=== PATIENT | male | born 1960 | race Caucasian/White ===

== ENCOUNTER 2017-09-09 14:53 | Emergency (ER) | payer OTHER ==
[~2017-09-09] VITALS: Ht 182.9 cm; Wt 145.6 kg
[~2017-09-09 14:53] MED LIST: ALLERGY10 MG PO; AMITRIPTYLINE 550 MG PO; AMLO5TAB PO; ASPIRIN 325MG325 MG PO; ASPIRIN CHILDRE81 M1 PO; BIAXIN500 MG PO; CARDURA4 MG PO; CYCLOBENZAPRINE10 M2 OR; ETODOLAC400 MG PO; FLEXERIL10 MG PO; FLONASE 50 MCG16 GM; FSBS SC; FUROSEMIDE 20MG20 MG FT; FUROSEMIDE40 MG PO; GABAPENTIN300 M1 PO; GLIMEPIRIDE1 MG PO; HCTZ/TRIAMTEREN1 CA2 PO; HYDROCHLOROTHIA25 M1 PO; K-DUR 20MEQ TA20 MEQ PO; LEVOFLOXACIN 5500 M1 PO; LISINOPRIL 20MG20 MG PO; LISINOPRIL40 MG PO; LOVASTATIN40 MG PO; MASON NATURAL1000 MG PO; METOPROLOL SUC100 M1 PO; METOPROLOL TART50 MG PO; METOPROLOL100 MG PO; METOPROLOL50 MG PO; NITROSTAT 0.4M0.4 MG SL; NORVASC 10MG. T10 MG PO; PHENERGAN 25MG.25 M1 PO; POTASSIUM GLUCONATE PO; PREDNISONE 20MG20 MG PO; PRILOSEC40 MG PO; PROAIR HFA0.09 MG/AC IH; PROMETHAZINE D118 ML PO; PROPAFENONE HC150 MG PO; PROVENTIL0.09 MG/AC IH; REQUIP0.5 MG PO; RYTHMOL SR425 MG PO; RYTHMOL300 MG PO; SINGULAIR10 MG PO; TESSALON PERLE100 MG PO; ULTRAM50 MG PO; VENTOLIN H0.09 MG/Ac IH; VICODIN 7.5/501 EACH PO; XARELTO20 MG PO; XOPENEX1.25 MG/3 IH; ZITHROMAX Z PA250 MG PO
--- OUTSIDE RECORDS SUMMARY | 2017-09-09 14:57 | External Medical Summary Rpt ---
Author Author [facility] Organization [facility] Address Unknown Phone Unavailable Care Team Providers Care Animal Sitter Name Role Phone ERIK, (REF) PCP [phone] Encounter [facility] Date(s): 10/01/16 - 10/01/16 [facility] [address] [place] [address]- Discharge Disposition: OP Self Care or Home Attending Physician: CRISTINA LATHAM MD-CAR Admitting Physician: CRISTINA LATHAM MD-CAR Referring Physician: CRISTINA LATHAM MD-CAR Reason for Visit CHEST PAIN, UNSPECIFIED Vital Signs Most recent 1 2 3 to oldest [Reference Range]: Temperature Temporal artery Source scanning (10/01/16 9:00 AM) Temperature Fahrenheit Mode (10/01/16 9:00 AM) Temperature, 96.5 Deg F Fahrenheit *LOW*(10/01/16 [96.8-99.7 9:00 AM) Deg F] Clinical 35.8 Deg C Temperature, (10/01/16 9:00 C AM) Heart Rate, 81 bpm (10/01/16 Apical 9:00 AM) [60-100 bpm] Heart Rate 80 bpm (10/01/16 86 bpm (10/01/16 78 bpm (10/01/16 Monitored 1:45 PM) 1:30 PM) 1:15 PM) [60-100 bpm] Respiratory 11 Breaths/Min 11 Breaths/Min 6 Breaths/Min Rate [14-20 *LOW*(10/01/16 *LOW*(10/01/16 *LOW*(10/01/16 Breaths/Min] 1:45 PM) 1:30 PM) 1:15 PM) Blood Arm, right upper Pressure (10/01/16 9:00 Location AM) Blood Non-Invasive BP Pressure Device (10/01/16 Source 9:00 AM) Blood Side, Right Pressure (10/01/16 9:00 Position AM) Blood 159/91 mmHg Pressure *HI*(10/01/16 [90-140/60-9 9:00 AM) 0 mmHg] Oxygen 91 % 91 % 90 % Saturation *LOW*(10/01/16 *LOW*(10/01/16 *LOW*(10/01/16 [94-100 %] 1:45 PM) 1:30 PM) 1:15 PM) Oxygen Room air Therapy Mode (10/01/16 9:00 AM) Problem List Condition Effective Status Health Informant Dates Status Atrial Active patient fibrillation (Confirmed) Amputation(C Active patient onfirmed) Angina(Confi Active patient rmed) Atrial Active patient flutter(Conf irmed) Diabetes Active patient mellitus type II(Confirmed ) GERD - Active patient Gastro-esoph ageal reflux disease(Conf irmed) Heart Active patient valve(Confir med) Hiatal Active patient hernia(Confi rmed) Histoplasmos Active patient is(Confirmed ) Hyperlipidem Active patient ia(Confirmed ) Hypertension Active patient (Confirmed) COPD, Active patient mild(Confirm ed) Pancreatitis Active patient (Confirmed) PSVT Active patient (paroxysmal supraventric ular tachycardia) (Confirmed) Sleep Active patient apnea(Confir med) Allergies, Adverse Reactions, Alerts Substance Reaction Severity Status Bactrim Active ciprofloxacin Active penicillin Active Medications amitriptyline (amitriptyline 50 mg oral tablet)1 Tab, Oral, At Bedtime, Refills: 0 amLODIPine (amLODIPine 10 mg oral tablet) 1 Tab, Oral, Every Day, Refills: 0 aspirin (aspirin 325 mg oral tablet) 1 Tab, Oral, Every Day, Refills: 0 furosemide (furosemide 20 mg oral tablet) 1 Tab, Oral, Every Day, Refills: 0 lisinopril (lisinopril 40 mg oral tablet) 1 Tab, Oral, Every Day, Refills: 0 lovastatin (lovastatin 40 mg oral tablet) 1 Tab, Oral, Every Day, Refills: 0 metoprolol (metoprolol tartrate) 100 mg, Oral, Three Times A Day, Refills: 0 nitroglycerin (Nitrostat 0.4 mg sublingual tablet)1 Tab, SubLINgual , every 5 minutes, If chest pain not relieved in 5 minutes after first dose, seek immediate medical attention, As Needed, Chest Pain, Refills: 0 potassium chloride (potassium chloride 20 mEq oral tablet, extended release)1 Tab, Oral, Every Day, Refills: 0 rivaroxaban (Xarelto 20 mg oral tablet) 1 Tab, Oral, Every Day, Refills: 0 Results BLOOD GASES Most recent 1 to oldest [Reference Range]: tCO2 Roberto POC 29.0 mmol/L [24.0-29.0 (10/01/16 9:31 AM) mmol/L] GENERAL CHEMISTRY Most recent 1 to oldest [Reference Range]: eGFR 121 mL/min/1.73m2 [>=60 (10/01/16 9:31 AM) mL/min/1.73m 2] eGFR 100 mL/min/1.73m2 NonAfrican (10/01/16 9:31 AM) [>=60 mL/min/1.73m 2] Sodium POC 141 mmol/L [138-146 (10/01/16 9:31 AM) mmol/L] Potassium 3.9 mmol/L POC [3.5-4.9 (10/01/16 9:31 AM) mmol/L] Chloride POC 98 mmol/L [98-109 (10/01/16 9:31 AM) mmol/L] Anion Gap 18.0 mmol/L POC (10/01/16 9:31 AM) [10.0-20.0 mmol/L] Glucose POC 154 mg/dL [70-105 *HI* mg/dL] (10/01/16 9:31 AM) BUN POC 14 mg/dL [8-26 mg/dL] (10/01/16 9:31 AM) Creatinine 0.8 mg/dL POC [0.6-1.3 (10/01/16 9:31 AM) mg/dL] Ca Ioniz POC 1.16 mmol/L [1.12-1.32 (10/01/16 9:31 AM) mmol/L] HEMATOLOGY Most recent 1 to oldest [Reference Range]: Platelet 411 K/uL Count *HI* [163-369 (10/01/16 9:00 AM) K/uL] Hematocrit 51.0 % POC (10/01/16 9:31 AM) [38.0-51.0 %] Hemoglobin 17.3 Gram/dL POC *HI* [12.0-17.0 (10/01/16 9:31 AM) Gram/dL] Immunizations No data available for this section Procedures Procedure Date Related Body Site Diagnosis cholecystectomy Cholecystectomy; heart cath x 2 Hernia Repair T and A as child ventral hernia repair Social History Social History Response Type Smoking Status Current every day smoker; Tobacco Use Within Last Twelve Months Cigarettes; Years of Tobacco Use 40; Packs/Tins Daily 1 Assessment and Plan No data available for this section Hospital Discharge Instructions Patient EducationConscious Sedation, Adult, Care After Transradial Angiography
--- OUTSIDE RECORDS SUMMARY | 2017-09-09 14:57 | External Medical Summary Rpt ---
Author Author [facility] Organization [facility] Address Unknown Phone Unavailable Care Team Providers Care Supervisor Matrix Name Role Phone ERIK, (REF) PCP [phone] Encounter [facility] Date(s): 10/01/16 - 10/01/16 [facility] [address] [place] [address]- [phone] Discharge Disposition: OP Self Care or Home [...]
--- OUTSIDE RECORDS SUMMARY | 2017-09-09 14:58 | External Medical Summary Rpt ---
Author Author [facility] Organization [facility] Address Unknown Phone Unavailable Care Team Providers Care Disintegrator Operator Name Role Phone FITO CARDONA PCP [phone] Encounter [facility] Date(s): 10/02/16 - 10/04/16 [facility] [address] [place] [address]- [phone] Discharge Diagnosis: Atrial flutter, paroxysmal Discharge Diagnosis: Persistent atrial fibrillation Discharge Disposition: OP Self Care or Home Attending Physician: SAVI NIELSON MD-CAR Admitting Physician: SAVI NIELSON MD-CAR Referring Physician: SAVI NIELSON MD-CAR Reason for Visit CHRONIC ATRIAL FIBRILLATION Vital Signs Most recent 1 2 3 to oldest [Reference Range]: Temperature Temporal artery Source scanning (10/04/16 6:10 AM) Temperature Fahrenheit Mode (10/04/16 6:10 AM) Temperature, 98.1 Deg F Fahrenheit (10/04/16 6:10 [96.8-99.7 AM) Deg F] Clinical 36.7 Deg C Temperature, (10/04/16 6:10 C AM) Pulse Method Non-Invasive BP Device (10/04/16 6:10 AM) Heart Rate, 86 bpm (10/04/16 Apical 11:34 AM) [60-100 bpm] Peripheral 74 bpm (10/04/16 Pulse Rate 6:10 AM) [60-100 bpm] Heart Rate 100 bpm (10/04/16 96 bpm (10/04/16 96 bpm (10/04/16 Monitored 4:15 PM) 3:45 PM) 3:15 PM) [60-100 bpm] Respiratory 21 Breaths/Min 27 Breaths/Min 28 Breaths/Min Rate [14-20 *HI*(10/04/16 *HI*(10/04/16 *HI*(10/04/16 Breaths/Min] 4:15 PM) 3:45 PM) 3:15 PM) Blood Arm, right upper Pressure (10/04/16 6:10 Location AM) Blood Non-Invasive BP Pressure Device (10/04/16 Source 6:10 AM) Blood 140/69 mmHg 121/66 mmHg 124/66 mmHg Pressure (10/04/16 4:15 (10/04/16 3:45 (10/04/16 3:15 [90-140/60-9 PM) PM) PM) 0 mmHg] Mean 92 (10/04/16 4:15 79 (10/04/16 3:45 83 (10/04/16 3:15 Arterial PM) PM) PM) Pressure (MAP)-BMDI Oxygen 94 % (10/04/16 94 % (10/04/16 91 % Saturation 2:45 PM) 2:30 PM) *LOW*(10/04/16 [94-100 %] 2:15 PM) Oxygen Room air Room air Room air Therapy Mode (10/04/16 1:45 (10/04/16 1:30 (10/04/16 1:15 PM) PM) PM) Problem List Condition Effective Status Health Informant Dates Status Atrial Active patient fibrillation (Confirmed) Allergic Active patient rhinitis(Con firmed) Angina(Confi Active patient rmed) Arthritis(Co Active patient nfirmed) Atrial Active patient flutter(Conf irmed) Back Active patient pain(Confirm ed) Bronchitis(C Active patient onfirmed) Bursitis(Con Active patient firmed) Chronic Active patient constipation (Confirmed) Chronic Active patient cough(Confir med) Diabetes Active patient mellitus type II(Confirmed ) GERD - Active patient Gastro-esoph ageal reflux disease(Conf irmed) Hard of Active patient hearing(Conf irmed) Heart Active patient failure(Conf irmed) Heart Active patient valve(Confir med) Hemorrhoids( Active patient Confirmed) Hiatal Active patient hernia(Confi rmed) Histoplasmos Active patient is(Confirmed ) Hx of Active patient seborrhea(Co nfirmed) Hyperlipidem Active patient ia(Confirmed ) Hypertension Active patient (Confirmed) COPD, Active patient mild(Confirm ed) Pancreatitis Active patient (Confirmed) PSVT Active patient (paroxysmal supraventric ular tachycardia) (Confirmed) Peripheral Active patient neuropathy(C onfirmed) Peripheral Active patient vascular disease(Conf irmed) Pneumonia(Co Active patient nfirmed) Restless Active patient legs syndrome(Con firmed) Sinusitis(Co Active patient nfirmed) Sleep Active patient apnea(Confir med) Allergies, Adverse Reactions, Alerts Substance Reaction Severity Status Bactrim rash , fever Active ciprofloxacin hives Active penicillin anaphylaxis as child Active tetracyclines unsure Active Medications albuterol (albuterol 1.25 mg/3 mL (0.042%) inhalation solution)3 mL, Nebulized Inhalation , Four Times A Day, As Needed, Wheezing, Refills: 0 albuterol (ProAir HFA) 1-2 Puff, Inhalation, Every 4 Hours, As Needed, as needed for wheezing, Refills: 0 furosemide (furosemide 40 mg oral tablet) 1 Tab, Oral, Every Day, Refills: 0 gabapentin (gabapentin 300 mg oral capsule) 1 Cap, Oral, Two Times A Day, Refills: 0 montelukast (Singulair 10 mg oral tablet) 1 Tab, Oral, At Bedtime, Refills: 0 propafenone (propafenone 425 mg oral capsule, extended release)1 Cap, Oral, every 12 hours, ON HOLD UNTIL FURTHER ORDERS FROM DR. NIELSON, Refills: 0Patient Instructions: Ok to resume dose tonight 10/04/2016 at bedtime. Results BLOOD GASES Most recent 1 to oldest [Reference Range]: tCO2 Roberto POC 28.0 mmol/L [24.0-29.0 (10/04/16 6:10 AM) mmol/L] GENERAL CHEMISTRY Most recent to oldest [Reference Range]: eGFR 141 mL/min/1.73m2 [>=60 (10/04/16 6:10 AM) mL/min/1.73m 2] eGFR 117 mL/min/1.73m2 NonAfrican (10/04/16 6:10 AM) [>=60 mL/min/1.73m 2] Sodium POC 141 mmol/L [138-146 (10/04/16 6:10 AM) mmol/L] Potassium 3.9 mmol/L POC [3.5-4.9 (10/04/16 6:10 AM) mmol/L] Chloride POC 99 mmol/L [98-109 (10/04/16 6:10 AM) mmol/L] Anion Gap 18.0 mmol/L POC (10/04/16 6:10 AM) [10.0-20.0 mmol/L] Glucose POC 153 mg/dL [70-105 *HI* mg/dL] (10/04/16 6:10 AM) BUN POC 11 mg/dL [8-26 mg/dL] (10/04/16 6:10 AM) Creatinine 0.7 mg/dL POC [0.6-1.3 (10/04/16 6:10 AM) mg/dL] Ca Ioniz POC 1.19 mmol/L [1.12-1.32 (10/04/16 6:10 AM) mmol/L] HEMATOLOGY Most recent 1 to oldest [Reference Range]: Platelet 328 K/uL Count (10/04/16 6:07 AM) [163-369 K/uL] Hematocrit 50.0 % POC (10/04/16 6:10 AM) [38.0-51.0 %] Hemoglobin 17.0 Gram/dL POC (10/04/16 6:10 AM) [12.0-17.0 Gram/dL] Immunizations No data available for this section Procedures No data available for this section Social History Social History Response Type Smoking Status Current every day smoker; Tobacco Use Within Last Twelve Months Cigarettes; Years of Tobacco Use 40; Packs/Tins Daily 1 Assessment and Plan No data available for this section Hospital Discharge Instructions Patient EducationCardiac Ablation Conscious Sedation, Adult, Care After Electrical Cardioversion, Care After Electrophysiology Study Groin Site Care (Custom) (Custom) Smoking Cessation Transesophageal Echocardiogram
--- OUTSIDE RECORDS SUMMARY | 2017-09-09 14:58 | External Medical Summary Rpt ---
Author Author [facility] Organization [facility] Address Unknown Phone Unavailable Care Team Providers Care Olive Picker Name Role Phone FITO CARDONA PCP [phone] Encounter [facility] Date(s): 10/02/16 - 10/04/16 [facility] [address] [place] [address]- [phone] Discharge Diagnosis: Atrial flutter, paroxysmal Discharge Diagnosis: [...]
--- OUTSIDE RECORDS SUMMARY | 2017-09-09 15:00 | External Medical Summary Rpt ---
Author Author [facility] Organization [facility] Address Unknown Phone Unavailable Care Team Providers Care Supervisory Aide Name Role Phone BRENDAN FITO PCP [phone] [facility]16 - 10/17/16 [facility] [address] [place] [id number]- Discharge Disposition: IP Self Care / Home Attending Physician: FLAQUITO SANTANA MD Admitting Physician: FLAQUITO SANTANA MD Referring Physician: FLAQUITO SANTANA MD Reason for Visit NONTRAUMATIC HEMATOMA OF SOFT TISSUE Vital Signs Most recent 1 2 3 to oldest [Reference Range]: Temperature Oral (10/17/16 Oral (10/16/16 Oral (10/16/16 Source 6:00 AM) 10:30 PM) 5:20 PM) Temperature Fahrenheit Fahrenheit Fahrenheit Mode (10/17/16 6:00 (10/16/16 10:30 (10/16/16 5:20 AM) PM) PM) Temperature, 97.5 Deg F 98.3 Deg F 98.0 Deg F Fahrenheit (10/17/16 6:00 (10/16/16 10:30 (10/16/16 5:20 [96.8-99.7 AM) PM) PM) Deg F] Clinical 36.4 Deg C 36.8 Deg C 36.1 Deg C Temperature, (10/17/16 6:00 (10/16/16 10:30 (10/16/16 12:00 C AM) PM) PM) Heart Rate, 87 bpm (10/17/16 86 bpm (10/17/16 82 bpm (10/17/16 Apical 1:54 PM) 8:58 AM) 2:59 AM) [60-100 bpm] Heart Rate 86 bpm (10/17/16 80 bpm (10/17/16 72 bpm (10/17/16 Monitored 12:05 PM) 7:35 AM) 7:30 AM) [60-100 bpm] Respiratory 18 Breaths/Min 16 Breaths/Min 16 Breaths/Min Rate [14-20 (10/17/16 12:05 (10/17/16 7:35 (10/17/16 7:30 Breaths/Min] PM) AM) AM) Blood 132/70 mmHg 138/66 mmHg 102/84 mmHg Pressure (10/17/16 8:58 (10/17/16 6:00 (10/16/16 10:30 [90-140/60-9 AM) AM) PM) 0 mmHg] Mean 82 (10/17/16 6:00 88 (10/16/16 85 (10/16/16 Arterial AM) 10:30 PM) 12:00 PM) Pressure (MAP)-BMDI Blood 179/52 mmHg 163/59 mmHg 154/50 mmHg Pressure *HI*(10/08/16 *HI*(10/08/16 *HI*(10/08/16 Invasive 9:00 AM) 8:00 AM) 7:00 AM) [90-140/60-9 0 mmHg] Mean 82 mmHg (10/08/16 88 mmHg (10/08/16 79 mmHg (10/08/16 Arterial 9:00 AM) 8:00 AM) 7:00 AM) Pressure, Line 1 Oxygen 96 % (10/17/16 100 % (10/17/16 97 % (10/17/16 Saturation 12:05 PM) 7:35 AM) 7:30 AM) [94-100 %] Oxygen Room air Room air Room air Therapy Mode (10/17/16 12:05 (10/17/16 7:35 (10/17/16 7:31 PM) AM) AM) Oxygen Flow 3 Liter/Min 3 Liter/Min 3 Liter/Min Rate (10/16/16 8:20 (10/16/16 6:45 (10/16/16 12:50 AM) AM) AM) FiO2 Nursing 35 % (10/10/16 35 % (10/10/16 35 % (10/09/16 3:10 AM) 3:03 AM) 10:34 PM) Problem List Condition Effective Status Health [...] as child Active tetracyclines unsure Active Medications acetaminophen-oxyCODONE (acetaminophen-oxyCODONE 325 mg-5 mg oral tablet)1 Tab, Oral, Every 6 Hours, 5 Day(s), As Needed, Pain (Moderate 4-6), Refills: 0Patient Instructions: Written RXOrdering provider: BELA SALTER MD-INT albuterol (albuterol 2.5 mg/3 mL (0.083%) inhalation solution)3 mL, Nebulized Inhalation , Every 6 Hours, As Needed, for wheezing, Refills: 0 albuterol (ProAir HFA 90 mcg/inh inhalation aerosol)2 Puff, Inhalation, Four Times A Day, As Needed, for wheezing, Refills: 0 aspirin (aspirin 81 mg oral tablet)1 Tab, Oral, Every Day, 30 Day(s), Refills: 0Patient Instructions: Written RXOrdering provider: BELA SALTER MD-INT cefdinir (cefdinir 300 mg oral capsule)1 Cap, Oral, every 12 hours, 2 Day(s), Refills: 0Patient Instructions: Written RXOrdering provider: BELA SALTER MD-INT ferrous sulfate (ferrous sulfate 325 mg (65 mg elemental iron) oral delayed release tablet)1 Tab, Oral, Twice a Day With Meals, Refills: 0Patient Instructions: Written RXOrdering provider: BELA SALTER MD-INT furosemide (Lasix 20 mg oral tablet) 1 Tab, Oral, Every Day, Refills: 0 metoprolol (Metoprolol Tartrate 100 mg oral tablet)1 Tab, Oral, Two Times A Day, Refills: 0Patient Instructions: Written RXOrdering provider: BELA SALTER MD-INT rivaroxaban (Xarelto 20 mg oral tablet)1 Tab, Oral, Every Evening, with evening meal, Refills: 0Patient Instructions: Written RxOrdering provider: BELA SALTER MD-INT triamcinolone topical (triamcinolone 0.1% topical cream)1 Application, Topical, Two Times A Day, apply to face as directed, Refills: 0 Results BLOOD GASES Most recent 1 2 3 to oldest [Reference Range]: pH Art 7.41 (10/08/16 7.39 (10/07/16 7.38 (10/07/16 [7.35-7.45] 3:10 AM) 2:00 PM) 9:30 AM) pCO2 Art 41.8 mmHg 41.9 mmHg 42.6 mmHg [35.0-45.0 (10/08/16 3:10 (10/07/16 2:00 (10/07/16 9:30 mmHg] AM) PM) AM) pO2 Art 92.3 mmHg 75.5 mmHg 80.5 mmHg [80.0-100.0 (10/08/16 3:10 *LOW*(10/07/16 (10/07/16 9:30 mmHg] AM) 2:00 PM) AM) HCO3 Art 25.7 mmol/L 24.9 mmol/L 24.7 mmol/L [20.0-26.0 (10/08/16 3:10 (10/07/16 2:00 (10/07/16 9:30 mmol/L] AM) PM) AM) BE Art 1.4 mmol/L .5 mmol/L .2 mmol/L [-2.0-2.0 (10/08/16 3:10 (10/07/16 2:00 (10/07/16 9:30 mmol/L] AM) PM) AM) sO2 Art 96.7 % (10/08/16 94.1 % 94.9 % [95.0-100.0 3:10 AM) *LOW*(10/07/16 *LOW*(10/07/16 %] 2:00 PM) 9:30 AM) tHb Art 9.1 Gram/dL 9.3 Gram/dL 9.1 Gram/dL [12.0-18.0 *LOW*(10/08/16 *LOW*(10/07/16 *LOW*(10/07/16 Gram/dL] 3:10 AM) 2:00 PM) 9:30 AM) FHHb 3.2 % 5.8 % 5.0 % *NA*(10/08/16 *NA*(10/07/16 *NA*(10/07/16 3:10 AM) 2:00 PM) 9:30 AM) ctO2 12.2 mmol/L 12.1 mmol/L 11.9 mmol/L *NA*(10/08/16 *NA*(10/07/16 *NA*(10/07/16 3:10 AM) 2:00 PM) 9:30 AM) FIO2 Art 35 % 50 % 50 % *NA*(10/08/16 *NA*(10/07/16 *NA*(10/07/16 3:10 AM) 2:00 PM) 9:30 AM) Delivery Non-Invasive Ventilator Ventilator Device Type Ventilation (10/07/16 9:30 (10/07/16 3:05 Art (10/08/16 3:10 AM) AM) AM) Temperature, 98.6 Deg F 98.6 Deg F 98.6 Deg F F Art *NA*(10/08/16 *NA*(10/07/16 *NA*(10/07/16 3:10 AM) 2:00 PM) 9:30 AM) Art Blood Arterial Line Arterial Line Arterial Line Gas (ABG) (10/08/16 3:10 (10/07/16 2:00 (10/07/16 9:30 Site AM) PM) AM) Acceptable Acceptable Acceptable Acceptable Randall's Test (10/08/16 3:10 (10/07/16 2:00 (10/07/16 9:30 Art AM) PM) AM) [Acceptable] Ventilator Spontaneous Assist Control Synchronized Mode Art (10/07/16 2:00 Ventilation Intermittent PM) (10/07/16 9:30 Mandatory AM) Ventilation (SIMV) (10/07/16 3:05 AM) Tidal Volume 500.0 mL 750.0 mL 750.0 mL Set Art *NA*(10/07/16 *NA*(10/07/16 *NA*(10/06/16 9:30 AM) 3:05 AM) 11:12 PM) Set Rate Art 14.0 14.0 12.0 *NA*(10/08/16 *NA*(10/07/16 *NA*(10/07/16 3:10 AM) 9:30 AM) 3:05 AM) Respiratory 16.0 24.0 14.0 Rate Art *NA*(10/08/16 *NA*(10/07/16 *NA*(10/07/16 3:10 AM) 2:00 PM) 9:30 AM) CPAP/PEEP 5.0 cmH2O 5.0 cmH2O 5.0 cmH2O Art *NA*(10/07/16 *NA*(10/07/16 *NA*(10/07/16 2:00 PM) 9:30 AM) 3:05 AM) Pressure 5.0 cmH2O 8.0 cmH2O 8.0 cmH2O Support Art *NA*(10/07/16 *NA*(10/07/16 *NA*(10/07/16 2:00 PM) 9:30 AM) 3:05 AM) Comment Art 12/6 *NA*(10/08/16 3:10 AM) ABG Num of 1 *NA*(10/08/16 1 *NA*(10/07/16 1 *NA*(10/07/16 Draw 3:10 AM) 2:00 PM) 9:30 AM) Attempts (10/08/16 3:10 AM) (10/07/16 2:00 PM) (10/07/16 9:30 AM) GENERAL CHEMISTRY Most recent 1 2 3 to oldest [Reference Range]: Sodium Level 140 mmol/L 139 mmol/L 138 mmol/L [136-146 (10/17/16 2:40 (10/16/16 6:29 (10/15/16 5:52 mmol/L] AM) AM) AM) Potassium 4.0 mmol/L 4.0 mmol/L 3.9 mmol/L Level (10/17/16 2:40 (10/16/16 6:29 (10/15/16 5:52 [3.5-5.1 AM) AM) AM) mmol/L] Chloride 106 mmol/L 103 mmol/L 102 mmol/L Level (10/17/16 2:40 (10/16/16 6:29 (10/15/16 5:52 [102-112 AM) AM) AM) mmol/L] Carbon 26 mmol/L 27 mmol/L 26 mmol/L Dioxide (10/17/16 2:40 (10/16/16 6:29 (10/15/16 5:52 Level [21-32 AM) AM) AM) mmol/L] Anion Gap 12 (10/17/16 2:40 13 (10/16/16 6:29 14 (10/15/16 5:52 [9-20] AM) AM) AM) Glucose 102 mg/dL 103 mg/dL 117 mg/dL Level (10/17/16 2:40 (10/16/16 6:29 *HI*(10/15/16 [74-106 AM) AM) 5:52 AM) mg/dL] Blood Urea 18 mg/dL 17 mg/dL 17 mg/dL Nitrogen (10/17/16 2:40 (10/16/16 6:29 (10/15/16 5:52 [7-22 mg/dL] AM) AM) AM) Creatinine 1.10 mg/dL 1.10 mg/dL 1.10 mg/dL Level (10/17/16 2:40 (10/16/16 6:29 (10/15/16 5:52 [0.70-1.30 AM) AM) AM) mg/dL] eGFR 84 mL/min/1.73m2 84 mL/min/1.73m2 84 mL/min/1.73m2 [>=60 (10/17/16 2:40 (10/16/16 6:29 (10/15/16 5:52 mL/min/1.73m AM) AM) AM) 2] eGFR 69 mL/min/1.73m2 69 mL/min/1.73m2 69 mL/min/1.73m2 NonAfrican (10/17/16 2:40 (10/16/16 6:29 (10/15/16 5:52 [>=60 AM) AM) AM) mL/min/1.73m 2] Bun/Creatini 16.4 (10/17/16 15.5 (10/16/16 15.5 (10/15/16 ne 2:40 AM) 6:29 AM) 5:52 AM) [8.0-20.0] Calcium 8.1 mg/dL 8.1 mg/dL 8.1 mg/dL Level *LOW*(10/17/16 *LOW*(10/16/16 *LOW*(10/15/16 [8.5-10.1 2:40 AM) 6:29 AM) 5:52 AM) mg/dL] Protein 5.6 Gram/dL 6.4 Gram/dL Total *LOW*(10/07/16 (10/06/16 5:00 [6.4-8.2 3:30 AM) AM) Gram/dL] Albumin 2.6 Gram/dL 2.9 Gram/dL Level *LOW*(10/07/16 *LOW*(10/06/16 [3.4-5.0 3:30 AM) 5:00 AM) Gram/dL] Globulin 3.0 Gram/dL 3.5 Gram/dL [1.5-4.5 (10/07/16 3:30 (10/06/16 5:00 Gram/dL] AM) AM) A/G Ratio 0.9 0.8 [1.1-2.5] *LOW*(10/07/16 *LOW*(10/06/16 3:30 AM) 5:00 AM) Bilirubin 1.2 mg/dL 1.0 mg/dL Total *HI*(10/07/16 (10/06/16 5:00 [0.2-1.0 3:30 AM) AM) mg/dL] Alk Phos 80 Units/Liter 83 Units/Liter [27-136 (10/07/16 3:30 (10/06/16 5:00 Units/Liter] AM) AM) AST [5-37 41 Units/Liter 15 Units/Liter Units/Liter] 1*HI*(10/07/16 (10/06/16 5:00 3:30 AM) AM) ALT [12-78 42 Units/Liter 26 Units/Liter Units/Liter] (10/07/16 3:30 (10/06/16 5:00 AM) AM) Magnesium 2.0 mg/dL Level (10/06/16 5:00 [1.5-2.4 AM) mg/dL] Ammonia 24.0 uMol/L Level (10/11/16 1:00 [11.0-32.0 PM) uMol/L] Glucose POC2 144 mg/dL 164 mg/dL 132 mg/dL [60-110 *HI*(10/17/16 2*HI*(10/17/16 3*HI*(10/16/16 mg/dL] 11:41 AM) 5:49 AM) 10:12 PM) 1Result Comment: Released without repeat.2Result Comment: Nurse Notified of [id number] Comment: Nurse Notified of ResultURINE CHEMISTRY Most recent 1 2 3 to oldest [Reference Range]: Creatinine 141 mg/dL Urine Random *NA*(10/09/16 6:39 PM) Protein Ur 56 mg/dL Telephone *NA*(10/09/16 6:39 PM) Sodium Ur 15 mMole/Liter Telephone *NA*(10/09/16 6:39 PM) VITAMIN CHEMISTRY Most recent 1 2 3 to oldest [Reference Range]: Vitamin B12 377 pg/mL Level (10/11/16 1:00 [211-911 PM) pg/mL] CARDIAC SPECIFIC MARKERS Most recent 1 2 3 to oldest [Reference Range]: CK [39-308 290 Units/Liter Units/Liter] (10/10/16 7:56 AM) Troponin I 0.031 ng/mL Ultra (10/06/16 5:00 [0.015-0.045 AM) ng/mL] ProBNP 377 pg/mL 126 pg/mL [0-125 *HI*(10/10/16 *HI*(10/06/16 pg/mL] 7:56 AM) 5:00 AM) HEMATOLOGY Most recent 1 2 3 to oldest [Reference Range]: WBC [4.2-9.1 11.7 K/uL 12.0 K/uL 13.3 K/uL K/uL] *HI*(10/17/16 *HI*(10/16/16 *HI*(10/15/16 2:40 AM) 6:29 AM) 5:52 AM) RBC 2.86 Million/uL 2.89 Million/uL 2.92 Million/uL [4.63-6.08 *LOW*(10/17/16 *LOW*(10/16/16 *LOW*(10/15/16 Million/uL] 2:40 AM) 6:29 AM) 5:52 AM) Hgb 8.4 g/dL 8.4 g/dL 8.5 g/dL [13.7-17.5 *LOW*(10/17/16 *LOW*(10/16/16 *LOW*(10/15/16 g/dL] 2:40 AM) 6:29 AM) 5:52 AM) Hct 26.9 % 27.1 % 26.9 % [40.1-51.0 *LOW*(10/17/16 *LOW*(10/16/16 *LOW*(10/15/16 %] 2:40 AM) 6:29 AM) 5:52 AM) MCV 94.1 fL (10/17/16 93.8 fL (10/16/16 92.1 fL (10/15/16 [79.0-94.8 2:40 AM) 6:29 AM) 5:52 AM) fL] MCH 29.4 pg (10/17/16 29.1 pg (10/16/16 29.1 pg (10/15/16 [25.6-32.2 2:40 AM) 6:29 AM) 5:52 AM) pg] MCHC 31.2 Gram/dL 31.0 Gram/dL 31.6 Gram/dL [32.2-36.5 *LOW*(10/17/16 *LOW*(10/16/16 *LOW*(10/15/16 Gram/dL] 2:40 AM) 6:29 AM) 5:52 AM) Platelet 521 K/uL 504 K/uL 477 K/uL Count *HI*(10/17/16 *HI*(10/16/16 *HI*(10/15/16 [163-369 2:40 AM) 6:29 AM) 5:52 AM) K/uL] MPV 9.4 fL (10/17/16 9.7 fL (10/16/16 9.5 fL (10/15/16 [9.4-12.4 2:40 AM) 6:29 AM) 5:52 AM) fL] RDW 14.1 % (10/17/16 14.1 % (10/16/16 13.9 % (10/15/16 [11.6-14.4 2:40 AM) 6:29 AM) 5:52 AM) %] Neutrophil 76 % Percent Man *HI*(10/08/16 [50-65 %] 4:03 AM) Band Percent 1 % Man [5-11 *LOW*(10/08/16 %] 4:03 AM) ANC # 10 K/uL *NA*(10/08/16 4:03 AM) Lymph 11 % Percent Man *LOW*(10/08/16 [24-44 %] 4:03 AM) ALYC # 1 K/uL *NA*(10/08/16 4:03 AM) [place] Percent 10 % Man [4-5 %] *HI*(10/08/16 4:03 AM) Eos Percent 1 % (10/08/16 Man [0-3 %] 4:03 AM) Baso Percent 1 % (10/08/16 Man [0-1 %] 4:03 AM) RBC Abnormal Morphology (10/08/16 4:03 AM) Anisocytosis 1+ *ABN*(10/08/16 4:03 AM) (10/08/16 4:03 AM) Polychromasi 1+ *ABN*(10/08/16 a 4:03 AM) (10/08/16 4:03 AM) Hypochromia 1+ *ABN*(10/08/16 4:03 AM) (10/08/16 4:03 AM) Platelet Ct Adequate Estimate (10/08/16 4:03 [Adequate] AM) Giant Occasional Platelet (10/08/16 4:03 AM) Slide Review No (10/17/16 2:40 No (10/16/16 6:29 No (10/15/16 5:52 AM) AM) AM) COAGULATION Most recent 1 2 3 to oldest [Reference Range]: PT [9.5-11.3 12.1 Second(s) Second(s)] *HI*(10/06/16 5:00 AM) INR 1.2 *HI*(10/06/16 [0.0-1.1] 5:00 AM) (10/06/16 5:00 AM) ENDOCRINOLOGY Most recent 1 2 3 to oldest [Reference Range]: TSH 1.690 mcInt [0.358-3.740 Units/mL mcInt (10/11/16 1:00 Units/mL] PM) BLOOD BANK Most recent 1 2 3 to oldest [Reference Range]: ABO/Rh A POS (ECHO) *Unknown*( 6 12:21 PM) ABO/Rh A POS Repeat *Unknown*( 6 5:00 AM) Antibody Negative ABSC Screen (10/06/16 12:21 PM) RBC Product RBC Ready Ready (10/06/16 12:01 PM) # of Units 2 *NA*(10/06/16 12:01 PM) (10/06/16 12:01 PM) Immunizations No data available for this section Procedures No data available for this section Social History Social History Response Type Smoking Status Current every day smoker; Smoking Frequency Within Last 30 Days Five or more cigarettes per day; Tobacco Use Within Last Twelve Months Cigarettes; Years of Tobacco Use 40; Packs/Tins Daily 1; Used Tobacco, but Quit No; Second Hand Smoke Exposure Yes Assessment and Plan Extracted from: Title: Progress Note, Author: GAETANO, Date: 10/16/16 Acute Care MD BELA-INT Basic Informationstill feeling weak , deny any chest pain or shortness of breath, no fever or chills, his confusion is improving Review of Systems Constitutional: Weakness, Fatigue. Eye: Negative. Ear/Nose/Mouth/Throat: Negative. Respiratory: Shortness of breath, Cough. Cardiovascular: Negative. Gastrointestinal: Negative. Genitourinary: Negative. Hematology/Lymphatics: Negative. Endocrine: Negative. Musculoskeletal: Negative. Integumentary: Negative. Neurologic: Abnormal balance. Psychiatric: Negative. Physical ExaminationVS/MeasurementsVitals Signs (last 24 hrs) Last Charted Minimum MaximumTemp 97.2 (OCT 16 06:45)97.2 (OCT 16 06:45)99.1 (OCT 15 23:25)Apical HR 86 (OCT 16 09:00)78 (OCT 15 12:49)91 (OCT 15 21:35)Mon HR 86 (OCT 16 09:00)76 (OCT 15 23:25)91 (OCT 15 21:30)Resp Rate 18 (OCT 16 08:20)16 (OCT 15 17:00)20 (OCT 16 00:43)SBP 130 (OCT 16 09:00)97 (OCT 15 23:25)130 (OCT 16 09:00)DBP 71 (OCT 16 09:00)L 54 (OCT 16 06:45)76 (OCT 16 03:18)MAP 85 (OCT 16 09:00)71 (OCT 16 06:45)95 (OCT 16 03:18)SpO2 94 (OCT 16 06:45)94 (OCT 15 11:30)94 (OCT 15 11:30)General: Alert and oriented, No acute distress.Eye: Pupils are equal, round and reactive to light, Normal conjunctiva.HENT: Normocephalic, Oral mucosa is moist.Neck: Supple.Respiratory: Respirations are non-labored, Breath sounds are equal, Symmetrical chest wall expansion, diminished at the bases.Cardiovascular: Normal rate, Regular rhythm, No murmur, No gallop.Gastrointestinal: Soft, Non-distended, Normal bowel sounds.Musculoskeletal: Normal range of motion, No swelling, No deformity.Integumentary: Warm, Dry, Tillar.Neurologic: Alert, Normal sensory, No focal deficits, Cranial Nerves II-XII are grossly intact, Left power 4/5, rt 5/5, confused.Psychiatric: Cooperative. Neurologic: Alert, Normal sensory, No focal deficits, Cranial Nerves II-XII are grossly intact, Left power 4/5, rt 5/5, confused. Psychiatric: Cooperative. Review / ManagementResults review:Labs (Last four charted values)WBC H 12.0(OCT 16)H 13.3(OCT 15)H 12.2(OCT 14)H 11.4(OCT 13)HB L 8.4(OCT 16)L 8.5(OCT 15)L 8.4(OCT 14)L 8.0(OCT 13)HCT L 27.1(OCT 16)L 26.9(OCT 15)L 26.4(OCT 14)L 25.2(OCT 13)Plt H 504(OCT 16)H 477(OCT 15)H 441(OCT 14)H 403(OCT 13)Na 139(OCT 16)138(OCT 15)138(OCT 14)139(OCT 13)K 4.0(OCT 16)3.9(OCT 15)3.8(OCT 14)3.8(OCT 13)Cl 103(OCT 16)102(OCT 15)103(OCT 14)103(OCT 13)CO2 27(OCT 16)26(OCT 15)27(OCT 14)29(OCT 13)BUN 17(OCT 16)17(OCT 15)20(OCT 14)22(OCT 13)Cr 1.10(OCT 16)1.10(OCT 15)1.10(OCT 14)1.20(OCT 13)Glu R 103(OCT 16)H 117(OCT 15)H 117(OCT 14)H 120(OCT 13)Ca L 8.1(OCT 16)L 8.1(OCT 15)L 8.1(OCT 14)L 8.0(OCT 13)PT H 12.1(OCT 06)INR H 1.2(OCT 06)AST H 41(OCT 07)15(OCT 06)ALT 42(OCT 07)26(OCT 06)ALK P 80(OCT 07)83(OCT 06)T Bili H 1.2(OCT 07)1.0(OCT 06)PTN L 5.6(OCT 07)6.4(OCT 06)ALB L 2.6(OCT 07)L 2.9(OCT 06)Troponin 0.031(OCT 06)PROBNP H 377(OCT 10)H 126(OCT 06). AST H 41(OCT 07)15(OCT 06) ALT 42(OCT 07)26(OCT 06) ALK P 80(OCT 07)83(OCT 06) T Bili H 1.2(OCT 07)1.0(OCT 06) PTN L 5.6(OCT 07)6.4(OCT 06) ALB L 2.6(OCT 07)L 2.9(OCT 06) Troponin 0.031(OCT 06) PROBNP H 377(OCT 10)H 126(OCT 06) . Impression and Plan 1. 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 History of atrial fibrillation, status post ablation. continue beta romel. Continue Xarelto 3. Coronary artery disease. Stable Cardiology following 4. Hypertension. Controlled Continue blood pressure medication plus hydralazine as needed. 5. Neuropathy, Continue gabapentin, 6. Hyperlipidemia, Continue statin Ac renal failure- Improved Continue to monitor renal function closely Disp- needs rehab ?[facility] TIME SPENT: 23 minutes Extracted from: Title: Progress Note, Author: GAETANO, Date: 10/15/16 Acute Care MD BELA-INT Basic Informationfeel fine,still weak and unstable when he walks no fever or chills, no chest pain or shortness of breath, still with mild confusion no fever or chills, no chest pain or shortness of breath, still with mild confusion Review of Systems Constitutional: Weakness, Fatigue. Eye: Negative. Ear/Nose/Mouth/Throat: Negative. Respiratory: Shortness of breath, Cough. Cardiovascular: Negative. Gastrointestinal: Negative. Genitourinary: Negative. Hematology/Lymphatics: Negative. Endocrine: Negative. Musculoskeletal: Negative. Integumentary: Negative. Neurologic: Abnormal balance. Psychiatric: Negative. Physical ExaminationVS/MeasurementsVitals Signs (last 24 hrs) Last Charted Minimum MaximumTemp 97.6 (OCT 15 06:29)97.6 (OCT 15 06:29)98.4 (OCT 14 18:18)Apical HR 86 (OCT 15 09:23)86 (OCT 15 09:23)94 (OCT 14 22:15)Mon HR 87 (OCT 15 11:16)82 (OCT 15 11:10)91 (OCT 14 20:26)Resp Rate 18 (OCT 15 06:)18 (OCT 14 20:15)19 (OCT 14:26)SBP 130 (OCT 15:29)121 (OCT 14 18:18)130 (OCT 15 06:29)DBP 73 (OCT 15:)63 (OCT 14 18:18)73 (OCT 15:29)MAP 94 (OCT 15:)92 (OCT 14 18:18)94 (OCT 15 06:29)SpO2 95 (OCT 15:)94 (OCT 14 18:18)96 (OCT 14 20:15)General: No acute distress.Eye: Pupils are equal, round and reactive to light, Normal conjunctiva.HENT: Normocephalic, Oral mucosa is moist.Neck: Supple.Respiratory: Respirations are non-labored, Breath sounds are equal, Symmetrical chest wall expansion, diminished at the bases.Cardiovascular: Normal rate, Regular rhythm, No murmur, No gallop.Gastrointestinal: Soft, Non-distended, Normal bowel sounds.Musculoskeletal: No swelling, No deformity.Integumentary: Warm, Dry, Tillar.Neurologic: Alert, Normal sensory, No focal deficits, Cranial Nerves II-XII are grossly intact, Left power 4/5, rt 5/5, confused.Psychiatric: Cooperative. Integumentary: Warm, Dry, Tillar. Neurologic: Alert, Normal sensory, No focal deficits, Cranial Nerves II-XII are grossly intact, Left power 4/5, rt 5/5, confused. Psychiatric: Cooperative. Review / ManagementResults review:Labs (Last four charted values)WBC H 13.3(OCT 15)H 12.2(OCT 14)H 11.4(OCT 13)H 10.2(OCT 12)HB L 8.5(OCT 15)L 8.4(OCT 14)L 8.0(OCT 13)L 8.4(OCT 12)HCT L 26.9(OCT 15)L 26.4(OCT 14)L 25.2(OCT 13)L 26.4(OCT 12)Plt H 477(OCT 15)H 441(OCT 14)H 403(OCT 13)368(OCT 12)Na 138(OCT 15)138(OCT 14)139(OCT 13)139(OCT 12)K 3.9(OCT 15)3.8(OCT 14)3.8(OCT 13)3.9(OCT 12)Cl 102(OCT 15)103(OCT 14)103(OCT 13)102(OCT 12)CO2 26(OCT 15)27(OCT 14)29(OCT 13)28(OCT 12)BUN 17(OCT 15)20(OCT 14)22(OCT 13)H 23(OCT 12)Cr 1.10(OCT 15)1.10(OCT 14)1.20(OCT 13)1.30(OCT 12)Glu R H 117(OCT 15)H 117(OCT 14)H 120(OCT 13)H 123(OCT 12)Ca L 8.1(OCT 15)L 8.1(OCT 14)L 8.0(OCT 13)L 8.1(OCT 12)PT H 12.1(OCT 06)INR H 1.2(OCT 06)AST H 41(OCT 07)15(OCT 06)ALT 42(OCT 07)26(OCT 06)ALK P 80(OCT 07)83(OCT 06)T Bili H 1.2(OCT 07)1.0(OCT 06)PTN L 5.6(OCT 07)6.4(OCT 06)ALB L 2.6(OCT 07)L 2.9(OCT 06)Troponin 0.031(OCT 06)PROBNP H 377(OCT 10)H 126(OCT 06). AST H 41(OCT 07)15(OCT 06) ALT 42(OCT 07)26(OCT 06) ALK P 80(OCT 07)83(OCT 06) T Bili H 1.2(OCT 07)1.0(OCT 06) PTN L 5.6(OCT 07)6.4(OCT 06) ALB L 2.6(OCT 07)L 2.9(OCT 06) Troponin 0.031(OCT 06) PROBNP H 377(OCT 10)H 126(OCT 06) . Impression and Plan 1. 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 History of atrial fibrillation, status post ablation. continue beta romel. Continue Xarelto 3. Coronary artery disease. Stable Cardiology following 4. Hypertension. Controlled Continue blood pressure medication plus hydralazine as needed. 5. Neuropathy, Continue gabapentin, 6. Hyperlipidemia, Continue statin Ac renal failure- Improved Continue to monitor renal function closely Disp- needs rehab ?[facility] TIME SPENT: 24 minutes Extracted from: Title: Progress Note, Author: GAETANO, Date: 10/14/16 Acute Care MD [facility] Basic Informationfeel fine, still very weak, no fever or chills, no chest pain or shortness of breath, still with mild confusion Review of Systems Constitutional: Weakness, Fatigue. Eye: Negative. Ear/Nose/Mouth/Throat: Negative. Respiratory: Shortness of breath, Cough. Cardiovascular: Negative. Gastrointestinal: Negative. Genitourinary: Negative. Hematology/Lymphatics: Negative. Endocrine: Negative. Musculoskeletal: Negative. Integumentary: Negative. Neurologic: Abnormal balance. Psychiatric: Negative. Physical ExaminationVS/MeasurementsVitals Signs (last 24 hrs) Last Charted Minimum MaximumTemp 97.5 (OCT 14 04:10)96.9 (OCT 13 11:45)99 (OCT 13 15:15)Apical HR 95 (OCT 14 08:41)90 (OCT 13 22:18)95 (OCT 13 14:25)Mon HR 85 (OCT 14 08:00)84 (OCT 14 07:56)99 (OCT 13 10:53)Resp Rate 18 (OCT 14 04:10)16 (OCT 13 19:00)20 (OCT 13 11:45)SBP 123 (OCT 14 04:10)114 (OCT 13 11:45)H 146 (OCT 13 22:30)DBP 63 (OCT 14 04:10)L 48 (OCT 13 14:16)74 (OCT 13 22:30)MAP 92 (OCT 14 04:10)63 (OCT 13 14:16)100 (OCT 13 22:30)SpO2 96 (OCT 14 04:10)L 93 (OCT 13 15:11)99 (OCT 13 14:16)General: No acute distress.Eye: Pupils are equal, round and reactive to light, Normal conjunctiva.HENT: Normocephalic, Oral mucosa is moist.Neck: Supple.Respiratory: Respirations are non-labored, Breath sounds are equal, Symmetrical chest wall expansion, diminished at the bases.Cardiovascular: Normal rate, Regular rhythm, No murmur, No gallop.Gastrointestinal: Soft, Non-distended, Normal bowel sounds.Musculoskeletal: No swelling, No deformity.Integumentary: Warm, Dry, Tillar.Neurologic: Alert, Normal sensory, No focal deficits, Cranial Nerves II-XII are grossly intact, Left power 4/5, rt 5/5, confused.Psychiatric: Cooperative. Neurologic: Alert, Normal sensory, No focal deficits, Cranial Nerves II-XII are grossly intact, Left power 4/5, rt 5/5, confused. Psychiatric: Cooperative. Review / ManagementResults review:Labs (Last four charted values)WBC H 12.2(OCT 14)H 11.4(OCT 13)H 10.2(OCT 12)H 14.7(OCT 09)HB L 8.4(OCT 14)L 8.0(OCT 13)L 8.4(OCT 12)L 8.6(OCT 09)HCT L 26.4(OCT 14)L 25.2(OCT 13)L 26.4(OCT 12)L 26.9(OCT 09)Plt H 441(OCT 14)H 403(OCT 13)368(OCT 12)289(OCT 09)Na 138(OCT 14)139(OCT 13)139(OCT 12)136(OCT 11)K 3.8(OCT 14)3.8(OCT 13)3.9(OCT 12)3.9(OCT 11)Cl 103(OCT 14)103(OCT 13)102(OCT 12)L 99(OCT 11)CO2 27(OCT 14)29(OCT 13)28(OCT 12)28(OCT 11)BUN 20(OCT 14)22(OCT 13)H 23(OCT 12)H 29(OCT 11)Cr 1.10(OCT 14)1.20(OCT 13)1.30(OCT 12)H 1.60(OCT 11)Glu R H 117(OCT 14)H 120(OCT 13)H 123(OCT 12)H 198(OCT 11)Ca L 8.1(OCT 14)L 8.0(OCT 13)L 8.1(OCT 12)L 8.1(OCT 11)PT H 12.1(OCT 06)INR H 1.2(OCT 06)AST H 41(OCT 07)15(OCT 06)ALT 42(OCT 07)26(OCT 06)ALK P 80(OCT 07)83(OCT 06)T Bili H 1.2(OCT 07)1.0(OCT 06)PTN L 5.6(OCT 07)6.4(OCT 06)ALB L 2.6(OCT 07)L 2.9(OCT 06)Troponin 0.031(OCT 06)PROBNP H 377(OCT 10)H 126(OCT 06). AST H 41(OCT 07)15(OCT 06) ALT 42(OCT 07)26(OCT 06) ALK P 80(OCT 07)83(OCT 06) T Bili H 1.2(OCT 07)1.0(OCT 06) PTN L 5.6(OCT 07)6.4(OCT 06) ALB L 2.6(OCT 07)L 2.9(OCT 06) Troponin 0.031(OCT 06) PROBNP H 377(OCT 10)H 126(OCT 06) . Impression and Plan 1. 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 History of atrial fibrillation, status post ablation. continue beta romel. Continue Xarelto 3. Coronary artery disease. Stable Cardiology following 4. Hypertension. Controlled Continue blood pressure medication plus hydralazine as needed. 5. Neuropathy, Continue gabapentin, 6. Hyperlipidemia, Continue statin Ac renal failure- Improved Continue to monitor renal function closely Disp- needs rehab ?[facility] TIME SPENT: 25 minutes Extracted from: Title: Progress Note Author: FRACISCO, Date: 10/13/16 NEPHROLOGY, Fracisco ELI MD-NEP Subjective patient feels ok.no issue last 24 hrs. Health StatusAllergies:Allergic Reactions (Selected)Severity Not DocumentedBactrim- Rash , fever.Ciprofloxacin- Hives.Penicillin- Anaphylaxis as child.Tetracyclines- Unsure.,Allergies (4) ActiveReactionBactrimrash , feverciprofloxacinhivespenicillinanaphylaxis as childtetracyclinesunsureCurrent medications: (Selected)Inpatient MedicationsOrderedDilaudid: 0.5 mg, IV Push, Q4H, PRN: Pain (Moderate 4-6)DuoNeb 0.5 mg-2.5 mg/3 mL inhalation solution: 3 mL, Nebulized Inhalation, [id number] 0.5 mg-2.5 mg/3 mL inhalation solution: 3 mL, Nostrils Both, Q6H, PRN: Shortness of BreathNitrostat: 0.4 mg, SubLINgual, Q5Min, PRN: Chest PainNormal Saline 1,500 mL: 100 mL/Hr, IntraVENousPepcid: 20 mg, Oral, DailyPercocet 5/325: 3 Tab, Oral, Q6H, PRN: Pain (Moderate 4-6)Rocephin: 1 Gram, 100 mL/Hr, IV Piggyback, [id number] SR: 425 mg, Oral, K49OAeoxxks: 650 mg, Oral, Q4H, PRN: Other (See Comment)Xarelto: 20 mg, Oral, With DinnerZofran: 4 mg, IV Push, Q4H, PRN: NauseaamLODIPine: 10 mg, Oral, Dailyamitriptyline: 50 mg, Oral, At Bedtimeaspirin: 81 mg, Oral, Dailycalcium gluconate: 1 Gram, 10 mL, 60 mL/Hr, IV Piggyback, Daily, PRN: Other (See Comment)calcium gluconate: 2 Gram, 20 mL, 120 mL/Hr, IV Piggyback, Daily, PRN: Other (See Comment)calcium gluconate: 2 Gram, 20 mL, 120 mL/Hr, IV Piggyback, Q12H, PRN: Other (See Comment)clindamycin + Sodium Chloride 0.9% 100 mL: 900 mg, 6 mL, 106 mL/Hr, IV Piggyback, 1-Timeferrous sulfate: 325 mg, Oral, BID With Mealsgabapentin: 300 mg, Oral, BIDhydrALAZINE: 10 mg, IV Push, Q6H, PRN: Hypertensioninsulin aspart sliding scale: Scale D:, SubCutaneous, AC and at Bedtimelovastatin: 40 mg, Oral, At Bedtimemagnesium sulfate: 2 Gram, 50 mL, 25 mL/Hr, IV Piggyback, Daily, PRN: Other (See Comment)magnesium sulfate: 2 Gram, 50 mL, 25 mL/Hr, IV Piggyback, Q2H, PRN: Other (See Comment)metoprolol tartrate: 100 mg, Oral, TIDmorphine: 2 mg, IV Push, Q4H, PRN: Pain (Severe 7-10)oxyCODONE: 5 mg, Oral, Q4H, PRN: Pain (Moderate 4-6)potassium chloride 10 mEq/50 mL intravenous solution: 10 mEq, 50 mL, 50 mL/Hr, IV Piggyback, Q1H, PRN: Other (See Comment)potassium chloride 20 mEq oral tablet, extended release: 20 mEq, 1 Tab, Oral, Q2H, PRN: Other (See Comment)potassium chloride 20 mEq oral tablet, extended release: 60 mEq, 3 Tab, Oral, Q2H, PRN: Other (See Comment)sodium chloride 0.9% injectable solution: 10 mL, IV Push, See Comment, PRN: Other (See Comment)sodium phosphate: 15 mMole, 5 mL, 50 mL/Hr, IV Piggyback, Daily, PRN: Other (See Comment)sodium phosphate: 15 mMole, 5 mL, 50 mL/Hr, IV Piggyback, Q6H, PRN: Other (See Comment)Pending Completeinfluenza virus vaccine, inactivated: 0.5 mL, IntraMuscular, [id number] MedicationsDocumentedLasix 20 mg oral tablet: 1 Tab, Oral, Daily, 30 Tab, 0 Refill(s)Metoprolol Tartrate 100 mg oral tablet: 0.5 Tab, Oral, With Lunch, may increase to 1 tablet as directed for heart rate, 0 Refill(s)Metoprolol Tartrate 100 mg oral tablet: 1 Tab, Oral, BID, 0 Refill(s)Nitrostat 0.4 mg sublingual tablet: 1 Tab, SubLINgual, Q5Min, If chest pain not relieved in 5 minutes after first dose, seek immediate medical attention, PRN: Chest Pain, 100 Tab, 0 Refill(s)ProAir HFA 90 mcg/inh inhalation aerosol: 2 Puff, Inhalation, QID, PRN: for wheezing, 0 Refill(s)Singulair 10 mg oral tablet: 1 Tab, Oral, At Bedtime, 0 Refill(s)Xarelto 20 mg oral tablet: 1 Tab, Oral, Daily, with largest meal, 30 Tab, 0 Refill(s)albuterol 2.5 mg/3 mL (0.083%) inhalation solution: 3 mL, Nebulized Inhalation, Q6H, PRN: for wheezing, 25 Each, 0 Refill(s)amLODIPine 10 mg oral tablet: 1 Tab, Oral, Daily, 30 Tab, 0 Refill(s)amitriptyline 50 mg oral tablet: 1 Tab, Oral, At Bedtime, 0 Refill(s)aspirin 325 mg oral tablet: 1 Tab, Oral, Daily, 30 Tab, 0 Refill(s)gabapentin 300 mg oral capsule: 1 Cap, Oral, BID, 60 Cap, 0 Refill(s)lisinopril 40 mg oral tablet: 1 Tab, Oral, Daily, 30 Tab, 0 Refill(s)lovastatin 40 mg oral tablet: 1 Tab, Oral, At Bedtime, 30 Tab, 0 Refill(s)potassium chloride 20 mEq oral tablet, extended release: 1 Tab, Oral, Daily, 0 Refill(s)propafenone 425 mg oral capsule, extended release: 1 Cap, Oral, Q12H, 180 Cap, 0 Refill(s)triamcinolone 0.1% topical cream: 1 Application, Topical, BID, apply to face as directed, 0 Refill(s),Home Medications (17) Activealbuterol 2.5 mg/3 mL (0.083%) inhalation solution 2.5 mg = 3 mL, PRN, Nebulized Inhalation, Q8Oosmxcuvorpxwk 50 mg oral tablet 50 mg = 1 Tab, Oral, At BedtimeamLODIPine 10 mg oral tablet 10 mg = 1 Tab, Oral, Dailyaspirin 325 mg oral tablet 325 mg = 1 Tab, Oral, Dailygabapentin 300 mg oral capsule 300 mg = 1 Cap, Oral, BIDLasix 20 mg oral tablet 20 mg = 1 Tab, Oral, Dailylisinopril 40 mg oral tablet 40 mg = 1 Tab, Oral, Dailylovastatin 40 mg oral tablet 40 mg = 1 Tab, Oral, At BedtimeMetoprolol Tartrate 100 mg oral tablet 100 mg = 1 Tab, Oral, BIDMetoprolol Tartrate 100 mg oral tablet 50 mg = 0.5 Tab, Oral, With LunchNitrostat 0.4 mg sublingual tablet 0.4 mg = 1 Tab, PRN, SubLINgual, H9Zjlfckzlbonk chloride 20 mEq oral tablet, extended release 20 mEq = 1 Tab, Oral, DailyProAir HFA 90 mcg/inh inhalation aerosol 2 Puff, PRN, Inhalation, QIDpropafenone 425 mg oral capsule, extended release 425 mg = 1 Cap, Oral, C17WPscabznca 10 mg oral tablet 10 mg = 1 Tab, Oral, At Bedtimetriamcinolone 0.1% topical cream 1 Application, Topical, BIDXarelto 20 mg oral tablet 20 mg = 1 Tab, Oral, Daily,Medications (35) ActiveScheduled: (14)albuterol-ipratropium inh 3 mL 3 mL, Nebulized Inhalation, G4Kwrahloyctiskp 50 mg tab 50 mg 1 Tab, Oral, At BedtimeamLODIPine 10 mg tab 10 mg 1 Tab, Oral, Dailyaspirin 81 mg chew tab 81 mg 1 Tab, Oral, DailycefTRIAXone 1 Gram, IV Piggyback, [id number] *ADV* + NaCl 0.9% *ADV* 100 mL 900 mg 6 mL, IV Piggyback, 1-Timefamotidine 20 mg tab 20 mg 1 Tab, Oral, Dailyferrous sulfate 325 mg EC tab 325 mg 1 Tab, Oral, BID With Mealsgabapentin 300 mg cap 300 mg 1 Cap, Oral, BIDinsulin aspart 1 unit/0.01 mL inj Scale D:, SubCutaneous, AC and at Bedtimelovastatin 20 mg tab 40 mg 2 Tab, Oral, At Bedtimemetoprolol tartrate 100 mg tab 100 mg 1 Tab, Oral, TIDpropafenone SR 425 mg cap 425 mg 1 Cap, Oral, H93Abxynkrhhuba 20 mg tab 20 mg 1 Tab, Oral, With DinnerContinuous: (1)NaCl 0.9% 1,500 mL 1,500 mL, IntraVENous, 100 mL/HrPRN: (20)#NaCl 0.9% *FLUSH* inj 10 mL 10 mL, IV Push, See Commentacetaminophen 325 mg tab 650 mg 2 Tab, Oral, X7Vdlqvyolmuyohq/oxyCODONE 325/5 mg tab 3 Tab, Oral, V2Keofogpbnu-uvifldhujpo inh 3 mL 3 mL, Nostrils Both, O4Ybbjycgk gluconate 1 Gram 10 mL, IV Piggyback, Dailycalcium gluconate 2 Gram 20 mL, IV Piggyback, Dailycalcium gluconate 2 Gram 20 mL, IV Piggyback, [id number] 20 mg/1 mL inj 10 mg 0.5 mL, IV Push, M7XZXDEYtnqarxnd 1 mg/1 mL inj 0.5 mg 0.5 mL, IV Push, R9Ukkqqzrnzw sulfate 2 Gram 50 mL, IV Piggyback, Dailymagnesium sulfate 2 Gram 50 mL, IV Piggyback, P3Zkudoxhex 2 mg/1 ml cpjt inj 2 mg 1 mL, IV Push, N5Qraihzctcewryj 0.4 mg tab # 25 btl 0.4 mg 1 Tab, SubLINgual, X9Orztxipfcbpjdo 4 mg/2 mL inj 4 mg 2 mL, IV Push, M7JfnbUDBCRQ 5 mg tab 5 mg 1 Tab, Oral, F2Wfbynoetwg chloride 10 mEq 50 mL, IV Piggyback, U7Pzmsqiejyt chloride CR 20 mEq tab 20 mEq 1 Tab, Oral, I3Wfudvkximf chloride CR 20 mEq tab 60 mEq 3 Tab, Oral, X5Bvyztzv phosphate 15 mMole 5 mL, IV Piggyback, Dailysodium phosphate 15 mMole 5 mL, IV Piggyback, U9SJullzlg list:Active Problems (30)Allergic rhinitis Angina Arthritis Atrial fibrillation Atrial flutter Back pain Bronchitis Bursitis Chronic constipation Chronic cough COPD, mild Diabetes mellitus type II GERD - Gastro-esophageal reflux disease Hard of hearing Heart failure Heart valve Hemorrhoids Hiatal hernia Histoplasmosis Hx of seborrhea Hyperlipidemia Hypertension Pancreatitis Peripheral neuropathy Peripheral vascular disease Pneumonia PSVT (paroxysmal supraventricular tachycardia) Restless legs syndrome Sinusitis Sleep apnea calcium gluconate 2 Gram 20 mL, IV Piggyback, Q12H hydrALAZINE 20 mg/1 mL inj 10 mg 0.5 mL, IV Push, Q6H HYDROmorphone 1 mg/1 mL inj 0.5 mg 0.5 mL, IV Push, Q4H magnesium sulfate 2 Gram 50 mL, IV Piggyback, Daily magnesium sulfate 2 Gram 50 mL, IV Piggyback, Q2H morphine 2 mg/1 ml cpjt inj 2 mg 1 mL, IV Push, Q4H nitroglycerin 0.4 mg tab # 25 btl 0.4 mg 1 Tab, SubLINgual, Q5Min ondansetron 4 mg/2 mL inj 4 mg 2 mL, IV Push, Q4H oxyCODONE 5 mg tab 5 mg 1 Tab, Oral, Q4H potassium chloride 10 mEq 50 mL, IV Piggyback, Q1H potassium chloride CR 20 mEq tab 20 mEq 1 Tab, Oral, Q2H potassium chloride CR 20 mEq tab 60 mEq 3 Tab, Oral, Q2H sodium phosphate 15 mMole 5 mL, IV Piggyback, Daily sodium phosphate 15 mMole 5 mL, IV Piggyback, Q6H Problem list: Active Problems (30) Allergic rhinitis Angina Arthritis Atrial fibrillation Atrial flutter Back pain Bronchitis Bursitis Chronic constipation Chronic cough COPD, mild Diabetes mellitus type II GERD - Gastro-esophageal reflux disease Hard of hearing Heart failure Heart valve Hemorrhoids Hiatal hernia Histoplasmosis Hx of seborrhea Hyperlipidemia Hypertension Pancreatitis Peripheral neuropathy Peripheral vascular disease Pneumonia PSVT (paroxysmal supraventricular tachycardia) Restless legs syndrome Sinusitis Sleep apnea ObjectiveVS/MeasurementsVitals Signs (last 24 hrs) Last Charted Minimum MaximumTemp 96.9 (OCT 13 11:45)96.9 (OCT 13 11:45)98.5 (OCT 12 16:47)Apical HR 95 (OCT 13 14:25)70 (OCT 12 18:00)H 102 (OCT 12 22:19)Mon HR 95 (OCT 13 14:16)28 (OCT 13 03:00)104 (OCT 13 02:45)Resp Rate 20 (OCT 13 11:45)20 (OCT 13 06:46)H 22 (OCT 12 16:47)SBP 118 (OCT 13 14:16)113 (OCT 12 19:29)H 146 (OCT 13 08:49)DBP L 48 (OCT 13 14:16)L 48 (OCT 13 14:16)76 (OCT 13 08:49)MAP 63 (OCT 13 14:16)63 (OCT 13 14:16)97 (OCT 13 08:49)SpO2 99 (OCT 13 14:16)L 76 (OCT 12 23:45)100 (OCT 12 16:47)GENERAL : patient is comfortable, in no acute distressHEENT: EOMI, PERRL , sclera non icterus. wet oral mucosa.CARDIOVASCULAR : normal heart sound , regular rate and rhythm RESPIRATORY : clear to auscultation bilateral . no crackles . no wheeze.GASTROINTESTINAL : abdomen soft and non tender. no renal bruit. no organomegaly. no distensionGENITOURINARY : no flank tenderness. no inguinal herniaMUSCULOSKELETAL : no joint swelling or tendernessNEUROLOGICAL : normal motor function. intact CN's. normal sensation .PSYCHIATRIC : AxOx3 , normal affectSKIN: no rash , no edema + right gorion resolving bruises. PSYCHIATRIC : AxOx3 , normal affect SKIN: no rash , no edema + right gorion resolving bruises. Results ReviewGeneral resultsInterpretation:LABS Labs (Last four charted values)WBC H 11.4(OCT 13)H 10.2(OCT 12)H 14.7(OCT 09)H 12.6(OCT 08)HB L 8.0(OCT 13)L 8.4(OCT 12)L 8.6(OCT 09)L 8.5(OCT 08)HCT L 25.2(OCT 13)L 26.4(OCT 12)L 26.9(OCT 09)L 26.9(OCT 08)Plt H 403(OCT 13)368(OCT 12)289(OCT 09)216(OCT 08)Na 139(OCT 13)139(OCT 12)136(OCT 11)L 134(OCT 10)K 3.8(OCT 13)3.9(OCT 12)3.9(OCT 11)4.1(OCT 10)Cl 103(OCT 13)102(OCT 12)L 99(OCT 11)L 97(OCT 10)CO2 29(OCT 13)28(OCT 12)28(OCT 11)27(OCT 10)BUN 22(OCT 13)H 23(OCT 12)H 29(OCT 11)H 34(OCT 10)Cr 1.20(OCT 13)1.30(OCT 12)H 1.60(OCT 11)H 1.70(OCT 10)Glu R H 120(OCT 13)H 123(OCT 12)H 198(OCT 11)H 131(OCT 10)Ca L 8.0(OCT 13)L 8.1(OCT 12)L 8.1(OCT 11)L 7.9(OCT 10)PT H 12.1(OCT 06)INR H 1.2(OCT 06)AST H 41(OCT 07)15(OCT 06)ALT 42(OCT 07)26(OCT 06)ALK P 80(OCT 07)83(OCT 06)T Bili H 1.2(OCT 07)1.0(OCT 06)PTN L 5.6(OCT 07)6.4(OCT 06)ALB L 2.6(OCT 07)L 2.9(OCT 06)Troponin 0.031(OCT 06)PROBNP H 377(OCT 10)H 126(OCT 06)Radiology Results Radiology Results (Last 48 hours)[id number] -- 10/06/2016 03:13MRI Brain WO (10/12/2016 07:59) Result: MRI OF THE BRAIN HISTORY: Personality change.COMPARISON: None.PROCEDURE: Multiplanar MR imaging of the brain was performed in multipleMR sequences.FINDINGS: Limited images the proximal cord are unremarkable. Theventricles are enlarged. There is mild atrophy. There is periventricularand deep white matter change likely related to small vessel disease.There is no extra-axial fluid or midline shift. There is no evidence ofacute hemorrhage. Flow-voids are appropriate. Diffusion weighted imagesdemonstrate small focus of restricted diffusion in the anterior inferiorpons consistent with a small acute infarct. There is abnormal T2 signalin the region of the pontine infarct.. Limited images of the paranasalsinuses demonstrate bilateral mild mucosal maxillary thickening andbilateral mastoid opacifications.. IMPRESSION: Small anterior inferior raeann acute infarct with restricteddiffusion as above.Mild atrophy and chronic changes as above.Sinusitis. Images reviewed, interpreted, and dictated by Dr. Maurice Ruiz.Transcribed by Sulma Felder PA-C.I have personally viewed, interpreted and dictated the examination. Ihave read and agree with the above final transcribed report. idline shift. There is no evidence ofacute hemorrhage. Flow-voids are appropriate. Diffusion weighted imagesdemonstrate small focus of restricted diffusion in the anterior inferiorpons consistent with a small acute infarct. There is abnormal T2 signalin the region of the pontine infarct.. Limited images of the paranasalsinuses demonstrate bilateral mild mucosal maxillary thickening andbilateral ma stoid opacifications.. IMPRESSION: Small anterior inferior raeann acute infarct with restricteddiffusion as above.Mild atrophy and chronic changes as above.Sinusitis. Images reviewed, interpret ed, and dictated by Dr. Maurice Ruiz.Transcribed by Sulma Felder PA-C.I have personally viewed, interpreted and dictated the examination. Ihave read and agree with the above final transcribed report. Impression and Plan1- Acute Kidney injury : normal baseline kidney function. hospital acquired, nonoliguriclow FeNa renal US with simple cyst in the right kidney but otherwise unremarkable.2- Acute blood loss anemia : on oral iron3- Essential hypertension; controlled currently,keep MAP above 65 mmHG, avoid fluctuation.4- Hyponatremia : mild , resolved.5- A. Fib : cardiology following.PLAN:kidney function back to normalok to start diuretics if needed.I will sign off for now please calll back with any question or concern. keep MAP above 65 mmHG, avoid fluctuation. 4- Hyponatremia : mild , resolved. 5- A. Fib : cardiology following. PLAN: kidney function back to normal ok to start diuretics if needed. I will sign off for now please calll back with any question or concern. Extracted from: Title: Progress Note, Author: GAETANO, Date: 10/13/16 Acute Care MD [facility] Basic Informationstill complaining of left-sided weakness, no fever or chills, no chest pain or shortness of breath, still with mild confusion Review of Systems Constitutional: Weakness, Fatigue. Eye: Negative. Ear/Nose/Mouth/Throat: Negative. Respiratory: Shortness of breath, Cough. Cardiovascular: Negative. Gastrointestinal: Negative. Genitourinary: Negative. Hematology/Lymphatics: Negative. Endocrine: Negative. Musculoskeletal: Negative. Integumentary: Negative. Neurologic: Abnormal balance. Psychiatric: Negative. Physical ExaminationVS/MeasurementsVitals Signs (last 24 hrs) Last Charted Minimum MaximumTemp 97.6 (OCT 13 06:46)97.6 (OCT 13 06:46)98.3 (OCT 12 10:35)Apical HR 96 (OCT 13 08:53)70 (OCT 12 11:56)H 102 (OCT 12 22:19)Mon HR 96 (OCT 13 08:49)28 (OCT 13 03:00)104 (OCT 13 02:45)Resp Rate 20 (OCT 13 08:49)20 (OCT 12 10:35)H 22 (OCT 12 16:47)SBP H 146 (OCT 13 08:49)109 (OCT 12 11:17)H 146 (OCT 13 08:49)DBP 76 (OCT 13 08:49)L 57 (OCT 12 22:13)76 (OCT 13 08:49)MAP 97 (OCT 13 08:49)69 (OCT 12 22:13)97 (OCT 13 08:49)SpO2 96 (OCT 13 08:49)L 76 (OCT 12 23:45)100 (OCT 12 14:30)General: No acute distress.Eye: Pupils are equal, round and reactive to light, Normal conjunctiva.HENT: Normocephalic, Oral mucosa is moist.Neck: Supple.Respiratory: Respirations are non-labored, Breath sounds are equal, Symmetrical chest wall expansion, diminished at the bases.Cardiovascular: Normal rate, Regular rhythm, No murmur, No gallop.Gastrointestinal: Soft, Non-distended, Normal bowel sounds.Musculoskeletal: No swelling, No deformity.Integumentary: Warm, Dry, Tillar.Neurologic: Alert, Normal sensory, No focal deficits, Cranial Nerves II-XII are grossly intact, Left power 4/5, rt 5/5, confused.Psychiatric: Cooperative. Neurologic: Alert, Normal sensory, No focal deficits, Cranial Nerves II-XII are grossly intact, Left power 4/5, rt 5/5, confused. Psychiatric: Cooperative. Review / ManagementResults review:Labs (Last four charted values)WBC H 11.4(OCT 13)H 10.2(OCT 12)H 14.7(OCT 09)H 12.6(OCT 08)HB L 8.0(OCT 13)L 8.4(OCT 12)L 8.6(OCT 09)L 8.5(OCT 08)HCT L 25.2(OCT 13)L 26.4(OCT 12)L 26.9(OCT 09)L 26.9(OCT 08)Plt H 403(OCT 13)368(OCT 12)289(OCT 09)216(OCT 08)Na 139(OCT 13)139(OCT 12)136(OCT 11)L 134(OCT 10)K 3.8(OCT 13)3.9(OCT 12)3.9(OCT 11)4.1(OCT 10)Cl 103(OCT 13)102(OCT 12)L 99(OCT 11)L 97(OCT 10)CO2 29(OCT 13)28(OCT 12)28(OCT 11)27(OCT 10)BUN 22(OCT 13)H 23(OCT 12)H 29(OCT 11)H 34(OCT 10)Cr 1.20(OCT 13)1.30(OCT 12)H 1.60(OCT 11)H 1.70(OCT 10)Glu R H 120(OCT 13)H 123(OCT 12)H 198(OCT 11)H 131(OCT 10)Ca L 8.0(OCT 13)L 8.1(OCT 12)L 8.1(OCT 11)L 7.9(OCT 10)PT H 12.1(OCT 06)INR H 1.2(OCT 06)AST H 41(OCT 07)15(OCT 06)ALT 42(OCT 07)26(OCT 06)ALK P 80(OCT 07)83(OCT 06)T Bili H 1.2(OCT 07)1.0(OCT 06)PTN L 5.6(OCT 07)6.4(OCT 06)ALB L 2.6(OCT 07)L 2.9(OCT 06)Troponin 0.031(OCT 06)PROBNP H 377(OCT 10)H 126(OCT 06). AST H 41(OCT 07)15(OCT 06) ALT 42(OCT 07)26(OCT 06) ALK P 80(OCT 07)83(OCT 06) T Bili H 1.2(OCT 07)1.0(OCT 06) PTN L 5.6(OCT 07)6.4(OCT 06) ALB L 2.6(OCT 07)L 2.9(OCT 06) Troponin 0.031(OCT 06) PROBNP H 377(OCT 10)H 126(OCT 06) . Impression and Plan 1. 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 History of atrial fibrillation, status post ablation. continue beta romel. Continue Xarelto 3. Coronary artery disease. Stable Cardiology following 4. Hypertension. Controlled Continue blood pressure medication plus hydralazine as needed. 5. Neuropathy, Continue gabapentin, 6. Hyperlipidemia, Continue statin Ac renal failure- Improved Continue to monitor renal function closely Fever, low grade, /possible pneumonia bilateral patchy infiltrates in the lungs, Continue IV Rocephin No blood culture was obtained prior to antibiotic Disp- needs rehab ?[facility] TIME SPENT: 29 minutes. Extracted from: Title: Progress Note, Author: MAJO ZULUAGA, Date: 10/12/16 Acute Care MD-[facility] Basic Information feels weakness on the left, no CP, SOA better, confused this am Review of Systems Constitutional: Weakness, Fatigue. Eye: Negative. Ear/Nose/Mouth/Throat: Negative. Respiratory: Shortness of breath, Cough. Cardiovascular: Negative. Gastrointestinal: Negative. Genitourinary: Negative. Hematology/Lymphatics: Negative. Endocrine: Negative. Musculoskeletal: Negative. Integumentary: Negative. Neurologic: Abnormal balance. Psychiatric: Negative. Health StatusAllergies:Allergic Reactions (Selected)Severity Not DocumentedBactrim- Rash , fever.Ciprofloxacin- Hives.Penicillin- Anaphylaxis as child.Tetracyclines- Unsure.,Allergies (4) ActiveReactionBactrimrash , feverciprofloxacinhivespenicillinanaphylaxis as childtetracyclinesunsureCurrent medications: (Selected)Inpatient MedicationsOrderedDilaudid: 0.5 mg, IV Push, Q4H, PRN: Pain (Moderate 4-6)DuoNeb 0.5 mg-2.5 mg/3 mL inhalation solution: 3 mL, Nebulized Inhalation, I0UUxiSun 0.5 mg-2.5 mg/3 mL inhalation solution: 3 mL, Nostrils Both, Q6H, PRN: Shortness of BreathNitrostat: 0.4 mg, SubLINgual, Q5Min, PRN: Chest PainNormal Saline 1,500 mL: 100 mL/Hr, IntraVENousPepcid: 20 mg, Oral, DailyPercocet 5/325: 3 Tab, Oral, Q6H, PRN: Pain (Moderate 4-6)Rocephin: 1 Gram, 100 mL/Hr, IV Piggyback, Y54AWckHyzhiyh SR: 425 mg, Oral, O81RPgbizuh: 650 mg, Oral, Q4H, PRN: Other (See Comment)Xarelto: 20 mg, Oral, With DinnerZofran: 4 mg, IV Push, Q4H, PRN: NauseaamLODIPine: 10 mg, Oral, Dailyamitriptyline: 50 mg, Oral, At Bedtimeaspirin: 81 mg, Oral, Dailycalcium gluconate: 1 Gram, 10 mL, 60 mL/Hr, IV Piggyback, Daily, PRN: Other (See Comment)calcium gluconate: 2 Gram, 20 mL, 120 mL/Hr, IV Piggyback, Daily, PRN: Other (See Comment)calcium gluconate: 2 Gram, 20 mL, 120 mL/Hr, IV Piggyback, Q12H, PRN: Other (See Comment)clindamycin + Sodium Chloride 0.9% 100 mL: 900 mg, 6 mL, 106 mL/Hr, IV Piggyback, 1-Timeferrous sulfate: 325 mg, Oral, BID With Mealsgabapentin: 300 mg, Oral, BIDhydrALAZINE: 10 mg, IV Push, Q6H, PRN: Hypertensioninsulin aspart sliding scale: Scale D:, SubCutaneous, AC and at Bedtimelovastatin: 40 mg, Oral, At Bedtimemagnesium sulfate: 2 Gram, 50 mL, 25 mL/Hr, IV Piggyback, Daily, PRN: Other (See Comment)magnesium sulfate: 2 Gram, 50 mL, 25 mL/Hr, IV Piggyback, Q2H, PRN: Other (See Comment)metoprolol tartrate: 100 mg, Oral, TIDmorphine: 2 mg, IV Push, Q4H, PRN: Pain (Severe 7-10)oxyCODONE: 5 mg, Oral, Q4H, PRN: Pain (Moderate 4-6)potassium chloride 10 mEq/50 mL intravenous solution: 10 mEq, 50 mL, 50 mL/Hr, IV Piggyback, Q1H, PRN: Other (See Comment)potassium chloride 20 mEq oral tablet, extended release: 20 mEq, 1 Tab, Oral, Q2H, PRN: Other (See Comment)potassium chloride 20 mEq oral tablet, extended release: 60 mEq, 3 Tab, Oral, Q2H, PRN: Other (See Comment)sodium chloride 0.9% injectable solution: 10 mL, IV Push, See Comment, PRN: Other (See Comment)sodium phosphate: 15 mMole, 5 mL, 50 mL/Hr, IV Piggyback, Daily, PRN: Other (See Comment)sodium phosphate: 15 mMole, 5 mL, 50 mL/Hr, IV Piggyback, Q6H, PRN: Other (See Comment)Pending Completeinfluenza virus vaccine, inactivated: 0.5 mL, IntraMuscular, [id number] MedicationsDocumentedLasix 20 mg oral tablet: 1 Tab, Oral, Daily, 30 Tab, 0 Refill(s)Metoprolol Tartrate 100 mg oral tablet: 0.5 Tab, Oral, With Lunch, may increase to 1 tablet as directed for heart rate, 0 Refill(s)Metoprolol Tartrate 100 mg oral tablet: 1 Tab, Oral, BID, 0 Refill(s)Nitrostat 0.4 mg sublingual tablet: 1 Tab, SubLINgual, Q5Min, If chest pain not relieved in 5 minutes after first dose, seek immediate medical attention, PRN: Chest Pain, 100 Tab, 0 Refill(s)ProAir HFA 90 mcg/inh inhalation aerosol: 2 Puff, Inhalation, QID, PRN: for wheezing, 0 Refill(s)Singulair 10 mg oral tablet: 1 Tab, Oral, At Bedtime, 0 Refill(s)Xarelto 20 mg oral tablet: 1 Tab, Oral, Daily, with largest meal, 30 Tab, 0 Refill(s)albuterol 2.5 mg/3 mL (0.083%) inhalation solution: 3 mL, Nebulized Inhalation, Q6H, PRN: for wheezing, 25 Each, 0 Refill(s)amLODIPine 10 mg oral tablet: 1 Tab, Oral, Daily, 30 Tab, 0 Refill(s)amitriptyline 50 mg oral tablet: 1 Tab, Oral, At Bedtime, 0 Refill(s)aspirin 325 mg oral tablet: 1 Tab, Oral, Daily, 30 Tab, 0 Refill(s)gabapentin 300 mg oral capsule: 1 Cap, Oral, BID, 60 Cap, 0 Refill(s)lisinopril 40 mg oral tablet: 1 Tab, Oral, Daily, 30 Tab, 0 Refill(s)lovastatin 40 mg oral tablet: 1 Tab, Oral, At Bedtime, 30 Tab, 0 Refill(s)potassium chloride 20 mEq oral tablet, extended release: 1 Tab, Oral, Daily, 0 Refill(s)propafenone 425 mg oral capsule, extended release: 1 Cap, Oral, Q12H, 180 Cap, 0 Refill(s)triamcinolone 0.1% topical cream: 1 Application, Topical, BID, apply to face as directed, 0 Refill(s),Medications (35) ActiveScheduled: (14)albuterol-ipratropium inh 3 mL 3 mL, Nebulized Inhalation, A1Tjkjtdvjrdxusz 50 mg tab 50 mg 1 Tab, Oral, At BedtimeamLODIPine 10 mg tab 10 mg 1 Tab, Oral, Dailyaspirin 81 mg chew tab 81 mg 1 Tab, Oral, DailycefTRIAXone 1 Gram, IV Piggyback, P91SEehjteuvmwqmnb *ADV* + NaCl 0.9% *ADV* 100 mL 900 mg 6 mL, IV Piggyback, 1-Timefamotidine 20 mg tab 20 mg 1 Tab, Oral, Dailyferrous sulfate 325 mg EC tab 325 mg 1 Tab, Oral, BID With Mealsgabapentin 300 mg cap 300 mg 1 Cap, Oral, BIDinsulin aspart 1 unit/0.01 mL inj Scale D:, SubCutaneous, AC and at Bedtimelovastatin 20 mg tab 40 mg 2 Tab, Oral, At Bedtimemetoprolol tartrate 100 mg tab 100 mg 1 Tab, Oral, TIDpropafenone SR 425 mg cap 425 mg 1 Cap, Oral, Q73Kxhduiorvkcs 20 mg tab 20 mg 1 Tab, Oral, With DinnerContinuous: (1)NaCl 0.9% 1,500 mL 1,500 mL, IntraVENous, 100 mL/HrPRN: (20)#NaCl 0.9% *FLUSH* inj 10 mL 10 mL, IV Push, See Commentacetaminophen 325 mg tab 650 mg 2 Tab, Oral, A4Abfwzmhhnbrwaj/oxyCODONE 325/5 mg tab 3 Tab, Oral, M8Piehiyzkmz-liayyncugfx inh 3 mL 3 mL, Nostrils Both, O7Qlegwskh gluconate 1 Gram 10 mL, IV Piggyback, Dailycalcium gluconate 2 Gram 20 mL, IV Piggyback, Dailycalcium gluconate 2 Gram 20 mL, IV Piggyback, J12KlhlkNIAVZBW 20 mg/1 mL inj 10 mg 0.5 mL, IV Push, J5EVBZDTxoanbkea 1 mg/1 mL inj 0.5 mg 0.5 mL, IV Push, G4Iyzmfyrmcm sulfate 2 Gram 50 mL, IV Piggyback, Dailymagnesium sulfate 2 Gram 50 mL, IV Piggyback, C8Xuocgbfay 2 mg/1 ml cpjt inj 2 mg 1 mL, IV Push, H2Ynmpcruqudizsj 0.4 mg tab # 25 btl 0.4 mg 1 Tab, SubLINgual, E7Mtcfisrgacgeee 4 mg/2 mL inj 4 mg 2 mL, IV Push, Q6VfypVGMTQF 5 mg tab 5 mg 1 Tab, Oral, O7Updtvxjdlu chloride 10 mEq 50 mL, IV Piggyback, K2Gedamorggc chloride CR 20 mEq tab 20 mEq 1 Tab, Oral, O6Ebnzwijkig chloride CR 20 mEq tab 60 mEq 3 Tab, Oral, O3Dyhzwcb phosphate 15 mMole 5 mL, IV Piggyback, Dailysodium phosphate 15 mMole 5 mL, IV Piggyback, Y0KKxzntfw list:Active Problems (30)Allergic rhinitis Angina Arthritis Atrial fibrillation Atrial flutter Back pain Bronchitis Bursitis Chronic constipation Chronic cough COPD, mild Diabetes mellitus type II GERD - Gastro-esophageal reflux disease Hard of hearing Heart failure Heart valve Hemorrhoids Hiatal hernia Histoplasmosis Hx of seborrhea Hyperlipidemia Hypertension Pancreatitis Peripheral neuropathy Peripheral vascular disease Pneumonia PSVT (paroxysmal supraventricular tachycardia) Restless legs syndrome Sinusitis Sleep apnea HYDROmorphone 1 mg/1 mL inj 0.5 mg 0.5 mL, IV Push, Q4H magnesium sulfate 2 Gram 50 mL, IV Piggyback, Daily magnesium sulfate 2 Gram 50 mL, IV Piggyback, Q2H morphine 2 mg/1 ml cpjt inj 2 mg 1 mL, IV Push, Q4H nitroglycerin 0.4 mg tab # 25 btl 0.4 mg 1 Tab, SubLINgual, Q5Min ondansetron 4 mg/2 mL inj 4 mg 2 mL, IV Push, Q4H oxyCODONE 5 mg tab 5 mg 1 Tab, Oral, Q4H potassium chloride 10 mEq 50 mL, IV Piggyback, Q1H potassium chloride CR 20 mEq tab 20 mEq 1 Tab, Oral, Q2H potassium chloride CR 20 mEq tab 60 mEq 3 Tab, Oral, Q2H sodium phosphate 15 mMole 5 mL, IV Piggyback, Daily sodium phosphate 15 mMole 5 mL, IV Piggyback, Q6H Problem list: Active Problems (30) Allergic rhinitis Angina Arthritis Atrial fibrillation Atrial flutter Back pain Bronchitis Bursitis Chronic constipation Chronic cough COPD, mild Diabetes mellitus type II GERD - Gastro-esophageal reflux disease Hard of hearing Heart failure Heart valve Hemorrhoids Hiatal hernia Histoplasmosis Hx of seborrhea Hyperlipidemia Hypertension Pancreatitis Peripheral neuropathy Peripheral vascular disease Pneumonia PSVT (paroxysmal supraventricular tachycardia) Restless legs syndrome Sinusitis Sleep apnea Physical ExaminationVS/MeasurementsVital Signs/Vital Oeycgoss89/23/2016 11:56 EST Heart Rate, Apical 70 bpm Heart Rate, Apical 70 bpm10/12/2016 11:53 EST Heart Rate Monitored 70 bpm10/12/2016 11:42 EST Heart Rate Monitored 70 bpm10/12/2016 11:17 EST Temperature Source Oral Temperature Mode Fahrenheit Temperature, Fahrenheit In Error Deg F (In Error) Clinical Temperature, C In Error Deg C (In Error) Heart Rate Monitored In Error bpm (In Error) Respiratory Rate 20 Breaths/Min Systolic Blood Pressure 109 mmHg Diastolic Blood Pressure 68 mmHg Mean Arterial Pressure (MAP)-BMDI 79 Oxygen Saturation 97 % Oxygen Therapy Mode Room air10/12/2016 10:35 EST Temperature Source Oral Temperature Mode Fahrenheit Temperature, Fahrenheit 98.3 Deg F Clinical Temperature, C 36.8 Deg C Heart Rate Monitored 103 bpm HI Respiratory Rate 20 Breaths/Min Systolic Blood Pressure 115 mmHg Diastolic Blood Pressure 58 mmHg LOW Mean Arterial Pressure (MAP)-BMDI 78 Oxygen Saturation 97 %10/12/2016 9:14 EST Heart Rate Monitored 62 bpm10/12/2016 9:03 EST Heart Rate Monitored 62 bpm Respiratory Rate 22 Breaths/Min HI Oxygen Saturation 94 % Oxygen Therapy Mode Room air10/12/2016 7:03 EST Temperature Source Oral Temperature Mode Fahrenheit Temperature, Fahrenheit 98 Deg F Clinical Temperature, C 36.7 Deg C Heart Rate Monitored 58 bpm LOW Respiratory Rate 24 Breaths/Min HI Oxygen Saturation 91 % LOW Oxygen Therapy Mode Room air10/12/2016 3:46 EST Temperature, Fahrenheit 98 Deg F Clinical Temperature, C 36.7 Deg C Heart Rate Monitored 85 bpm Respiratory Rate 24 Breaths/Min HI Systolic Blood Pressure 119 mmHg (Modified) Diastolic Blood Pressure 71 mmHg (Modified) Mean Arterial Pressure (MAP)-BMDI 91 (Modified) Oxygen Saturation 100 % Oxygen Therapy Mode Nasal cannula Oxygen Flow Rate 3 Liter/Min10/12/2016 3:40 EST Heart Rate Monitored 86 bpm Oxygen Saturation 89 % LOW 10/11/2016 23:41 EST Temperature Source Oral Temperature Mode Fahrenheit Temperature, Fahrenheit 99.2 Deg F Heart Rate Monitored 101 bpm HI Systolic Blood Pressure 126 mmHg Diastolic Blood Pressure 73 mmHg Mean Arterial Pressure (MAP)-BMDI 87 Oxygen Saturation 96 %10/11/2016 23:30 EST Heart Rate, Apical 101 bpm HI Heart Rate Monitored 101 bpm HI Systolic Blood Pressure 126 mmHg Diastolic Blood Pressure 73 mmHg10/11/2016 23:25 EST Heart Rate Monitored 100 bpm10/11/2016 23:16 EST Heart Rate Monitored 103 bpm HI Oxygen Saturation 95 %10/11/2016 20:55 EST Heart Rate, Apical 95 bpm Heart Rate Monitored 95 bpm Systolic Blood Pressure 136 mmHg Diastolic Blood Pressure 73 mmHg10/11/2016 15:36 EST Heart Rate, Apical 88 bpm10/11/2016 15:30 EST Temperature Source Oral Temperature Mode Fahrenheit Temperature, Fahrenheit 98.2 Deg F Clinical Temperature, C 36.8 Deg C Heart Rate Monitored 92 bpm Systolic Blood Pressure 128 mmHg Diastolic Blood Pressure 73 mmHg Mean Arterial Pressure (MAP)-BMDI 9210/11/2016 13:05 EST Heart Rate Monitored 98 bpm Respiratory Rate 18 Breaths/Min10/11/2016 13:03 EST Heart Rate Monitored 94 bpm Respiratory Rate 18 Breaths/Min Oxygen Therapy Mode Nasal cannula Oxygen Flow Rate 3 Liter/Min10/11/2016 11:57 EST Heart Rate, Apical 86 bpm10/11/2016 11:54 EST Temperature, Fahrenheit 97.6 Deg F Clinical Temperature, C 36.4 Deg C Heart Rate Monitored 94 bpm Systolic Blood Pressure 125 mmHg Diastolic Blood Pressure 67 mmHg Mean Arterial Pressure (MAP)-BMDI 8610/11/2016 11:45 EST Temperature Source Oral Temperature Mode Oaljziwyyk41/22/2016 8:55 EST Heart Rate, Apical 90 bpm10/11/2016 8:14 EST Heart Rate Monitored 92 bpm Oxygen Therapy Mode Nasal cannula, Other: Oxygen Flow Rate 3 Liter/Min10/11/2016 7:00 EST Heart Rate Monitored 88 bpm Systolic Blood Pressure 136 mmHg Diastolic Blood Pressure 70 mmHg10/11/2016 4:25 EST Heart Rate Monitored 91 bpm Oxygen Saturation 98 % Oxygen Therapy Mode Nasal cannula Oxygen Flow Rate 2 Liter/Min10/11/2016 2:36 EST Heart Rate Monitored 91 bpm Oxygen Saturation 93 % LOW 10/11/2016 2:28 EST Temperature, Fahrenheit 98.6 Deg F Clinical Temperature, C 37 Deg C Heart Rate Monitored 93 bpm Respiratory Rate 18 Breaths/Min Systolic Blood Pressure In Error mmHg (In Error) Systolic Blood Pressure 97 mmHg Diastolic Blood Pressure In Error mmHg (In Error) Diastolic Blood Pressure 49 mmHg LOW Mean Arterial Pressure (MAP)-BMDI 64 Oxygen Saturation 91 % LOW 10/11/2016 0:08 EST Heart Rate Monitored 88 bpm Oxygen Saturation 97 % Oxygen Therapy Mode Nasal cannula Oxygen Flow Rate 2 Liter/Min,Vitals Signs (last 24 hrs) Last Charted Minimum MaximumTemp 98.3 (OCT 12 10:35)98 (OCT 12 03:46)99.2 (OCT 11 23:41)Apical HR 70 (OCT 12 11:56)70 (OCT 12 11:56)H 101 (OCT 11 23:30)Mon HR 70 (OCT 12 11:53)58 (OCT 12 07:03)103 (OCT 11 23:16)Resp Rate 20 (OCT 12 11:17)18 (OCT 11 13:03)H 24 (OCT 12 03:46)SBP 109 (OCT 12 11:17)109 (OCT 12 11:17)136 (OCT 11 20:55)DBP 68 (OCT 12 11:17)L 58 (OCT 12 10:35)73 (OCT 11 15:30)MAP 79 (OCT 12 11:17)78 (OCT 12 10:35)92 (OCT 11 15:30)SpO2 97 (OCT 12 11:17)L 89 (OCT 12 03:40)100 (OCT 12 03:46)General: No acute distress.Eye: Pupils are equal, round and reactive to light, Normal conjunctiva.HENT: Normocephalic, Oral mucosa is moist.Neck: Supple.Respiratory: Respirations are non-labored, Breath sounds are equal, Symmetrical chest wall expansion, diminished at the bases.Cardiovascular: Normal rate, Regular rhythm, No murmur, No gallop.Gastrointestinal: Soft, Non-distended, Normal bowel sounds.Musculoskeletal: No swelling, No deformity.Integumentary: Warm, Dry, Tillar.Neurologic: Alert, Normal sensory, No focal deficits, Cranial Nerves II-XII are grossly intact, Left power 4/5, rt 5/5, confused.Psychiatric: Cooperative. SBP 109 (OCT 12 11:17)109 (OCT 12 11:17)136 (OCT 11 20:55) DBP 68 (OCT 12 11:17)L 58 (OCT 12 10:35)73 (OCT 11 15:30) MAP 79 (OCT 12 11:17)78 (OCT 12 10:35)92 (OCT 11 15: 30) SpO2 97 (OCT 12:)L 89 (OCT 12 03:40)100 (OCT 12 03:46) General: No acute distress. Eye: Pupils are equal, round and reactive to light, Normal conjunctiva. HENT: Normocephalic, Oral mucosa is moist. Neck: Supple. Respiratory: Respirations are non-labored, Breath sounds are equal, Symmetrical chest wall expansion, diminished at the bases. Cardiovascular: Normal rate, Regular rhythm, No murmur, No gallop. Gastrointestinal: Soft, Non-distended, Normal bowel sounds. Musculoskeletal: No swelling, No deformity. Integumentary: Warm, Dry, Tillar. Neurologic: Alert, Normal sensory, No focal deficits, Cranial Nerves II-XII are grossly intact, Left power 4/5, rt 5/5, confused. Psychiatric: Cooperative. Review / ManagementResults review:Labs (Last four charted values)WBC H 10.2(OCT 12)H 14.7(OCT 09)H 12.6(OCT 08)H 16.0(OCT 07)HB L 8.4(OCT 12)L 8.6(OCT 09)L 8.5(OCT 08)L 9.0(OCT 07)HCT L 26.4(OCT 12)L 26.9(OCT 09)L 26.9(OCT 08)L 28.3(OCT 07)Plt 368(OCT 12)289(OCT 09)216(OCT 08)272(OCT 07)Na 139(OCT 12)136(OCT 11)L 134(OCT 10)L 135(OCT 09)K 3.9(OCT 12)3.9(OCT 11)4.1(OCT 10)4.2(OCT 09)Cl 102(OCT 12)L 99(OCT 11)L 97(OCT 10)L 98(OCT 09)CO2 28(OCT 12)28(OCT 11)27(OCT 10)27(OCT 09)BUN H 23(OCT 12)H 29(OCT 11)H 34(OCT 10)H 29(OCT 09)Cr 1.30(OCT 12)H 1.60(OCT 11)H 1.70(OCT 10)H 2.00(OCT 09)Glu R H 123(OCT 12)H 198(OCT 11)H 131(OCT 10)H 144(OCT 09)Ca L 8.1(OCT 12)L 8.1(OCT 11)L 7.9(OCT 10)L 8.2(OCT 09)PT H 12.1(OCT 06)INR H 1.2(OCT 06)AST H 41(OCT 07)15(OCT 06)ALT 42(OCT 07)26(OCT 06)ALK P 80(OCT 07)83(OCT 06)T Bili H 1.2(OCT 07)1.0(OCT 06)PTN L 5.6(OCT 07)6.4(OCT 06)ALB L 2.6(OCT 07)L 2.9(OCT 06)Troponin 0.031(OCT 06)PROBNP H 377(OCT 10)H 126(OCT 06). AST H 41(OCT 07)15(OCT 06) ALT 42(OCT 07)26(OCT 06) ALK P 80(OCT 07)83(OCT 06) T Bili H 1.2(OCT 07)1.0(OCT 06) PTN L 5.6(OCT 07)6.4(OCT 06) ALB L 2.6(OCT 07)L 2.9(OCT 06) Troponin 0.031(OCT 06) PROBNP H 377(OCT 10)H 126(OCT 06) . Impression and Plan1. Right groin Pesudoaneurysm- s/p repair, AVFistila closure by surgery2. History of atrial fibrillation, status post ablation.continue beta romel. No anticoagulation recommended by surgery for now.3. Coronary artery disease. Cardiology following4. Hypertension. Resume home medication plus hydralazine as needed.5. Neuropathy, on gabapentin, continued.6. Hyperlipidemia, on statin, continued.7. Gastrointestinal prophylaxis, Pepcid.8. Deep venous thrombosis prophylaxis, compression boots, heparinAcute respiratory failure- resolvedAc renal failure- better, has good urine output, off nephrotoxic medsFever, low grade, dyspnea and bilateral patchy infiltrates in the lungs, leucocytosis- start IVABx. BetterLeft weakness-pontine infarct,neuro consulted, On xarelto, needs PT, OTPT, OTD/w CMDisp- needs rehab ?CHHTIME SPENT:30 minutes. PT, OT D/w CM Disp- needs rehab ?CHH TIME SPENT: 30 minutes. Extracted from: Title: Progress/SOAP Author: KORINA, Date: 10/12/16 Note MD JCARLOS Assessment/Plan 56yo male who had his Xarelto stopped for a surgical procedure and had a small pontine infarct. Cardiology increased his xarelto dose. For any future procedures the patient should have a Lovenox bridge as his therapeutic window is very narrow. My only other recommendations is that he would likely benefit from rehab. Let me know if you have any further questions. Adde The patient has some mild intermittent confusion. Follow up with [facility] after discharge in the next month would be by appropriate especially if there is residual cognitive issues. ELSA LAST MD on [facility] 2015 11:2 0:30 EST Extracted from: Title: Rx Consult - Author: ASA SIMON Date: 10/12/16 Medication ADR A, RPh Confusion 56yoM with new onset Confusion for 48 hoursRx Consult: ADR to medication ---> confusionMD: Gabrielaawt = 160kgI/O = 50 / 2865 OCT 12 06:22 139 | 102 | H 23 / H 123 3.9 | 28 | 1.30 \\ OCT 12 06:22 \\ L 8.4 / H 10.2 368 / L 26.4 \\Calc CrCl ~ 100 ml / min (S-C)Possible medications causing confusion:-In order of redcing incidence / probabilityMed doseIncidence of ConfusionPercocet 15mg (oxycodone) prn 1-5%Gabapentin 300mg BID <= 1%Propafenone 425mg bid <= 1%Pepcid 20mg po daily ~ 5% in elderly or renally impaired ptsPlan:1) If cause is medication related, the most likely causitive agent would be the Oxycodone-patient has received 7 tablets of 5mg since midday on 10/08-Pt is prescribed Percocet 7.5mg - 2 tabs and nurses have been giving less than prescribed2) Pt is listed as being on Amitriptyline 50mg po hs as home medication that is not being given in house-S/S of withdrawl of Elavil therapy??3) Other possibilities are Gabapentin or Propafenone but these are chronic home and their incidence of confusion is listed as rare4) Famotidine is possible causitive agent but this most commonly happens in elderly or pts with impaired renal function-neither option is present here in this case and dose is only daily dosing - not BID-Very unlikely possible agent5) Rx to sign offThank You for Consult,Asa Simon, RPh / L 26.4 \\ Calc CrCl ~ 100 ml / min (S-C) Possible medications causing confusion: -In order of redcing incidence / probability Med doseIncidence of Confusion Percocet 15mg (oxycodone) prn 1-5% Gabapentin 300mg BID <= 1% Propafenone 425mg bid <= 1% Pepcid 20mg po daily ~ 5% in elderly or renally impaired pts Plan: 1) If cause is medication related, the most likely causitive agent would be the Oxycodone -patient has received 7 tablets of 5mg since midday on 10/08 -Pt is prescribed Percocet 7.5mg - 2 tabs and nurses have been giving less than prescribed 2) Pt is listed as being on Amitriptyline 50mg po hs as home medication that is not being given in house -S/S of withdrawl of Elavil therapy?? 3) Other possibilities are Gabapentin or Propafenone but these are chronic home and their incidence of confusion is listed as rare 4) Famotidine is possible causitive agent but this most commonly happens in elderly or pts with impaired renal function -neither option is present here in this case and dose is only daily dosing - not BID -Very unlikely possible agent 5) Rx to sign off Thank You for Consult, Asa Simon RPh Extracted from: Title: Progress Note Author: FRACISCO, Date: 10/12/16 NEPHROLOGY, Fracisco ELI MD-NEP Subjective patient feels ok. intermittently confused . hemodynamically stable. Health StatusAllergies:Allergic Reactions (Selected)Severity Not DocumentedBactrim- Rash , fever.Ciprofloxacin- Hives.Penicillin- Anaphylaxis as child.Tetracyclines- Unsure.,Allergies (4) ActiveReactionBactrimrash , feverciprofloxacinhivespenicillinanaphylaxis as childtetracyclinesunsureCurrent medications: (Selected)Inpatient MedicationsOrderedDilaudid: 0.5 mg, IV Push, Q4H, PRN: Pain (Moderate 4-6)DuoNeb 0.5 mg-2.5 mg/3 mL inhalation solution: 3 mL, Nebulized Inhalation, O7WFrkKie 0.5 mg-2.5 mg/3 mL inhalation solution: 3 mL, Nostrils Both, Q6H, PRN: Shortness of BreathNitrostat: 0.4 mg, SubLINgual, Q5Min, PRN: Chest PainNormal Saline 1,500 mL: 100 mL/Hr, IntraVENousPepcid: 20 mg, Oral, DailyPercocet 5/325: 3 Tab, Oral, Q6H, PRN: Pain (Moderate 4-6)Rocephin: 1 Gram, 100 mL/Hr, IV Piggyback, X63CSzsKvqnecq SR: 425 mg, Oral, Q45FXcucgva: 650 mg, Oral, Q4H, PRN: Other (See Comment)Xarelto: 20 mg, Oral, With DinnerZofran: 4 mg, IV Push, Q4H, PRN: NauseaamLODIPine: 10 mg, Oral, Dailyamitriptyline: 50 mg, Oral, At Bedtimeaspirin: 81 mg, Oral, Dailycalcium gluconate: 1 Gram, 10 mL, 60 mL/Hr, IV Piggyback, Daily, PRN: Other (See Comment)calcium gluconate: 2 Gram, 20 mL, 120 mL/Hr, IV Piggyback, Daily, PRN: Other (See Comment)calcium gluconate: 2 Gram, 20 mL, 120 mL/Hr, IV Piggyback, Q12H, PRN: Other (See Comment)clindamycin + Sodium Chloride 0.9% 100 mL: 900 mg, 6 mL, 106 mL/Hr, IV Piggyback, 1-Timeferrous sulfate: 325 mg, Oral, BID With Mealsgabapentin: 300 mg, Oral, BIDhydrALAZINE: 10 mg, IV Push, Q6H, PRN: Hypertensioninsulin aspart sliding scale: Scale D:, SubCutaneous, AC and at Bedtimelovastatin: 40 mg, Oral, At Bedtimemagnesium sulfate: 2 Gram, 50 mL, 25 mL/Hr, IV Piggyback, Daily, PRN: Other (See Comment)magnesium sulfate: 2 Gram, 50 mL, 25 mL/Hr, IV Piggyback, Q2H, PRN: Other (See Comment)metoprolol tartrate: 100 mg, Oral, TIDmorphine: 2 mg, IV Push, Q4H, PRN: Pain (Severe 7-10)oxyCODONE: 5 mg, Oral, Q4H, PRN: Pain (Moderate 4-6)potassium chloride 10 mEq/50 mL intravenous solution: 10 mEq, 50 mL, 50 mL/Hr, IV Piggyback, Q1H, PRN: Other (See Comment)potassium chloride 20 mEq oral tablet, extended release: 20 mEq, 1 Tab, Oral, Q2H, PRN: Other (See Comment)potassium chloride 20 mEq oral tablet, extended release: 60 mEq, 3 Tab, Oral, Q2H, PRN: Other (See Comment)sodium chloride 0.9% injectable solution: 10 mL, IV Push, See Comment, PRN: Other (See Comment)sodium phosphate: 15 mMole, 5 mL, 50 mL/Hr, IV Piggyback, Daily, PRN: Other (See Comment)sodium phosphate: 15 mMole, 5 mL, 50 mL/Hr, IV Piggyback, Q6H, PRN: Other (See Comment)Pending Completeinfluenza virus vaccine, inactivated: 0.5 mL, IntraMuscular, [id number] MedicationsDocumentedLasix 20 mg oral tablet: 1 Tab, Oral, Daily, 30 Tab, 0 Refill(s)Metoprolol Tartrate 100 mg oral tablet: 0.5 Tab, Oral, With Lunch, may increase to 1 tablet as directed for heart rate, 0 Refill(s)Metoprolol Tartrate 100 mg oral tablet: 1 Tab, Oral, BID, 0 Refill(s)Nitrostat 0.4 mg sublingual tablet: 1 Tab, SubLINgual, Q5Min, If chest pain not relieved in 5 minutes after first dose, seek immediate medical attention, PRN: Chest Pain, 100 Tab, 0 Refill(s)ProAir HFA 90 mcg/inh inhalation aerosol: 2 Puff, Inhalation, QID, PRN: for wheezing, 0 Refill(s)Singulair 10 mg oral tablet: 1 Tab, Oral, At Bedtime, 0 Refill(s)Xarelto 20 mg oral tablet: 1 Tab, Oral, Daily, with largest meal, 30 Tab, 0 Refill(s)albuterol 2.5 mg/3 mL (0.083%) inhalation solution: 3 mL, Nebulized Inhalation, Q6H, PRN: for wheezing, 25 Each, 0 Refill(s)amLODIPine 10 mg oral tablet: 1 Tab, Oral, Daily, 30 Tab, 0 Refill(s)amitriptyline 50 mg oral tablet: 1 Tab, Oral, At Bedtime, 0 Refill(s)aspirin 325 mg oral tablet: 1 Tab, Oral, Daily, 30 Tab, 0 Refill(s)gabapentin 300 mg oral capsule: 1 Cap, Oral, BID, 60 Cap, 0 Refill(s)lisinopril 40 mg oral tablet: 1 Tab, Oral, Daily, 30 Tab, 0 Refill(s)lovastatin 40 mg oral tablet: 1 Tab, Oral, At Bedtime, 30 Tab, 0 Refill(s)potassium chloride 20 mEq oral tablet, extended release: 1 Tab, Oral, Daily, 0 Refill(s)propafenone 425 mg oral capsule, extended release: 1 Cap, Oral, Q12H, 180 Cap, 0 Refill(s)triamcinolone 0.1% topical cream: 1 Application, Topical, BID, apply to face as directed, 0 Refill(s),Home Medications (17) Activealbuterol 2.5 mg/3 mL (0.083%) inhalation solution 2.5 mg = 3 mL, PRN, Nebulized Inhalation, H7Pzrxcvzlnndiyq 50 mg oral tablet 50 mg = 1 Tab, Oral, At BedtimeamLODIPine 10 mg oral tablet 10 mg = 1 Tab, Oral, Dailyaspirin 325 mg oral tablet 325 mg = 1 Tab, Oral, Dailygabapentin 300 mg oral capsule 300 mg = 1 Cap, Oral, BIDLasix 20 mg oral tablet 20 mg = 1 Tab, Oral, Dailylisinopril 40 mg oral tablet 40 mg = 1 Tab, Oral, Dailylovastatin 40 mg oral tablet 40 mg = 1 Tab, Oral, At BedtimeMetoprolol Tartrate 100 mg oral tablet 100 mg = 1 Tab, Oral, BIDMetoprolol Tartrate 100 mg oral tablet 50 mg = 0.5 Tab, Oral, With LunchNitrostat 0.4 mg sublingual tablet 0.4 mg = 1 Tab, PRN, SubLINgual, T1Wkjxsmwtktex chloride 20 mEq oral tablet, extended release 20 mEq = 1 Tab, Oral, DailyProAir HFA 90 mcg/inh inhalation aerosol 2 Puff, PRN, Inhalation, QIDpropafenone 425 mg oral capsule, extended release 425 mg = 1 Cap, Oral, O84CRjwbtbwhs 10 mg oral tablet 10 mg = 1 Tab, Oral, At Bedtimetriamcinolone 0.1% topical cream 1 Application, Topical, BIDXarelto 20 mg oral tablet 20 mg = 1 Tab, Oral, Daily,Medications (35) ActiveScheduled: (14)albuterol-ipratropium inh 3 mL 3 mL, Nebulized Inhalation, Q5Tqfwkzdmqpbaig 50 mg tab 50 mg 1 Tab, Oral, At BedtimeamLODIPine 10 mg tab 10 mg 1 Tab, Oral, Dailyaspirin 81 mg chew tab 81 mg 1 Tab, Oral, DailycefTRIAXone 1 Gram, IV Piggyback, K82EGflvtenqerslhg *ADV* + NaCl 0.9% *ADV* 100 mL 900 mg 6 mL, IV Piggyback, 1-Timefamotidine 20 mg tab 20 mg 1 Tab, Oral, Dailyferrous sulfate 325 mg EC tab 325 mg 1 Tab, Oral, BID With Mealsgabapentin 300 mg cap 300 mg 1 Cap, Oral, BIDinsulin aspart 1 unit/0.01 mL inj Scale D:, SubCutaneous, AC and at Bedtimelovastatin 20 mg tab 40 mg 2 Tab, Oral, At Bedtimemetoprolol tartrate 100 mg tab 100 mg 1 Tab, Oral, TIDpropafenone SR 425 mg cap 425 mg 1 Cap, Oral, H02Ecsveyqdbeha 20 mg tab 20 mg 1 Tab, Oral, With DinnerContinuous: (1)NaCl 0.9% 1,500 mL 1,500 mL, IntraVENous, 100 mL/HrPRN: (20)#NaCl 0.9% *FLUSH* inj 10 mL 10 mL, IV Push, See Commentacetaminophen 325 mg tab 650 mg 2 Tab, Oral, L2Imoaybduisuxmx/oxyCODONE 325/5 mg tab 3 Tab, Oral, M1Avaezvyfee-aqnskaatoaz inh 3 mL 3 mL, Nostrils Both, E3Ipivprpq gluconate 1 Gram 10 mL, IV Piggyback, Dailycalcium gluconate 2 Gram 20 mL, IV Piggyback, Dailycalcium gluconate 2 Gram 20 mL, IV Piggyback, U67PyrldBYGHVTW 20 mg/1 mL inj 10 mg 0.5 mL, IV Push, W9WBAWHHpgqbhkka 1 mg/1 mL inj 0.5 mg 0.5 mL, IV Push, F1Didjutpfwr sulfate 2 Gram 50 mL, IV Piggyback, Dailymagnesium sulfate 2 Gram 50 mL, IV Piggyback, A5Pztcgnaig 2 mg/1 ml cpjt inj 2 mg 1 mL, IV Push, K3Purlecneumuksl 0.4 mg tab # 25 btl 0.4 mg 1 Tab, SubLINgual, S7Grfiszpntaqdww 4 mg/2 mL inj 4 mg 2 mL, IV Push, Y8RjinJHSJNC 5 mg tab 5 mg 1 Tab, Oral, N3Oyzgneqiow chloride 10 mEq 50 mL, IV Piggyback, P7Qigvnlssnw chloride CR 20 mEq tab 20 mEq 1 Tab, Oral, H6Pizvjkelef chloride CR 20 mEq tab 60 mEq 3 Tab, Oral, T5Stzfudc phosphate 15 mMole 5 mL, IV Piggyback, Dailysodium phosphate 15 mMole 5 mL, IV Piggyback, M9GAiwohkr list:Active Problems (30)Allergic rhinitis Angina Arthritis Atrial fibrillation Atrial flutter Back pain Bronchitis Bursitis Chronic constipation Chronic cough COPD, mild Diabetes mellitus type II GERD - Gastro-esophageal reflux disease Hard of hearing Heart failure Heart valve Hemorrhoids Hiatal hernia Histoplasmosis Hx of seborrhea Hyperlipidemia Hypertension Pancreatitis Peripheral neuropathy Peripheral vascular disease Pneumonia PSVT (paroxysmal supraventricular tachycardia) Restless legs syndrome Sinusitis Sleep apnea calcium gluconate 2 Gram 20 mL, IV Piggyback, Q12H hydrALAZINE 20 mg/1 mL inj 10 mg 0.5 mL, IV Push, Q6H HYDROmorphone 1 mg/1 mL inj 0.5 mg 0.5 mL, IV Push, Q4H magnesium sulfate 2 Gram 50 mL, IV Piggyback, Daily magnesium sulfate 2 Gram 50 mL, IV Piggyback, Q2H morphine 2 mg/1 ml cpjt inj 2 mg 1 mL, IV Push, Q4H nitroglycerin 0.4 mg tab # 25 btl 0.4 mg 1 Tab, SubLINgual, Q5Min ondansetron 4 mg/2 mL inj 4 mg 2 mL, IV Push, Q4H oxyCODONE 5 mg tab 5 mg 1 Tab, Oral, Q4H potassium chloride 10 mEq 50 mL, IV Piggyback, Q1H potassium chloride CR 20 mEq tab 20 mEq 1 Tab, Oral, Q2H potassium chloride CR 20 mEq tab 60 mEq 3 Tab, Oral, Q2H sodium phosphate 15 mMole 5 mL, IV Piggyback, Daily sodium phosphate 15 mMole 5 mL, IV Piggyback, Q6H Problem list: Active Problems (30) Allergic rhinitis Angina Arthritis Atrial fibrillation Atrial flutter Back pain Bronchitis Bursitis Chronic constipation Chronic cough COPD, mild Diabetes mellitus type II GERD - Gastro-esophageal reflux disease Hard of hearing Heart failure Heart valve Hemorrhoids Hiatal hernia Histoplasmosis Hx of seborrhea Hyperlipidemia Hypertension Pancreatitis Peripheral neuropathy Peripheral vascular disease Pneumonia PSVT (paroxysmal supraventricular tachycardia) Restless legs syndrome Sinusitis Sleep apnea ObjectiveVS/MeasurementsVitals Signs (last 24 hrs) Last Charted Minimum MaximumTemp 98.5 (OCT 12 16:47)98 (OCT 12 03:46)99.2 (OCT 11 23:41)Apical HR 70 (OCT 12 18:00)70 (OCT 12 11:56)H 101 (OCT 11 23:30)Mon HR 97 (OCT 12 16:50)58 (OCT 12 07:03)103 (OCT 11 23:16)Resp Rate H 22 (OCT 12 16:47)20 (OCT 12 10:35)H 24 (OCT 12 03:46)SBP 120 (OCT 12 16:47)109 (OCT 12 11:17)136 (OCT 11 20:55)DBP 73 (OCT 12 16:47)L 58 (OCT 12 10:35)73 (OCT 11 20:55)MAP 86 (OCT 12 16:47)78 (OCT 12 10:35)91 (OCT 12 03:46)SpO2 100 (OCT 12 16:47)L 89 (OCT 12 03:40)100 (OCT 12 03:46)GENERAL : patient is comfortable, in no acute distressHEENT: EOMI, PERRL , sclera non icterus. wet oral mucosa.CARDIOVASCULAR : normal heart sound , regular rate and rhythm RESPIRATORY : clear to auscultation bilateral . no crackles . no wheeze.GASTROINTESTINAL : abdomen soft and non tender. no renal bruit. no organomegaly. no distensionGENITOURINARY : no flank tenderness. no inguinal herniaMUSCULOSKELETAL : no joint swelling or tendernessNEUROLOGICAL : normal motor function. intact CN's. normal sensation .PSYCHIATRIC : AxOx3 , normal affectSKIN: no rash , no edema + right gorion resolving bruises. PSYCHIATRIC : AxOx3 , normal affect SKIN: no rash , no edema + right gorion resolving bruises. Results ReviewGeneral resultsInterpretation:LABS Labs (Last four charted values)WBC H 10.2(OCT 12)H 14.7(OCT 09)H 12.6(OCT 08)H 16.0(OCT 07)HB L 8.4(OCT 12)L 8.6(OCT 09)L 8.5(OCT 08)L 9.0(OCT 07)HCT L 26.4(OCT 12)L 26.9(OCT 09)L 26.9(OCT 08)L 28.3(OCT 07)Plt 368(OCT 12)289(OCT 09)216(OCT 08)272(OCT 07)Na 139(OCT 12)136(OCT 11)L 134(OCT 10)L 135(OCT 09)K 3.9(OCT 12)3.9(OCT 11)4.1(OCT 10)4.2(OCT 09)Cl 102(OCT 12)L 99(OCT 11)L 97(OCT 10)L 98(OCT 09)CO2 28(OCT 12)28(OCT 11)27(OCT 10)27(OCT 09)BUN H 23(OCT 12)H 29(OCT 11)H 34(OCT 10)H 29(OCT 09)Cr 1.30(OCT 12)H 1.60(OCT 11)H 1.70(OCT 10)H 2.00(OCT 09)Glu R H 123(OCT 12)H 198(OCT 11)H 131(OCT 10)H 144(OCT 09)Ca L 8.1(OCT 12)L 8.1(OCT 11)L 7.9(OCT 10)L 8.2(OCT 09)PT H 12.1(OCT 06)INR H 1.2(OCT 06)AST H 41(OCT 07)15(OCT 06)ALT 42(OCT 07)26(OCT 06)ALK P 80(OCT 07)83(OCT 06)T Bili H 1.2(OCT 07)1.0(OCT 06)PTN L 5.6(OCT 07)6.4(OCT 06)ALB L 2.6(OCT 07)L 2.9(OCT 06)Troponin 0.031(OCT 06)PROBNP H 377(OCT 10)H 126(OCT 06)Radiology Results Radiology Results (Last 48 hours)[id number] -- 10/06/2016 03:13CT Head WO (10/11/2016 11:03) Result: CT SCAN OF THE HEAD WITHOUT CONTRASTINDICATION: Confusion.TECHNIQUE: Multiple axial CT images were performed from the foramenmagnum to the vertex without contrast. Coronal reconstruction imageswere obtained from the axial data. This study was performed withtechniques to keep radiation doses as low as reasonably achievable(ALARA). Individualized dose reduction techniques using automatedexposure control or adjustment of mA and/or KV according to the patientsize were employed.COMPARISON: None.FINDINGS: There is no mass effect or midline shift. The ventricles aresymmetric in size and configuration. There is no hydrocephalus. Thereare no extra-axial fluid collections. There is no intraventricular orintraparenchymal hemorrhage. The posterior fossa has a normal CTappearance. There is mucoperiosteal thickening of the left greater thanright maxillary sinuses. There is no air-fluid level. No acute osseousabnormalities are present.IMPRESSION: No acute intracranial abnormality. Consider MR ifsymptomatology persists.Paranasal sinus disease.MRI Brain WO (10/12/2016 07:59) Result: MRI OF THE BRAIN HISTORY: Personality change.COMPARISON: None.PROCEDURE: Multiplanar MR imaging of the brain was performed in multipleMR sequences.FINDINGS: Limited images the proximal cord are unremarkable. Theventricles are enlarged. There is mild atrophy. There is periventricularand deep white matter change likely related to small vessel disease.There is no extra-axial fluid or midline shift. There is no evidence ofacute hemorrhage. Flow-voids are appropriate. Diffusion weighted imagesdemonstrate small focus of restricted diffusion in the anterior inferiorpons consistent with a small acute infarct. There is abnormal T2 signalin the region of the pontine infarct.. Limited images of the paranasalsinuses demonstrate bilateral mild mucosal maxillary thickening andbilateral mastoid opacifications.. IMPRESSION: Small anterior inferior raeann acute infarct with restricteddiffusion as above.Mild atrophy and chronic changes as above.Sinusitis. Images reviewed, interpreted, and dictated by Dr. Maurice Ruiz.Transcribed by Sulma Felder PA-C.I have personally viewed, interpreted and dictated the examination. Ihave read and agree with the above final transcribed report. Impression and Plan1- Acute Kidney injury : normal baseline kidney function. hospital acquired, nonoliguriclow FeNa renal US with simple cyst in the right kidney but otherwise unremarkable.2- Acute blood loss anemia : on oral iron3- Essential hypertension; controlled currently,keep MAP above 65 mmHG, avoid fluctuation.4- Hyponatremia : mild , resolved.5- A. Fib : cardiology following.PLAN:off NSSkidney function improving. 3- Essential hypertension; controlled currently, keep MAP above 65 mmHG, avoid fluctuation. 4- Hyponatremia : mild , resolved. 5- A. Fib : cardiology following. PLAN: off NSS kidney function improving. Extracted from: Title: Progress Note Author: FRACISCO, Date: 10/11/16 NEPHROLOGY, Fracisco ELI MD-NEP Subjective patient feels ok. intermittently confused . had good uop. Health StatusAllergies:Allergic Reactions (Selected)Severity Not DocumentedBactrim- Rash , fever.Ciprofloxacin- Hives.Penicillin- Anaphylaxis as child.Tetracyclines- Unsure.,Allergies (4) ActiveReactionBactrimrash , feverciprofloxacinhivespenicillinanaphylaxis as childtetracyclinesunsureCurrent medications: (Selected)Inpatient MedicationsOrderedDilaudid: 0.5 mg, IV Push, Q4H, PRN: Pain (Moderate 4-6)DuoNeb 0.5 mg-2.5 mg/3 mL inhalation solution: 3 mL, Nebulized Inhalation, Y1HBpzVnw 0.5 mg-2.5 mg/3 mL inhalation solution: 3 mL, Nostrils Both, Q6H, PRN: Shortness of BreathNitrostat: 0.4 mg, SubLINgual, Q5Min, PRN: Chest PainNormal Saline 1,500 mL: 100 mL/Hr, IntraVENousPepcid: 20 mg, Oral, DailyPercocet 5/325: 3 Tab, Oral, Q6H, PRN: Pain (Moderate 4-6)Rocephin: 1 Gram, 100 mL/Hr, IV Piggyback, Q17GIygGofakgi SR: 425 mg, Oral, H60WIevpbyx: 650 mg, Oral, Q4H, PRN: Other (See Comment)Xarelto: 15 mg, Oral, With DinnerZofran: 4 mg, IV Push, Q4H, PRN: NauseaamLODIPine: 10 mg, Oral, Dailyamitriptyline: 50 mg, Oral, At Bedtimeaspirin: 81 mg, Oral, Dailycalcium gluconate: 1 Gram, 10 mL, 60 mL/Hr, IV Piggyback, Daily, PRN: Other (See Comment)calcium gluconate: 2 Gram, 20 mL, 120 mL/Hr, IV Piggyback, Daily, PRN: Other (See Comment)calcium gluconate: 2 Gram, 20 mL, 120 mL/Hr, IV Piggyback, Q12H, PRN: Other (See Comment)clindamycin + Sodium Chloride 0.9% 100 mL: 900 mg, 6 mL, 106 mL/Hr, IV Piggyback, 1-Timeferrous sulfate: 325 mg, Oral, BID With Mealsgabapentin: 300 mg, Oral, BIDhydrALAZINE: 10 mg, IV Push, Q6H, PRN: Hypertensioninsulin aspart sliding scale: Scale D:, SubCutaneous, AC and at Bedtimelovastatin: 40 mg, Oral, At Bedtimemagnesium sulfate: 2 Gram, 50 mL, 25 mL/Hr, IV Piggyback, Daily, PRN: Other (See Comment)magnesium sulfate: 2 Gram, 50 mL, 25 mL/Hr, IV Piggyback, Q2H, PRN: Other (See Comment)metoprolol tartrate: 100 mg, Oral, TIDmorphine: 2 mg, IV Push, Q4H, PRN: Pain (Severe 7-10)oxyCODONE: 5 mg, Oral, Q4H, PRN: Pain (Moderate 4-6)potassium chloride 10 mEq/50 mL intravenous solution: 10 mEq, 50 mL, 50 mL/Hr, IV Piggyback, Q1H, PRN: Other (See Comment)potassium chloride 20 mEq oral tablet, extended release: 20 mEq, 1 Tab, Oral, Q2H, PRN: Other (See Comment)potassium chloride 20 mEq oral tablet, extended release: 60 mEq, 3 Tab, Oral, Q2H, PRN: Other (See Comment)sodium chloride 0.9% injectable solution: 10 mL, IV Push, See Comment, PRN: Other (See Comment)sodium phosphate: 15 mMole, 5 mL, 50 mL/Hr, IV Piggyback, Daily, PRN: Other (See Comment)sodium phosphate: 15 mMole, 5 mL, 50 mL/Hr, IV Piggyback, Q6H, PRN: Other (See Comment)Pending Completeinfluenza virus vaccine, inactivated: 0.5 mL, IntraMuscular, [id number] MedicationsDocumentedLasix 20 mg oral tablet: 1 Tab, Oral, Daily, 30 Tab, 0 Refill(s)Metoprolol Tartrate 100 mg oral tablet: 0.5 Tab, Oral, With Lunch, may increase to 1 tablet as directed for heart rate, 0 Refill(s)Metoprolol Tartrate 100 mg oral tablet: 1 Tab, Oral, BID, 0 Refill(s)Nitrostat 0.4 mg sublingual tablet: 1 Tab, SubLINgual, Q5Min, If chest pain not relieved in 5 minutes after first dose, seek immediate medical attention, PRN: Chest Pain, 100 Tab, 0 Refill(s)ProAir HFA 90 mcg/inh inhalation aerosol: 2 Puff, Inhalation, QID, PRN: for wheezing, 0 Refill(s)Singulair 10 mg oral tablet: 1 Tab, Oral, At Bedtime, 0 Refill(s)Xarelto 20 mg oral tablet: 1 Tab, Oral, Daily, with largest meal, 30 Tab, 0 Refill(s)albuterol 2.5 mg/3 mL (0.083%) inhalation solution: 3 mL, Nebulized Inhalation, Q6H, PRN: for wheezing, 25 Each, 0 Refill(s)amLODIPine 10 mg oral tablet: 1 Tab, Oral, Daily, 30 Tab, 0 Refill(s)amitriptyline 50 mg oral tablet: 1 Tab, Oral, At Bedtime, 0 Refill(s)aspirin 325 mg oral tablet: 1 Tab, Oral, Daily, 30 Tab, 0 Refill(s)gabapentin 300 mg oral capsule: 1 Cap, Oral, BID, 60 Cap, 0 Refill(s)lisinopril 40 mg oral tablet: 1 Tab, Oral, Daily, 30 Tab, 0 Refill(s)lovastatin 40 mg oral tablet: 1 Tab, Oral, At Bedtime, 30 Tab, 0 Refill(s)potassium chloride 20 mEq oral tablet, extended release: 1 Tab, Oral, Daily, 0 Refill(s)propafenone 425 mg oral capsule, extended release: 1 Cap, Oral, Q12H, 180 Cap, 0 Refill(s)triamcinolone 0.1% topical cream: 1 Application, Topical, BID, apply to face as directed, 0 Refill(s),Home Medications (17) Activealbuterol 2.5 mg/3 mL (0.083%) inhalation solution 2.5 mg = 3 mL, PRN, Nebulized Inhalation, W6Ioclkzpyhrbzal 50 mg oral tablet 50 mg = 1 Tab, Oral, At BedtimeamLODIPine 10 mg oral tablet 10 mg = 1 Tab, Oral, Dailyaspirin 325 mg oral tablet 325 mg = 1 Tab, Oral, Dailygabapentin 300 mg oral capsule 300 mg = 1 Cap, Oral, BIDLasix 20 mg oral tablet 20 mg = 1 Tab, Oral, Dailylisinopril 40 mg oral tablet 40 mg = 1 Tab, Oral, Dailylovastatin 40 mg oral tablet 40 mg = 1 Tab, Oral, At BedtimeMetoprolol Tartrate 100 mg oral tablet 100 mg = 1 Tab, Oral, BIDMetoprolol Tartrate 100 mg oral tablet 50 mg = 0.5 Tab, Oral, With LunchNitrostat 0.4 mg sublingual tablet 0.4 mg = 1 Tab, PRN, SubLINgual, N3Xwkqszttiomy chloride 20 mEq oral tablet, extended release 20 mEq = 1 Tab, Oral, DailyProAir HFA 90 mcg/inh inhalation aerosol 2 Puff, PRN, Inhalation, QIDpropafenone 425 mg oral capsule, extended release 425 mg = 1 Cap, Oral, G63YEreflsswy 10 mg oral tablet 10 mg = 1 Tab, Oral, At Bedtimetriamcinolone 0.1% topical cream 1 Application, Topical, BIDXarelto 20 mg oral tablet 20 mg = 1 Tab, Oral, Daily,Medications (35) ActiveScheduled: (14)albuterol-ipratropium inh 3 mL 3 mL, Nebulized Inhalation, V4Katfmbcfxcxjoo 50 mg tab 50 mg 1 Tab, Oral, At BedtimeamLODIPine 10 mg tab 10 mg 1 Tab, Oral, Dailyaspirin 81 mg chew tab 81 mg 1 Tab, Oral, DailycefTRIAXone 1 Gram, IV Piggyback, D52JEfrfjchjqenumb *ADV* + NaCl 0.9% *ADV* 100 mL 900 mg 6 mL, IV Piggyback, 1-Timefamotidine 20 mg tab 20 mg 1 Tab, Oral, Dailyferrous sulfate 325 mg EC tab 325 mg 1 Tab, Oral, BID With Mealsgabapentin 300 mg cap 300 mg 1 Cap, Oral, BIDinsulin aspart 1 unit/0.01 mL inj Scale D:, SubCutaneous, AC and at Bedtimelovastatin 20 mg tab 40 mg 2 Tab, Oral, At Bedtimemetoprolol tartrate 100 mg tab 100 mg 1 Tab, Oral, TIDpropafenone SR 425 mg cap 425 mg 1 Cap, Oral, H02Jvcdnpumhfga 15 mg tab 15 mg 1 Tab, Oral, With DinnerContinuous: (1)NaCl 0.9% 1,500 mL 1,500 mL, IntraVENous, 100 mL/HrPRN: (20)#NaCl 0.9% *FLUSH* inj 10 mL 10 mL, IV Push, See Commentacetaminophen 325 mg tab 650 mg 2 Tab, Oral, G1Bjrgyjmhlfnanq/oxyCODONE 325/5 mg tab 3 Tab, Oral, K4Miabwmnsqh-jgvibyghypn inh 3 mL 3 mL, Nostrils Both, C1Hddgmnul gluconate 1 Gram 10 mL, IV Piggyback, Dailycalcium gluconate 2 Gram 20 mL, IV Piggyback, Dailycalcium gluconate 2 Gram 20 mL, IV Piggyback, Z81NebecZDZHZGI 20 mg/1 mL inj 10 mg 0.5 mL, IV Push, O0BSOVMXaixynqxt 1 mg/1 mL inj 0.5 mg 0.5 mL, IV Push, P8Awszramhku sulfate 2 Gram 50 mL, IV Piggyback, Dailymagnesium sulfate 2 Gram 50 mL, IV Piggyback, C3Oyijkyfwo 2 mg/1 ml cpjt inj 2 mg 1 mL, IV Push, P0Xzwebweysafwej 0.4 mg tab # 25 btl 0.4 mg 1 Tab, SubLINgual, P9Auguebuhsftamv 4 mg/2 mL inj 4 mg 2 mL, IV Push, N0LaltTYUMNX 5 mg tab 5 mg 1 Tab, Oral, R6Phpaibgjfz chloride 10 mEq 50 mL, IV Piggyback, M7Byxyeghupa chloride CR 20 mEq tab 20 mEq 1 Tab, Oral, W2Cjiupchmba chloride CR 20 mEq tab 60 mEq 3 Tab, Oral, P1Geggmka phosphate 15 mMole 5 mL, IV Piggyback, Dailysodium phosphate 15 mMole 5 mL, IV Piggyback, G0JObxinst list:Active Problems (30)Allergic rhinitis Angina Arthritis Atrial fibrillation Atrial flutter Back pain Bronchitis Bursitis Chronic constipation Chronic cough COPD, mild Diabetes mellitus type II GERD - Gastro-esophageal reflux disease Hard of hearing Heart failure Heart valve Hemorrhoids Hiatal hernia Histoplasmosis Hx of seborrhea Hyperlipidemia Hypertension Pancreatitis Peripheral neuropathy Peripheral vascular disease Pneumonia PSVT (paroxysmal supraventricular tachycardia) Restless legs syndrome Sinusitis Sleep apnea calcium gluconate 2 Gram 20 mL, IV Piggyback, Q12H hydrALAZINE 20 mg/1 mL inj 10 mg 0.5 mL, IV Push, Q6H HYDROmorphone 1 mg/1 mL inj 0.5 mg 0.5 mL, IV Push, Q4H magnesium sulfate 2 Gram 50 mL, IV Piggyback, Daily magnesium sulfate 2 Gram 50 mL, IV Piggyback, Q2H morphine 2 mg/1 ml cpjt inj 2 mg 1 mL, IV Push, Q4H nitroglycerin 0.4 mg tab # 25 btl 0.4 mg 1 Tab, SubLINgual, Q5Min ondansetron 4 mg/2 mL inj 4 mg 2 mL, IV Push, Q4H oxyCODONE 5 mg tab 5 mg 1 Tab, Oral, Q4H potassium chloride 10 mEq 50 mL, IV Piggyback, Q1H potassium chloride CR 20 mEq tab 20 mEq 1 Tab, Oral, Q2H potassium chloride CR 20 mEq tab 60 mEq 3 Tab, Oral, Q2H sodium phosphate 15 mMole 5 mL, IV Piggyback, Daily sodium phosphate 15 mMole 5 mL, IV Piggyback, Q6H Problem list: Active Problems (30) Allergic rhinitis Angina Arthritis Atrial fibrillation Atrial flutter Back pain Bronchitis Bursitis Chronic constipation Chronic cough COPD, mild Diabetes mellitus type II GERD - Gastro-esophageal reflux disease Hard of hearing Heart failure Heart valve Hemorrhoids Hiatal hernia Histoplasmosis Hx of seborrhea Hyperlipidemia Hypertension Pancreatitis Peripheral neuropathy Peripheral vascular disease Pneumonia PSVT (paroxysmal supraventricular tachycardia) Restless legs syndrome Sinusitis Sleep apnea ObjectiveVS/MeasurementsVitals Signs (last 24 hrs) Last Charted Minimum MaximumTemp 98.2 (OCT 11:)97.6 (OCT 11 11:54)98.6 (OCT 11:)Apical HR 88 (OCT 11 15:36)86 (OCT 11 11:57)H 410 (OCT 10 22:35)Mon HR 92 (OCT 11 15:30)88 (OCT 11 00:08)105 (OCT 10 22:35)Resp Rate 18 (OCT 11 13:05)18 (OCT 11:)18 (OCT 11:)SBP 128 (OCT 11 15:30)97 (OCT 11 02:)136 (OCT 11 07:00)DBP 73 (OCT 11 15:30)L 49 (OCT 11:)73 (OCT 11 15:30)MAP 92 (OCT 11:)64 (OCT 11 02:28)92 (OCT 11 15:30)SpO2 98 (OCT 11 04:25)L 91 (OCT 11 02:28)98 (OCT 11 04:25)GENERAL : patient is comfortable, in no acute distressHEENT: EOMI, PERRL , sclera non icterus. wet oral mucosa.CARDIOVASCULAR : normal heart sound , regular rate and rhythm RESPIRATORY : clear to auscultation bilateral . no crackles . no wheeze.GASTROINTESTINAL : abdomen soft and non tender. no renal bruit. no organomegaly. no distensionGENITOURINARY : no flank tenderness. no inguinal herniaMUSCULOSKELETAL : no joint swelling or tendernessNEUROLOGICAL : normal motor function. intact CN's. normal sensation .PSYCHIATRIC : AxOx3 , normal affectSKIN: no rash , no edema + right gorion resolving bruises. PSYCHIATRIC : AxOx3 , normal affect SKIN: no rash , no edema + right gorion resolving bruises. Results ReviewGeneral resultsInterpretation:LABS Labs (Last four charted values)WBC H 14.7(OCT 09)H 12.6(OCT 08)H 16.0(OCT 07)H 13.2(OCT 06)HB L 8.6(OCT 09)L 8.5(OCT 08)L 9.0(OCT 07)L 8.9(OCT 07)HCT L 26.9(OCT 09)L 26.9(OCT 08)L 28.3(OCT 07)L 27.9(OCT 07)Plt 289(OCT 09)216(OCT 08)272(OCT 07)253(OCT 06)Na 136(OCT 11)L 134(OCT 10)L 135(OCT 09)140(OCT 08)K 3.9(OCT 11)4.1(OCT 10)4.2(OCT 09)4.0(OCT 08)Cl L 99(OCT 11)L 97(OCT 10)L 98(OCT 09)103(OCT 08)CO2 28(OCT 11)27(OCT 10)27(OCT 09)25(OCT 08)BUN H 29(OCT 11)H 34(OCT 10)H 29(OCT 09)H 24(OCT 08)Cr H 1.60(OCT 11)H 1.70(OCT 10)H 2.00(OCT 09)H 2.00(OCT 08)Glu R H 198(OCT 11)H 131(OCT 10)H 144(OCT 09)H 127(OCT 08)Ca L 8.1(OCT 11)L 7.9(OCT 10)L 8.2(OCT 09)L 7.9(OCT 08)PT H 12.1(OCT 06)INR H 1.2(OCT 06)AST H 41(OCT 07)15(OCT 06)ALT 42(OCT 07)26(OCT 06)ALK P 80(OCT 07)83(OCT 06)T Bili H 1.2(OCT 07)1.0(OCT 06)PTN L 5.6(OCT 07)6.4(OCT 06)ALB L 2.6(OCT 07)L 2.9(OCT 06)Troponin 0.031(OCT 06)PROBNP H 377(OCT 10)H 126(OCT 06)Radiology Results Radiology Results (Last 48 hours)[id number] -- 10/06/2016 03:13CR Chest 1 Vw Portable (10/09/2016 21:10) Result: PORTABLE CHESTHISTORY: Congestive heart failure.COMPARISON: 10/08/2016.FINDINGS: A single portable radiograph of the chest was performed. Thereare cardiac electrodes overlying the chest wall. There is a rightinternal jugular central venous catheter with the tip terminating in thesuperior vena cava. Their is persistent decreased lung volume withpatchy basilar airspace disease that may represent atelectasis orpneumonia. There is been some improved aeration compared to the priorstudy. There is no edema. There are probable trace effusions.IMPRESSION: Slight improved aeration compared to the prior study withpersistent basilar patchy airspace disease and trace effusions.US Renal Comp (10/10/2016 14:36) Result: RENAL ULTRASOUNDHISTORY: Renal insufficiency.PROCEDURE: Ultrasound images of the kidneys were obtained.FINDINGS: Limited images of the liver parenchyma demonstrate normal echogenicity. The right kidney measures 14.9 cm in length . There is a 3.2 x 2.6 cmright renal cyst identified. This is within the lower pole of the rightkidney. There is no hydronephrosis.The left kidney measures 14.8 cm in length . It is normal echogenicity. There is no hydronephrosis.IMPRESSION: Right renal cyst.Otherwise, unremarkable renal ultrasound.Films reviewed, interpreted, and dictated by Dr. Jesus.Transcribed by Kay Harley PA-C.I have personally viewed, interpreted and dictated the examination. Ihave read and agree with the above final transcribed report.CT Head WO (10/11/2016 11:03) Result: CT SCAN OF THE HEAD WITHOUT CONTRASTINDICATION: Confusion.TECHNIQUE: Multiple axial CT images were performed from the foramenmagnum to the vertex without contrast. Coronal reconstruction imageswere obtained from the axial data. This study was performed withtechniques to keep radiation doses as low as reasonably achievable(ALARA). Individualized dose reduction techniques using automatedexposure control or adjustment of mA and/or KV according to the patientsize were employed.COMPARISON: None.FINDINGS: There is no mass effect or midline shift. The ventricles aresymmetric in size and configuration. There is no hydrocephalus. Thereare no extra-axial fluid collections. There is no intraventricular orintraparenchymal hemorrhage. The posterior fossa has a normal CTappearance. There is mucoperiosteal thickening of the left greater thanright maxillary sinuses. There is no air-fluid level. No acute osseousabnormalities are present.IMPRESSION: No acute intracranial abnormality. Consider MR ifsymptomatology persists.Paranasal sinus disease. Impression and Plan1- Acute Kidney injury : normal baseline kidney function. hospital acquired, nonoliguriclow FeNa renal US with simple cyst in the right kidney but otherwise unremarkable.2- Acute blood loss anemia : on oral iron3- Essential hypertension; controlled currently,keep MAP above 65 mmHG, avoid fluctuation.4- Hyponatremia : mild , resolved.5- A. Fib : cardiology following.PLAN:continue NSS for now.kidney function improving. 3- Essential hypertension; controlled currently, keep MAP above 65 mmHG, avoid fluctuation. 4- Hyponatremia : mild , resolved. 5- A. Fib : cardiology following. PLAN: continue NSS for now. kidney function improving. Extracted from: Title: Progress Note, Author: MAJO ZULUAGA, Date: 10/11/16 Acute Care MD-INT Basic Information feels weakness on the left, no CP, SOA better Review of Systems Constitutional: Weakness, Fatigue. Eye: Negative. Ear/Nose/Mouth/Throat: Negative. Respiratory: Shortness of breath, Cough. Cardiovascular: Negative. Gastrointestinal: Negative. Genitourinary: Negative. Hematology/Lymphatics: Negative. Endocrine: Negative. Musculoskeletal: Negative. Integumentary: Negative. Neurologic: Abnormal balance. Psychiatric: Negative. Health StatusAllergies:Allergic Reactions (Selected)Severity Not DocumentedBactrim- Rash , fever.Ciprofloxacin- Hives.Penicillin- Anaphylaxis as child.Tetracyclines- Unsure.,Allergies (4) ActiveReactionBactrimrash , feverciprofloxacinhivespenicillinanaphylaxis as childtetracyclinesunsureCurrent medications: (Selected)Inpatient MedicationsOrderedDilaudid: 0.5 mg, IV Push, Q4H, PRN: Pain (Moderate 4-6)DuoNeb 0.5 mg-2.5 mg/3 mL inhalation solution: 3 mL, Nebulized Inhalation, W5ZZfkAly 0.5 mg-2.5 mg/3 mL inhalation solution: 3 mL, Nostrils Both, Q6H, PRN: Shortness of BreathNitrostat: 0.4 mg, SubLINgual, Q5Min, PRN: Chest PainNormal Saline 1,500 mL: 100 mL/Hr, IntraVENousPepcid: 20 mg, Oral, DailyPercocet 5/325: 3 Tab, Oral, Q6H, PRN: Pain (Moderate 4-6)Rocephin: 1 Gram, 100 mL/Hr, IV Piggyback, F41DYukXawffex SR: 425 mg, Oral, Y87WLzbpudp: 650 mg, Oral, Q4H, PRN: Other (See Comment)Xarelto: 15 mg, Oral, With DinnerZofran: 4 mg, IV Push, Q4H, PRN: NauseaamLODIPine: 10 mg, Oral, Dailyamitriptyline: 50 mg, Oral, At Bedtimeaspirin: 81 mg, Oral, Dailycalcium gluconate: 1 Gram, 10 mL, 60 mL/Hr, IV Piggyback, Daily, PRN: Other (See Comment)calcium gluconate: 2 Gram, 20 mL, 120 mL/Hr, IV Piggyback, Daily, PRN: Other (See Comment)calcium gluconate: 2 Gram, 20 mL, 120 mL/Hr, IV Piggyback, Q12H, PRN: Other (See Comment)clindamycin + Sodium Chloride 0.9% 100 mL: 900 mg, 6 mL, 106 mL/Hr, IV Piggyback, 1-Timeferrous sulfate: 325 mg, Oral, BID With Mealsgabapentin: 300 mg, Oral, BIDhydrALAZINE: 10 mg, IV Push, Q6H, PRN: Hypertensioninsulin aspart sliding scale: Scale D:, SubCutaneous, AC and at Bedtimelovastatin: 40 mg, Oral, At Bedtimemagnesium sulfate: 2 Gram, 50 mL, 25 mL/Hr, IV Piggyback, Daily, PRN: Other (See Comment)magnesium sulfate: 2 Gram, 50 mL, 25 mL/Hr, IV Piggyback, Q2H, PRN: Other (See Comment)metoprolol tartrate: 100 mg, Oral, TIDmorphine: 2 mg, IV Push, Q4H, PRN: Pain (Severe 7-10)oxyCODONE: 5 mg, Oral, Q4H, PRN: Pain (Moderate 4-6)potassium chloride 10 mEq/50 mL intravenous solution: 10 mEq, 50 mL, 50 mL/Hr, IV Piggyback, Q1H, PRN: Other (See Comment)potassium chloride 20 mEq oral tablet, extended release: 20 mEq, 1 Tab, Oral, Q2H, PRN: Other (See Comment)potassium chloride 20 mEq oral tablet, extended release: 60 mEq, 3 Tab, Oral, Q2H, PRN: Other (See Comment)sodium chloride 0.9% injectable solution: 10 mL, IV Push, See Comment, PRN: Other (See Comment)sodium phosphate: 15 mMole, 5 mL, 50 mL/Hr, IV Piggyback, Daily, PRN: Other (See Comment)sodium phosphate: 15 mMole, 5 mL, 50 mL/Hr, IV Piggyback, Q6H, PRN: Other (See Comment)Pending Completeinfluenza virus vaccine, inactivated: 0.5 mL, IntraMuscular, F56NObxNuznhtdugr MedicationsDocumentedLasix 20 mg oral tablet: 1 Tab, Oral, Daily, 30 Tab, 0 Refill(s)Metoprolol Tartrate 100 mg oral tablet: 0.5 Tab, Oral, With Lunch, may increase to 1 tablet as directed for heart rate, 0 Refill(s)Metoprolol Tartrate 100 mg oral tablet: 1 Tab, Oral, BID, 0 Refill(s)Nitrostat 0.4 mg sublingual tablet: 1 Tab, SubLINgual, Q5Min, If chest pain not relieved in 5 minutes after first dose, seek immediate medical attention, PRN: Chest Pain, 100 Tab, 0 Refill(s)ProAir HFA 90 mcg/inh inhalation aerosol: 2 Puff, Inhalation, QID, PRN: for wheezing, 0 Refill(s)Singulair 10 mg oral tablet: 1 Tab, Oral, At Bedtime, 0 Refill(s)Xarelto 20 mg oral tablet: 1 Tab, Oral, Daily, with largest meal, 30 Tab, 0 Refill(s)albuterol 2.5 mg/3 mL (0.083%) inhalation solution: 3 mL, Nebulized Inhalation, Q6H, PRN: for wheezing, 25 Each, 0 Refill(s)amLODIPine 10 mg oral tablet: 1 Tab, Oral, Daily, 30 Tab, 0 Refill(s)amitriptyline 50 mg oral tablet: 1 Tab, Oral, At Bedtime, 0 Refill(s)aspirin 325 mg oral tablet: 1 Tab, Oral, Daily, 30 Tab, 0 Refill(s)gabapentin 300 mg oral capsule: 1 Cap, Oral, BID, 60 Cap, 0 Refill(s)lisinopril 40 mg oral tablet: 1 Tab, Oral, Daily, 30 Tab, 0 Refill(s)lovastatin 40 mg oral tablet: 1 Tab, Oral, At Bedtime, 30 Tab, 0 Refill(s)potassium chloride 20 mEq oral tablet, extended release: 1 Tab, Oral, Daily, 0 Refill(s)propafenone 425 mg oral capsule, extended release: 1 Cap, Oral, Q12H, 180 Cap, 0 Refill(s)triamcinolone 0.1% topical cream: 1 Application, Topical, BID, apply to face as directed, 0 Refill(s),Medications (35) ActiveScheduled: (14)albuterol-ipratropium inh 3 mL 3 mL, Nebulized Inhalation, I1Pzivabshfdccyr 50 mg tab 50 mg 1 Tab, Oral, At BedtimeamLODIPine 10 mg tab 10 mg 1 Tab, Oral, Dailyaspirin 81 mg chew tab 81 mg 1 Tab, Oral, DailycefTRIAXone 1 Gram, IV Piggyback, R39BIwfzkcnlvqvaxo *ADV* + NaCl 0.9% *ADV* 100 mL 900 mg 6 mL, IV Piggyback, 1-Timefamotidine 20 mg tab 20 mg 1 Tab, Oral, Dailyferrous sulfate 325 mg EC tab 325 mg 1 Tab, Oral, BID With Mealsgabapentin 300 mg cap 300 mg 1 Cap, Oral, BIDinsulin aspart 1 unit/0.01 mL inj Scale D:, SubCutaneous, AC and at Bedtimelovastatin 20 mg tab 40 mg 2 Tab, Oral, At Bedtimemetoprolol tartrate 100 mg tab 100 mg 1 Tab, Oral, TIDpropafenone SR 425 mg cap 425 mg 1 Cap, Oral, T44Mowbmydgpowi 15 mg tab 15 mg 1 Tab, Oral, With DinnerContinuous: (1)NaCl 0.9% 1,500 mL 1,500 mL, IntraVENous, 100 mL/HrPRN: (20)#NaCl 0.9% *FLUSH* inj 10 mL 10 mL, IV Push, See Commentacetaminophen 325 mg tab 650 mg 2 Tab, Oral, N5Jrjpiafdaeesgh/oxyCODONE 325/5 mg tab 3 Tab, Oral, P2Eczbiguuty-qgwdhyftvwe inh 3 mL 3 mL, Nostrils Both, A1Uaimajom gluconate 1 Gram 10 mL, IV Piggyback, Dailycalcium gluconate 2 Gram 20 mL, IV Piggyback, Dailycalcium gluconate 2 Gram 20 mL, IV Piggyback, N48AvpclLHYNRXE 20 mg/1 mL inj 10 mg 0.5 mL, IV Push, S4KLCIYTldkcybpb 1 mg/1 mL inj 0.5 mg 0.5 mL, IV Push, U4Mvpuuavfrm sulfate 2 Gram 50 mL, IV Piggyback, Dailymagnesium sulfate 2 Gram 50 mL, IV Piggyback, N9Reklrtktj 2 mg/1 ml cpjt inj 2 mg 1 mL, IV Push, J1Ieuvmeqvqkqklu 0.4 mg tab # 25 btl 0.4 mg 1 Tab, SubLINgual, T0Jeaaosudefoxnv 4 mg/2 mL inj 4 mg 2 mL, IV Push, G8FgvvQCVOSN 5 mg tab 5 mg 1 Tab, Oral, V1Zjssdrziwt chloride 10 mEq 50 mL, IV Piggyback, Y7Cnpiivvxnz chloride CR 20 mEq tab 20 mEq 1 Tab, Oral, E5Waaypygrcl chloride CR 20 mEq tab 60 mEq 3 Tab, Oral, R0Dbflwul phosphate 15 mMole 5 mL, IV Piggyback, Dailysodium phosphate 15 mMole 5 mL, IV Piggyback, B4EImubwwh list:Active Problems (30)Allergic rhinitis Angina Arthritis Atrial fibrillation Atrial flutter Back pain Bronchitis Bursitis Chronic constipation Chronic cough COPD, mild Diabetes mellitus type II GERD - Gastro-esophageal reflux disease Hard of hearing Heart failure Heart valve Hemorrhoids Hiatal hernia Histoplasmosis Hx of seborrhea Hyperlipidemia Hypertension Pancreatitis Peripheral neuropathy Peripheral vascular disease Pneumonia PSVT (paroxysmal supraventricular tachycardia) Restless legs syndrome Sinusitis Sleep apnea HYDROmorphone 1 mg/1 mL inj 0.5 mg 0.5 mL, IV Push, Q4H magnesium sulfate 2 Gram 50 mL, IV Piggyback, Daily magnesium sulfate 2 Gram 50 mL, IV Piggyback, Q2H morphine 2 mg/1 ml cpjt inj 2 mg 1 mL, IV Push, Q4H nitroglycerin 0.4 mg tab # 25 btl 0.4 mg 1 Tab, SubLINgual, Q5Min ondansetron 4 mg/2 mL inj 4 mg 2 mL, IV Push, Q4H oxyCODONE 5 mg tab 5 mg 1 Tab, Oral, Q4H potassium chloride 10 mEq 50 mL, IV Piggyback, Q1H potassium chloride CR 20 mEq tab 20 mEq 1 Tab, Oral, Q2H potassium chloride CR 20 mEq tab 60 mEq 3 Tab, Oral, Q2H sodium phosphate 15 mMole 5 mL, IV Piggyback, Daily sodium phosphate 15 mMole 5 mL, IV Piggyback, Q6H Problem list: Active Problems (30) Allergic rhinitis Angina Arthritis Atrial fibrillation Atrial flutter Back pain Bronchitis Bursitis Chronic constipation Chronic cough COPD, mild Diabetes mellitus type II GERD - Gastro-esophageal reflux disease Hard of hearing Heart failure Heart valve Hemorrhoids Hiatal hernia Histoplasmosis Hx of seborrhea Hyperlipidemia Hypertension Pancreatitis Peripheral neuropathy Peripheral vascular disease Pneumonia PSVT (paroxysmal supraventricular tachycardia) Restless legs syndrome Sinusitis Sleep apnea Physical ExaminationVS/MeasurementsVital Signs/Vital Ghnrioyl60/22/2016 11:57 EST Heart Rate, Apical 86 bpm10/11/2016 11:54 EST Temperature, Fahrenheit 97.6 Deg F Clinical Temperature, C 36.4 Deg C Heart Rate Monitored 94 bpm Systolic Blood Pressure 125 mmHg Diastolic Blood Pressure 67 mmHg Mean Arterial Pressure (MAP)-[facility] 8610/11/2016 11:45 EST Temperature Source Oral Temperature Mode Dbxvprycff78/22/2016 8:55 EST Heart Rate, Apical 90 bpm10/11/2016 8:14 EST Heart Rate Monitored 92 bpm Oxygen Therapy Mode Nasal cannula, Other: Oxygen Flow Rate 3 Liter/Min10/11/2016 7:00 EST Heart Rate Monitored 88 bpm Systolic Blood Pressure 136 mmHg Diastolic Blood Pressure 70 mmHg10/11/2016 4:25 EST Heart Rate Monitored 91 bpm Oxygen Saturation 98 % Oxygen Therapy Mode Nasal cannula Oxygen Flow Rate 2 Liter/Min10/11/2016 2:36 EST Heart Rate Monitored 91 bpm Oxygen Saturation 93 % LOW 10/11/2016 2:28 EST Temperature, Fahrenheit 98.6 Deg F Clinical Temperature, C 37 Deg C Heart Rate Monitored 93 bpm Respiratory Rate 18 Breaths/Min Systolic Blood Pressure In Error mmHg (In Error) Systolic Blood Pressure 97 mmHg Diastolic Blood Pressure In Error mmHg (In Error) Diastolic Blood Pressure 49 mmHg LOW [facility] Oxygen Saturation 91 % LOW 10/11/2016 0:08 EST Heart Rate Monitored 88 bpm Oxygen Saturation 97 % Oxygen Therapy Mode Nasal cannula Oxygen Flow Rate 2 Liter/Min10/10/2016 22:35 EST Heart Rate, Apical 99 bpm Heart Rate, Apical 410 bpm HI Heart Rate Monitored 105 bpm HI Heart Rate Monitored 99 bpm Systolic Blood Pressure 113 mmHg Systolic Blood Pressure 113 mmHg Diastolic Blood Pressure 65 mmHg Diastolic Blood Pressure 65 mmHg10/10/2016 20:40 EST Heart Rate Monitored 97 bpm Oxygen Therapy Mode Nasal cannula Oxygen Flow Rate 2 Liter/Min10/10/2016 18:30 EST Temperature Source Oral Temperature Mode Fahrenheit Temperature, Fahrenheit 98.8 Deg F Heart Rate Monitored 106 bpm HI Respiratory Rate 22 Breaths/Min HI Systolic Blood Pressure 106 mmHg Diastolic Blood Pressure 78 mmHg Oxygen Saturation 96 % Oxygen Therapy Mode Nasal cannula Oxygen Flow Rate 2 Liter/Min10/10/2016 16:00 EST Heart Rate, Apical 99 bpm Heart Rate Monitored 128 bpm HI Oxygen Saturation 82 % LOW 10/10/2016 15:17 EST Heart Rate Monitored 102 bpm HI Oxygen Saturation 97 %10/10/2016 15:00 EST Temperature Source Oral Temperature Mode Fahrenheit Temperature, Fahrenheit 98.8 Deg F Clinical Temperature, C 37.1 Deg C Respiratory Rate 20 Breaths/Min Systolic Blood Pressure 105 mmHg Diastolic Blood Pressure 54 mmHg LOW Mean Arterial Pressure (MAP)-[facility] 64 Oxygen Therapy Mode Nasal cannula Oxygen Flow Rate 3 Liter/Min10/10/2016 13:21 EST Heart Rate, Apical 90 bpm10/10/2016 11:33 EST Heart Rate Monitored 94 bpm10/10/2016 11:26 EST Heart Rate Monitored 94 bpm Oxygen Therapy Mode Nasal cannula Oxygen Flow Rate 3 Liter/Min10/10/2016 11:00 EST Temperature Source Oral Temperature Mode Fahrenheit Temperature, Fahrenheit 99 Deg F Clinical Temperature, C 37.2 Deg C Systolic Blood Pressure 109 mmHg Diastolic Blood Pressure 65 mmHg Mean Arterial Pressure (MAP)-[facility] 80 Oxygen Saturation 97 %10/10/2016 8:30 EST Heart Rate, Apical 104 bpm HI 10/10/2016 8:28 EST Heart Rate Monitored 104 bpm HI Systolic Blood Pressure 134 mmHg Diastolic Blood Pressure 74 mmHg Mean Arterial Pressure (MAP)-[facility] 92 Oxygen Saturation 95 %10/10/2016 7:36 EST Heart Rate Monitored 98 bpm10/10/2016 7:27 EST Heart Rate Monitored 98 bpm Oxygen Saturation 99 % Oxygen Therapy Mode Nasal cannula Oxygen Flow Rate 3 Liter/Min10/10/2016 7:15 EST Oxygen Saturation 100 % Oxygen Therapy Mode Nasal cannula Oxygen Flow Rate 3 Liter/Min10/10/2016 4:05 EST Temperature, Fahrenheit 98.9 Deg F Clinical Temperature, C 37.2 Deg C Heart Rate Monitored 88 bpm Respiratory Rate 20 Breaths/Min Systolic Blood Pressure 106 mmHg Diastolic Blood Pressure 67 mmHg Mean Arterial Pressure (MAP)-[facility] 84 Oxygen Saturation 100 %10/10/2016 3:10 EST Heart Rate Monitored 83 bpm Oxygen Saturation 100 % Oxygen Therapy Mode BiPAP FiO2 Nursing 35 %10/10/2016 3:03 EST Heart Rate Monitored 81 bpm Oxygen Saturation 100 % Oxygen Therapy Mode BiPAP FiO2 Nursing 35 %,Vitals Signs (last 24 hrs) Last Charted Minimum MaximumTemp 97.6 (OCT 11 11:54)97.6 (OCT 11 11:54)98.8 (OCT 10 15:00)Apical HR 86 (OCT 11 11:57)86 (OCT 11 11:57)H 410 (OCT 10 22:35)Mon HR 94 (OCT 11 11:54)88 (OCT 11 00:08)128 (OCT 10 16:00)Resp Rate 18 (OCT 11:28)18 (OCT 11:28)H 22 (OCT 10 18:30)SBP 125 (OCT 11 11:54)97 (OCT 11 02:28)136 (OCT 11 07:00)DBP 67 (OCT 11 11:54)L 49 (OCT 11:)78 (OCT 10 18:30)MAP 86 (OCT 11 11:54)64 (OCT 10 15:00)86 (OCT 11 11:54)SpO2 98 (OCT 11 04:25)L 82 (OCT 10 16:00)98 (OCT 11 04:25)General: No acute distress.Eye: Pupils are equal, round and reactive to light, Normal conjunctiva.HENT: Normocephalic, Oral mucosa is moist.Neck: Supple.Respiratory: Respirations are non-labored, Breath sounds are equal, Symmetrical chest wall expansion, diminished at the bases.Cardiovascular: Normal rate, Regular rhythm, No murmur, No gallop.Gastrointestinal: Soft, Non-distended, Normal bowel sounds.Musculoskeletal: No swelling, No deformity.Integumentary: Warm, Dry, Tillar.Neurologic: Alert, Normal sensory, No focal deficits, Cranial Nerves II-XII are grossly intact, Left power 4/5, rt 5/5.Psychiatric: Cooperative. Resp Rate 18 (OCT 11:28)18 (OCT 11:28)H 22 (OCT 10: 30) SBP 125 (OCT 11 11:54)97 (OCT 11:)136 (OCT 11 07:00) DBP 67 (OCT 11 11:54)L 49 (OCT 11 02:28)78 (OCT 10 18:30) MAP 86 (OCT 11 11:54)64 (OCT 10 15:00)86 (OCT 11 11: 54) SpO2 98 (OCT 11 04:25)L 82 (OCT 10 16:00)98 (OCT 11 04 :25) General: No acute distress. Eye: Pupils are equal, round and reactive to light, Normal conjunctiva. HENT: Normocephalic, Oral mucosa is moist. Neck: Supple. Respiratory: Respirations are non-labored, Breath sounds are equal, Symmetrical chest wall expansion, diminished at the bases. Cardiovascular: Normal rate, Regular rhythm, No murmur, No gallop. Gastrointestinal: Soft, Non-distended, Normal bowel sounds. Musculoskeletal: No swelling, No deformity. Integumentary: Warm, Dry, Tillar. Neurologic: Alert, Normal sensory, No focal deficits, Cranial Nerves II-XII are grossly intact, Left power 4/5, rt 5/5. Psychiatric: Cooperative. Review / ManagementResults review:Labs (Last four charted values)WBC H 14.7(OCT 09)H 12.6(OCT 08)H 16.0(OCT 07)H 13.2(OCT 06)HB L 8.6(OCT 09)L 8.5(OCT 08)L 9.0(OCT 07)L 8.9(OCT 07)HCT L 26.9(OCT 09)L 26.9(OCT 08)L 28.3(OCT 07)L 27.9(OCT 07)Plt 289(OCT 09)216(OCT 08)272(OCT 07)253(OCT 06)Na 136(OCT 11)L 134(OCT 10)L 135(OCT 09)140(OCT 08)K 3.9(OCT 11)4.1(OCT 10)4.2(OCT 09)4.0(OCT 08)Cl L 99(OCT 11)L 97(OCT 10)L 98(OCT 09)103(OCT 08)CO2 28(OCT 11)27(OCT 10)27(OCT 09)25(OCT 08)BUN H 29(OCT 11)H 34(OCT 10)H 29(OCT 09)H 24(OCT 08)Cr H 1.60(OCT 11)H 1.70(OCT 10)H 2.00(OCT 09)H 2.00(OCT 08)Glu R H 198(OCT 11)H 131(OCT 10)H 144(OCT 09)H 127(OCT 08)Ca L 8.1(OCT 11)L 7.9(OCT 10)L 8.2(OCT 09)L 7.9(OCT 08)PT H 12.1(OCT 06)INR H 1.2(OCT 06)AST H 41(OCT 07)15(OCT 06)ALT 42(OCT 07)26(OCT 06)ALK P 80(OCT 07)83(OCT 06)T Bili H 1.2(OCT 07)1.0(OCT 06)PTN L 5.6(OCT 07)6.4(OCT 06)ALB L 2.6(OCT 07)L 2.9(OCT 06)Troponin 0.031(OCT 06)PROBNP H 377(OCT 10)H 126(OCT 06). AST H 41(OCT 07)15(OCT 06) ALT 42(OCT 07)26(OCT 06) ALK P 80(OCT 07)83(OCT 06) T Bili H 1.2(OCT 07)1.0(OCT 06) PTN L 5.6(OCT 07)6.4(OCT 06) ALB L 2.6(OCT 07)L 2.9(OCT 06) Troponin 0.031(OCT 06) PROBNP H 377(OCT 10)H 126(OCT 06) . Impression and Plan1. Right groin Pesudoaneurysm- s/p repair, AVFistila closure by surgery2. History of atrial fibrillation, status post ablation.continue beta romel. No anticoagulation recommended by surgery for now.3. Coronary artery disease. Cardiology following4. Hypertension. Resume home medication plus hydralazine as needed.5. Neuropathy, on gabapentin, continued.6. Hyperlipidemia, on statin, continued.7. Gastrointestinal prophylaxis, Pepcid.8. Deep venous thrombosis prophylaxis, compression boots, heparinAcute respiratory failure- resolvedAc renal failure- better, has good urine output, off nephrotoxic medsFever, low grade, dyspnea and bilateral patchy infiltrates in the lungs, leucocytosis- start IVABxLeft weakness- high risk of stroke, neuro consulted, CT pending?Aspiration, speech evalPT, OTD/w Dr. Byrd, and nurseDisp- Home when able to ambulateTIME SPENT:30 minutes. ?Aspiration, speech eval PT, OT D/w Dr. Byrd, and nurse Disp- Home when able to ambulate TIME SPENT: 30 minutes. Extracted from: Title: EP progress note Author: SAVI NIELSON, Date: 10/11/16 MD-CAR SubjectiveThe patient remained in SR.He felt possible left sided weakness when moving around yesterday.Slurred speech noticed by the family is better today and he said his weakness on the left is better.today muscle power in 4/5 on the left and 5/5 on the right.Appreciate Nephrology input.Creatineine is better today.Groin site is stable.Incision is good.Still has the Right IJ line for IV antibiotics. Still has the Right IJ line for IV antibiotics. Health StatusAllergies:Allergic Reactions (All)Severity Not DocumentedBactrim- Rash , fever.Ciprofloxacin- Hives.Penicillin- Anaphylaxis as child.Tetracyclines- Unsure.,Allergies (4) ActiveReactionBactrimrash , feverciprofloxacinhivespenicillinanaphylaxis as childtetracyclinesunsureCurrent medications: (Selected)Inpatient MedicationsOrderedDilaudid: 0.5 mg, IV Push, Q4H, PRN: Pain (Moderate 4-6)DuoNeb 0.5 mg-2.5 mg/3 mL inhalation solution: 3 mL, Nebulized Inhalation, R4JFtsVum 0.5 mg-2.5 mg/3 mL inhalation solution: 3 mL, Nostrils Both, Q6H, PRN: Shortness of BreathNitrostat: 0.4 mg, SubLINgual, Q5Min, PRN: Chest PainNormal Saline 1,500 mL: 100 mL/Hr, IntraVENousPepcid: 20 mg, Oral, DailyPercocet 5/325: 3 Tab, Oral, Q6H, PRN: Pain (Moderate 4-6)Rocephin: 1 Gram, 100 mL/Hr, IV Piggyback, B52XJdjVtpgobo SR: 425 mg, Oral, S04STbwhrfu: 650 mg, Oral, Q4H, PRN: Other (See Comment)Xarelto: 15 mg, Oral, With DinnerZofran: 4 mg, IV Push, Q4H, PRN: NauseaamLODIPine: 10 mg, Oral, Dailyamitriptyline: 50 mg, Oral, At Bedtimeaspirin: 81 mg, Oral, Dailycalcium gluconate: 1 Gram, 10 mL, 60 mL/Hr, IV Piggyback, Daily, PRN: Other (See Comment)calcium gluconate: 2 Gram, 20 mL, 120 mL/Hr, IV Piggyback, Daily, PRN: Other (See Comment)calcium gluconate: 2 Gram, 20 mL, 120 mL/Hr, IV Piggyback, Q12H, PRN: Other (See Comment)clindamycin + Sodium Chloride 0.9% 100 mL: 900 mg, 6 mL, 106 mL/Hr, IV Piggyback, 1-Timeferrous sulfate: 325 mg, Oral, BID With Mealsgabapentin: 300 mg, Oral, BIDhydrALAZINE: 10 mg, IV Push, Q6H, PRN: Hypertensioninsulin aspart sliding scale: Scale D:, SubCutaneous, AC and at Bedtimelovastatin: 40 mg, Oral, At Bedtimemagnesium sulfate: 2 Gram, 50 mL, 25 mL/Hr, IV Piggyback, Daily, PRN: Other (See Comment)magnesium sulfate: 2 Gram, 50 mL, 25 mL/Hr, IV Piggyback, Q2H, PRN: Other (See Comment)metoprolol tartrate: 100 mg, Oral, TIDmorphine: 2 mg, IV Push, Q4H, PRN: Pain (Severe 7-10)oxyCODONE: 5 mg, Oral, Q4H, PRN: Pain (Moderate 4-6)potassium chloride 10 mEq/50 mL intravenous solution: 10 mEq, 50 mL, 50 mL/Hr, IV Piggyback, Q1H, PRN: Other (See Comment)potassium chloride 20 mEq oral tablet, extended release: 20 mEq, 1 Tab, Oral, Q2H, PRN: Other (See Comment)potassium chloride 20 mEq oral tablet, extended release: 60 mEq, 3 Tab, Oral, Q2H, PRN: Other (See Comment)sodium chloride 0.9% injectable solution: 10 mL, IV Push, See Comment, PRN: Other (See Comment)sodium phosphate: 15 mMole, 5 mL, 50 mL/Hr, IV Piggyback, Daily, PRN: Other (See Comment)sodium phosphate: 15 mMole, 5 mL, 50 mL/Hr, IV Piggyback, Q6H, PRN: Other (See Comment)Pending Completeinfluenza virus vaccine, inactivated: 0.5 mL, IntraMuscular, [id number] MedicationsDocumentedLasix 20 mg oral tablet: 1 Tab, Oral, Daily, 30 Tab, 0 Refill(s)Metoprolol Tartrate 100 mg oral tablet: 0.5 Tab, Oral, With Lunch, may increase to 1 tablet as directed for heart rate, 0 Refill(s)Metoprolol Tartrate 100 mg oral tablet: 1 Tab, Oral, BID, 0 Refill(s)Nitrostat 0.4 mg sublingual tablet: 1 Tab, SubLINgual, Q5Min, If chest pain not relieved in 5 minutes after first dose, seek immediate medical attention, PRN: Chest Pain, 100 Tab, 0 Refill(s)ProAir HFA 90 mcg/inh inhalation aerosol: 2 Puff, Inhalation, QID, PRN: for wheezing, 0 Refill(s)Singulair 10 mg oral tablet: 1 Tab, Oral, At Bedtime, 0 Refill(s)Xarelto 20 mg oral tablet: 1 Tab, Oral, Daily, with largest meal, 30 Tab, 0 Refill(s)albuterol 2.5 mg/3 mL (0.083%) inhalation solution: 3 mL, Nebulized Inhalation, Q6H, PRN: for wheezing, 25 Each, 0 Refill(s)amLODIPine 10 mg oral tablet: 1 Tab, Oral, Daily, 30 Tab, 0 Refill(s)amitriptyline 50 mg oral tablet: 1 Tab, Oral, At Bedtime, 0 Refill(s)aspirin 325 mg oral tablet: 1 Tab, Oral, Daily, 30 Tab, 0 Refill(s)gabapentin 300 mg oral capsule: 1 Cap, Oral, BID, 60 Cap, 0 Refill(s)lisinopril 40 mg oral tablet: 1 Tab, Oral, Daily, 30 Tab, 0 Refill(s)lovastatin 40 mg oral tablet: 1 Tab, Oral, At Bedtime, 30 Tab, 0 Refill(s)potassium chloride 20 mEq oral tablet, extended release: 1 Tab, Oral, Daily, 0 Refill(s)propafenone 425 mg oral capsule, extended release: 1 Cap, Oral, Q12H, 180 Cap, 0 Refill(s)triamcinolone 0.1% topical cream: 1 Application, Topical, BID, apply to face as directed, 0 Refill(s),Home Medications (17) Activealbuterol 2.5 mg/3 mL (0.083%) inhalation solution 2.5 mg = 3 mL, PRN, Nebulized Inhalation, T8Kkmgcveadwicag 50 mg oral tablet 50 mg = 1 Tab, Oral, At BedtimeamLODIPine 10 mg oral tablet 10 mg = 1 Tab, Oral, Dailyaspirin 325 mg oral tablet 325 mg = 1 Tab, Oral, Dailygabapentin 300 mg oral capsule 300 mg = 1 Cap, Oral, BIDLasix 20 mg oral tablet 20 mg = 1 Tab, Oral, Dailylisinopril 40 mg oral tablet 40 mg = 1 Tab, Oral, Dailylovastatin 40 mg oral tablet 40 mg = 1 Tab, Oral, At BedtimeMetoprolol Tartrate 100 mg oral tablet 100 mg = 1 Tab, Oral, BIDMetoprolol Tartrate 100 mg oral tablet 50 mg = 0.5 Tab, Oral, With LunchNitrostat 0.4 mg sublingual tablet 0.4 mg = 1 Tab, PRN, SubLINgual, I9Gebzeuwbaoqp chloride 20 mEq oral tablet, extended release 20 mEq = 1 Tab, Oral, DailyProAir HFA 90 mcg/inh inhalation aerosol 2 Puff, PRN, Inhalation, QIDpropafenone 425 mg oral capsule, extended release 425 mg = 1 Cap, Oral, P16BDnatmkgvq 10 mg oral tablet 10 mg = 1 Tab, Oral, At Bedtimetriamcinolone 0.1% topical cream 1 Application, Topical, BIDXarelto 20 mg oral tablet 20 mg = 1 Tab, Oral, Daily,Medications (35) ActiveScheduled: (14)albuterol-ipratropium inh 3 mL 3 mL, Nebulized Inhalation, C0Ovbzmdacwvxaxl 50 mg tab 50 mg 1 Tab, Oral, At BedtimeamLODIPine 10 mg tab 10 mg 1 Tab, Oral, Dailyaspirin 81 mg chew tab 81 mg 1 Tab, Oral, DailycefTRIAXone 1 Gram, IV Piggyback, F84PLiqvxaubejvrpa *ADV* + NaCl 0.9% *ADV* 100 mL 900 mg 6 mL, IV Piggyback, 1-Timefamotidine 20 mg tab 20 mg 1 Tab, Oral, Dailyferrous sulfate 325 mg EC tab 325 mg 1 Tab, Oral, BID With Mealsgabapentin 300 mg cap 300 mg 1 Cap, Oral, BIDinsulin aspart 1 unit/0.01 mL inj Scale D:, SubCutaneous, AC and at Bedtimelovastatin 20 mg tab 40 mg 2 Tab, Oral, At Bedtimemetoprolol tartrate 100 mg tab 100 mg 1 Tab, Oral, TIDpropafenone SR 425 mg cap 425 mg 1 Cap, Oral, S81Habkijpujafm 15 mg tab 15 mg 1 Tab, Oral, With DinnerContinuous: (1)NaCl 0.9% 1,500 mL 1,500 mL, IntraVENous, 100 mL/HrPRN: (20)#NaCl 0.9% *FLUSH* inj 10 mL 10 mL, IV Push, See Commentacetaminophen 325 mg tab 650 mg 2 Tab, Oral, N8Usdxdtvbnblwre/oxyCODONE 325/5 mg tab 3 Tab, Oral, S9Covlzorsqm-rqqhltdiple inh 3 mL 3 mL, Nostrils Both, K5Mxelnkiq gluconate 1 Gram 10 mL, IV Piggyback, Dailycalcium gluconate 2 Gram 20 mL, IV Piggyback, Dailycalcium gluconate 2 Gram 20 mL, IV Piggyback, A94VtifaPXETICM 20 mg/1 mL inj 10 mg 0.5 mL, IV Push, U4VECTLYeqtqtkol 1 mg/1 mL inj 0.5 mg 0.5 mL, IV Push, T4Bgbigteuln sulfate 2 Gram 50 mL, IV Piggyback, Dailymagnesium sulfate 2 Gram 50 mL, IV Piggyback, M8Icmxsnxbn 2 mg/1 ml cpjt inj 2 mg 1 mL, IV Push, T7Wxdgrmcjrknicn 0.4 mg tab # 25 btl 0.4 mg 1 Tab, SubLINgual, M4Wbopvnwqasexxa 4 mg/2 mL inj 4 mg 2 mL, IV Push, O9JswtBWGQOX 5 mg tab 5 mg 1 Tab, Oral, N4Vfyrjopucu chloride 10 mEq 50 mL, IV Piggyback, M5Rxwbxkvkue chloride CR 20 mEq tab 20 mEq 1 Tab, Oral, L5Plqfzmpsbt chloride CR 20 mEq tab 60 mEq 3 Tab, Oral, Z3Ayvwqkp phosphate 15 mMole 5 mL, IV Piggyback, Dailysodium phosphate 15 mMole 5 mL, IV Piggyback, V4TSootyha list:Active Problems (30)Allergic rhinitis Angina Arthritis Atrial fibrillation Atrial flutter Back pain Bronchitis Bursitis Chronic constipation Chronic cough COPD, mild Diabetes mellitus type II GERD - Gastro-esophageal reflux disease Hard of hearing Heart failure Heart valve Hemorrhoids Hiatal hernia Histoplasmosis Hx of seborrhea Hyperlipidemia Hypertension Pancreatitis Peripheral neuropathy Peripheral vascular disease Pneumonia PSVT (paroxysmal supraventricular tachycardia) Restless legs syndrome Sinusitis Sleep apnea calcium gluconate 2 Gram 20 mL, IV Piggyback, Q12H hydrALAZINE 20 mg/1 mL inj 10 mg 0.5 mL, IV Push, Q6H HYDROmorphone 1 mg/1 mL inj 0.5 mg 0.5 mL, IV Push, Q4H magnesium sulfate 2 Gram 50 mL, IV Piggyback, Daily magnesium sulfate 2 Gram 50 mL, IV Piggyback, Q2H morphine 2 mg/1 ml cpjt inj 2 mg 1 mL, IV Push, Q4H nitroglycerin 0.4 mg tab # 25 btl 0.4 mg 1 Tab, SubLINgual, Q5Min ondansetron 4 mg/2 mL inj 4 mg 2 mL, IV Push, Q4H oxyCODONE 5 mg tab 5 mg 1 Tab, Oral, Q4H potassium chloride 10 mEq 50 mL, IV Piggyback, Q1H potassium chloride CR 20 mEq tab 20 mEq 1 Tab, Oral, Q2H potassium chloride CR 20 mEq tab 60 mEq 3 Tab, Oral, Q2H sodium phosphate 15 mMole 5 mL, IV Piggyback, Daily sodium phosphate 15 mMole 5 mL, IV Piggyback, Q6H Problem list: Active Problems (30) Allergic rhinitis Angina Arthritis Atrial fibrillation Atrial flutter Back pain Bronchitis Bursitis Chronic constipation Chronic cough COPD, mild Diabetes mellitus type II GERD - Gastro-esophageal reflux disease Hard of hearing Heart failure Heart valve Hemorrhoids Hiatal hernia Histoplasmosis Hx of seborrhea Hyperlipidemia Hypertension Pancreatitis Peripheral neuropathy Peripheral vascular disease Pneumonia PSVT (paroxysmal supraventricular tachycardia) Restless legs syndrome Sinusitis Sleep apnea ObjectiveVS/MeasurementsVital Signs/Vital Bxkxyqnf09/22/2016 11:57 EST Heart Rate, Apical 86 bpm10/11/2016 11:54 EST Temperature, Fahrenheit 97.6 Deg F Clinical Temperature, C 36.4 Deg C Heart Rate Monitored 94 bpm Systolic Blood Pressure 125 mmHg Diastolic Blood Pressure 67 mmHg Mean Arterial Pressure (MAP)-[facility] 8610/11/2016 8:55 EST Heart Rate, Apical 90 bpm10/11/2016 8:14 EST Heart Rate Monitored 92 bpm Oxygen Therapy Mode Nasal cannula, Other: Oxygen Flow Rate 3 Liter/Min10/11/2016 7:00 EST Heart Rate Monitored 88 bpm Systolic Blood Pressure 136 mmHg Diastolic Blood Pressure 70 mmHg10/11/2016 4:25 EST Heart Rate Monitored 91 bpm Oxygen Saturation 98 % Oxygen Therapy Mode Nasal cannula Oxygen Flow Rate 2 Liter/Min10/11/2016 2:36 EST Heart Rate Monitored 91 bpm Oxygen Saturation 93 % LOW 10/11/2016 2:28 EST Temperature, Fahrenheit 98.6 Deg F Clinical Temperature, C 37 Deg C Heart Rate Monitored 93 bpm Respiratory Rate 18 Breaths/Min Systolic Blood Pressure In Error mmHg (In Error) Systolic Blood Pressure 97 mmHg Diastolic Blood Pressure In Error mmHg (In Error) Diastolic Blood Pressure 49 mmHg LOW Mean Arterial Pressure (MAP)-BMDI 64 Oxygen Saturation 91 % LOW 10/11/2016 0:08 EST Heart Rate Monitored 88 bpm Oxygen Saturation 97 % Oxygen Therapy Mode Nasal cannula Oxygen Flow Rate 2 Liter/Min10/10/2016 22:35 EST Heart Rate, Apical 99 bpm Heart Rate, Apical 410 bpm HI Heart Rate Monitored 105 bpm HI Heart Rate Monitored 99 bpm Systolic Blood Pressure 113 mmHg Systolic Blood Pressure 113 mmHg Diastolic Blood Pressure 65 mmHg Diastolic Blood Pressure 65 mmHg10/10/2016 20:40 EST Heart Rate Monitored 97 bpm Oxygen Therapy Mode Nasal cannula Oxygen Flow Rate 2 Liter/Min10/10/2016 18:30 EST Temperature Source Oral Temperature Mode Fahrenheit Temperature, Fahrenheit 98.8 Deg F Heart Rate Monitored 106 bpm HI Respiratory Rate 22 Breaths/Min HI Systolic Blood Pressure 106 mmHg Diastolic Blood Pressure 78 mmHg Oxygen Saturation 96 % Oxygen Therapy Mode Nasal cannula Oxygen Flow Rate 2 Liter/Min10/10/2016 16:00 EST Heart Rate, Apical 99 bpm Heart Rate Monitored 128 bpm HI Oxygen Saturation 82 % LOW 10/10/2016 15:17 EST Heart Rate Monitored 102 bpm HI Oxygen Saturation 97 %10/10/2016 15:00 EST Temperature Source Oral Temperature Mode Fahrenheit Temperature, Fahrenheit 98.8 Deg F Clinical Temperature, C 37.1 Deg C Respiratory Rate 20 Breaths/Min Systolic Blood Pressure 105 mmHg Diastolic Blood Pressure 54 mmHg LOW Mean Arterial Pressure (MAP)-BMDI 64 Oxygen Therapy Mode Nasal cannula Oxygen Flow Rate 3 Liter/Min10/10/2016 13:21 EST Heart Rate, Apical 90 bpm10/10/2016 11:33 EST Heart Rate Monitored 94 bpm10/10/2016 11:26 EST Heart Rate Monitored 94 bpm Oxygen Therapy Mode Nasal cannula Oxygen Flow Rate 3 Liter/Min10/10/2016 11:00 EST Temperature Source Oral Temperature Mode Fahrenheit Temperature, Fahrenheit 99 Deg F Clinical Temperature, C 37.2 Deg C Systolic Blood Pressure 109 mmHg Diastolic Blood Pressure 65 mmHg Mean Arterial Pressure (MAP)-BMDI 80 Oxygen Saturation 97 %10/10/2016 8:30 EST Heart Rate, Apical 104 bpm HI 10/10/2016 8:28 EST Heart Rate Monitored 104 bpm HI Systolic Blood Pressure 134 mmHg Diastolic Blood Pressure 74 mmHg Mean Arterial Pressure (MAP)-BMDI 92 Oxygen Saturation 95 %10/10/2016 7:36 EST Heart Rate Monitored 98 bpm10/10/2016 7:27 EST Heart Rate Monitored 98 bpm Oxygen Saturation 99 % Oxygen Therapy Mode Nasal cannula Oxygen Flow Rate 3 Liter/Min10/10/2016 7:15 EST Oxygen Saturation 100 % Oxygen Therapy Mode Nasal cannula Oxygen Flow Rate 3 Liter/Min10/10/2016 4:05 EST Temperature, Fahrenheit 98.9 Deg F Clinical Temperature, C 37.2 Deg C Heart Rate Monitored 88 bpm Respiratory Rate 20 Breaths/Min Systolic Blood Pressure 106 mmHg Diastolic Blood Pressure 67 mmHg Mean Arterial Pressure (MAP)-BMDI 84 Oxygen Saturation 100 %10/10/2016 3:10 EST Heart Rate Monitored 83 bpm Oxygen Saturation 100 % Oxygen Therapy Mode BiPAP FiO2 Nursing 35 %10/10/2016 3:03 EST Heart Rate Monitored 81 bpm Oxygen Saturation 100 % Oxygen Therapy Mode BiPAP FiO2 Nursing 35 %,Vitals Signs (last 24 hrs) Last Charted Minimum MaximumTemp 97.6 (OCT 11 11:54)97.6 (OCT 11 11:54)98.8 (OCT 10 15:00)Apical HR 86 (OCT 11 11:57)86 (OCT 11 11:57)H 410 (OCT 10 22:35)Mon HR 94 (OCT 11 11:54)88 (OCT 11 00:08)128 (OCT 10 16:00)Resp Rate 18 (OCT 11 02:28)18 (OCT 11 02:28)H 22 (OCT 10 18:30)SBP 125 (OCT 11 11:54)97 (OCT 11 02:28)136 (OCT 11 07:00)DBP 67 (OCT 11 11:54)L 49 (OCT 11 02:28)78 (OCT 10 18:30)MAP 86 (OCT 11 11:54)64 (OCT 10 15:00)86 (OCT 11 11:54)SpO2 98 (OCT 11 04:25)L 82 (OCT 10 16:00)98 (OCT 11 04:25)General: Alert and oriented.Eye: Pupils are equal, round and reactive to light.HENT: Normocephalic.Neck: Supple.Respiratory: Lungs are clear to auscultation, Respirations are non-labored, Breath sounds are equal, Symmetrical chest wall expansion.Cardiovascular: Normal rate, Regular rhythm, No murmur, No gallop, No edema, Minimal drainage of the surgical site in the vaccum..Gastrointestinal: Soft, Non-tender, Non-distended, Normal bowel sounds.Integumentary: Warm.Neurologic: Alert.Psychiatric: Cooperative. Temp 97.6 (OCT 11 11:54)97.6 (OCT 11 11:54)98.8 (OCT 10 15:00) Apical HR 86 (OCT 11 11:57)86 (OCT 11 11:57)H 410 ( OCT 10 22:35) Mon HR 94 (OCT 11 11:54)88 (OCT 11 00:08)128 (OCT 10 16:00) Resp Rate 18 (OCT 11 02:28)18 (OCT 11 02:28)H 22 (OCT 10 18: 30) SBP 125 (OCT 11 11:54)97 (OCT 11 02:28)136 (OCT 11 07:00) DBP 67 (OCT 11 11:54)L 49 (OCT 11:28)78 (OCT 10 18:30) MAP 86 (OCT 11 11:54)64 (OCT 10 15:00)86 (OCT 11 11: 54) SpO2 98 (OCT 11 04:25)L 82 (OCT 10 16:00)98 (OCT 11 04 :25) General: Alert and oriented. Eye: Pupils are equal, round and reactive to light. HENT: Normocephalic. Neck: Supple. Respiratory: Lungs are clear to auscultation, Respirations are non-labored, Breath sounds are equal, Symmetrical chest wall expansion. Cardiovascular: Normal rate, Regular rhythm, No murmur, No gallop, No edema, Minimal drainage of the surgical site in the vaccum.. Gastrointestinal: Soft, Non-tender, Non-distended, Normal bowel sounds. Integumentary: Warm. Neurologic: Alert. Psychiatric: Cooperative. Results Review OCT 11 04:00Cardiac Markers (Current Encounter/Past 24 Hours)CK 290 Units/Liter 10/10/2016 09:01ProBNP 377 pg/mL HI 10/10/2016 09:07 Radiology Results (Last 48 hours)[id number] -- 10/06/2016 03:13CR Chest 1 Vw Portable (10/09/2016 21:10) Result: PORTABLE CHESTHISTORY: Congestive heart failure.COMPARISON: 10/08/2016.FINDINGS: A single portable radiograph of the chest was performed. Thereare cardiac electrodes overlying the chest wall. There is a rightinternal jugular central venous catheter with the tip terminating in thesuperior vena cava. Their is persistent decreased lung volume withpatchy basilar airspace disease that may represent atelectasis orpneumonia. There is been some improved aeration compared to the priorstudy. There is no edema. There are probable trace effusions.IMPRESSION: Slight improved aeration compared to the prior study withpersistent basilar patchy airspace disease and trace effusions.US Renal Comp (10/10/2016 14:36) Result: RENAL ULTRASOUNDHISTORY: Renal insufficiency.PROCEDURE: Ultrasound images of the kidneys were obtained.FINDINGS: Limited images of the liver parenchyma demonstrate normal echogenicity. The right kidney measures 14.9 cm in length . There is a 3.2 x 2.6 cmright renal cyst identified. This is within the lower pole of the rightkidney. There is no hydronephrosis.The left kidney measures 14.8 cm in length . It is normal echogenicity. There is no hydronephrosis.IMPRESSION: Right renal cyst.Otherwise, unremarkable renal ultrasound.Films reviewed, interpreted, and dictated by Dr. Jesus.Transcribed by Kay Harley PA-C.I have personally viewed, interpreted and dictated the examination. Ihave read and agree with the above final transcribed report.CT Head WO (10/11/2016 11:03) Result: CT SCAN OF THE HEAD WITHOUT CONTRASTINDICATION: Confusion.TECHNIQUE: Multiple axial CT images were performed from the foramenmagnum to the vertex without contrast. Coronal reconstruction imageswere obtained from the axial data. This study was performed withtechniques to keep radiation doses as low as reasonably achievable(ALARA). Individualized dose reduction techniques using automatedexposure control or adjustment of mA and/or KV according to the patientsize were employed.COMPARISON: None.FINDINGS: There is no mass effect or midline shift. The ventricles aresymmetric in size and configuration. There is no hydrocephalus. Thereare no extra-axial fluid collections. There is no intraventricular orintraparenchymal hemorrhage. The posterior fossa has a normal CTappearance. There is mucoperiosteal thickening of the left greater thanright maxillary sinuses. There is no air-fluid level. No acute osseousabnormalities are present.IMPRESSION: No acute intracranial abnormality. Consider MR ifsymptomatology persists.Paranasal sinus disease. Impression and PlanIMPRESSION:1- Persistant atrial flib s/p CV for rhythm control.Change Xaerlto to 15 till renal functions are back to normal.2- Typical flutter s/p ablation then 2 days later he developed the pseudoanurysm and AV fistula s/p surgery POD #53- psudoanurysm and AV fistula repain and Hbg is stable non ordered today.4- Renal insufficincy Craetine still high, nephrolopgy consulted and creatine is better and SHYANN inh is on hold now creatineine is better5- HTN stable.6. New left sided weakness Neurology consulted and CT is negative.PLAN;Continue PT and OT.Awaiting neurology consult then rehab.Will sign off.Please call if change.Please resume the 20 of xaerlto once eGFR is above 50. Will sign off.Please call if change. Please resume the 20 of xaerlto once eGFR is above 50. Extracted from: Title: Progress Note, Author: MAJO ZULUAGA, Date: 10/10/16 Acute Care MD-INT Basic Information Awake,? SOA, no CP, low grade fever+ Review of Systems Constitutional: Weakness, Fatigue. Eye: Negative. Ear/Nose/Mouth/Throat: Negative. Respiratory: Shortness of breath, Cough. Cardiovascular: Negative. Gastrointestinal: Negative. Genitourinary: Negative. Hematology/Lymphatics: Negative. Endocrine: Negative. Musculoskeletal: Negative. Integumentary: Negative. Neurologic: Negative. Psychiatric: Negative. Health StatusAllergies:Allergic Reactions (Selected)Severity Not DocumentedBactrim- Rash , fever.Ciprofloxacin- Hives.Penicillin- Anaphylaxis as child.Tetracyclines- Unsure.,Allergies (4) ActiveReactionBactrimrash , feverciprofloxacinhivespenicillinanaphylaxis as childtetracyclinesunsureCurrent medications: (Selected)Inpatient MedicationsOrderedDilaudid: 0.5 mg, IV Push, Q4H, PRN: Pain (Moderate 4-6)DuoNeb 0.5 mg-2.5 mg/3 mL inhalation solution: 3 mL, Nebulized Inhalation, [id number] 0.5 mg-2.5 mg/3 mL inhalation solution: 3 mL, Nostrils Both, Q6H, PRN: Shortness of BreathNitrostat: 0.4 mg, SubLINgual, Q5Min, PRN: Chest PainPepcid: 20 mg, Oral, DailyPercocet 5/325: 3 Tab, Oral, Q6H, PRN: Pain (Moderate 4-6)Rythmol SR: 425 mg, Oral, [id number]: 650 mg, Oral, Q4H, PRN: Other (See Comment)Xarelto: 15 mg, Oral, With DinnerZofran: 4 mg, IV Push, Q4H, PRN: NauseaamLODIPine: 10 mg, Oral, Dailyamitriptyline: 50 mg, Oral, At Bedtimeaspirin: 81 mg, Oral, Dailycalcium gluconate: 1 Gram, 10 mL, 60 mL/Hr, IV Piggyback, Daily, PRN: Other (See Comment)calcium gluconate: 2 Gram, 20 mL, 120 mL/Hr, IV Piggyback, Daily, PRN: Other (See Comment)calcium gluconate: 2 Gram, 20 mL, 120 mL/Hr, IV Piggyback, Q12H, PRN: Other (See Comment)clindamycin + Sodium Chloride 0.9% 100 mL: 900 mg, 6 mL, 106 mL/Hr, IV Piggyback, 1-Timeferrous sulfate: 325 mg, Oral, BID With Mealsgabapentin: 300 mg, Oral, BIDhydrALAZINE: 10 mg, IV Push, Q6H, PRN: Hypertensioninsulin aspart sliding scale: Scale D:, SubCutaneous, AC and at Bedtimelovastatin: 40 mg, Oral, At Bedtimemagnesium sulfate: 2 Gram, 50 mL, 25 mL/Hr, IV Piggyback, Daily, PRN: Other (See Comment)magnesium sulfate: 2 Gram, 50 mL, 25 mL/Hr, IV Piggyback, Q2H, PRN: Other (See Comment)metoprolol tartrate: 100 mg, Oral, TIDmorphine: 2 mg, IV Push, Q4H, PRN: Pain (Severe 7-10)oxyCODONE: 5 mg, Oral, Q4H, PRN: Pain (Moderate 4-6)potassium chloride 10 mEq/50 mL intravenous solution: 10 mEq, 50 mL, 50 mL/Hr, IV Piggyback, Q1H, PRN: Other (See Comment)potassium chloride 20 mEq oral tablet, extended release: 20 mEq, 1 Tab, Oral, Q2H, PRN: Other (See Comment)potassium chloride 20 mEq oral tablet, extended release: 60 mEq, 3 Tab, Oral, Q2H, PRN: Other (See Comment)sodium chloride 0.9% injectable solution: 10 mL, IV Push, See Comment, PRN: Other (See Comment)sodium phosphate: 15 mMole, 5 mL, 50 mL/Hr, IV Piggyback, Daily, PRN: Other (See Comment)sodium phosphate: 15 mMole, 5 mL, 50 mL/Hr, IV Piggyback, Q6H, PRN: Other (See Comment)Pending Completeinfluenza virus vaccine, inactivated: 0.5 mL, IntraMuscular, [id number] MedicationsDocumentedLasix 20 mg oral tablet: 1 Tab, Oral, Daily, 30 Tab, 0 Refill(s)Metoprolol Tartrate 100 mg oral tablet: 0.5 Tab, Oral, With Lunch, may increase to 1 tablet as directed for heart rate, 0 Refill(s)Metoprolol Tartrate 100 mg oral tablet: 1 Tab, Oral, BID, 0 Refill(s)Nitrostat 0.4 mg sublingual tablet: 1 Tab, SubLINgual, Q5Min, If chest pain not relieved in 5 minutes after first dose, seek immediate medical attention, PRN: Chest Pain, 100 Tab, 0 Refill(s)ProAir HFA 90 mcg/inh inhalation aerosol: 2 Puff, Inhalation, QID, PRN: for wheezing, 0 Refill(s)Singulair 10 mg oral tablet: 1 Tab, Oral, At Bedtime, 0 Refill(s)Xarelto 20 mg oral tablet: 1 Tab, Oral, Daily, with largest meal, 30 Tab, 0 Refill(s)albuterol 2.5 mg/3 mL (0.083%) inhalation solution: 3 mL, Nebulized Inhalation, Q6H, PRN: for wheezing, 25 Each, 0 Refill(s)amLODIPine 10 mg oral tablet: 1 Tab, Oral, Daily, 30 Tab, 0 Refill(s)amitriptyline 50 mg oral tablet: 1 Tab, Oral, At Bedtime, 0 Refill(s)aspirin 325 mg oral tablet: 1 Tab, Oral, Daily, 30 Tab, 0 Refill(s)gabapentin 300 mg oral capsule: 1 Cap, Oral, BID, 60 Cap, 0 Refill(s)lisinopril 40 mg oral tablet: 1 Tab, Oral, Daily, 30 Tab, 0 Refill(s)lovastatin 40 mg oral tablet: 1 Tab, Oral, At Bedtime, 30 Tab, 0 Refill(s)potassium chloride 20 mEq oral tablet, extended release: 1 Tab, Oral, Daily, 0 Refill(s)propafenone 425 mg oral capsule, extended release: 1 Cap, Oral, Q12H, 180 Cap, 0 Refill(s)triamcinolone 0.1% topical cream: 1 Application, Topical, BID, apply to face as directed, 0 Refill(s),Medications (33) ActiveScheduled: (13)albuterol-ipratropium inh 3 mL 3 mL, Nebulized Inhalation, W4Hullnmvzqmiowx 50 mg tab 50 mg 1 Tab, Oral, At BedtimeamLODIPine 10 mg tab 10 mg 1 Tab, Oral, Dailyaspirin 81 mg chew tab 81 mg 1 Tab, Oral, Dailyclindamycin *ADV* + NaCl 0.9% *ADV* 100 mL 900 mg 6 mL, IV Piggyback, 1-Timefamotidine 20 mg tab 20 mg 1 Tab, Oral, Dailyferrous sulfate 325 mg EC tab 325 mg 1 Tab, Oral, BID With Mealsgabapentin 300 mg cap 300 mg 1 Cap, Oral, BIDinsulin aspart 1 unit/0.01 mL inj Scale D:, SubCutaneous, AC and at Bedtimelovastatin 20 mg tab 40 mg 2 Tab, Oral, At Bedtimemetoprolol tartrate 100 mg tab 100 mg 1 Tab, Oral, TIDpropafenone SR 425 mg cap 425 mg 1 Cap, Oral, [id number] 15 mg tab 15 mg 1 Tab, Oral, With DinnerContinuous: (0)PRN: (20)#NaCl 0.9% *FLUSH* inj 10 mL 10 mL, IV Push, See Commentacetaminophen 325 mg tab 650 mg 2 Tab, Oral, G6Oyizrdhgzzkjfe/oxyCODONE 325/5 mg tab 3 Tab, Oral, B8Pkwhbwedjt-qwwmewjgqvq inh 3 mL 3 mL, Nostrils Both, L3[place] gluconate 1 Gram 10 mL, IV Piggyback, Dailycalcium gluconate 2 Gram 20 mL, IV Piggyback, Dailycalcium gluconate 2 Gram 20 mL, IV Piggyback, [id number] 20 mg/1 mL inj 10 mg 0.5 mL, IV Push, V3ADDFZNgmpasgby 1 mg/1 mL inj 0.5 mg 0.5 mL, IV Push, U8Wfzyuponmm sulfate 2 Gram 50 mL, IV Piggyback, Dailymagnesium sulfate 2 Gram 50 mL, IV Piggyback, D3Nsgaybndj 2 mg/1 ml cpjt inj 2 mg 1 mL, IV Push, A4Zznkmcxlnayrar 0.4 mg tab # 25 btl 0.4 mg 1 Tab, SubLINgual, P3Rsbuopnnfchlfr 4 mg/2 mL inj 4 mg 2 mL, IV Push, O6LsmyTBKCZS 5 mg tab 5 mg 1 Tab, Oral, C1Wagjsxwjke chloride 10 mEq 50 mL, IV Piggyback, V7Qdzkxhnxpr chloride CR 20 mEq tab 20 mEq 1 Tab, Oral, K9Qbqfrjheez chloride CR 20 mEq tab 60 mEq 3 Tab, Oral, U4Ssymgmr phosphate 15 mMole 5 mL, IV Piggyback, Dailysodium phosphate 15 mMole 5 mL, IV Piggyback, N1EFmreoul list:Active Problems (30)Allergic rhinitis Angina Arthritis Atrial fibrillation Atrial flutter Back pain Bronchitis Bursitis Chronic constipation Chronic cough COPD, mild Diabetes mellitus type II GERD - Gastro-esophageal reflux disease Hard of hearing Heart failure Heart valve Hemorrhoids Hiatal hernia Histoplasmosis Hx of seborrhea Hyperlipidemia Hypertension Pancreatitis Peripheral neuropathy Peripheral vascular disease Pneumonia PSVT (paroxysmal supraventricular tachycardia) Restless legs syndrome Sinusitis Sleep apnea magnesium sulfate 2 Gram 50 mL, IV Piggyback, Q2H morphine 2 mg/1 ml cpjt inj 2 mg 1 mL, IV Push, Q4H nitroglycerin 0.4 mg tab # 25 btl 0.4 mg 1 Tab, SubLINgual, Q5Min ondansetron 4 mg/2 mL inj 4 mg 2 mL, IV Push, Q4H oxyCODONE 5 mg tab 5 mg 1 Tab, Oral, Q4H potassium chloride 10 mEq 50 mL, IV Piggyback, Q1H potassium chloride CR 20 mEq tab 20 mEq 1 Tab, Oral, Q2H potassium chloride CR 20 mEq tab 60 mEq 3 Tab, Oral, Q2H sodium phosphate 15 mMole 5 mL, IV Piggyback, Daily sodium phosphate 15 mMole 5 mL, IV Piggyback, Q6H Problem list: Active Problems (30) Allergic rhinitis Angina Arthritis Atrial fibrillation Atrial flutter Back pain Bronchitis Bursitis Chronic constipation Chronic cough COPD, mild Diabetes mellitus type II GERD - Gastro-esophageal reflux disease Hard of hearing Heart failure Heart valve Hemorrhoids Hiatal hernia Histoplasmosis Hx of seborrhea Hyperlipidemia Hypertension Pancreatitis Peripheral neuropathy Peripheral vascular disease Pneumonia PSVT (paroxysmal supraventricular tachycardia) Restless legs syndrome Sinusitis Sleep apnea Physical ExaminationVS/MeasurementsVital Signs/Vital Ksnzzorf95/21/2016 13:21 EST Heart Rate, Apical 90 bpm10/10/2016 11:33 EST Heart Rate Monitored 94 bpm10/10/2016 11:26 EST Heart Rate Monitored 94 bpm Oxygen Therapy Mode Nasal cannula Oxygen Flow Rate 3 Liter/Min10/10/2016 11:00 EST Temperature Source Oral Temperature Mode Fahrenheit Temperature, Fahrenheit 99 Deg F Clinical Temperature, C 37.2 Deg C Systolic Blood Pressure 109 mmHg Diastolic Blood Pressure 65 mmHg Mean Arterial Pressure (MAP)-BMDI 80 Oxygen Saturation 97 %10/10/2016 8:30 EST Heart Rate, Apical 104 bpm ID 10/10/2016 8:28 EST Heart Rate Monitored 104 bpm HI Systolic Blood Pressure 134 mmHg Diastolic Blood Pressure 74 mmHg Mean Arterial Pressure (MAP)-BMDI 92 Oxygen Saturation 95 %10/10/2016 7:36 EST Heart Rate Monitored 98 bpm10/10/2016 7:27 EST Heart Rate Monitored 98 bpm Oxygen Saturation 99 % Oxygen Therapy Mode Nasal cannula Oxygen Flow Rate 3 Liter/Min10/10/2016 7:15 EST Oxygen Saturation 100 % Oxygen Therapy Mode Nasal cannula Oxygen Flow Rate 3 Liter/Min10/10/2016 4:05 EST Temperature, Fahrenheit 98.9 Deg F Clinical Temperature, C 37.2 Deg C Heart Rate Monitored 88 bpm Respiratory Rate 20 Breaths/Min Systolic Blood Pressure 106 mmHg Diastolic Blood Pressure 67 mmHg Mean Arterial Pressure (MAP)-BMDI 84 Oxygen Saturation 100 %10/10/2016 3:10 EST Heart Rate Monitored 83 bpm Oxygen Saturation 100 % Oxygen Therapy Mode BiPAP FiO2 Nursing 35 %10/10/2016 3:03 EST Heart Rate Monitored 81 bpm Oxygen Saturation 100 % Oxygen Therapy Mode BiPAP FiO2 Nursing 35 %10/09/2016 22:45 EST Temperature Source Oral Temperature Mode Fahrenheit Temperature, Fahrenheit 99.8 Deg F HI Clinical Temperature, C 37.7 Deg C Heart Rate Monitored 99 bpm Respiratory Rate 20 Breaths/Min Systolic Blood Pressure 113 mmHg Diastolic Blood Pressure 62 mmHg Mean Arterial Pressure (MAP)-BMDI 76 Oxygen Saturation 100 %10/09/2016 22:34 EST Heart Rate Monitored 98 bpm Oxygen Saturation 98 % FiO2 Nursing 35 %10/09/2016 21:56 EST Temperature Source Temporal artery scanning Temperature Mode Fahrenheit Temperature, Fahrenheit 100.4 Deg F HI Clinical Temperature, C 38 Deg C Heart Rate Monitored 102 bpm HI Respiratory Rate 18 Breaths/Min Systolic Blood Pressure 119 mmHg Diastolic Blood Pressure 63 mmHg Mean Arterial Pressure (MAP)-BMDI 76 Oxygen Saturation 96 % Oxygen Therapy Mode Nasal cannula Oxygen Flow Rate 4 Liter/Min10/09/2016 21:55 EST Heart Rate, Apical 104 bpm HI Heart Rate, Apical 104 bpm HI Systolic Blood Pressure 119 mmHg Diastolic Blood Pressure 63 mmHg10/09/2016 21:23 EST Heart Rate Monitored 105 bpm HI Respiratory Rate 18 Breaths/Min10/09/2016 21:19 EST Heart Rate Monitored 99 bpm Oxygen Saturation 94 % Oxygen Therapy Mode Nasal cannula Oxygen Flow Rate 4 Liter/Min10/09/2016 20:00 EST Heart Rate Monitored 101 bpm HI 10/09/2016 18:43 EST Heart Rate Monitored 97 bpm Systolic Blood Pressure 124 mmHg Diastolic Blood Pressure 71 mmHg Mean Arterial Pressure (MAP)-BMDI 83 Oxygen Saturation 97 %10/09/2016 17:31 EST Heart Rate Monitored 95 bpm Oxygen Saturation 92 % LOW 10/09/2016 16:15 EST Heart Rate Monitored 104 bpm HI Oxygen Saturation 97 %10/09/2016 16:00 EST Temperature, Fahrenheit 98.8 Deg F Clinical Temperature, C 37.1 Deg C Heart Rate Monitored 101 bpm HI Systolic Blood Pressure 119 mmHg Diastolic Blood Pressure 70 mmHg Mean Arterial Pressure (MAP)-BMDI 85 Oxygen Saturation 93 % LOW 10/09/2016 15:45 EST Temperature Source Oral Temperature Mode Fahrenheit Temperature, Fahrenheit 98.8 Deg F Clinical Temperature, C 37.1 Deg C Heart Rate Monitored 104 bpm HI Respiratory Rate 18 Breaths/Min Systolic Blood Pressure 119 mmHg Diastolic Blood Pressure 70 mmHg Mean Arterial Pressure (MAP)-BMDI 85 Oxygen Saturation 96 %10/09/2016 15:30 EST Heart Rate Monitored 104 bpm HI Oxygen Saturation 94 %10/09/2016 15:26 EST Heart Rate, Apical 108 bpm HI 10/09/2016 15:15 EST Heart Rate Monitored 109 bpm HI Oxygen Saturation 94 %10/09/2016 12:05 EST Heart Rate, Apical 108 bpm HI 10/09/2016 12:00 EST Temperature Source Axillary Temperature Mode Fahrenheit Temperature, Fahrenheit 97.9 Deg F Heart Rate Monitored 104 bpm HI Respiratory Rate 26 Breaths/Min HI Systolic Blood Pressure 131 mmHg Diastolic Blood Pressure 64 mmHg Mean Arterial Pressure (MAP)-BMDI 90 Oxygen Saturation 95 % Oxygen Therapy Mode Nasal cannula Oxygen Flow Rate 4 Liter/Min10/09/2016 11:48 EST Heart Rate Monitored 101 bpm HI 10/09/2016 11:38 EST Heart Rate Monitored 101 bpm HI Respiratory Rate 26 Breaths/Min HI Oxygen Saturation 94 % Oxygen Therapy Mode Nasal cannula Oxygen Flow Rate 4 Liter/Min10/09/2016 11:00 EST Heart Rate Monitored 104 bpm HI Respiratory Rate 26 Breaths/Min HI Systolic Blood Pressure 127 mmHg Diastolic Blood Pressure 61 mmHg Mean Arterial Pressure (MAP)-BMDI 87 Oxygen Saturation 95 % Oxygen Therapy Mode Nasal cannula Oxygen Flow Rate 4 Liter/Min10/09/2016 10:00 EST Heart Rate Monitored 108 bpm HI Respiratory Rate 18 Breaths/Min Systolic Blood Pressure 129 mmHg Diastolic Blood Pressure 66 mmHg Mean Arterial Pressure (MAP)-BMDI 90 Oxygen Saturation 94 % Oxygen Therapy Mode Nasal cannula Oxygen Flow Rate 4 Liter/Min10/09/2016 9:00 EST Heart Rate Monitored 111 bpm HI Respiratory Rate 23 Breaths/Min HI Systolic Blood Pressure 124 mmHg Diastolic Blood Pressure 60 mmHg Mean Arterial Pressure (MAP)-BMDI 86 Oxygen Saturation 94 % Oxygen Therapy Mode Nasal cannula Oxygen Flow Rate 4 Liter/Min10/09/2016 8:57 EST Heart Rate, Apical 115 bpm HI 10/09/2016 8:13 EST Heart Rate Monitored 101 bpm HI Oxygen Therapy Mode Nasal cannula Oxygen Flow Rate 4 Liter/Min10/09/2016 8:04 EST Heart Rate Monitored 99 bpm Respiratory Rate 21 Breaths/Min HI Oxygen Saturation 98 % Oxygen Therapy Mode BiPAP FiO2 Nursing 35 %10/09/2016 8:00 EST Temperature Source Axillary Temperature Mode Fahrenheit Temperature, Fahrenheit 99.2 Deg F Systolic Blood Pressure 118 mmHg Diastolic Blood Pressure 61 mmHg Mean Arterial Pressure (MAP)-BMDI 8310/09/2016 7:00 EST Heart Rate Monitored 97 bpm Respiratory Rate 21 Breaths/Min HI Systolic Blood Pressure 111 mmHg Diastolic Blood Pressure 60 mmHg Mean Arterial Pressure (MAP)-BMDI 79 Oxygen Saturation 97 %10/09/2016 6:00 EST Heart Rate Monitored 94 bpm Respiratory Rate 22 Breaths/Min HI Systolic Blood Pressure 111 mmHg Diastolic Blood Pressure 61 mmHg Mean Arterial Pressure (MAP)-BMDI 81 Oxygen Saturation 96 %10/09/2016 5:00 EST Heart Rate Monitored 91 bpm Respiratory Rate 20 Breaths/Min Systolic Blood Pressure 108 mmHg Diastolic Blood Pressure 56 mmHg LOW Mean Arterial Pressure (MAP)-BMDI 75 Oxygen Saturation 97 %10/09/2016 4:50 EST Heart Rate Monitored 90 bpm Respiratory Rate 21 Breaths/Min HI Oxygen Saturation 99 %10/09/2016 4:44 EST Heart Rate Monitored 91 bpm Respiratory Rate 21 Breaths/Min HI Oxygen Saturation 96 % Oxygen Therapy Mode BiPAP FiO2 Nursing 35 %10/09/2016 4:00 EST Temperature Source Axillary Temperature Mode Fahrenheit Temperature, Fahrenheit 99.9 Deg F HI Clinical Temperature, C 37.7 Deg C Heart Rate Monitored 90 bpm Respiratory Rate 21 Breaths/Min HI Systolic Blood Pressure 110 mmHg Diastolic Blood Pressure 63 mmHg Mean Arterial Pressure (MAP)-BMDI 82 Oxygen Saturation 96 %10/09/2016 3:00 EST Heart Rate Monitored 90 bpm Respiratory Rate 22 Breaths/Min HI Systolic Blood Pressure 107 mmHg Diastolic Blood Pressure 58 mmHg LOW Mean Arterial Pressure (MAP)-BMDI 76 Oxygen Saturation 98 % Oxygen Therapy Mode BiPAP FiO2 Nursing 35 %10/09/2016 2:00 EST Heart Rate Monitored 87 bpm Respiratory Rate 19 Breaths/Min Systolic Blood Pressure 97 mmHg Diastolic Blood Pressure 57 mmHg LOW Mean Arterial Pressure (MAP)-BMDI 72 Oxygen Saturation 96 %10/09/2016 1:00 EST Heart Rate Monitored 87 bpm Respiratory Rate 18 Breaths/Min Systolic Blood Pressure 100 mmHg Diastolic Blood Pressure 59 mmHg LOW Mean Arterial Pressure (MAP)-BMDI 75 Oxygen Saturation 96 %10/09/2016 0:00 EST Temperature Source Oral Temperature Mode Fahrenheit Temperature, Fahrenheit 100.0 Deg F HI Clinical Temperature, C 37.8 Deg C Clinical Temperature, C 37.8 Deg C Heart Rate Monitored 88 bpm Respiratory Rate 26 Breaths/Min HI Systolic Blood Pressure 100 mmHg Diastolic Blood Pressure 55 mmHg LOW Mean Arterial Pressure (MAP)-BMDI 72 Oxygen Saturation 97 % Oxygen Therapy Mode BiPAP FiO2 Nursing 35 %,Vitals Signs (last 24 hrs) Last Charted Minimum MaximumTemp 99 (OCT 10 11:00)98.9 (OCT 10 04:05)H 100.4 (OCT 09 21:56)Apical HR 90 (OCT 10 13:21)90 (OCT 10 13:21)H 108 (OCT 09 15:26)Mon HR 94 (OCT 10 11:33)81 (OCT 10 03:03)109 (OCT 09 15:15)Resp Rate 20 (OCT 10 04:05)18 (OCT 09 15:45)20 (OCT 09 22:45)SBP 109 (OCT 10 11:00)106 (OCT 10 04:05)134 (OCT 10 08:28)DBP 65 (OCT 10 11:00)62 (OCT 09 22:45)74 (OCT 10 08:28)MAP 80 (OCT 10 11:00)76 (OCT 09 21:56)92 (OCT 10 08:28)SpO2 97 (OCT 10 11:00)L 92 (OCT 09 17:31)100 (OCT 09 22:45)General: No acute distress.Eye: Pupils are equal, round and reactive to light, Normal conjunctiva.HENT: Normocephalic, Oral mucosa is moist.Neck: Supple.Respiratory: Respirations are non-labored, Breath sounds are equal, Symmetrical chest wall expansion, diminished at the bases.Cardiovascular: Normal rate, Regular rhythm, No murmur, No gallop.Gastrointestinal: Soft, Non-distended, Normal bowel sounds.Musculoskeletal: No swelling, No deformity.Integumentary: Warm, Dry, Tillar.Neurologic: Alert, Normal sensory, Normal motor function, No focal deficits, Cranial Nerves II-XII are grossly intact.Psychiatric: Cooperative. Clinical Temperature, C 37.8 Deg C Heart Rate Monitored 88 bpm Respiratory Rate 26 Breaths/Min HI Systolic Blood Pressure 100 mmHg Diastolic Blood Pressure 55 mmHg LOW Mean Arterial Pressure (MAP)-BMDI 72 Oxygen Saturation 97 % Oxygen Therapy Mode BiPAP FiO2 Nursing 35 % , Vitals Signs (last 24 hrs) Last Charted Minimum Maximum Temp 99 (OCT 10 11:00)98.9 (OCT 10 04:05)H 100.4 (OCT 09 21:56) Apical HR 90 (OCT 10 13:21)90 (OCT 10 13:21)H 108 ( OCT 09 15:26) Mon HR 94 (OCT 10 11:33)81 (OCT 10 03:03)109 (OCT 09 15:15) Resp Rate 20 (OCT 10 04:05)18 (OCT 09 15:45)20 (OCT 09 22:45 ) SBP 109 (OCT 10 11:00)106 (OCT 10 04:05)134 (OCT 10 08:28) DBP 65 (OCT 10 11:00)62 (OCT 09 22:45)74 (OCT 10 08: 28) MAP 80 (OCT 10 11:00)76 (OCT 09 21:56)92 (OCT 10 08: 28) SpO2 97 (OCT 10 11:00)L 92 (OCT 09 17:31)100 (OCT 09 22:45) General: No acute distress. Eye: Pupils are equal, round and reactive to light, Normal conjunctiva. HENT: Normocephalic, Oral mucosa is moist. Neck: Supple. Respiratory: Respirations are non-labored, Breath sounds are equal, Symmetrical chest wall expansion, diminished at the bases. Cardiovascular: Normal rate, Regular rhythm, No murmur, No gallop. Gastrointestinal: Soft, Non-distended, Normal bowel sounds. Musculoskeletal: No swelling, No deformity. Integumentary: Warm, Dry, Tillar. Neurologic: Alert, Normal sensory, Normal motor function, No focal deficits, Cranial Nerves II-XII are grossly intact. Psychiatric: Cooperative. Review / ManagementResults review:Labs (Last four charted values)WBC H 14.7(OCT 09)H 12.6(OCT 08)H 16.0(OCT 07)H 13.2(OCT 06)HB L 8.6(OCT 09)L 8.5(OCT 08)L 9.0(OCT 07)L 8.9(OCT 07)HCT L 26.9(OCT 09)L 26.9(OCT 08)L 28.3(OCT 07)L 27.9(OCT 07)Plt 289(OCT 09)216(OCT 08)272(OCT 07)253(OCT 06)Na L 134(OCT 10)L 135(OCT 09)140(OCT 08)139(OCT 07)K 4.1(OCT 10)4.2(OCT 09)4.0(OCT 08)4.2(OCT 07)Cl L 97(OCT 10)L 98(OCT 09)103(OCT 08)105(OCT 07)CO2 27(OCT 10)27(OCT 09)25(OCT 08)24(OCT 07)BUN H 34(OCT 10)H 29(OCT 09)H 24(OCT 08)18(OCT 07)Cr H 1.70(OCT 10)H 2.00(OCT 09)H 2.00(OCT 08)H 1.60(OCT 07)Glu R H 131(OCT 10)H 144(OCT 09)H 127(OCT 08)H 124(OCT 07)Ca L 7.9(OCT 10)L 8.2(OCT 09)L 7.9(OCT 08)L 7.9(OCT 07)PT H 12.1(OCT 06)INR H 1.2(OCT 06)AST H 41(OCT 07)15(OCT 06)ALT 42(OCT 07)26(OCT 06)ALK P 80(OCT 07)83(OCT 06)T Bili H 1.2(OCT 07)1.0(OCT 06)PTN L 5.6(OCT 07)6.4(OCT 06)ALB L 2.6(OCT 07)L 2.9(OCT 06)Troponin 0.031(OCT 06)PROBNP H 377(OCT 10)H 126(OCT 06). AST H 41(OCT 07)15(OCT 06) ALT 42(OCT 07)26(OCT 06) ALK P 80(OCT 07)83(OCT 06) T Bili H 1.2(OCT 07)1.0(OCT 06) PTN L 5.6(OCT 07)6.4(OCT 06) ALB L 2.6(OCT 07)L 2.9(OCT 06) Troponin 0.031(OCT 06) PROBNP H 377(OCT 10)H 126(OCT 06) . Impression and Plan1. Right groin Pesudoaneurysm- s/p repair, AVFistila closure by surgery2. History of atrial fibrillation, status post ablation.continue beta romel. No anticoagulation recommended by surgery for now.3. Coronary artery disease. Cardiology following4. Hypertension. Resume home medication plus hydralazine as needed.5. Neuropathy, on gabapentin, continued.6. Hyperlipidemia, on statin, continued.7. Gastrointestinal prophylaxis, Pepcid.8. Deep venous thrombosis prophylaxis, compression boots, heparinAcute respiratory failure- resolvedAc renal failure- better, has good urine output, off nephrotoxic medsFever, low grade, dyspnea and bilateral patchy infiltrates in the lungs, leucocytosis- start IVABxPT, OTD/w Dr. Neffp- Home when able to ambulateTIME SPENT:30 minutes. PT, OT D/w Dr. Byrd Disp- Home when able to ambulate TIME SPENT: 30 minutes. Extracted from: Title: EP progress note Author: SAVI NIELSON, Date: 10/10/16 -CAR SubjectiveThe patient remained in SR.Dr Dowling after I spoke with him today on the cell was Ok with anticoag to start on Saturday.I have to lowert the dose to 15 mg because of renal insufficincy now getting better.Appreciate Nephrology input.H is back on his long acting Rythmol.He remained in SR.Groin site is stable.Minimal drainage from the vac. He remained in SR. Groin site is stable. Minimal drainage from the vac. Health StatusAllergies:Allergic Reactions (All)Severity Not DocumentedBactrim- Rash , fever.Ciprofloxacin- Hives.Penicillin- Anaphylaxis as child.Tetracyclines- Unsure.,Allergies (4) ActiveReactionBactrimrash , feverciprofloxacinhivespenicillinanaphylaxis as childtetracyclinesunsureCurrent medications: (Selected)Inpatient MedicationsOrderedDilaudid: 0.5 mg, IV Push, Q4H, PRN: Pain (Moderate 4-6)DuoNeb 0.5 mg-2.5 mg/3 mL inhalation solution: 3 mL, Nebulized Inhalation, [id number] 0.5 mg-2.5 mg/3 mL inhalation solution: 3 mL, Nostrils Both, Q6H, PRN: Shortness of BreathNitrostat: 0.4 mg, SubLINgual, Q5Min, PRN: Chest PainPepcid: 20 mg, Oral, DailyPercocet 5/325: 3 Tab, Oral, Q6H, PRN: Pain (Moderate 4-6)Rythmol SR: 425 mg, Oral, [id number]: 650 mg, Oral, Q4H, PRN: Other (See Comment)Xarelto: 15 mg, Oral, With DinnerZofran: 4 mg, IV Push, Q4H, PRN: NauseaamLODIPine: 10 mg, Oral, Dailyamitriptyline: 50 mg, Oral, At Bedtimeaspirin: 81 mg, Oral, Dailycalcium gluconate: 1 Gram, 10 mL, 60 mL/Hr, IV Piggyback, Daily, PRN: Other (See Comment)calcium gluconate: 2 Gram, 20 mL, 120 mL/Hr, IV Piggyback, Daily, PRN: Other (See Comment)calcium gluconate: 2 Gram, 20 mL, 120 mL/Hr, IV Piggyback, Q12H, PRN: Other (See Comment)clindamycin + Sodium Chloride 0.9% 100 mL: 900 mg, 6 mL, 106 mL/Hr, IV Piggyback, 1-Timeferrous sulfate: 325 mg, Oral, BID With Mealsgabapentin: 300 mg, Oral, BIDhydrALAZINE: 10 mg, IV Push, Q6H, PRN: Hypertensioninsulin aspart sliding scale: Scale D:, SubCutaneous, AC and at Bedtimelovastatin: 40 mg, Oral, At Bedtimemagnesium sulfate: 2 Gram, 50 mL, 25 mL/Hr, IV Piggyback, Daily, PRN: Other (See Comment)magnesium sulfate: 2 Gram, 50 mL, 25 mL/Hr, IV Piggyback, Q2H, PRN: Other (See Comment)metoprolol tartrate: 100 mg, Oral, TIDmorphine: 2 mg, IV Push, Q4H, PRN: Pain (Severe 7-10)oxyCODONE: 5 mg, Oral, Q4H, PRN: Pain (Moderate 4-6)potassium chloride 10 mEq/50 mL intravenous solution: 10 mEq, 50 mL, 50 mL/Hr, IV Piggyback, Q1H, PRN: Other (See Comment)potassium chloride 20 mEq oral tablet, extended release: 20 mEq, 1 Tab, Oral, Q2H, PRN: Other (See Comment)potassium chloride 20 mEq oral tablet, extended release: 60 mEq, 3 Tab, Oral, Q2H, PRN: Other (See Comment)sodium chloride 0.9% injectable solution: 10 mL, IV Push, See Comment, PRN: Other (See Comment)sodium phosphate: 15 mMole, 5 mL, 50 mL/Hr, IV Piggyback, Daily, PRN: Other (See Comment)sodium phosphate: 15 mMole, 5 mL, 50 mL/Hr, IV Piggyback, Q6H, PRN: Other (See Comment)Pending Completeinfluenza virus vaccine, inactivated: 0.5 mL, IntraMuscular, [id number] MedicationsDocumentedLasix 20 mg oral tablet: 1 Tab, Oral, Daily, 30 Tab, 0 Refill(s)Metoprolol Tartrate 100 mg oral tablet: 0.5 Tab, Oral, With Lunch, may increase to 1 tablet as directed for heart rate, 0 Refill(s)Metoprolol Tartrate 100 mg oral tablet: 1 Tab, Oral, BID, 0 Refill(s)Nitrostat 0.4 mg sublingual tablet: 1 Tab, SubLINgual, Q5Min, If chest pain not relieved in 5 minutes after first dose, seek immediate medical attention, PRN: Chest Pain, 100 Tab, 0 Refill(s)ProAir HFA 90 mcg/inh inhalation aerosol: 2 Puff, Inhalation, QID, PRN: for wheezing, 0 Refill(s)Singulair 10 mg oral tablet: 1 Tab, Oral, At Bedtime, 0 Refill(s)Xarelto 20 mg oral tablet: 1 Tab, Oral, Daily, with largest meal, 30 Tab, 0 Refill(s)albuterol 2.5 mg/3 mL (0.083%) inhalation solution: 3 mL, Nebulized Inhalation, Q6H, PRN: for wheezing, 25 Each, 0 Refill(s)amLODIPine 10 mg oral tablet: 1 Tab, Oral, Daily, 30 Tab, 0 Refill(s)amitriptyline 50 mg oral tablet: 1 Tab, Oral, At Bedtime, 0 Refill(s)aspirin 325 mg oral tablet: 1 Tab, Oral, Daily, 30 Tab, 0 Refill(s)gabapentin 300 mg oral capsule: 1 Cap, Oral, BID, 60 Cap, 0 Refill(s)lisinopril 40 mg oral tablet: 1 Tab, Oral, Daily, 30 Tab, 0 Refill(s)lovastatin 40 mg oral tablet: 1 Tab, Oral, At Bedtime, 30 Tab, 0 Refill(s)potassium chloride 20 mEq oral tablet, extended release: 1 Tab, Oral, Daily, 0 Refill(s)propafenone 425 mg oral capsule, extended release: 1 Cap, Oral, Q12H, 180 Cap, 0 Refill(s)triamcinolone 0.1% topical cream: 1 Application, Topical, BID, apply to face as directed, 0 Refill(s),Home Medications (17) Activealbuterol 2.5 mg/3 mL (0.083%) inhalation solution 2.5 mg = 3 mL, PRN, Nebulized Inhalation, B5Shqlbmptznmjvp 50 mg oral tablet 50 mg = 1 Tab, Oral, At BedtimeamLODIPine 10 mg oral tablet 10 mg = 1 Tab, Oral, Dailyaspirin 325 mg oral tablet 325 mg = 1 Tab, Oral, Dailygabapentin 300 mg oral capsule 300 mg = 1 Cap, Oral, BIDLasix 20 mg oral tablet 20 mg = 1 Tab, Oral, Dailylisinopril 40 mg oral tablet 40 mg = 1 Tab, Oral, Dailylovastatin 40 mg oral tablet 40 mg = 1 Tab, Oral, At BedtimeMetoprolol Tartrate 100 mg oral tablet 100 mg = 1 Tab, Oral, BIDMetoprolol Tartrate 100 mg oral tablet 50 mg = 0.5 Tab, Oral, With LunchNitrostat 0.4 mg sublingual tablet 0.4 mg = 1 Tab, PRN, SubLINgual, P7Qkplkaapamqk chloride 20 mEq oral tablet, extended release 20 mEq = 1 Tab, Oral, DailyProAir HFA 90 mcg/inh inhalation aerosol 2 Puff, PRN, Inhalation, QIDpropafenone 425 mg oral capsule, extended release 425 mg = 1 Cap, Oral, [id number] 10 mg oral tablet 10 mg = 1 Tab, Oral, At Bedtimetriamcinolone 0.1% topical cream 1 Application, Topical, BIDXarelto 20 mg oral tablet 20 mg = 1 Tab, Oral, Daily,Medications (33) ActiveScheduled: (13)albuterol-ipratropium inh 3 mL 3 mL, Nebulized Inhalation, V4Cdtvxjwbqqiugw 50 mg tab 50 mg 1 Tab, Oral, At BedtimeamLODIPine 10 mg tab 10 mg 1 Tab, Oral, Dailyaspirin 81 mg chew tab 81 mg 1 Tab, Oral, Dailyclindamycin *ADV* + NaCl 0.9% *ADV* 100 mL 900 mg 6 mL, IV Piggyback, 1-Timefamotidine 20 mg tab 20 mg 1 Tab, Oral, Dailyferrous sulfate 325 mg EC tab 325 mg 1 Tab, Oral, BID With Mealsgabapentin 300 mg cap 300 mg 1 Cap, Oral, BIDinsulin aspart 1 unit/0.01 mL inj Scale D:, SubCutaneous, AC and at Bedtimelovastatin 20 mg tab 40 mg 2 Tab, Oral, At Bedtimemetoprolol tartrate 100 mg tab 100 mg 1 Tab, Oral, TIDpropafenone SR 425 mg cap 425 mg 1 Cap, Oral, U10Lynvdjuomhnp 15 mg tab 15 mg 1 Tab, Oral, With DinnerContinuous: (0)PRN: (20)#NaCl 0.9% *FLUSH* inj 10 mL 10 mL, IV Push, See Commentacetaminophen 325 mg tab 650 mg 2 Tab, Oral, N9Kheksgnfaryniw/oxyCODONE 325/5 mg tab 3 Tab, Oral, Y1Zyuabzkdpz-nvjqwratlbb inh 3 mL 3 mL, Nostrils Both, W4Xpnjvxow gluconate 1 Gram 10 mL, IV Piggyback, Dailycalcium gluconate 2 Gram 20 mL, IV Piggyback, Dailycalcium gluconate 2 Gram 20 mL, IV Piggyback, B41ZliopQRNWUKT 20 mg/1 mL inj 10 mg 0.5 mL, IV Push, B8LUDOVUgoixrdtq 1 mg/1 mL inj 0.5 mg 0.5 mL, IV Push, L2Fucnflrwxu sulfate 2 Gram 50 mL, IV Piggyback, Dailymagnesium sulfate 2 Gram 50 mL, IV Piggyback, J3Qvnqegncg 2 mg/1 ml cpjt inj 2 mg 1 mL, IV Push, Q7Zbtaiiyafiwmva 0.4 mg tab # 25 btl 0.4 mg 1 Tab, SubLINgual, Z3Trqsohnovymwwq 4 mg/2 mL inj 4 mg 2 mL, IV Push, D1PkfeSFIXGN 5 mg tab 5 mg 1 Tab, Oral, K3Ddwyjiutcr chloride 10 mEq 50 mL, IV Piggyback, S6Wvnbfejmwv chloride CR 20 mEq tab 20 mEq 1 Tab, Oral, G8Aikoxdxwut chloride CR 20 mEq tab 60 mEq 3 Tab, Oral, H4Dwldnhv phosphate 15 mMole 5 mL, IV Piggyback, Dailysodium phosphate 15 mMole 5 mL, IV Piggyback, D1AJafgrse list:Active Problems (30)Allergic rhinitis Angina Arthritis Atrial fibrillation Atrial flutter Back pain Bronchitis Bursitis Chronic constipation Chronic cough COPD, mild Diabetes mellitus type II GERD - Gastro-esophageal reflux disease Hard of hearing Heart failure Heart valve Hemorrhoids Hiatal hernia Histoplasmosis Hx of seborrhea Hyperlipidemia Hypertension Pancreatitis Peripheral neuropathy Peripheral vascular disease Pneumonia PSVT (paroxysmal supraventricular tachycardia) Restless legs syndrome Sinusitis Sleep apnea hydrALAZINE 20 mg/1 mL inj 10 mg 0.5 mL, IV Push, Q6H HYDROmorphone 1 mg/1 mL inj 0.5 mg 0.5 mL, IV Push, Q4H magnesium sulfate 2 Gram 50 mL, IV Piggyback, Daily magnesium sulfate 2 Gram 50 mL, IV Piggyback, Q2H morphine 2 mg/1 ml cpjt inj 2 mg 1 mL, IV Push, Q4H nitroglycerin 0.4 mg tab # 25 btl 0.4 mg 1 Tab, SubLINgual, Q5Min ondansetron 4 mg/2 mL inj 4 mg 2 mL, IV Push, Q4H oxyCODONE 5 mg tab 5 mg 1 Tab, Oral, Q4H potassium chloride 10 mEq 50 mL, IV Piggyback, Q1H potassium chloride CR 20 mEq tab 20 mEq 1 Tab, Oral, Q2H potassium chloride CR 20 mEq tab 60 mEq 3 Tab, Oral, Q2H sodium phosphate 15 mMole 5 mL, IV Piggyback, Daily sodium phosphate 15 mMole 5 mL, IV Piggyback, Q6H Problem list: Active Problems (30) Allergic rhinitis Angina Arthritis Atrial fibrillation Atrial flutter Back pain Bronchitis Bursitis Chronic constipation Chronic cough COPD, mild Diabetes mellitus type II GERD - Gastro-esophageal reflux disease Hard of hearing Heart failure Heart valve Hemorrhoids Hiatal hernia Histoplasmosis Hx of seborrhea Hyperlipidemia Hypertension Pancreatitis Peripheral neuropathy Peripheral vascular disease Pneumonia PSVT (paroxysmal supraventricular tachycardia) Restless legs syndrome Sinusitis Sleep apnea ObjectiveVS/MeasurementsVital Signs/Vital Awreoelr57/21/2016 11:33 EST Heart Rate Monitored 94 bpm10/10/2016 11:26 EST Heart Rate Monitored 94 bpm Oxygen Therapy Mode Nasal cannula Oxygen Flow Rate 3 Liter/Min10/10/2016 8:30 EST Heart Rate, Apical 104 bpm ID 10/10/2016 8:28 EST Heart Rate Monitored 104 bpm ID Systolic Blood Pressure 134 mmHg Diastolic Blood Pressure 74 mmHg Mean Arterial Pressure (MAP)-BMDI 92 Oxygen Saturation 95 %10/10/2016 7:36 EST Heart Rate Monitored 98 bpm10/10/2016 7:27 EST Heart Rate Monitored 98 bpm Oxygen Saturation 99 % Oxygen Therapy Mode Nasal cannula Oxygen Flow Rate 3 Liter/Min10/10/2016 7:15 EST Oxygen Saturation 100 % Oxygen Therapy Mode Nasal cannula Oxygen Flow Rate 3 Liter/Min10/10/2016 4:05 EST Temperature, Fahrenheit 98.9 Deg F Clinical Temperature, C 37.2 Deg C Heart Rate Monitored 88 bpm Respiratory Rate 20 Breaths/Min Systolic Blood Pressure 106 mmHg Diastolic Blood Pressure 67 mmHg Mean Arterial Pressure (MAP)-BMDI 84 Oxygen Saturation 100 %10/10/2016 3:10 EST Heart Rate Monitored 83 bpm Oxygen Saturation 100 % Oxygen Therapy Mode BiPAP FiO2 Nursing 35 %10/10/2016 3:03 EST Heart Rate Monitored 81 bpm Oxygen Saturation 100 % Oxygen Therapy Mode BiPAP FiO2 Nursing 35 %10/09/2016 22:45 EST Temperature Source Oral Temperature Mode Fahrenheit Temperature, Fahrenheit 99.8 Deg F HI Clinical Temperature, C 37.7 Deg C Heart Rate Monitored 99 bpm Respiratory Rate 20 Breaths/Min Systolic Blood Pressure 113 mmHg Diastolic Blood Pressure 62 mmHg Mean Arterial Pressure (MAP)-BMDI 76 Oxygen Saturation 100 %10/09/2016 22:34 EST Heart Rate Monitored 98 bpm Oxygen Saturation 98 % FiO2 Nursing 35 %10/09/2016 21:56 EST Temperature Source Temporal artery scanning Temperature Mode Fahrenheit Temperature, Fahrenheit 100.4 Deg F HI Clinical Temperature, C 38 Deg C Heart Rate Monitored 102 bpm HI Respiratory Rate 18 Breaths/Min Systolic Blood Pressure 119 mmHg Diastolic Blood Pressure 63 mmHg Mean Arterial Pressure (MAP)-BMDI 76 Oxygen Saturation 96 % Oxygen Therapy Mode Nasal cannula Oxygen Flow Rate 4 Liter/Min10/09/2016 21:55 EST Heart Rate, Apical 104 bpm HI Heart Rate, Apical 104 bpm HI Systolic Blood Pressure 119 mmHg Diastolic Blood Pressure 63 mmHg10/09/2016 21:23 EST Heart Rate Monitored 105 bpm HI Respiratory Rate 18 Breaths/Min10/09/2016 21:19 EST Heart Rate Monitored 99 bpm Oxygen Saturation 94 % Oxygen Therapy Mode Nasal cannula Oxygen Flow Rate 4 Liter/Min10/09/2016 20:00 EST Heart Rate Monitored 101 bpm HI 10/09/2016 18:43 EST Heart Rate Monitored 97 bpm Systolic Blood Pressure 124 mmHg Diastolic Blood Pressure 71 mmHg Mean Arterial Pressure (MAP)-BMDI 83 Oxygen Saturation 97 %10/09/2016 17:31 EST Heart Rate Monitored 95 bpm Oxygen Saturation 92 % LOW 10/09/2016 16:15 EST Heart Rate Monitored 104 bpm HI Oxygen Saturation 97 %10/09/2016 16:00 EST Temperature, Fahrenheit 98.8 Deg F Clinical Temperature, C 37.1 Deg C Heart Rate Monitored 101 bpm HI Systolic Blood Pressure 119 mmHg Diastolic Blood Pressure 70 mmHg Mean Arterial Pressure (MAP)-BMDI 85 Oxygen Saturation 93 % LOW 10/09/2016 15:45 EST Temperature Source Oral Temperature Mode Fahrenheit Temperature, Fahrenheit 98.8 Deg F Clinical Temperature, C 37.1 Deg C Heart Rate Monitored 104 bpm HI Respiratory Rate 18 Breaths/Min Systolic Blood Pressure 119 mmHg Diastolic Blood Pressure 70 mmHg Mean Arterial Pressure (MAP)-BMDI 85 Oxygen Saturation 96 %10/09/2016 15:30 EST Heart Rate Monitored 104 bpm HI Oxygen Saturation 94 %10/09/2016 15:26 EST Heart Rate, Apical 108 bpm HI 10/09/2016 15:15 EST Heart Rate Monitored 109 bpm HI Oxygen Saturation 94 %10/09/2016 12:05 EST Heart Rate, Apical 108 bpm ID 10/09/2016 12:00 EST Temperature Source Axillary Temperature Mode Fahrenheit Temperature, Fahrenheit 97.9 Deg F Heart Rate Monitored 104 bpm HI Respiratory Rate 26 Breaths/Min HI Systolic Blood Pressure 131 mmHg Diastolic Blood Pressure 64 mmHg Mean Arterial Pressure (MAP)-BMDI 90 Oxygen Saturation 95 % Oxygen Therapy Mode Nasal cannula Oxygen Flow Rate 4 Liter/Min10/09/2016 11:48 EST Heart Rate Monitored 101 bpm ID 10/09/2016 11:38 EST Heart Rate Monitored 101 bpm HI Respiratory Rate 26 Breaths/Min HI Oxygen Saturation 94 % Oxygen Therapy Mode Nasal cannula Oxygen Flow Rate 4 Liter/Min10/09/2016 11:00 EST Heart Rate Monitored 104 bpm HI Respiratory Rate 26 Breaths/Min HI Systolic Blood Pressure 127 mmHg Diastolic Blood Pressure 61 mmHg Mean Arterial Pressure (MAP)-BMDI 87 Oxygen Saturation 95 % Oxygen Therapy Mode Nasal cannula Oxygen Flow Rate 4 Liter/Min10/09/2016 10:00 EST Heart Rate Monitored 108 bpm HI Respiratory Rate 18 Breaths/Min Systolic Blood Pressure 129 mmHg Diastolic Blood Pressure 66 mmHg Mean Arterial Pressure (MAP)-BMDI 90 Oxygen Saturation 94 % Oxygen Therapy Mode Nasal cannula Oxygen Flow Rate 4 Liter/Min10/09/2016 9:00 EST Heart Rate Monitored 111 bpm HI Respiratory Rate 23 Breaths/Min HI Systolic Blood Pressure 124 mmHg Diastolic Blood Pressure 60 mmHg Mean Arterial Pressure (MAP)-BMDI 86 Oxygen Saturation 94 % Oxygen Therapy Mode Nasal cannula Oxygen Flow Rate 4 Liter/Min10/09/2016 8:57 EST Heart Rate, Apical 115 bpm ID 10/09/2016 8:13 EST Heart Rate Monitored 101 bpm HI Oxygen Therapy Mode Nasal cannula Oxygen Flow Rate 4 Liter/Min10/09/2016 8:04 EST Heart Rate Monitored 99 bpm Respiratory Rate 21 Breaths/Min HI Oxygen Saturation 98 % Oxygen Therapy Mode BiPAP FiO2 Nursing 35 %10/09/2016 8:00 EST Temperature Source Axillary Temperature Mode Fahrenheit Temperature, Fahrenheit 99.2 Deg F Systolic Blood Pressure 118 mmHg Diastolic Blood Pressure 61 mmHg Mean Arterial Pressure (MAP)-BMDI 8310/09/2016 7:00 EST Heart Rate Monitored 97 bpm Respiratory Rate 21 Breaths/Min HI Systolic Blood Pressure 111 mmHg Diastolic Blood Pressure 60 mmHg Mean Arterial Pressure (MAP)-BMDI 79 Oxygen Saturation 97 %10/09/2016 6:00 EST Heart Rate Monitored 94 bpm Respiratory Rate 22 Breaths/Min HI Systolic Blood Pressure 111 mmHg Diastolic Blood Pressure 61 mmHg Mean Arterial Pressure (MAP)-BMDI 81 Oxygen Saturation 96 %10/09/2016 5:00 EST Heart Rate Monitored 91 bpm Respiratory Rate 20 Breaths/Min Systolic Blood Pressure 108 mmHg Diastolic Blood Pressure 56 mmHg LOW Mean Arterial Pressure (MAP)-BMDI 75 Oxygen Saturation 97 %10/09/2016 4:50 EST Heart Rate Monitored 90 bpm Respiratory Rate 21 Breaths/Min HI Oxygen Saturation 99 %10/09/2016 4:44 EST Heart Rate Monitored 91 bpm Respiratory Rate 21 Breaths/Min HI Oxygen Saturation 96 % Oxygen Therapy Mode BiPAP FiO2 Nursing 35 %10/09/2016 4:00 EST Temperature Source Axillary Temperature Mode Fahrenheit Temperature, Fahrenheit 99.9 Deg F HI Clinical Temperature, C 37.7 Deg C Heart Rate Monitored 90 bpm Respiratory Rate 21 Breaths/Min HI Systolic Blood Pressure 110 mmHg Diastolic Blood Pressure 63 mmHg Mean Arterial Pressure (MAP)-BMDI 82 Oxygen Saturation 96 %10/09/2016 3:00 EST Heart Rate Monitored 90 bpm Respiratory Rate 22 Breaths/Min HI Systolic Blood Pressure 107 mmHg Diastolic Blood Pressure 58 mmHg LOW Mean Arterial Pressure (MAP)-BMDI 76 Oxygen Saturation 98 % Oxygen Therapy Mode BiPAP FiO2 Nursing 35 %10/09/2016 2:00 EST Heart Rate Monitored 87 bpm Respiratory Rate 19 Breaths/Min Systolic Blood Pressure 97 mmHg Diastolic Blood Pressure 57 mmHg LOW Mean Arterial Pressure (MAP)-BMDI 72 Oxygen Saturation 96 %10/09/2016 1:00 EST Heart Rate Monitored 87 bpm Respiratory Rate 18 Breaths/Min Systolic Blood Pressure 100 mmHg Diastolic Blood Pressure 59 mmHg LOW Mean Arterial Pressure (MAP)-BMDI 75 Oxygen Saturation 96 %10/09/2016 0:00 EST Temperature Source Oral Temperature Mode Fahrenheit Temperature, Fahrenheit 100.0 Deg F HI Clinical Temperature, C 37.8 Deg C Clinical Temperature, C 37.8 Deg C Heart Rate Monitored 88 bpm Respiratory Rate 26 Breaths/Min HI Systolic Blood Pressure 100 mmHg Diastolic Blood Pressure 55 mmHg LOW Mean Arterial Pressure (MAP)-BMDI 72 Oxygen Saturation 97 % Oxygen Therapy Mode BiPAP FiO2 Nursing 35 %,Vitals Signs (last 24 hrs) Last Charted Minimum MaximumTemp 98.9 (OCT 10 04:05)98.9 (OCT 10 04:05)H 100.4 (OCT 09 21:56)Apical HR H 104 (OCT 10 08:30)H 104 (OCT 09 21:55)H 108 (OCT 09 12:05)Mon HR 94 (OCT 10 11:33)81 (OCT 10 03:03)109 (OCT 09 15:15)Resp Rate 20 (OCT 10 04:05)18 (OCT 09 15:45)20 (OCT 09 22:45)SBP 134 (OCT 10 08:28)106 (OCT 10 04:05)134 (OCT 10 08:28)DBP 74 (OCT 10 08:28)62 (OCT 09 22:45)74 (OCT 10 08:28)MAP 92 (OCT 10 08:28)76 (OCT 09 21:56)92 (OCT 10 08:28)SpO2 95 (OCT 10 08:28)L 92 (OCT 09 17:31)100 (OCT 09 22:45)General: Alert and oriented.Eye: Pupils are equal, round and reactive to light.HENT: Normocephalic.Neck: Supple.Respiratory: Lungs are clear to auscultation, Respirations are non-labored, Breath sounds are equal, Symmetrical chest wall expansion.Cardiovascular: Normal rate, Regular rhythm, No murmur, No gallop, No edema, Minimal drainage of the surgical site in the vaccum..Gastrointestinal: Soft, Non-tender, Non-distended, Normal bowel sounds.Integumentary: Warm.Neurologic: Alert.Psychiatric: Cooperative. Clinical Temperature, C 37.8 Deg C Clinical Temperature, C 37.8 Deg C Heart Rate Monitored 88 bpm Respiratory Rate 26 Breaths/Min HI Systolic Blood Pressure 100 mmHg Diastolic Blood Pressure 55 mmHg LOW Mean Arterial Pressure (MAP)-BMDI 72 Oxygen Saturation 97 % Oxygen Therapy Mode BiPAP FiO2 Nursing 35 % , Vitals Signs (last 24 hrs) Last Charted Minimum Maximum Temp 98.9 (OCT 10 04:05)98.9 (OCT 10 04:05)H 100.4 ( OCT 09 21:56) Apical HR H 104 (OCT 10 08:30)H 104 (OCT 09 21:55)H 108 (OCT 09 12:05) Mon HR 94 (OCT 10 11:33)81 (OCT 10 03:03)109 (OCT 09 15:15) Resp Rate 20 (OCT 10 04:05)18 (OCT 09 15:45)20 (OCT 09 22:45 ) SBP 134 (OCT 10 08:28)106 (OCT 10 04:05)134 (OCT 10 08:28) DBP 74 (OCT 10 08:28)62 (OCT 09 22:45)74 (OCT 10 08: 28) MAP 92 (OCT 10 08:28)76 (OCT 09 21:56)92 (OCT 10 08: 28) SpO2 95 (OCT 10 08:)L 92 (OCT 09 17:31)100 (OCT 09 22:45) General: Alert and oriented. Eye: Pupils are equal, round and reactive to light. HENT: Normocephalic. Neck: Supple. Respiratory: Lungs are clear to auscultation, Respirations are non-labored, Breath sounds are equal, Symmetrical chest wall expansion. Cardiovascular: Normal rate, Regular rhythm, No murmur, No gallop, No edema, Minimal drainage of the surgical site in the vaccum.. Gastrointestinal: Soft, Non-tender, Non-distended, Normal bowel sounds. Integumentary: Warm. Neurologic: Alert. Psychiatric: Cooperative. Results Review OCT 10 07:56 L 134 | L 97 | H 34 / H 131 4.1 | 27 | H 1.70 \\Cardiac Markers (Current Encounter/Past 24 Hours)CK 290 Units/Liter 10/10/2016 09:01ProBNP 377 pg/mL HI 10/10/2016 09:07 Radiology Results (Last 48 hours)[id number] -- 10/06/2016 03:13CR Chest 1 Vw Portable (10/09/2016 21:10) Result: PORTABLE CHESTHISTORY: Congestive heart failure.COMPARISON: 10/08/2016.FINDINGS: A single portable radiograph of the chest was performed. Thereare cardiac electrodes overlying the chest wall. There is a rightinternal jugular central venous catheter with the tip terminating in thesuperior vena cava. Their is persistent decreased lung volume withpatchy basilar airspace disease that may represent atelectasis orpneumonia. There is been some improved aeration compared to the priorstudy. There is no edema. There are probable trace effusions.IMPRESSION: Slight improved aeration compared to the prior study withpersistent basilar patchy airspace disease and trace effusions. CR Chest 1 Vw Portable (10/09/2016 21:10) Result: PORTABLE CHESTHISTORY: Congestive heart failure.COMPARISON: 10/08.FINDINGS: A single portable radiograph of the chest was performed. Thereare cardiac electrodes overlying the chest wall. There is a rightinternal jugular central venous catheter with the tip terminating in thesuperior vena cava. Their is persistent decreased lung volume withpatchy basilar airspace disease that ma y represent atelectasis orpneumonia. There is been some improved aeration compared to the priorstudy. There is no edema. There are probable trace effusions.IMPRESSION: Slight improved aeration compare d to the prior study withpersistent basilar patchy airspace disease and trace effusions. Impression and PlanIMPRESSION:1- Persistant atrial flib s/p CV for rhythm control.Change Xaerlto to 15 till renal functions are back to normal.2- Typical flutter s/p ablation then 2 days later he developed the pseudoanurysm and AV fistula s/p surgery POD #43- psudoanurysm and AV fistula repain and Hbg is stable non ordered today.4- Renal insufficincy Craetine still high, nephrolopgy consulted and creatine is better and SHYANN inh is on hold.5- HTN stable.PLAN;PT and OT. 5- HTN stable. PLAN;PT and OT. Extracted from: Title: Progress Note Author: FRACISCO, Date: 10/10/16 NEPHROLOGY, Fracisco ELI MD-NEP Subjective patient had low grade temp. feels ok otherwise. Health StatusAllergies:Allergic Reactions (All)Severity Not DocumentedBactrim- Rash , fever.Ciprofloxacin- Hives.Penicillin- Anaphylaxis as child.Tetracyclines- Unsure.,Allergies (4) ActiveReactionBactrimrash , feverciprofloxacinhivespenicillinanaphylaxis as childtetracyclinesunsureCurrent medications: (Selected)Inpatient MedicationsOrderedDilaudid: 0.5 mg, IV Push, Q4H, PRN: Pain (Moderate 4-6)DuoNeb 0.5 mg-2.5 mg/3 mL inhalation solution: 3 mL, Nebulized Inhalation, B1EVhaKhx 0.5 mg-2.5 mg/3 mL inhalation solution: 3 mL, Nostrils Both, Q6H, PRN: Shortness of BreathNitrostat: 0.4 mg, SubLINgual, Q5Min, PRN: Chest PainPepcid: 20 mg, Oral, DailyPercocet 5/325: 3 Tab, Oral, Q6H, PRN: Pain (Moderate 4-6)Rocephin: 1 Gram, 100 mL/Hr, IV Piggyback, R04RTapBvjvqpd SR: 425 mg, Oral, Q12JHqomsdg: 650 mg, Oral, Q4H, PRN: Other (See Comment)Xarelto: 15 mg, Oral, With DinnerZofran: 4 mg, IV Push, Q4H, PRN: NauseaamLODIPine: 10 mg, Oral, Dailyamitriptyline: 50 mg, Oral, At Bedtimeaspirin: 81 mg, Oral, Dailycalcium gluconate: 1 Gram, 10 mL, 60 mL/Hr, IV Piggyback, Daily, PRN: Other (See Comment)calcium gluconate: 2 Gram, 20 mL, 120 mL/Hr, IV Piggyback, Daily, PRN: Other (See Comment)calcium gluconate: 2 Gram, 20 mL, 120 mL/Hr, IV Piggyback, Q12H, PRN: Other (See Comment)clindamycin + Sodium Chloride 0.9% 100 mL: 900 mg, 6 mL, 106 mL/Hr, IV Piggyback, 1-Timeferrous sulfate: 325 mg, Oral, BID With Mealsgabapentin: 300 mg, Oral, BIDhydrALAZINE: 10 mg, IV Push, Q6H, PRN: Hypertensioninsulin aspart sliding scale: Scale D:, SubCutaneous, AC and at Bedtimelovastatin: 40 mg, Oral, At Bedtimemagnesium sulfate: 2 Gram, 50 mL, 25 mL/Hr, IV Piggyback, Daily, PRN: Other (See Comment)magnesium sulfate: 2 Gram, 50 mL, 25 mL/Hr, IV Piggyback, Q2H, PRN: Other (See Comment)metoprolol tartrate: 100 mg, Oral, TIDmorphine: 2 mg, IV Push, Q4H, PRN: Pain (Severe 7-10)oxyCODONE: 5 mg, Oral, Q4H, PRN: Pain (Moderate 4-6)potassium chloride 10 mEq/50 mL intravenous solution: 10 mEq, 50 mL, 50 mL/Hr, IV Piggyback, Q1H, PRN: Other (See Comment)potassium chloride 20 mEq oral tablet, extended release: 20 mEq, 1 Tab, Oral, Q2H, PRN: Other (See Comment)potassium chloride 20 mEq oral tablet, extended release: 60 mEq, 3 Tab, Oral, Q2H, PRN: Other (See Comment)sodium chloride 0.9% injectable solution: 10 mL, IV Push, See Comment, PRN: Other (See Comment)sodium phosphate: 15 mMole, 5 mL, 50 mL/Hr, IV Piggyback, Daily, PRN: Other (See Comment)sodium phosphate: 15 mMole, 5 mL, 50 mL/Hr, IV Piggyback, Q6H, PRN: Other (See Comment)Pending Completeinfluenza virus vaccine, inactivated: 0.5 mL, IntraMuscular, [id number] MedicationsDocumentedLasix 20 mg oral tablet: 1 Tab, Oral, Daily, 30 Tab, 0 Refill(s)Metoprolol Tartrate 100 mg oral tablet: 0.5 Tab, Oral, With Lunch, may increase to 1 tablet as directed for heart rate, 0 Refill(s)Metoprolol Tartrate 100 mg oral tablet: 1 Tab, Oral, BID, 0 Refill(s)Nitrostat 0.4 mg sublingual tablet: 1 Tab, SubLINgual, Q5Min, If chest pain not relieved in 5 minutes after first dose, seek immediate medical attention, PRN: Chest Pain, 100 Tab, 0 Refill(s)ProAir HFA 90 mcg/inh inhalation aerosol: 2 Puff, Inhalation, QID, PRN: for wheezing, 0 Refill(s)Singulair 10 mg oral tablet: 1 Tab, Oral, At Bedtime, 0 Refill(s)Xarelto 20 mg oral tablet: 1 Tab, Oral, Daily, with largest meal, 30 Tab, 0 Refill(s)albuterol 2.5 mg/3 mL (0.083%) inhalation solution: 3 mL, Nebulized Inhalation, Q6H, PRN: for wheezing, 25 Each, 0 Refill(s)amLODIPine 10 mg oral tablet: 1 Tab, Oral, Daily, 30 Tab, 0 Refill(s)amitriptyline 50 mg oral tablet: 1 Tab, Oral, At Bedtime, 0 Refill(s)aspirin 325 mg oral tablet: 1 Tab, Oral, Daily, 30 Tab, 0 Refill(s)gabapentin 300 mg oral capsule: 1 Cap, Oral, BID, 60 Cap, 0 Refill(s)lisinopril 40 mg oral tablet: 1 Tab, Oral, Daily, 30 Tab, 0 Refill(s)lovastatin 40 mg oral tablet: 1 Tab, Oral, At Bedtime, 30 Tab, 0 Refill(s)potassium chloride 20 mEq oral tablet, extended release: 1 Tab, Oral, Daily, 0 Refill(s)propafenone 425 mg oral capsule, extended release: 1 Cap, Oral, Q12H, 180 Cap, 0 Refill(s)triamcinolone 0.1% topical cream: 1 Application, Topical, BID, apply to face as directed, 0 Refill(s),Home Medications (17) Activealbuterol 2.5 mg/3 mL (0.083%) inhalation solution 2.5 mg = 3 mL, PRN, Nebulized Inhalation, S9Hjhteuznsyekvx 50 mg oral tablet 50 mg = 1 Tab, Oral, At BedtimeamLODIPine 10 mg oral tablet 10 mg = 1 Tab, Oral, Dailyaspirin 325 mg oral tablet 325 mg = 1 Tab, Oral, Dailygabapentin 300 mg oral capsule 300 mg = 1 Cap, Oral, BIDLasix 20 mg oral tablet 20 mg = 1 Tab, Oral, Dailylisinopril 40 mg oral tablet 40 mg = 1 Tab, Oral, Dailylovastatin 40 mg oral tablet 40 mg = 1 Tab, Oral, At BedtimeMetoprolol Tartrate 100 mg oral tablet 100 mg = 1 Tab, Oral, BIDMetoprolol Tartrate 100 mg oral tablet 50 mg = 0.5 Tab, Oral, With LunchNitrostat 0.4 mg sublingual tablet 0.4 mg = 1 Tab, PRN, SubLINgual, J7Rfcspmivseqk chloride 20 mEq oral tablet, extended release 20 mEq = 1 Tab, Oral, DailyProAir HFA 90 mcg/inh inhalation aerosol 2 Puff, PRN, Inhalation, QIDpropafenone 425 mg oral capsule, extended release 425 mg = 1 Cap, Oral, E70NSvvzfbabs 10 mg oral tablet 10 mg = 1 Tab, Oral, At Bedtimetriamcinolone 0.1% topical cream 1 Application, Topical, BIDXarelto 20 mg oral tablet 20 mg = 1 Tab, Oral, Daily,Medications (34) ActiveScheduled: (14)albuterol-ipratropium inh 3 mL 3 mL, Nebulized Inhalation, Z0Siylkjxotkjncp 50 mg tab 50 mg 1 Tab, Oral, At BedtimeamLODIPine 10 mg tab 10 mg 1 Tab, Oral, Dailyaspirin 81 mg chew tab 81 mg 1 Tab, Oral, DailycefTRIAXone 1 Gram, IV Piggyback, B46APrjrlheinidzzf *ADV* + NaCl 0.9% *ADV* 100 mL 900 mg 6 mL, IV Piggyback, 1-Timefamotidine 20 mg tab 20 mg 1 Tab, Oral, Dailyferrous sulfate 325 mg EC tab 325 mg 1 Tab, Oral, BID With Mealsgabapentin 300 mg cap 300 mg 1 Cap, Oral, BIDinsulin aspart 1 unit/0.01 mL inj Scale D:, SubCutaneous, AC and at Bedtimelovastatin 20 mg tab 40 mg 2 Tab, Oral, At Bedtimemetoprolol tartrate 100 mg tab 100 mg 1 Tab, Oral, TIDpropafenone SR 425 mg cap 425 mg 1 Cap, Oral, J03Eqenvjgoxfnl 15 mg tab 15 mg 1 Tab, Oral, With DinnerContinuous: (0)PRN: (20)#NaCl 0.9% *FLUSH* inj 10 mL 10 mL, IV Push, See Commentacetaminophen 325 mg tab 650 mg 2 Tab, Oral, G4Mmcgrmcqeljoyu/oxyCODONE 325/5 mg tab 3 Tab, Oral, J2Fzbbgujprm-pmewpnqvocs inh 3 mL 3 mL, Nostrils Both, J0Uhywbvsc gluconate 1 Gram 10 mL, IV Piggyback, Dailycalcium gluconate 2 Gram 20 mL, IV Piggyback, Dailycalcium gluconate 2 Gram 20 mL, IV Piggyback, E06WuqhaNGIQBIO 20 mg/1 mL inj 10 mg 0.5 mL, IV Push, H5UZMUSKifhvwjwa 1 mg/1 mL inj 0.5 mg 0.5 mL, IV Push, G0Lnflwrbbsm sulfate 2 Gram 50 mL, IV Piggyback, Dailymagnesium sulfate 2 Gram 50 mL, IV Piggyback, R2Wtpclnojs 2 mg/1 ml cpjt inj 2 mg 1 mL, IV Push, B7Txzestuvtrupnc 0.4 mg tab # 25 btl 0.4 mg 1 Tab, SubLINgual, O2Rgkxmwqblayrgm 4 mg/2 mL inj 4 mg 2 mL, IV Push, Z1WfrdGPUALW 5 mg tab 5 mg 1 Tab, Oral, J7Qqnwmizphp chloride 10 mEq 50 mL, IV Piggyback, Z1Nafpnnlunm chloride CR 20 mEq tab 20 mEq 1 Tab, Oral, Y6Ceshrhgpsp chloride CR 20 mEq tab 60 mEq 3 Tab, Oral, H3Gwgvnnz phosphate 15 mMole 5 mL, IV Piggyback, Dailysodium phosphate 15 mMole 5 mL, IV Piggyback, Z3KHoiehhc list:Active Problems (30)Allergic rhinitis Angina Arthritis Atrial fibrillation Atrial flutter Back pain Bronchitis Bursitis Chronic constipation Chronic cough COPD, mild Diabetes mellitus type II GERD - Gastro-esophageal reflux disease Hard of hearing Heart failure Heart valve Hemorrhoids Hiatal hernia Histoplasmosis Hx of seborrhea Hyperlipidemia Hypertension Pancreatitis Peripheral neuropathy Peripheral vascular disease Pneumonia PSVT (paroxysmal supraventricular tachycardia) Restless legs syndrome Sinusitis Sleep apnea hydrALAZINE 20 mg/1 mL inj 10 mg 0.5 mL, IV Push, Q6H HYDROmorphone 1 mg/1 mL inj 0.5 mg 0.5 mL, IV Push, Q4H magnesium sulfate 2 Gram 50 mL, IV Piggyback, Daily magnesium sulfate 2 Gram 50 mL, IV Piggyback, Q2H morphine 2 mg/1 ml cpjt inj 2 mg 1 mL, IV Push, Q4H nitroglycerin 0.4 mg tab # 25 btl 0.4 mg 1 Tab, SubLINgual, Q5Min ondansetron 4 mg/2 mL inj 4 mg 2 mL, IV Push, Q4H oxyCODONE 5 mg tab 5 mg 1 Tab, Oral, Q4H potassium chloride 10 mEq 50 mL, IV Piggyback, Q1H potassium chloride CR 20 mEq tab 20 mEq 1 Tab, Oral, Q2H potassium chloride CR 20 mEq tab 60 mEq 3 Tab, Oral, Q2H sodium phosphate 15 mMole 5 mL, IV Piggyback, Daily sodium phosphate 15 mMole 5 mL, IV Piggyback, Q6H Problem list: Active Problems (30) Allergic rhinitis Angina Arthritis Atrial fibrillation Atrial flutter Back pain Bronchitis Bursitis Chronic constipation Chronic cough COPD, mild Diabetes mellitus type II GERD - Gastro-esophageal reflux disease Hard of hearing Heart failure Heart valve Hemorrhoids Hiatal hernia Histoplasmosis Hx of seborrhea Hyperlipidemia Hypertension Pancreatitis Peripheral neuropathy Peripheral vascular disease Pneumonia PSVT (paroxysmal supraventricular tachycardia) Restless legs syndrome Sinusitis Sleep apnea ObjectiveVS/MeasurementsVitals Signs (last 24 hrs) Last Charted Minimum MaximumTemp 98.8 (OCT 10:00)98.8 (OCT 10:)H 100.4 (OCT 09 21:56)Apical HR 99 (OCT 10 16:00)90 (OCT 10 13:21)H 104 (OCT 09 21:55)Mon HR 128 (OCT 10 16:00)81 (OCT 10 03:03)128 (OCT 10 16:00)Resp Rate 20 (OCT 10:00)18 (OCT 09 21:23)20 (OCT 09 22:45)SBP 105 (OCT 10:00)105 (OCT 10:)134 (OCT 10:)DBP L 54 (OCT 10:)L 54 (OCT 10 15:00)74 (OCT 10 08:)MAP 64 (OCT 10:00)64 (OCT 10 15:00)92 (OCT 10 08:)SpO2 L 82 (OCT 10 16:00)L 82 (OCT 10 16:00)100 (OCT 09 22:45)GENERAL : patient is comfortable, in no acute distressHEENT: EOMI, PERRL , sclera non icterus. wet oral mucosa.CARDIOVASCULAR : normal heart sound , regular rate and rhythm RESPIRATORY : clear to auscultation bilateral . no crackles . no wheeze.GASTROINTESTINAL : abdomen soft and non tender. no renal bruit. no organomegaly. no distensionGENITOURINARY : no flank tenderness. no inguinal herniaMUSCULOSKELETAL : no joint swelling or tendernessNEUROLOGICAL : normal motor function. intact CN's. normal sensation .PSYCHIATRIC : AxOx3 , normal affectSKIN: no rash , no edema + right gorion resolving bruises. PSYCHIATRIC : AxOx3 , normal affect SKIN: no rash , no edema + right gorion resolving bruises. Results ReviewGeneral resultsInterpretation:LABS Labs (Last four charted values)WBC H 14.7(OCT 09)H 12.6(OCT 08)H 16.0(OCT 07)H 13.2(OCT 06)HB L 8.6(OCT 09)L 8.5(OCT 08)L 9.0(OCT 07)L 8.9(OCT 07)HCT L 26.9(OCT 09)L 26.9(OCT 08)L 28.3(OCT 07)L 27.9(OCT 07)Plt 289(OCT 09)216(OCT 08)272(OCT 07)253(OCT 06)Na L 134(OCT 10)L 135(OCT 09)140(OCT 08)139(OCT 07)K 4.1(OCT 10)4.2(OCT 09)4.0(OCT 08)4.2(OCT 07)Cl L 97(OCT 10)L 98(OCT 09)103(OCT 08)105(OCT 07)CO2 27(OCT 10)27(OCT 09)25(OCT 08)24(OCT 07)BUN H 34(OCT 10)H 29(OCT 09)H 24(OCT 08)18(SEP 18)Cr H 1.70(OCT 10)H 2.00(OCT 09)H 2.00(OCT 08)H 1.60(OCT 07)Glu R H 131(OCT 10)H 144(OCT 09)H 127(OCT 08)H 124(OCT 07)Ca L 7.9(OCT 10)L 8.2(OCT 09)L 7.9(OCT 08)L 7.9(OCT 07)PT H 12.1(OCT 06)INR H 1.2(OCT 06)AST H 41(OCT 07)15(OCT 06)ALT 42(OCT 07)26(OCT 06)ALK P 80(OCT 07)83(OCT 06)T Bili H 1.2(OCT 07)1.0(OCT 06)PTN L 5.6(OCT 07)6.4(OCT 06)ALB L 2.6(OCT 07)L 2.9(OCT 06)Troponin 0.031(OCT 06)PROBNP H 377(OCT 10)H 126(OCT 06)Radiology Results Radiology Results (Last 48 hours)[id number] -- 10/06/2016 03:13CR Chest 1 Vw Portable (10/09/2016 21:10) Result: PORTABLE CHESTHISTORY: Congestive heart failure.COMPARISON: 10/08/2016.FINDINGS: A single portable radiograph of the chest was performed. Thereare cardiac electrodes overlying the chest wall. There is a rightinternal jugular central venous catheter with the tip terminating in thesuperior vena cava. Their is persistent decreased lung volume withpatchy basilar airspace disease that may represent atelectasis orpneumonia. There is been some improved aeration compared to the priorstudy. There is no edema. There are probable trace effusions.IMPRESSION: Slight improved aeration compared to the prior study withpersistent basilar patchy airspace disease and trace effusions.US Renal Comp (10/10/2016 14:36) Result: RENAL ULTRASOUNDHISTORY: Renal insufficiency.PROCEDURE: Ultrasound images of the kidneys were obtained.FINDINGS: Limited images of the liver parenchyma demonstrate normal echogenicity. The right kidney measures 14.9 cm in length . There is a 3.2 x 2.6 cmright renal cyst identified. This is within the lower pole of the rightkidney. There is no hydronephrosis.The left kidney measures 14.8 cm in length . It is normal echogenicity. There is no hydronephrosis.IMPRESSION: Right renal cyst.Otherwise, unremarkable renal ultrasound.Films reviewed, interpreted, and dictated by Dr. Jesus.Transcribed by Kay Harley PA-C.I have personally viewed, interpreted and dictated the examination. Ihave read and agree with the above final transcribed report. res 14.8 cm in length . It is normal echogenicity. There is no hydronephrosis.IMPRESSION: Right renal cyst.Otherwise, unremarkable renal ultrasound.Films reviewed, interpreted, and dictated by Dr. Ko stelic.Transcribed by Kay Harley PA-C.I have personally viewed, interpreted and dictated the examination. Ihave read and agree with the above final transcribed report. Impression and Plan1- Acute Kidney injury : normal baseline kidney function. hospital acquired, nonoliguric renal US with simple cyst in the right kidney but otherwise unremarkable.2- Acute blood loss anemia : on oral iron3- Essential hypertension; controlled currently,keep MAP above 65 mmHG, avoid fluctuation.4- Hyponatremia : mild5- A. Fib : cardiology following.PLAN:start IVF , NSS at rate of 100 ml/hr.monitor respiratory status carefully. keep MAP above 65 mmHG, avoid fluctuation. 4- Hyponatremia : mild 5- A. Fib : cardiology following. PLAN: start IVF , NSS at rate of 100 ml/hr. monitor respiratory status carefully. Extracted from: Title: Progress Note, Author: ARTEMIOMARLON MAJO, Date: 10/09/16 Acute Care MD-INT Basic Information Awake, no SOA Review of Systems Constitutional: Weakness, Fatigue. Eye: Negative. Ear/Nose/Mouth/Throat: Negative. Respiratory: Negative. Cardiovascular: Negative. Gastrointestinal: Negative. Genitourinary: Negative. Hematology/Lymphatics: Negative. Endocrine: Negative. Musculoskeletal: Negative. Integumentary: Negative. Neurologic: Negative. Psychiatric: Negative. Health StatusAllergies:Allergic Reactions (Selected)Severity Not DocumentedBactrim- Rash , fever.Ciprofloxacin- Hives.Penicillin- Anaphylaxis as child.Tetracyclines- Unsure.,Allergies (4) ActiveReactionBactrimrash , feverciprofloxacinhivespenicillinanaphylaxis as childtetracyclinesunsureCurrent medications: (Selected)Inpatient MedicationsOrderedDilaudid: 0.5 mg, IV Push, Q4H, PRN: Pain (Moderate 4-6)DuoNeb 0.5 mg-2.5 mg/3 mL inhalation solution: 3 mL, Nebulized Inhalation, P1JIxmEmp 0.5 mg-2.5 mg/3 mL inhalation solution: 3 mL, Nostrils Both, Q6H, PRN: Shortness of BreathNitrostat: 0.4 mg, SubLINgual, Q5Min, PRN: Chest PainPepcid: 20 mg, Oral, DailyPercocet 5/325: 3 Tab, Oral, Q6H, PRN: Pain (Moderate 4-6)Rythmol SR: 425 mg, Oral, F06SNqduzhn: 650 mg, Oral, Q4H, PRN: Other (See Comment)Xarelto: 20 mg, Oral, With DinnerZofran: 4 mg, IV Push, Q4H, PRN: NauseaamLODIPine: 10 mg, Oral, Dailyamitriptyline: 50 mg, Oral, At Bedtimeaspirin: 81 mg, Oral, Dailycalcium gluconate: 1 Gram, 10 mL, 60 mL/Hr, IV Piggyback, Daily, PRN: Other (See Comment)calcium gluconate: 2 Gram, 20 mL, 120 mL/Hr, IV Piggyback, Daily, PRN: Other (See Comment)calcium gluconate: 2 Gram, 20 mL, 120 mL/Hr, IV Piggyback, Q12H, PRN: Other (See Comment)clindamycin + Sodium Chloride 0.9% 100 mL: 900 mg, 6 mL, 106 mL/Hr, IV Piggyback, 1-Timefurosemide: 40 mg, Oral, Dailygabapentin: 300 mg, Oral, BIDhydrALAZINE: 10 mg, IV Push, Q6H, PRN: Hypertensioninsulin aspart sliding scale: Scale D:, SubCutaneous, AC and at Bedtimelovastatin: 40 mg, Oral, At Bedtimemagnesium sulfate: 2 Gram, 50 mL, 25 mL/Hr, IV Piggyback, Daily, PRN: Other (See Comment)magnesium sulfate: 2 Gram, 50 mL, 25 mL/Hr, IV Piggyback, Q2H, PRN: Other (See Comment)metoprolol tartrate: 100 mg, Oral, TIDmorphine: 2 mg, IV Push, Q4H, PRN: Pain (Severe 7-10)oxyCODONE: 5 mg, Oral, Q4H, PRN: Pain (Moderate 4-6)phenylephrine injection 20 mg + Sodium Chloride 0.9% 250 mL: Titrate, IntraVENouspotassium chloride 10 mEq/50 mL intravenous solution: 10 mEq, 50 mL, 50 mL/Hr, IV Piggyback, Q1H, PRN: Other (See Comment)potassium chloride 20 mEq oral tablet, extended release: 20 mEq, 1 Tab, Oral, Q2H, PRN: Other (See Comment)potassium chloride 20 mEq oral tablet, extended release: 60 mEq, 3 Tab, Oral, Q2H, PRN: Other (See Comment)sodium chloride 0.9% injectable solution: 10 mL, IV Push, See Comment, PRN: Other (See Comment)sodium phosphate: 15 mMole, 5 mL, 50 mL/Hr, IV Piggyback, Daily, PRN: Other (See Comment)sodium phosphate: 15 mMole, 5 mL, 50 mL/Hr, IV Piggyback, Q6H, PRN: Other (See Comment)Pending Completeinfluenza virus vaccine, inactivated: 0.5 mL, IntraMuscular, I29OHwmScglcyzfrv MedicationsDocumentedLasix 20 mg oral tablet: 1 Tab, Oral, Daily, 30 Tab, 0 Refill(s)Metoprolol Tartrate 100 mg oral tablet: 0.5 Tab, Oral, With Lunch, may increase to 1 tablet as directed for heart rate, 0 Refill(s)Metoprolol Tartrate 100 mg oral tablet: 1 Tab, Oral, BID, 0 Refill(s)Nitrostat 0.4 mg sublingual tablet: 1 Tab, SubLINgual, Q5Min, If chest pain not relieved in 5 minutes after first dose, seek immediate medical attention, PRN: Chest Pain, 100 Tab, 0 Refill(s)ProAir HFA 90 mcg/inh inhalation aerosol: 2 Puff, Inhalation, QID, PRN: for wheezing, 0 Refill(s)Singulair 10 mg oral tablet: 1 Tab, Oral, At Bedtime, 0 Refill(s)Xarelto 20 mg oral tablet: 1 Tab, Oral, Daily, with largest meal, 30 Tab, 0 Refill(s)albuterol 2.5 mg/3 mL (0.083%) inhalation solution: 3 mL, Nebulized Inhalation, Q6H, PRN: for wheezing, 25 Each, 0 Refill(s)amLODIPine 10 mg oral tablet: 1 Tab, Oral, Daily, 30 Tab, 0 Refill(s)amitriptyline 50 mg oral tablet: 1 Tab, Oral, At Bedtime, 0 Refill(s)aspirin 325 mg oral tablet: 1 Tab, Oral, Daily, 30 Tab, 0 Refill(s)gabapentin 300 mg oral capsule: 1 Cap, Oral, BID, 60 Cap, 0 Refill(s)lisinopril 40 mg oral tablet: 1 Tab, Oral, Daily, 30 Tab, 0 Refill(s)lovastatin 40 mg oral tablet: 1 Tab, Oral, At Bedtime, 30 Tab, 0 Refill(s)potassium chloride 20 mEq oral tablet, extended release: 1 Tab, Oral, Daily, 0 Refill(s)propafenone 425 mg oral capsule, extended release: 1 Cap, Oral, Q12H, 180 Cap, 0 Refill(s)triamcinolone 0.1% topical cream: 1 Application, Topical, BID, apply to face as directed, 0 Refill(s),Medications (34) ActiveScheduled: (13)albuterol-ipratropium inh 3 mL 3 mL, Nebulized Inhalation, S4Qevngzmtehcofu 50 mg tab 50 mg 1 Tab, Oral, At BedtimeamLODIPine 10 mg tab 10 mg 1 Tab, Oral, Dailyaspirin 81 mg chew tab 81 mg 1 Tab, Oral, Dailyclindamycin *ADV* + NaCl 0.9% *ADV* 100 mL 900 mg 6 mL, IV Piggyback, 1-Timefamotidine 20 mg tab 20 mg 1 Tab, Oral, Dailyfurosemide 40 mg tab 40 mg 1 Tab, Oral, Dailygabapentin 300 mg cap 300 mg 1 Cap, Oral, BIDinsulin aspart 1 unit/0.01 mL inj Scale D:, SubCutaneous, AC and at Bedtimelovastatin 20 mg tab 40 mg 2 Tab, Oral, At Bedtimemetoprolol tartrate 100 mg tab 100 mg 1 Tab, Oral, TIDpropafenone SR 425 mg cap 425 mg 1 Cap, Oral, U43Tlaiuictrxci 20 mg tab 20 mg 1 Tab, Oral, With DinnerContinuous: (1)phenylephrine 20 mg + NaCl 0.9% 250 mL 250 mL, IntraVENousPRN: (20)#NaCl 0.9% *FLUSH* inj 10 mL 10 mL, IV Push, See Commentacetaminophen 325 mg tab 650 mg 2 Tab, Oral, F5Iveuesibhbzael/oxyCODONE 325/5 mg tab 3 Tab, Oral, M8Pbzrsgkohk-ygwqdbqhljw inh 3 mL 3 mL, Nostrils Both, W4Udfpodht gluconate 1 Gram 10 mL, IV Piggyback, Dailycalcium gluconate 2 Gram 20 mL, IV Piggyback, Dailycalcium gluconate 2 Gram 20 mL, IV Piggyback, A43KkqaiXNHLUAL 20 mg/1 mL inj 10 mg 0.5 mL, IV Push, X8KVSAPFemgjjxme 1 mg/1 mL inj 0.5 mg 0.5 mL, IV Push, F3Dsgrnqprjc sulfate 2 Gram 50 mL, IV Piggyback, Dailymagnesium sulfate 2 Gram 50 mL, IV Piggyback, E2Cephmoxrj 2 mg/1 ml cpjt inj 2 mg 1 mL, IV Push, W6Apzgqbuvlszutl 0.4 mg tab # 25 btl 0.4 mg 1 Tab, SubLINgual, R0Vypgwaxdkvqxou 4 mg/2 mL inj 4 mg 2 mL, IV Push, U3VrqlDLIIWI 5 mg tab 5 mg 1 Tab, Oral, P3Cjltxqzlpg chloride 10 mEq 50 mL, IV Piggyback, S5Dvkyauaflf chloride CR 20 mEq tab 20 mEq 1 Tab, Oral, H9Lmzelcoqzq chloride CR 20 mEq tab 60 mEq 3 Tab, Oral, X7Enuzdwu phosphate 15 mMole 5 mL, IV Piggyback, Dailysodium phosphate 15 mMole 5 mL, IV Piggyback, B9IRhiyqlo list:Active Problems (30)Allergic rhinitis Angina Arthritis Atrial fibrillation Atrial flutter Back pain Bronchitis Bursitis Chronic constipation Chronic cough COPD, mild Diabetes mellitus type II GERD - Gastro-esophageal reflux disease Hard of hearing Heart failure Heart valve Hemorrhoids Hiatal hernia Histoplasmosis Hx of seborrhea Hyperlipidemia Hypertension Pancreatitis Peripheral neuropathy Peripheral vascular disease Pneumonia PSVT (paroxysmal supraventricular tachycardia) Restless legs syndrome Sinusitis Sleep apnea magnesium sulfate 2 Gram 50 mL, IV Piggyback, Q2H morphine 2 mg/1 ml cpjt inj 2 mg 1 mL, IV Push, Q4H nitroglycerin 0.4 mg tab # 25 btl 0.4 mg 1 Tab, SubLINgual, Q5Min ondansetron 4 mg/2 mL inj 4 mg 2 mL, IV Push, Q4H oxyCODONE 5 mg tab 5 mg 1 Tab, Oral, Q4H potassium chloride 10 mEq 50 mL, IV Piggyback, Q1H potassium chloride CR 20 mEq tab 20 mEq 1 Tab, Oral, Q2H potassium chloride CR 20 mEq tab 60 mEq 3 Tab, Oral, Q2H sodium phosphate 15 mMole 5 mL, IV Piggyback, Daily sodium phosphate 15 mMole 5 mL, IV Piggyback, Q6H Problem list: Active Problems (30) Allergic rhinitis Angina Arthritis Atrial fibrillation Atrial flutter Back pain Bronchitis Bursitis Chronic constipation Chronic cough COPD, mild Diabetes mellitus type II GERD - Gastro-esophageal reflux disease Hard of hearing Heart failure Heart valve Hemorrhoids Hiatal hernia Histoplasmosis Hx of seborrhea Hyperlipidemia Hypertension Pancreatitis Peripheral neuropathy Peripheral vascular disease Pneumonia PSVT (paroxysmal supraventricular tachycardia) Restless legs syndrome Sinusitis Sleep apnea Physical ExaminationVS/MeasurementsVital Signs/Vital Awdeercx41/20/2016 12:05 EST Heart Rate, Apical 108 bpm ID 10/09/2016 12:00 EST Temperature Source Axillary Temperature Mode Fahrenheit Temperature, Fahrenheit 97.9 Deg F Heart Rate Monitored 104 bpm ID Respiratory Rate 26 Breaths/Min HI Systolic Blood Pressure 131 mmHg Diastolic Blood Pressure 64 mmHg Mean Arterial Pressure (MAP)-BMDI 90 Oxygen Saturation 95 % Oxygen Therapy Mode Nasal cannula Oxygen Flow Rate 4 Liter/Min10/09/2016 11:48 EST Heart Rate Monitored 101 bpm ID 10/09/2016 11:38 EST Heart Rate Monitored 101 bpm HI Respiratory Rate 26 Breaths/Min HI Oxygen Saturation 94 % Oxygen Therapy Mode Nasal cannula Oxygen Flow Rate 4 Liter/Min10/09/2016 11:00 EST Heart Rate Monitored 104 bpm HI Respiratory Rate 26 Breaths/Min HI Systolic Blood Pressure 127 mmHg Diastolic Blood Pressure 61 mmHg Mean Arterial Pressure (MAP)-BMDI 87 Oxygen Saturation 95 % Oxygen Therapy Mode Nasal cannula Oxygen Flow Rate 4 Liter/Min10/09/2016 10:00 EST Heart Rate Monitored 108 bpm HI Respiratory Rate 18 Breaths/Min Systolic Blood Pressure 129 mmHg Diastolic Blood Pressure 66 mmHg Mean Arterial Pressure (MAP)-BMDI 90 Oxygen Saturation 94 % Oxygen Therapy Mode Nasal cannula Oxygen Flow Rate 4 Liter/Min10/09/2016 9:00 EST Heart Rate Monitored 111 bpm HI Respiratory Rate 23 Breaths/Min HI Systolic Blood Pressure 124 mmHg Diastolic Blood Pressure 60 mmHg Mean Arterial Pressure (MAP)-BMDI 86 Oxygen Saturation 94 % Oxygen Therapy Mode Nasal cannula Oxygen Flow Rate 4 Liter/Min10/09/2016 8:57 EST Heart Rate, Apical 115 bpm ID 10/09/2016 8:13 EST Heart Rate Monitored 101 bpm ID Oxygen Therapy Mode Nasal cannula Oxygen Flow Rate 4 Liter/Min10/09/2016 8:04 EST Heart Rate Monitored 99 bpm Respiratory Rate 21 Breaths/Min HI Oxygen Saturation 98 % Oxygen Therapy Mode BiPAP FiO2 Nursing 35 %10/09/2016 8:00 EST Temperature Source Axillary Temperature Mode Fahrenheit Temperature, Fahrenheit 99.2 Deg F Systolic Blood Pressure 118 mmHg Diastolic Blood Pressure 61 mmHg Mean Arterial Pressure (MAP)-BMDI 8310/09/2016 7:00 EST Heart Rate Monitored 97 bpm Respiratory Rate 21 Breaths/Min HI Systolic Blood Pressure 111 mmHg Diastolic Blood Pressure 60 mmHg Mean Arterial Pressure (MAP)-BMDI 79 Oxygen Saturation 97 %10/09/2016 6:00 EST Heart Rate Monitored 94 bpm Respiratory Rate 22 Breaths/Min HI Systolic Blood Pressure 111 mmHg Diastolic Blood Pressure 61 mmHg Mean Arterial Pressure (MAP)-BMDI 81 Oxygen Saturation 96 %10/09/2016 5:00 EST Heart Rate Monitored 91 bpm Respiratory Rate 20 Breaths/Min Systolic Blood Pressure 108 mmHg Diastolic Blood Pressure 56 mmHg LOW Mean Arterial Pressure (MAP)-BMDI 75 Oxygen Saturation 97 %10/09/2016 4:50 EST Heart Rate Monitored 90 bpm Respiratory Rate 21 Breaths/Min HI Oxygen Saturation 99 %10/09/2016 4:44 EST Heart Rate Monitored 91 bpm Respiratory Rate 21 Breaths/Min HI Oxygen Saturation 96 % Oxygen Therapy Mode BiPAP FiO2 Nursing 35 %10/09/2016 4:00 EST Temperature Source Axillary Temperature Mode Fahrenheit Temperature, Fahrenheit 99.9 Deg F HI Clinical Temperature, C 37.7 Deg C Heart Rate Monitored 90 bpm Respiratory Rate 21 Breaths/Min HI Systolic Blood Pressure 110 mmHg Diastolic Blood Pressure 63 mmHg Mean Arterial Pressure (MAP)-BMDI 82 Oxygen Saturation 96 %10/09/2016 3:00 EST Heart Rate Monitored 90 bpm Respiratory Rate 22 Breaths/Min HI Systolic Blood Pressure 107 mmHg Diastolic Blood Pressure 58 mmHg LOW Mean Arterial Pressure (MAP)-BMDI 76 Oxygen Saturation 98 % Oxygen Therapy Mode BiPAP FiO2 Nursing 35 %10/09/2016 2:00 EST Heart Rate Monitored 87 bpm Respiratory Rate 19 Breaths/Min Systolic Blood Pressure 97 mmHg Diastolic Blood Pressure 57 mmHg LOW Mean Arterial Pressure (MAP)-BMDI 72 Oxygen Saturation 96 %10/09/2016 1:00 EST Heart Rate Monitored 87 bpm Respiratory Rate 18 Breaths/Min Systolic Blood Pressure 100 mmHg Diastolic Blood Pressure 59 mmHg LOW Mean Arterial Pressure (MAP)-BMDI 75 Oxygen Saturation 96 %10/09/2016 0:00 EST Temperature Source Oral Temperature Mode Fahrenheit Temperature, Fahrenheit 100.0 Deg F HI Clinical Temperature, C 37.8 Deg C Clinical Temperature, C 37.8 Deg C Heart Rate Monitored 88 bpm Respiratory Rate 26 Breaths/Min HI Systolic Blood Pressure 100 mmHg Diastolic Blood Pressure 55 mmHg LOW Mean Arterial Pressure (MAP)-BMDI 72 Oxygen Saturation 97 % Oxygen Therapy Mode BiPAP FiO2 Nursing 35 %10/08/2016 23:25 EST Heart Rate Monitored 86 bpm Respiratory Rate 17 Breaths/Min Oxygen Saturation 98 % FiO2 Nursing 35 %10/08/2016 23:24 EST FiO2 Nursing 35 %10/08/2016 23:22 EST Heart Rate, Apical 88 bpm10/08/2016 23:19 EST Heart Rate Monitored 87 bpm Respiratory Rate 18 Breaths/Min Oxygen Saturation 97 %10/08/2016 23:00 EST Heart Rate Monitored 88 bpm Respiratory Rate 18 Breaths/Min Systolic Blood Pressure 100 mmHg Diastolic Blood Pressure 59 mmHg LOW Mean Arterial Pressure (MAP)-BMDI 76 Oxygen Saturation 97 % Oxygen Therapy Mode BiPAP112/09/2015 22:00 EST Heart Rate Monitored 102 bpm HI Respiratory Rate 30 Breaths/Min HI Systolic Blood Pressure 137 mmHg Diastolic Blood Pressure 71 mmHg Mean Arterial Pressure (MAP)-BMDI 95 Oxygen Saturation 93 % LOW 10/08/2016 21:54 EST Heart Rate, Apical 100 bpm10/08/2016 21:03 EST Heart Rate Monitored 92 bpm Respiratory Rate 31 Breaths/Min HI Oxygen Saturation 100 %10/08/2016 21:00 EST Heart Rate Monitored 92 bpm Respiratory Rate 22 Breaths/Min HI Systolic Blood Pressure 118 mmHg Diastolic Blood Pressure 64 mmHg Mean Arterial Pressure (MAP)-BMDI 86 Oxygen Saturation 100 %10/08/2016 20:54 EST Heart Rate Monitored 96 bpm Respiratory Rate 20 Breaths/Min Oxygen Saturation 95 %10/08/2016 20:00 EST Temperature Source Oral Temperature Mode Fahrenheit Temperature, Fahrenheit 98.0 Deg F Clinical Temperature, C 36.7 Deg C Clinical Temperature, C 36.7 Deg C Heart Rate Monitored 91 bpm Respiratory Rate 29 Breaths/Min HI Systolic Blood Pressure 106 mmHg Diastolic Blood Pressure 64 mmHg Mean Arterial Pressure (MAP)-BMDI 80 Oxygen Saturation 94 % Oxygen Therapy Mode Nasal cannula Oxygen Flow Rate 4 Liter/Min10/08/2016 18:00 EST Heart Rate Monitored 96 bpm Respiratory Rate 23 Breaths/Min HI Systolic Blood Pressure 117 mmHg Diastolic Blood Pressure 55 mmHg LOW Mean Arterial Pressure (MAP)-BMDI 79 Oxygen Saturation 93 % LOW Oxygen Therapy Mode Nasal cannula Oxygen Flow Rate 4 Liter/Min10/08/2016 17:00 EST Heart Rate Monitored 92 bpm Respiratory Rate 23 Breaths/Min HI Systolic Blood Pressure 111 mmHg Diastolic Blood Pressure 64 mmHg Mean Arterial Pressure (MAP)-BMDI 83 Oxygen Saturation 96 % Oxygen Therapy Mode Nasal cannula Oxygen Flow Rate 3 Liter/Min10/08/2016 16:00 EST Temperature Source Oral Temperature Mode Fahrenheit Temperature, Fahrenheit 97.6 Deg F Clinical Temperature, C 36.4 Deg C Heart Rate Monitored 93 bpm Respiratory Rate 30 Breaths/Min HI Systolic Blood Pressure 112 mmHg Diastolic Blood Pressure 64 mmHg Mean Arterial Pressure (MAP)-BMDI 82 Oxygen Saturation 96 % Oxygen Therapy Mode Nasal cannula Oxygen Flow Rate 3 Liter/Min10/08/2016 15:55 EST Heart Rate Monitored 91 bpm10/08/2016 15:47 EST Heart Rate Monitored 96 bpm Respiratory Rate 20 Breaths/Min Oxygen Saturation 95 % Oxygen Therapy Mode Nasal cannula Oxygen Flow Rate 3 Liter/Min10/08/2016 15:23 EST Heart Rate, Apical 95 bpm10/08/2016 15:00 EST Systolic Blood Pressure 106 mmHg Diastolic Blood Pressure 63 mmHg Mean Arterial Pressure (MAP)-BMDI 80112/09/2015 14:00 EST Heart Rate Monitored 91 bpm Respiratory Rate 32 Breaths/Min HI Systolic Blood Pressure 106 mmHg Diastolic Blood Pressure 63 mmHg Mean Arterial Pressure (MAP)-BMDI 80 Oxygen Saturation 94 % Oxygen Therapy Mode Nasal cannula Oxygen Flow Rate 3 Liter/Min10/08/2016 13:00 EST Heart Rate Monitored 93 bpm Respiratory Rate 22 Breaths/Min HI Systolic Blood Pressure 102 mmHg Diastolic Blood Pressure 65 mmHg Mean Arterial Pressure (MAP)-BMDI 78 Oxygen Saturation 95 % Oxygen Therapy Mode Nasal cannula Oxygen Flow Rate 3 Liter/Min10/08/2016 12:00 EST Temperature Source Oral Temperature Mode Fahrenheit Temperature, Fahrenheit 97.8 Deg F Clinical Temperature, C 36.6 Deg C Heart Rate Monitored 97 bpm Respiratory Rate 27 Breaths/Min HI Systolic Blood Pressure 119 mmHg Diastolic Blood Pressure 69 mmHg Mean Arterial Pressure (MAP)-BMDI 88 Oxygen Saturation 95 % Oxygen Therapy Mode Nasal cannula Oxygen Flow Rate 3 Liter/Min10/08/2016 11:27 EST Heart Rate Monitored 94 bpm10/08/2016 11:18 EST Heart Rate Monitored 96 bpm Respiratory Rate 23 Breaths/Min HI Oxygen Saturation 97 % Oxygen Therapy Mode Nasal cannula Oxygen Flow Rate 3 Liter/Min10/08/2016 11:00 EST Systolic Blood Pressure 118 mmHg Diastolic Blood Pressure 61 mmHg Mean Arterial Pressure (MAP)-BMDI 8410/08/2016 10:43 EST Heart Rate, Apical 108 bpm ID 10/08/2016 10:00 EST Heart Rate Monitored 103 bpm HI Respiratory Rate 21 Breaths/Min HI Systolic Blood Pressure 114 mmHg Diastolic Blood Pressure 62 mmHg Mean Arterial Pressure (MAP)-BMDI 83 Oxygen Saturation 93 % LOW Oxygen Therapy Mode Nasal cannula Oxygen Flow Rate 4 Liter/Min10/08/2016 9:00 EST Heart Rate Monitored 104 bpm HI Respiratory Rate 25 Breaths/Min HI Systolic Blood Pressure 114 mmHg Diastolic Blood Pressure 59 mmHg LOW Mean Arterial Pressure (MAP)-BMDI 81 Systolic BP, Arterial Line 1 179 mmHg HI Diastolic BP, Arterial Line 1 52 mmHg LOW Mean Arterial Pressure, Line 1 82 mmHg Oxygen Saturation 94 % Oxygen Therapy Mode Nasal cannula Oxygen Flow Rate 4 Liter/Min10/08/2016 8:42 EST Heart Rate, Apical 103 bpm ID 10/08/2016 8:01 EST Heart Rate Monitored 103 bpm ID 10/08/2016 8:00 EST Temperature Source Oral Temperature Mode Fahrenheit Temperature, Fahrenheit 97.7 Deg F Clinical Temperature, C 36.5 Deg C Respiratory Rate 27 Breaths/Min HI Systolic Blood Pressure 107 mmHg Diastolic Blood Pressure 63 mmHg Mean Arterial Pressure (MAP)-BMDI 77 Systolic BP, Arterial Line 1 163 mmHg HI Diastolic BP, Arterial Line 1 59 mmHg LOW Mean Arterial Pressure, Line 1 88 mmHg Oxygen Saturation 96 % Oxygen Therapy Mode Nasal cannula Oxygen Flow Rate 4 Liter/Min10/08/2016 7:49 EST Heart Rate Monitored 104 bpm HI Respiratory Rate 22 Breaths/Min HI Oxygen Saturation 95 % Oxygen Therapy Mode Nasal cannula Oxygen Flow Rate 4 Liter/Min10/08/2016 7:39 EST Heart Rate Monitored 101 bpm HI Respiratory Rate 19 Breaths/Min Oxygen Saturation 95 % Oxygen Therapy Mode Nasal cannula Oxygen Flow Rate 4 Liter/Min10/08/2016 7:00 EST Heart Rate Monitored 96 bpm Respiratory Rate 22 Breaths/Min HI Systolic Blood Pressure 112 mmHg Diastolic Blood Pressure 58 mmHg LOW Mean Arterial Pressure (MAP)-BMDI 82 Systolic BP, Arterial Line 1 154 mmHg HI Diastolic BP, Arterial Line 1 50 mmHg LOW Mean Arterial Pressure, Line 1 79 mmHg Oxygen Saturation 97 %10/08/2016 6:00 EST Heart Rate Monitored 95 bpm Respiratory Rate 21 Breaths/Min HI Systolic Blood Pressure 115 mmHg Diastolic Blood Pressure 58 mmHg LOW Mean Arterial Pressure (MAP)-BMDI 80 Systolic BP, Arterial Line 1 133 mmHg Diastolic BP, Arterial Line 1 46 mmHg LOW Mean Arterial Pressure, Line 1 72 mmHg Oxygen Saturation 98 % Oxygen Therapy Mode BiPAP FiO2 Nursing 35 %10/08/2016 5:00 EST Heart Rate Monitored 88 bpm Respiratory Rate 18 Breaths/Min Systolic Blood Pressure 116 mmHg Diastolic Blood Pressure 55 mmHg LOW Mean Arterial Pressure (MAP)-BMDI 80 Systolic BP, Arterial Line 1 133 mmHg Diastolic BP, Arterial Line 1 43 mmHg LOW Mean Arterial Pressure, Line 1 67 mmHg Oxygen Saturation 98 %10/08/2016 4:17 EST Heart Rate Monitored 87 bpm Oxygen Therapy Mode BiPAP FiO2 Nursing 35 %10/08/2016 4:00 EST Temperature Source Axillary Temperature Mode Fahrenheit Temperature, Fahrenheit 98.9 Deg F Clinical Temperature, C 37.2 Deg C Clinical Temperature, C 37.2 Deg C Heart Rate Monitored 90 bpm Respiratory Rate 18 Breaths/Min Systolic Blood Pressure 120 mmHg Diastolic Blood Pressure 60 mmHg Mean Arterial Pressure (MAP)-BMDI 84 Systolic BP, Arterial Line 1 159 mmHg HI Diastolic BP, Arterial Line 1 49 mmHg LOW Mean Arterial Pressure, Line 1 76 mmHg Oxygen Saturation 99 % Oxygen Therapy Mode BiPAP FiO2 Nursing 35 %10/08/2016 3:00 EST Heart Rate Monitored 86 bpm Respiratory Rate 17 Breaths/Min Systolic Blood Pressure 109 mmHg Diastolic Blood Pressure 56 mmHg LOW Mean Arterial Pressure (MAP)-BMDI 76 Systolic BP, Arterial Line 1 143 mmHg HI Diastolic BP, Arterial Line 1 48 mmHg LOW Mean Arterial Pressure, Line 1 72 mmHg Oxygen Saturation 99 %10/08/2016 2:00 EST Heart Rate Monitored 87 bpm Respiratory Rate 17 Breaths/Min Systolic Blood Pressure 104 mmHg Diastolic Blood Pressure 59 mmHg LOW Mean Arterial Pressure (MAP)-BMDI 78 Systolic BP, Arterial Line 1 142 mmHg HI Diastolic BP, Arterial Line 1 49 mmHg LOW Mean Arterial Pressure, Line 1 73 mmHg Oxygen Saturation 98 %10/08/2016 1:00 EST Heart Rate Monitored 85 bpm Respiratory Rate 16 Breaths/Min Systolic Blood Pressure 101 mmHg Diastolic Blood Pressure 56 mmHg LOW Mean Arterial Pressure (MAP)-BMDI 73 Systolic BP, Arterial Line 1 111 mmHg Diastolic BP, Arterial Line 1 42 mmHg LOW Mean Arterial Pressure, Line 1 64 mmHg Oxygen Saturation 97 % Oxygen Therapy Mode BiPAP FiO2 Nursing 35 %10/08/2016 0:00 EST Temperature Source Axillary Temperature Mode Fahrenheit Temperature, Fahrenheit 99.0 Deg F Clinical Temperature, C 37.2 Deg C Clinical Temperature, C 37.2 Deg C Heart Rate Monitored 92 bpm Respiratory Rate 17 Breaths/Min Systolic Blood Pressure 104 mmHg Diastolic Blood Pressure 55 mmHg LOW Mean Arterial Pressure (MAP)-BMDI 74 Systolic BP, Arterial Line 1 123 mmHg Diastolic BP, Arterial Line 1 44 mmHg LOW Mean Arterial Pressure, Line 1 65 mmHg Oxygen Saturation 98 % Oxygen Therapy Mode Nasal cannula Oxygen Flow Rate 4 Liter/Min,Vitals Signs (last 24 hrs) Last Charted Minimum MaximumTemp 97.9 (OCT 09 12:00)97.9 (OCT 09 12:)H 100.0 (OCT 09 00:00)Apical HR H 108 (OCT 09 12:05)88 (OCT 08 23:22)H 115 (OCT 09 08:57)Mon HR 104 (OCT 09 12:00)86 (OCT 08:)111 (OCT 09 09:00)Resp Rate H 26 (OCT 09 12:00)17 (OCT 08:)H 32 (OCT 08 14:00)SBP 131 (OCT 09 12:00)97 (OCT 09 02:00)137 (OCT 08:00)DBP 64 (OCT 09 12:00)L 55 (OCT 08 18:00)71 (OCT 08 22:00)MAP 90 (OCT 09 12:00)72 (OCT 09 00:00)95 (OCT 08 22:00)SpO2 95 (OCT 09 12:00)L 93 (OCT 08 18:00)100 (OCT 08:00)General: No acute distress.Eye: Pupils are equal, round and reactive to light, Normal conjunctiva.HENT: Normocephalic, Oral mucosa is moist.Neck: Supple.Respiratory: Respirations are non-labored, Breath sounds are equal, Symmetrical chest wall expansion.Cardiovascular: Normal rate, Regular rhythm, No murmur, No gallop.Gastrointestinal: Soft, Non-distended, Normal bowel sounds.Musculoskeletal: No swelling, No deformity.Integumentary: Warm, Dry, Tillar.Neurologic: Alert, Normal sensory, Normal motor function, No focal deficits, Cranial Nerves II-XII are grossly intact.Psychiatric: Cooperative. Mean Arterial Pressure, Line 1 64 mmHg Oxygen Saturation 97 % Oxygen Therapy Mode BiPAP FiO2 Nursing 35 % 10/08/2016 0:00 EST Temperature Source Axillary Temperature Mode Fahrenheit Temperature, Fahrenheit 99.0 Deg F Clinical Temperature, C 37.2 Deg C Clinical Temperature, C 37.2 Deg C Heart Rate Monitored 92 bpm Respiratory Rate 17 Breaths/Min Systolic Blood Pressure 104 mmHg Diastolic Blood Pressure 55 mmHg LOW Mean Arterial Pressure (MAP)-BMDI 74 Systolic BP, Arterial Line 1 123 mmHg Diastolic BP, Arterial Line 1 44 mmHg LOW Mean Arterial Pressure, Line 1 65 mmHg Oxygen Saturation 98 % Oxygen Therapy Mode Nasal cannula Oxygen Flow Rate 4 Liter/Min , Vitals Signs (last 24 hrs) Last Charted Minimum Maximum Temp 97.9 (OCT 09 12:00)97.9 (OCT 09 12:00)H 100.0 ( OCT 09 00:00) Apical HR H 108 (OCT 09 12:05)88 (OCT 08:22)H 115 (OCT 09 08:57) Mon HR 104 (OCT 09 12:00)86 (OCT 08 23:25)111 (OCT 09 09:00) Resp Rate H 26 (OCT 09 12:00)17 (OCT 08:)H 32 (OCT 08 14:00) SBP 131 (OCT 09 12:00)97 (OCT 09 02:00)137 (OCT 08 22:00) DBP 64 (OCT 09 12:00)L 55 (OCT 08 18:00)71 (OCT 08 22:00) MAP 90 (OCT 09 12:00)72 (OCT 09 00:00)95 (OCT 08 22: 00) SpO2 95 (OCT 09 12:00)L 93 (OCT 08 18:00)100 (OCT 08 21:00) General: No acute distress. Eye: Pupils are equal, round and reactive to light, Normal conjunctiva. HENT: Normocephalic, Oral mucosa is moist. Neck: Supple. Respiratory: Respirations are non-labored, Breath sounds are equal, Symmetrical chest wall expansion. Cardiovascular: Normal rate, Regular rhythm, No murmur, No gallop. Gastrointestinal: Soft, Non-distended, Normal bowel sounds. Musculoskeletal: No swelling, No deformity. Integumentary: Warm, Dry, Tillar. Neurologic: Alert, Normal sensory, Normal motor function, No focal deficits, Cranial Nerves II-XII are grossly intact. Psychiatric: Cooperative. Review / ManagementResults review:Labs (Last four charted values)WBC H 14.7(OCT 09)H 12.6(OCT 08)H 16.0(OCT 07)H 13.2(OCT 06)HB L 8.6(OCT 09)L 8.5(OCT 08)L 9.0(OCT 07)L 8.9(OCT 07)HCT L 26.9(OCT 09)L 26.9(OCT 08)L 28.3(OCT 07)L 27.9(OCT 07)Plt 289(OCT 09)216(OCT 08)272(OCT 07)253(OCT 06)Na L 135(OCT 09)140(OCT 08)139(OCT 07)139(OCT 06)K 4.2(OCT 09)4.0(OCT 08)4.2(OCT 07)4.0(OCT 06)Cl L 98(OCT 09)103(OCT 08)105(OCT 07)104(OCT 06)CO2 27(OCT 09)25(OCT 08)24(OCT 07)25(OCT 06)BUN H 29(OCT 09)H 24(OCT 08)18(OCT 07)15(OCT 06)Cr H 2.00(OCT 09)H 2.00(OCT 08)H 1.60(OCT 07)1.10(OCT 06)Glu R H 144(OCT 09)H 127(OCT 08)H 124(OCT 07)H 173(OCT 06)Ca L 8.2(OCT 09)L 7.9(OCT 08)L 7.9(OCT 07)L 8.3(OCT 06)PT H 12.1(OCT 06)INR H 1.2(OCT 06)AST H 41(OCT 07)15(OCT 06)ALT 42(OCT 07)26(OCT 06)ALK P 80(OCT 07)83(OCT 06)T Bili H 1.2(OCT 07)1.0(OCT 06)PTN L 5.6(SEP 18)6.4(OCT 06)ALB L 2.6(OCT 07)L 2.9(OCT 06)Troponin 0.031(OCT 06)PROBNP H 126(OCT 06). AST H 41(SEP 18)15(DEC 17) ALT 42(DEC 18)26(DEC ) ALK P 80(SEP 18)83(OCT 06) T Bili H 1.2(SEP 18)1.0(OCT 06) PTN L 5.6(DEC 18)6.4(DEC ) ALB L 2.6(OCT 07)L 2.9(OCT 06) Troponin 0.031(OCT 06) PROBNP H 126(OCT 06) . Impression and Plan1. Right groin Pesudoaneurysm- s/p repair, AVFistila closure by surgery2. History of atrial fibrillation, status post ablation.continue beta romel. No anticoagulation recommended by surgery for now.3. Coronary artery disease. Cardiology following4. Hypertension. Resume home medication plus hydralazine as needed.5. Neuropathy, on gabapentin, continued.6. Hyperlipidemia, on statin, continued.7. Gastrointestinal prophylaxis, Pepcid.8. Deep venous thrombosis prophylaxis, compression boots, heparinAcute respiratory failure- resolvedTo telemetryDisp- Home when able to ambulateTIME SPENT:30 minutes. Acute respiratory failure- resolved To telemetry Disp- Home when able to ambulate TIME SPENT: 30 minutes. Extracted from: Title: Pulm CC Note Author: BUNNY NOVAK Date: 10/09/16 MD [facility] Consult Note Requesting: Dr. Lucas Santana Reason for Consult: Vent Management Basic InformationHPI: This Patient is a 56 year old male with PMHX COPD with ongoing 1ppd tobacco abuse, DM2, Afib with recent ablation and Xarelto therapy. He had a LHC via radial entry by Dr. Marinelli with normal anatomy in preparation for an afib ablation. Dr. Nielson did a femoral approach afib ablation on 10/04/16. The patient was discharged on Xarelto. He presented to [facility] after he over extended his leg by report. He said he felt some popping. A CT there shoes a 6.23 cm hematoma vs anuerysm and is hgb was dropping. [facility] was [facility] surgical intervention. Patient was taken to the OR by Dr. Barrett who did a Right groin exploration with resection and repair of right femoral artery pseudoaneurysm and closure of right femoral arteriovenous fistula. He has remained intubated since that time. He was hypotensive with initiation of sedation. This AM he is hypertensive and remains intubated.Procedure: . Right groin exploration with resection and repair of right femoralartery pseudoaneurysm.2. Closure of right femoral arteriovenous fistula.10/04/16:AFib ablation- sglurjt52/12/16:[facility]-radialPMHX:COPD with ongoing tobacco abuseAFIB with recent ablation and Xarelto [id number] PancreatitisCKDOSA with home CPAPObesityCHF- EF 55%Hiatal HerniaHLDSurg Hx:Right groin exploration with resection and repair of right femoral artery pseudoaneurysm.Closure of right femoral arteriovenous fistula.CholecystectomyABD incisional hernia [facility] approachAfib ablation femoral [id number]: Extubated yesterday. Patient in bed on 4 L O2, saturation 97%. Awake/alert. Patient does complain of right groin pain, status post surgery. Denies shortness of breath, fever, chills. Mild mostly nonproductive cough. BiPAP overnight. No new issues. Urine output 2825 mL, fluid balance -1200 mL, serum creatinine up to 2.0. Hemodynamically stable, [id number]/20: Patient in bed on 4 L O2. Awake and alert. States that his right groin/leg pain has improved.Denies shortness of breath, fever, chills. Still with mild nonproductive cough. BiPAP overnight.Urine output 3000 mL, fluid balance -1700 mLHemodynamically stable, afebrile Closure of right femoral arteriovenous fistula. Cholecystectomy ABD incisional hernia repair [facility] radial approach Afib ablation femoral approach 10/08: Extubated yesterday. Patient in bed on 4 L O2, saturation 97%. Awake/ alert. Patient does complain of right groin pain, status post surgery. Denies shortness of breath, fever, chills. Mild mostly nonproductive cough. BiPAP overnight. No new issues. Urine output 2825 mL, fluid balance -1200 mL, serum creatinine up to 2.0. Hemodynamically stable, afebrile 10/09: Patient in bed on 4 L O2. Awake and alert. States that his right groin/ leg pain has improved. Denies shortness of breath, fever, chills. Still with mild nonproductive cough. BiPAP overnight. Urine output 3000 mL, fluid balance -1700 mL Hemodynamically stable, afebrile Review of SystemsConstitutional: Fatigue, No fever, No chills.Eye: Negative.Ear/Nose/Mouth/Throat: Negative.Respiratory: Cough, No shortness of breath, No sputum production, No wheezing.Cardiovascular: No chest pain, No palpitations, No peripheral edema.Gastrointestinal: No nausea, No vomiting, No abdominal pain.Genitourinary: Negative.Musculoskeletal: right groin pain.Neurologic: Negative.Psychiatric: Negative.All other systems. Genitourinary: Negative. Musculoskeletal: right groin pain. Neurologic: Negative. Psychiatric: Negative. All other systems. Health StatusAllergies:Allergic Reactions (Selected)Severity Not DocumentedBactrim- Rash , fever.Ciprofloxacin- Hives.Penicillin- Anaphylaxis as child.Tetracyclines- Unsure.,Allergies (4) ActiveReactionBactrimrash , feverciprofloxacinhivespenicillinanaphylaxis as childtetracyclinesunsureCurrent medications: (Selected)Inpatient MedicationsOrderedDilaudid: 0.5 mg, IV Push, Q4H, PRN: Pain (Moderate 4-6)DuoNeb 0.5 mg-2.5 mg/3 mL inhalation solution: 3 mL, Nebulized Inhalation, [id number] 0.5 mg-2.5 mg/3 mL inhalation solution: 3 mL, Nostrils Both, Q6H, PRN: Shortness of BreathNitrostat: 0.4 mg, SubLINgual, Q5Min, PRN: Chest PainPepcid: 20 mg, Oral, DailyPercocet 5/325: 3 Tab, Oral, Q6H, PRN: Pain (Moderate 4-6)Rythmol SR: 425 mg, Oral, [id number]: 650 mg, Oral, Q4H, PRN: Other (See Comment)Xarelto: 20 mg, Oral, With DinnerZofran: 4 mg, IV Push, Q4H, PRN: NauseaamLODIPine: 10 mg, Oral, Dailyamitriptyline: 50 mg, Oral, At Bedtimeaspirin: 81 mg, Oral, Dailycalcium gluconate: 1 Gram, 10 mL, 60 mL/Hr, IV Piggyback, Daily, PRN: Other (See Comment)calcium gluconate: 2 Gram, 20 mL, 120 mL/Hr, IV Piggyback, Daily, PRN: Other (See Comment)calcium gluconate: 2 Gram, 20 mL, 120 mL/Hr, IV Piggyback, Q12H, PRN: Other (See Comment)clindamycin + Sodium Chloride 0.9% 100 mL: 900 mg, 6 mL, 106 mL/Hr, IV Piggyback, 1-Timefurosemide: 40 mg, Oral, Dailygabapentin: 300 mg, Oral, BIDhydrALAZINE: 10 mg, IV Push, Q6H, PRN: Hypertensioninsulin regular sliding scale: Scale C, SubCutaneous, AC and at Bedtimelovastatin: 40 mg, Oral, At Bedtimemagnesium sulfate: 2 Gram, 50 mL, 25 mL/Hr, IV Piggyback, Daily, PRN: Other (See Comment)magnesium sulfate: 2 Gram, 50 mL, 25 mL/Hr, IV Piggyback, Q2H, PRN: Other (See Comment)metoprolol tartrate: 100 mg, Oral, TIDmorphine: 2 mg, IV Push, Q4H, PRN: Pain (Severe 7-10)oxyCODONE: 5 mg, Oral, Q4H, PRN: Pain (Moderate 4-6)phenylephrine injection 20 mg + Sodium Chloride 0.9% 250 mL: Titrate, IntraVENouspotassium chloride 10 mEq/50 mL intravenous solution: 10 mEq, 50 mL, 50 mL/Hr, IV Piggyback, Q1H, PRN: Other (See Comment)potassium chloride 20 mEq oral tablet, extended release: 20 mEq, 1 Tab, Oral, Q2H, PRN: Other (See Comment)potassium chloride 20 mEq oral tablet, extended release: 60 mEq, 3 Tab, Oral, Q2H, PRN: Other (See Comment)sodium chloride 0.9% injectable solution: 10 mL, IV Push, See Comment, PRN: Other (See Comment)sodium phosphate: 15 mMole, 5 mL, 50 mL/Hr, IV Piggyback, Daily, PRN: Other (See Comment)sodium phosphate: 15 mMole, 5 mL, 50 mL/Hr, IV Piggyback, Q6H, PRN: Other (See Comment)Pending Completeinfluenza virus vaccine, inactivated: 0.5 mL, IntraMuscular, [id number] MedicationsDocumentedLasix 20 mg oral tablet: 1 Tab, Oral, Daily, 30 Tab, 0 Refill(s)Metoprolol Tartrate 100 mg oral tablet: 0.5 Tab, Oral, With Lunch, may increase to 1 tablet as directed for heart rate, 0 Refill(s)Metoprolol Tartrate 100 mg oral tablet: 1 Tab, Oral, BID, 0 Refill(s)Nitrostat 0.4 mg sublingual tablet: 1 Tab, SubLINgual, Q5Min, If chest pain not relieved in 5 minutes after first dose, seek immediate medical attention, PRN: Chest Pain, 100 Tab, 0 Refill(s)ProAir HFA 90 mcg/inh inhalation aerosol: 2 Puff, Inhalation, QID, PRN: for wheezing, 0 Refill(s)Singulair 10 mg oral tablet: 1 Tab, Oral, At Bedtime, 0 Refill(s)Xarelto 20 mg oral tablet: 1 Tab, Oral, Daily, with largest meal, 30 Tab, 0 Refill(s)albuterol 2.5 mg/3 mL (0.083%) inhalation solution: 3 mL, Nebulized Inhalation, Q6H, PRN: for wheezing, 25 Each, 0 Refill(s)amLODIPine 10 mg oral tablet: 1 Tab, Oral, Daily, 30 Tab, 0 Refill(s)amitriptyline 50 mg oral tablet: 1 Tab, Oral, At Bedtime, 0 Refill(s)aspirin 325 mg oral tablet: 1 Tab, Oral, Daily, 30 Tab, 0 Refill(s)gabapentin 300 mg oral capsule: 1 Cap, Oral, BID, 60 Cap, 0 Refill(s)lisinopril 40 mg oral tablet: 1 Tab, Oral, Daily, 30 Tab, 0 Refill(s)lovastatin 40 mg oral tablet: 1 Tab, Oral, At Bedtime, 30 Tab, 0 Refill(s)potassium chloride 20 mEq oral tablet, extended release: 1 Tab, Oral, Daily, 0 Refill(s)propafenone 425 mg oral capsule, extended release: 1 Cap, Oral, Q12H, 180 Cap, 0 Refill(s)triamcinolone 0.1% topical cream: 1 Application, Topical, BID, apply to face as directed, 0 Refill(s) amitriptyline 50 mg oral tablet: 1 Tab, Oral, At Bedtime, 0 Refill(s) aspirin 325 mg oral tablet: 1 Tab, Oral, Daily, 30 Tab, 0 Refill(s) gabapentin 300 mg oral capsule: 1 Cap, Oral, BID, 60 Cap, 0 Refill(s) lisinopril 40 mg oral tablet: 1 Tab, Oral, Daily, 30 Tab, 0 Refill(s) lovastatin 40 mg oral tablet: 1 Tab, Oral, At Bedtime, 30 Tab, 0 Refill(s) potassium chloride 20 mEq oral tablet, extended release: 1 Tab, Oral, Daily, 0 Refill(s) propafenone 425 mg oral capsule, extended release: 1 Cap, Oral, Q12H, 180 Cap, 0 Refill(s) triamcinolone 0.1% topical cream: 1 Application, Topical, BID, apply to face as directed, 0 Refill(s) Physical ExaminationVS/MeasurementsVitals Signs (last 24 hrs) Last Charted Minimum MaximumTemp 99.2 (OCT 09 08:00)97.6 (OCT 08 16:00)H 100.0 (OCT 09 00:00)Apical HR H 115 (OCT 09 08:57)88 (OCT 08 23:22)H 115 (OCT 09 08:57)Mon HR 111 (OCT 09 09:00)86 (OCT 08 23:25)111 (OCT 09 09:00)Resp Rate H 23 (OCT 09 09:00)17 (OCT 08:25)H 32 (OCT 08 14:00)SBP 124 (OCT 09 09:00)97 (OCT 09 02:00)137 (OCT 08 22:00)DBP 60 (OCT 09 09:00)L 55 (OCT 08 18:00)71 (OCT 08 22:00)MAP 86 (OCT 09 09:00)72 (OCT 09 00:00)95 (OCT 08 22:00)SpO2 94 (OCT 09 09:00)L 93 (OCT 08 18:00)100 (OCT 08 21:00)General: Alert and oriented, No acute distress.Eye: Pupils are equal, round and reactive to light, Normal conjunctiva.HENT: Normocephalic.Neck: Supple, No lymphadenopathy.Respiratory: Respirations are non-labored, Breath sounds are equal. Breath sounds: Bilateral, Base, Diminished.Cardiovascular: Normal rate, Regular rhythm, No edema.Gastrointestinal: Soft, Non-distended, Normal bowel sounds. Abdomen: Obese.Genitourinary: Support: Urinary catheter ( Indwelling ).Musculoskeletal: right groin surgical dressing.Integumentary: Warm, Dry, Tillar.Neurologic: Alert, Oriented, No focal deficits.Psychiatric: Cooperative, Appropriate mood & affect. Genitourinary: Support: Urinary catheter ( Indwelling ). Musculoskeletal: right groin surgical dressing. Integumentary: Warm, Dry, Tillar. Neurologic: Alert, Oriented, No focal deficits. Psychiatric: Cooperative, Appropriate mood & affect. Review / ManagementResults review:Labs (Last four charted values)WBC H 14.7(OCT 09)H 12.6(OCT 08)H 16.0(OCT 07)H 13.2(OCT 06)HB L 8.6(OCT 09)L 8.5(OCT 08)L 9.0(OCT 07)L 8.9(OCT 07)HCT L 26.9(OCT 09)L 26.9(OCT 08)L 28.3(OCT 07)L 27.9(OCT 07)Plt 289(OCT 09)216(OCT 08)272(SEP 18)253(OCT 06)Na L 135(OCT 09)140(OCT 08)139(SEP 18)139(OCT 06)K 4.2(OCT 09)4.0(OCT 08)4.2(OCT 07)4.0(OCT 06)Cl L 98(OCT 09)103(OCT 08)105(SEP 18)104(OCT 06)CO2 27(OCT 09)25(OCT 08)24(SEP 18)25(DEC 17)BUN H 29(OCT 09)H 24(OCT 08)18(DEC 18)15(DEC 17)Cr H 2.00(OCT 09)H 2.00(OCT 08)H 1.60(OCT 07)1.10(OCT 06)Glu R H 144(OCT 09)H 127(OCT 08)H 124(OCT 07)H 173(OCT 06)Ca L 8.2(OCT 09)L 7.9(OCT 08)L 7.9(OCT 07)L 8.3(OCT 06)PT H 12.1(OCT 06)INR H 1.2(OCT 06)AST H 41(OCT 07)15(OCT 06)ALT 42(OCT 07)26(OCT 06)ALK P 80(OCT 07)83(OCT 06)T Bili H 1.2(OCT 07)1.0(OCT 06)PTN L 5.6(OCT 07)6.4(OCT 06)ALB L 2.6(OCT 07)L 2.9(OCT 06)Troponin 0.031(OCT 06)PROBNP H 126(OCT 06). OCT 09 05:02 L 135 | L 98 | H 29 / H 144 4.2 | 27 | H 2.00 \\ OCT 09 05:02 \\ L 8.6 / H 14.7 289 / L 26.9 \\Blood Gases (Current Encounter/Past 24 Hours)No Blood Gas Results Found (Past 24 Hours) Radiology Results (Last 48 hours)[id number] -- 10/06/2016 03:13CR Chest 1 Vw Portable (10/08/2016 04:25) Result: PORTABLE CHEST 10/08/2016 6:00 AM HISTORY: Respiratory distress.COMPARISON: October 06, 2016.FINDINGS: The heart is proper size. The mediastinum is unremarkable.There is stable pulmonary vascular congestion without pulmonary edema.Small bilateral pleural effusions with associated atelectasis areunchanged. There is no pneumothorax. The osseous structures areunremarkable. The patient has been extubated in the interim. Right IJcentral venous catheter remains in place.IMPRESSION: Stable pulmonary vascular congestion. Stable small bilateralpleural effusions.Reviewed, interpreted, and dictated by Dr. Joseph MD.Transcribed by TAYLOR Yoder have personally viewed, interpreted and dictated the examination. Ihave read and agree with the above final transcribed report. OCT 09 05:02 \\ L 8.6 / H 14.7 289 / L 26.9 \\ Blood Gases (Current Encounter/Past 24 Hours) No Blood Gas Results Found (Past 24 Hours) Radiology Results (Last 48 hours) [id number] -- 10/06/2016 03:13 CR Chest 1 Vw Portable (10/08/2016 04:25) Result: PORTABLE CHEST 10/08/2016 6:00 AM HISTORY: Respiratory distress.COMPARISON: October 06, 2016.FINDINGS: The heart is proper size. The mediastinum is unremarkable.There is stable pulm onary vascular congestion without pulmonary edema.Small bilateral pleural effusions with associated atelectasis areunchanged. There is no pneumothorax. The osseous structures areunremarkable. The ricky ent has been extubated in the interim. Right IJcentral venous catheter remains in place.IMPRESSION: Stable pulmonary vascular congestion. Stable small bilateralpleural effusions.Reviewed, interpreted, and dictated by Dr. Joseph MD.Transcribed by PRAVIN Yoder-CI have personally viewed, interpreted and dictated the examination. Ihave read and agree with the above final transcribed report. Impression and PlanAcute on Chronic Hypoxemic Respiratory Failure- COPD with ongoing tobacco abuse- YONG with home CPAP use- Post Operative respiratory Failure- S/P Right groin exploration with resection and repair of right femoral artery pseudoaneurysm and closure of right femoral arteriovenous fistula.- Pulm Edema on CXRCards:Pseudoaneurysm of right femoral artery s/p repairAfib S/P ablation and Xarelto therapyHTNHLDHypotension with sedation-resolvedCHF with EF 55%Renal:OTILIO with CKD-worseningGI:GERDhiatal herniaincisional hernia s/p repairHx pancreatitisObesityENDO:[id number]/GIPlan:Supplemental G7Hqrlgw U7sfOyukghpvbf to manage hypertensionRecommend holding SHYANN-I secondary to kidney function, deferred to primary or cardiologySSIPepcid for Jenni Barrett, he is okay if we start Heparin 5000 Q8 for prophylaxis but recommends NO oral anticoagulationokay to transfer to floor from pulmonary/critical care standpointPulmonary/CCM Will sign off, call if needed further thanks Renal: OTILIO with CKD-worsening GI: GERD hiatal hernia incisional hernia s/p repair Hx pancreatitis Obesity ENDO: DM2 Prophylaxis DVT/GI Plan: Supplemental O2 Duoneb Q4hr Cardiology to manage hypertension Recommend holding SHYANN-I secondary to kidney function, deferred to primary or cardiology SSI Pepcid for GI Per Dr. Barrett, he is okay if we start Heparin 5000 Q8 for prophylaxis but recommends NO oral anticoagulation okay to transfer to floor from pulmonary/critical care standpoint Pulmonary/CCM Will sign off, call if needed further thanks Extracted from: Title: EP progress note Author: SAVI NIELSON, Date: 10/09/16 MD-CAR Subjective The patient remained in SR. Remained in CTVU as there is no Tele beds H is back on his long acting Rythmol. He remained in SR. Dr Dowling said OK for Xaerlato. No bleeding from the gum and H and H are stable He feels better compared to before surgery. Minimal drainage from the vac. Health StatusAllergies:Allergic Reactions (All)Severity Not DocumentedBactrim- Rash , fever.Ciprofloxacin- Hives.Penicillin- Anaphylaxis as child.Tetracyclines- Unsure.,Allergies (4) ActiveReactionBactrimrash , feverciprofloxacinhivespenicillinanaphylaxis as childtetracyclinesunsureCurrent medications: (Selected)Inpatient MedicationsOrderedDilaudid: 0.5 mg, IV Push, Q4H, PRN: Pain (Moderate 4-6)DuoNeb 0.5 mg-2.5 mg/3 mL inhalation solution: 3 mL, Nebulized Inhalation, [id number] 0.5 mg-2.5 mg/3 mL inhalation solution: 3 mL, Nostrils Both, Q6H, PRN: Shortness of BreathNitrostat: 0.4 mg, SubLINgual, Q5Min, PRN: Chest PainPepcid: 20 mg, Oral, DailyPercocet 5/325: 3 Tab, Oral, Q6H, PRN: Pain (Moderate 4-6)Rythmol SR: 425 mg, Oral, [id number]: 650 mg, Oral, Q4H, PRN: Other (See Comment)Xarelto: 20 mg, Oral, With DinnerZofran: 4 mg, IV Push, Q4H, PRN: NauseaamLODIPine: 10 mg, Oral, Dailyamitriptyline: 50 mg, Oral, At Bedtimeaspirin: 81 mg, Oral, Dailycalcium gluconate: 1 Gram, 10 mL, 60 mL/Hr, IV Piggyback, Daily, PRN: Other (See Comment)calcium gluconate: 2 Gram, 20 mL, 120 mL/Hr, IV Piggyback, Daily, PRN: Other (See Comment)calcium gluconate: 2 Gram, 20 mL, 120 mL/Hr, IV Piggyback, Q12H, PRN: Other (See Comment)clindamycin + Sodium Chloride 0.9% 100 mL: 900 mg, 6 mL, 106 mL/Hr, IV Piggyback, 1-Timefurosemide: 40 mg, Oral, Dailygabapentin: 300 mg, Oral, BIDhydrALAZINE: 10 mg, IV Push, Q6H, PRN: Hypertensioninsulin regular sliding scale: Scale C, SubCutaneous, AC and at Bedtimelovastatin: 40 mg, Oral, At Bedtimemagnesium sulfate: 2 Gram, 50 mL, 25 mL/Hr, IV Piggyback, Daily, PRN: Other (See Comment)magnesium sulfate: 2 Gram, 50 mL, 25 mL/Hr, IV Piggyback, Q2H, PRN: Other (See Comment)metoprolol tartrate: 100 mg, Oral, TIDmorphine: 2 mg, IV Push, Q4H, PRN: Pain (Severe 7-10)oxyCODONE: 5 mg, Oral, Q4H, PRN: Pain (Moderate 4-6)phenylephrine injection 20 mg + Sodium Chloride 0.9% 250 mL: Titrate, IntraVENouspotassium chloride 10 mEq/50 mL intravenous solution: 10 mEq, 50 mL, 50 mL/Hr, IV Piggyback, Q1H, PRN: Other (See Comment)potassium chloride 20 mEq oral tablet, extended release: 20 mEq, 1 Tab, Oral, Q2H, PRN: Other (See Comment)potassium chloride 20 mEq oral tablet, extended release: 60 mEq, 3 Tab, Oral, Q2H, PRN: Other (See Comment)sodium chloride 0.9% injectable solution: 10 mL, IV Push, See Comment, PRN: Other (See Comment)sodium phosphate: 15 mMole, 5 mL, 50 mL/Hr, IV Piggyback, Daily, PRN: Other (See Comment)sodium phosphate: 15 mMole, 5 mL, 50 mL/Hr, IV Piggyback, Q6H, PRN: Other (See Comment)Pending Completeinfluenza virus vaccine, inactivated: 0.5 mL, IntraMuscular, [id number] MedicationsDocumentedLasix 20 mg oral tablet: 1 Tab, Oral, Daily, 30 Tab, 0 Refill(s)Metoprolol Tartrate 100 mg oral tablet: 0.5 Tab, Oral, With Lunch, may increase to 1 tablet as directed for heart rate, 0 Refill(s)Metoprolol Tartrate 100 mg oral tablet: 1 Tab, Oral, BID, 0 Refill(s)Nitrostat 0.4 mg sublingual tablet: 1 Tab, SubLINgual, Q5Min, If chest pain not relieved in 5 minutes after first dose, seek immediate medical attention, PRN: Chest Pain, 100 Tab, 0 Refill(s)ProAir HFA 90 mcg/inh inhalation aerosol: 2 Puff, Inhalation, QID, PRN: for wheezing, 0 Refill(s)Singulair 10 mg oral tablet: 1 Tab, Oral, At Bedtime, 0 Refill(s)Xarelto 20 mg oral tablet: 1 Tab, Oral, Daily, with largest meal, 30 Tab, 0 Refill(s)albuterol 2.5 mg/3 mL (0.083%) inhalation solution: 3 mL, Nebulized Inhalation, Q6H, PRN: for wheezing, 25 Each, 0 Refill(s)amLODIPine 10 mg oral tablet: 1 Tab, Oral, Daily, 30 Tab, 0 Refill(s)amitriptyline 50 mg oral tablet: 1 Tab, Oral, At Bedtime, 0 Refill(s)aspirin 325 mg oral tablet: 1 Tab, Oral, Daily, 30 Tab, 0 Refill(s)gabapentin 300 mg oral capsule: 1 Cap, Oral, BID, 60 Cap, 0 Refill(s)lisinopril 40 mg oral tablet: 1 Tab, Oral, Daily, 30 Tab, 0 Refill(s)lovastatin 40 mg oral tablet: 1 Tab, Oral, At Bedtime, 30 Tab, 0 Refill(s)potassium chloride 20 mEq oral tablet, extended release: 1 Tab, Oral, Daily, 0 Refill(s)propafenone 425 mg oral capsule, extended release: 1 Cap, Oral, Q12H, 180 Cap, 0 Refill(s)triamcinolone 0.1% topical cream: 1 Application, Topical, BID, apply to face as directed, 0 Refill(s),Home Medications (17) Activealbuterol 2.5 mg/3 mL (0.083%) inhalation solution 2.5 mg = 3 mL, PRN, Nebulized Inhalation, Q7Dgodowqimoaupe 50 mg oral tablet 50 mg = 1 Tab, Oral, At BedtimeamLODIPine 10 mg oral tablet 10 mg = 1 Tab, Oral, Dailyaspirin 325 mg oral tablet 325 mg = 1 Tab, Oral, Dailygabapentin 300 mg oral capsule 300 mg = 1 Cap, Oral, BIDLasix 20 mg oral tablet 20 mg = 1 Tab, Oral, Dailylisinopril 40 mg oral tablet 40 mg = 1 Tab, Oral, Dailylovastatin 40 mg oral tablet 40 mg = 1 Tab, Oral, At BedtimeMetoprolol Tartrate 100 mg oral tablet 100 mg = 1 Tab, Oral, BIDMetoprolol Tartrate 100 mg oral tablet 50 mg = 0.5 Tab, Oral, With LunchNitrostat 0.4 mg sublingual tablet 0.4 mg = 1 Tab, PRN, SubLINgual, E7Beblhfjaolgn chloride 20 mEq oral tablet, extended release 20 mEq = 1 Tab, Oral, DailyProAir HFA 90 mcg/inh inhalation aerosol 2 Puff, PRN, Inhalation, QIDpropafenone 425 mg oral capsule, extended release 425 mg = 1 Cap, Oral, H01MUqeakmlii 10 mg oral tablet 10 mg = 1 Tab, Oral, At Bedtimetriamcinolone 0.1% topical cream 1 Application, Topical, BIDXarelto 20 mg oral tablet 20 mg = 1 Tab, Oral, Daily,Medications (34) ActiveScheduled: (13)albuterol-ipratropium inh 3 mL 3 mL, Nebulized Inhalation, Z1Rjnzutgzckqurf 50 mg tab 50 mg 1 Tab, Oral, At BedtimeamLODIPine 10 mg tab 10 mg 1 Tab, Oral, Dailyaspirin 81 mg chew tab 81 mg 1 Tab, Oral, Dailyclindamycin *ADV* + NaCl 0.9% *ADV* 100 mL 900 mg 6 mL, IV Piggyback, 1-Timefamotidine 20 mg tab 20 mg 1 Tab, Oral, Dailyfurosemide 40 mg tab 40 mg 1 Tab, Oral, Dailygabapentin 300 mg cap 300 mg 1 Cap, Oral, BIDinsulin regular 1 unit/0.01 mL inj 3mL Scale C, SubCutaneous, AC and at Bedtimelovastatin 20 mg tab 40 mg 2 Tab, Oral, At Bedtimemetoprolol tartrate 100 mg tab 100 mg 1 Tab, Oral, TIDpropafenone SR 425 mg cap 425 mg 1 Cap, Oral, L57Ygsdclkptkrn 20 mg tab 20 mg 1 Tab, Oral, With DinnerContinuous: (1)phenylephrine 20 mg + NaCl 0.9% 250 mL 250 mL, IntraVENousPRN: (20)#NaCl 0.9% *FLUSH* inj 10 mL 10 mL, IV Push, See Commentacetaminophen 325 mg tab 650 mg 2 Tab, Oral, Y0Yxiefpdsrrnibn/oxyCODONE 325/5 mg tab 3 Tab, Oral, K7Ngrtwypewn-kscifsbgkth inh 3 mL 3 mL, Nostrils Both, K7Julkbrtj gluconate 1 Gram 10 mL, IV Piggyback, Dailycalcium gluconate 2 Gram 20 mL, IV Piggyback, Dailycalcium gluconate 2 Gram 20 mL, IV Piggyback, K11LblbdNHZMSJA 20 mg/1 mL inj 10 mg 0.5 mL, IV Push, O1MORLALbwpnlzos 1 mg/1 mL inj 0.5 mg 0.5 mL, IV Push, Z0Zdhqqforit sulfate 2 Gram 50 mL, IV Piggyback, Dailymagnesium sulfate 2 Gram 50 mL, IV Piggyback, S7Ydaxhnpqr 2 mg/1 ml cpjt inj 2 mg 1 mL, IV Push, S5Kvakafsyhojgbr 0.4 mg tab # 25 btl 0.4 mg 1 Tab, SubLINgual, E3Vspzbdhwocxrcx 4 mg/2 mL inj 4 mg 2 mL, IV Push, U6AgyaBIANXU 5 mg tab 5 mg 1 Tab, Oral, A6Djkgqgkvoy chloride 10 mEq 50 mL, IV Piggyback, B3Wdeblslzqd chloride CR 20 mEq tab 20 mEq 1 Tab, Oral, N9Oflrqmvnhq chloride CR 20 mEq tab 60 mEq 3 Tab, Oral, U3Bfqqkyy phosphate 15 mMole 5 mL, IV Piggyback, Dailysodium phosphate 15 mMole 5 mL, IV Piggyback, T3GCyphzbr list:Active Problems (30)Allergic rhinitis Angina Arthritis Atrial fibrillation Atrial flutter Back pain Bronchitis Bursitis Chronic constipation Chronic cough COPD, mild Diabetes mellitus type II GERD - Gastro-esophageal reflux disease Hard of hearing Heart failure Heart valve Hemorrhoids Hiatal hernia Histoplasmosis Hx of seborrhea Hyperlipidemia Hypertension Pancreatitis Peripheral neuropathy Peripheral vascular disease Pneumonia PSVT (paroxysmal supraventricular tachycardia) Restless legs syndrome Sinusitis Sleep apnea HYDROmorphone 1 mg/1 mL inj 0.5 mg 0.5 mL, IV Push, Q4H magnesium sulfate 2 Gram 50 mL, IV Piggyback, Daily magnesium sulfate 2 Gram 50 mL, IV Piggyback, Q2H morphine 2 mg/1 ml cpjt inj 2 mg 1 mL, IV Push, Q4H nitroglycerin 0.4 mg tab # 25 btl 0.4 mg 1 Tab, SubLINgual, Q5Min ondansetron 4 mg/2 mL inj 4 mg 2 mL, IV Push, Q4H oxyCODONE 5 mg tab 5 mg 1 Tab, Oral, Q4H potassium chloride 10 mEq 50 mL, IV Piggyback, Q1H potassium chloride CR 20 mEq tab 20 mEq 1 Tab, Oral, Q2H potassium chloride CR 20 mEq tab 60 mEq 3 Tab, Oral, Q2H sodium phosphate 15 mMole 5 mL, IV Piggyback, Daily sodium phosphate 15 mMole 5 mL, IV Piggyback, Q6H Problem list: Active Problems (30) Allergic rhinitis Angina Arthritis Atrial fibrillation Atrial flutter Back pain Bronchitis Bursitis Chronic constipation Chronic cough COPD, mild Diabetes mellitus type II GERD - Gastro-esophageal reflux disease Hard of hearing Heart failure Heart valve Hemorrhoids Hiatal hernia Histoplasmosis Hx of seborrhea Hyperlipidemia Hypertension Pancreatitis Peripheral neuropathy Peripheral vascular disease Pneumonia PSVT (paroxysmal supraventricular tachycardia) Restless legs syndrome Sinusitis Sleep apnea ObjectiveVS/MeasurementsVital Signs/Vital Ujawthhb50/20/2016 6:00 EST Heart Rate Monitored 94 bpm Respiratory Rate 22 Breaths/Min HI Systolic Blood Pressure 111 mmHg Diastolic Blood Pressure 61 mmHg Mean Arterial Pressure (MAP)-BMDI 81 Oxygen Saturation 96 %10/09/2016 5:00 EST Heart Rate Monitored 91 bpm Respiratory Rate 20 Breaths/Min Systolic Blood Pressure 108 mmHg Diastolic Blood Pressure 56 mmHg LOW Mean Arterial Pressure (MAP)-BMDI 75 Oxygen Saturation 97 %10/09/2016 4:50 EST Heart Rate Monitored 90 bpm Respiratory Rate 21 Breaths/Min HI Oxygen Saturation 99 %10/09/2016 4:44 EST Heart Rate Monitored 91 bpm Respiratory Rate 21 Breaths/Min HI Oxygen Saturation 96 % Oxygen Therapy Mode BiPAP FiO2 Nursing 35 %10/09/2016 4:00 EST Temperature Source Axillary Temperature Mode Fahrenheit Temperature, Fahrenheit 99.9 Deg F HI Clinical Temperature, C 37.7 Deg C Heart Rate Monitored 90 bpm Respiratory Rate 21 Breaths/Min HI Systolic Blood Pressure 110 mmHg Diastolic Blood Pressure 63 mmHg Mean Arterial Pressure (MAP)-BMDI 82 Oxygen Saturation 96 %10/09/2016 3:00 EST Heart Rate Monitored 90 bpm Respiratory Rate 22 Breaths/Min HI Systolic Blood Pressure 107 mmHg Diastolic Blood Pressure 58 mmHg LOW Mean Arterial Pressure (MAP)-BMDI 76 Oxygen Saturation 98 % Oxygen Therapy Mode BiPAP FiO2 Nursing 35 %10/09/2016 2:00 EST Heart Rate Monitored 87 bpm Respiratory Rate 19 Breaths/Min Systolic Blood Pressure 97 mmHg Diastolic Blood Pressure 57 mmHg LOW Mean Arterial Pressure (MAP)-BMDI 72 Oxygen Saturation 96 %10/09/2016 1:00 EST Heart Rate Monitored 87 bpm Respiratory Rate 18 Breaths/Min Systolic Blood Pressure 100 mmHg Diastolic Blood Pressure 59 mmHg LOW Mean Arterial Pressure (MAP)-BMDI 75 Oxygen Saturation 96 %10/09/2016 0:00 EST Temperature Source Oral Temperature Mode Fahrenheit Temperature, Fahrenheit 100.0 Deg F HI Clinical Temperature, C 37.8 Deg C Clinical Temperature, C 37.8 Deg C Heart Rate Monitored 88 bpm Respiratory Rate 26 Breaths/Min HI Systolic Blood Pressure 100 mmHg Diastolic Blood Pressure 55 mmHg LOW Mean Arterial Pressure (MAP)-BMDI 72 Oxygen Saturation 97 % Oxygen Therapy Mode BiPAP FiO2 Nursing 35 %10/08/2016 23:25 EST Heart Rate Monitored 86 bpm Respiratory Rate 17 Breaths/Min Oxygen Saturation 98 % FiO2 Nursing 35 %10/08/2016 23:24 EST FiO2 Nursing 35 %10/08/2016 23:22 EST Heart Rate, Apical 88 bpm10/08/2016 23:19 EST Heart Rate Monitored 87 bpm Respiratory Rate 18 Breaths/Min Oxygen Saturation 97 %10/08/2016 23:00 EST Heart Rate Monitored 88 bpm Respiratory Rate 18 Breaths/Min Systolic Blood Pressure 100 mmHg Diastolic Blood Pressure 59 mmHg LOW Mean Arterial Pressure (MAP)-BMDI 76 Oxygen Saturation 97 % Oxygen Therapy Mode BiPAP112/09/2015 22:00 EST Heart Rate Monitored 102 bpm HI Respiratory Rate 30 Breaths/Min HI Systolic Blood Pressure 137 mmHg Diastolic Blood Pressure 71 mmHg Mean Arterial Pressure (MAP)-BMDI 95 Oxygen Saturation 93 % LOW 10/08/2016 21:54 EST Heart Rate, Apical 100 bpm10/08/2016 21:03 EST Heart Rate Monitored 92 bpm Respiratory Rate 31 Breaths/Min HI Oxygen Saturation 100 %10/08/2016 21:00 EST Heart Rate Monitored 92 bpm Respiratory Rate 22 Breaths/Min HI Systolic Blood Pressure 118 mmHg Diastolic Blood Pressure 64 mmHg Mean Arterial Pressure (MAP)-BMDI 86 Oxygen Saturation 100 %10/08/2016 20:54 EST Heart Rate Monitored 96 bpm Respiratory Rate 20 Breaths/Min Oxygen Saturation 95 %10/08/2016 20:00 EST Temperature Source Oral Temperature Mode Fahrenheit Temperature, Fahrenheit 98.0 Deg F Clinical Temperature, C 36.7 Deg C Clinical Temperature, C 36.7 Deg C Heart Rate Monitored 91 bpm Respiratory Rate 29 Breaths/Min HI Systolic Blood Pressure 106 mmHg Diastolic Blood Pressure 64 mmHg Mean Arterial Pressure (MAP)-BMDI 80 Oxygen Saturation 94 % Oxygen Therapy Mode Nasal cannula Oxygen Flow Rate 4 Liter/Min10/08/2016 18:00 EST Heart Rate Monitored 96 bpm Respiratory Rate 23 Breaths/Min HI Systolic Blood Pressure 117 mmHg Diastolic Blood Pressure 55 mmHg LOW Mean Arterial Pressure (MAP)-BMDI 79 Oxygen Saturation 93 % LOW Oxygen Therapy Mode Nasal cannula Oxygen Flow Rate 4 Liter/Min10/08/2016 17:00 EST Heart Rate Monitored 92 bpm Respiratory Rate 23 Breaths/Min HI Systolic Blood Pressure 111 mmHg Diastolic Blood Pressure 64 mmHg Mean Arterial Pressure (MAP)-BMDI 83 Oxygen Saturation 96 % Oxygen Therapy Mode Nasal cannula Oxygen Flow Rate 3 Liter/Min10/08/2016 16:00 EST Temperature Source Oral Temperature Mode Fahrenheit Temperature, Fahrenheit 97.6 Deg F Clinical Temperature, C 36.4 Deg C Heart Rate Monitored 93 bpm Respiratory Rate 30 Breaths/Min HI Systolic Blood Pressure 112 mmHg Diastolic Blood Pressure 64 mmHg Mean Arterial Pressure (MAP)-BMDI 82 Oxygen Saturation 96 % Oxygen Therapy Mode Nasal cannula Oxygen Flow Rate 3 Liter/Min10/08/2016 15:55 EST Heart Rate Monitored 91 bpm10/08/2016 15:47 EST Heart Rate Monitored 96 bpm Respiratory Rate 20 Breaths/Min Oxygen Saturation 95 % Oxygen Therapy Mode Nasal cannula Oxygen Flow Rate 3 Liter/Min10/08/2016 15:23 EST Heart Rate, Apical 95 bpm10/08/2016 15:00 EST Systolic Blood Pressure 106 mmHg Diastolic Blood Pressure 63 mmHg Mean Arterial Pressure (MAP)-BMDI 80112/09/2015 14:00 EST Heart Rate Monitored 91 bpm Respiratory Rate 32 Breaths/Min HI Systolic Blood Pressure 106 mmHg Diastolic Blood Pressure 63 mmHg Mean Arterial Pressure (MAP)-BMDI 80 Oxygen Saturation 94 % Oxygen Therapy Mode Nasal cannula Oxygen Flow Rate 3 Liter/Min10/08/2016 13:00 EST Heart Rate Monitored 93 bpm Respiratory Rate 22 Breaths/Min HI Systolic Blood Pressure 102 mmHg Diastolic Blood Pressure 65 mmHg Mean Arterial Pressure (MAP)-BMDI 78 Oxygen Saturation 95 % Oxygen Therapy Mode Nasal cannula Oxygen Flow Rate 3 Liter/Min10/08/2016 12:00 EST Temperature Source Oral Temperature Mode Fahrenheit Temperature, Fahrenheit 97.8 Deg F Clinical Temperature, C 36.6 Deg C Heart Rate Monitored 97 bpm Respiratory Rate 27 Breaths/Min HI Systolic Blood Pressure 119 mmHg Diastolic Blood Pressure 69 mmHg Mean Arterial Pressure (MAP)-BMDI 88 Oxygen Saturation 95 % Oxygen Therapy Mode Nasal cannula Oxygen Flow Rate 3 Liter/Min10/08/2016 11:27 EST Heart Rate Monitored 94 bpm10/08/2016 11:18 EST Heart Rate Monitored 96 bpm Respiratory Rate 23 Breaths/Min HI Oxygen Saturation 97 % Oxygen Therapy Mode Nasal cannula Oxygen Flow Rate 3 Liter/Min10/08/2016 11:00 EST Systolic Blood Pressure 118 mmHg Diastolic Blood Pressure 61 mmHg Mean Arterial Pressure (MAP)-BMDI 8410/08/2016 10:43 EST Heart Rate, Apical 108 bpm ID 10/08/2016 10:00 EST Heart Rate Monitored 103 bpm HI Respiratory Rate 21 Breaths/Min HI Systolic Blood Pressure 114 mmHg Diastolic Blood Pressure 62 mmHg Mean Arterial Pressure (MAP)-BMDI 83 Oxygen Saturation 93 % LOW Oxygen Therapy Mode Nasal cannula Oxygen Flow Rate 4 Liter/Min10/08/2016 9:00 EST Heart Rate Monitored 104 bpm HI Respiratory Rate 25 Breaths/Min HI Systolic Blood Pressure 114 mmHg Diastolic Blood Pressure 59 mmHg LOW Mean Arterial Pressure (MAP)-BMDI 81 Systolic BP, Arterial Line 1 179 mmHg HI Diastolic BP, Arterial Line 1 52 mmHg LOW Mean Arterial Pressure, Line 1 82 mmHg Oxygen Saturation 94 % Oxygen Therapy Mode Nasal cannula Oxygen Flow Rate 4 Liter/Min10/08/2016 8:42 EST Heart Rate, Apical 103 bpm ID 10/08/2016 8:01 EST Heart Rate Monitored 103 bpm ID 10/08/2016 8:00 EST Temperature Source Oral Temperature Mode Fahrenheit Temperature, Fahrenheit 97.7 Deg F Clinical Temperature, C 36.5 Deg C Respiratory Rate 27 Breaths/Min HI Systolic Blood Pressure 107 mmHg Diastolic Blood Pressure 63 mmHg Mean Arterial Pressure (MAP)-BMDI 77 Systolic BP, Arterial Line 1 163 mmHg HI Diastolic BP, Arterial Line 1 59 mmHg LOW Mean Arterial Pressure, Line 1 88 mmHg Oxygen Saturation 96 % Oxygen Therapy Mode Nasal cannula Oxygen Flow Rate 4 Liter/Min10/08/2016 7:49 EST Heart Rate Monitored 104 bpm HI Respiratory Rate 22 Breaths/Min HI Oxygen Saturation 95 % Oxygen Therapy Mode Nasal cannula Oxygen Flow Rate 4 Liter/Min10/08/2016 7:39 EST Heart Rate Monitored 101 bpm HI Respiratory Rate 19 Breaths/Min Oxygen Saturation 95 % Oxygen Therapy Mode Nasal cannula Oxygen Flow Rate 4 Liter/Min10/08/2016 7:00 EST Heart Rate Monitored 96 bpm Respiratory Rate 22 Breaths/Min HI Systolic Blood Pressure 112 mmHg Diastolic Blood Pressure 58 mmHg LOW Mean Arterial Pressure (MAP)-BMDI 82 Systolic BP, Arterial Line 1 154 mmHg HI Diastolic BP, Arterial Line 1 50 mmHg LOW Mean Arterial Pressure, Line 1 79 mmHg Oxygen Saturation 97 %10/08/2016 6:00 EST Heart Rate Monitored 95 bpm Respiratory Rate 21 Breaths/Min HI Systolic Blood Pressure 115 mmHg Diastolic Blood Pressure 58 mmHg LOW Mean Arterial Pressure (MAP)-BMDI 80 Systolic BP, Arterial Line 1 133 mmHg Diastolic BP, Arterial Line 1 46 mmHg LOW Mean Arterial Pressure, Line 1 72 mmHg Oxygen Saturation 98 % Oxygen Therapy Mode BiPAP FiO2 Nursing 35 %10/08/2016 5:00 EST Heart Rate Monitored 88 bpm Respiratory Rate 18 Breaths/Min Systolic Blood Pressure 116 mmHg Diastolic Blood Pressure 55 mmHg LOW Mean Arterial Pressure (MAP)-BMDI 80 Systolic BP, Arterial Line 1 133 mmHg Diastolic BP, Arterial Line 1 43 mmHg LOW Mean Arterial Pressure, Line 1 67 mmHg Oxygen Saturation 98 %10/08/2016 4:17 EST Heart Rate Monitored 87 bpm Oxygen Therapy Mode BiPAP FiO2 Nursing 35 %10/08/2016 4:00 EST Temperature Source Axillary Temperature Mode Fahrenheit Temperature, Fahrenheit 98.9 Deg F Clinical Temperature, C 37.2 Deg C Clinical Temperature, C 37.2 Deg C Heart Rate Monitored 90 bpm Respiratory Rate 18 Breaths/Min Systolic Blood Pressure 120 mmHg Diastolic Blood Pressure 60 mmHg Mean Arterial Pressure (MAP)-BMDI 84 Systolic BP, Arterial Line 1 159 mmHg HI Diastolic BP, Arterial Line 1 49 mmHg LOW Mean Arterial Pressure, Line 1 76 mmHg Oxygen Saturation 99 % Oxygen Therapy Mode BiPAP FiO2 Nursing 35 %10/08/2016 3:00 EST Heart Rate Monitored 86 bpm Respiratory Rate 17 Breaths/Min Systolic Blood Pressure 109 mmHg Diastolic Blood Pressure 56 mmHg LOW Mean Arterial Pressure (MAP)-BMDI 76 Systolic BP, Arterial Line 1 143 mmHg HI Diastolic BP, Arterial Line 1 48 mmHg LOW Mean Arterial Pressure, Line 1 72 mmHg Oxygen Saturation 99 %10/08/2016 2:00 EST Heart Rate Monitored 87 bpm Respiratory Rate 17 Breaths/Min Systolic Blood Pressure 104 mmHg Diastolic Blood Pressure 59 mmHg LOW Mean Arterial Pressure (MAP)-BMDI 78 Systolic BP, Arterial Line 1 142 mmHg HI Diastolic BP, Arterial Line 1 49 mmHg LOW Mean Arterial Pressure, Line 1 73 mmHg Oxygen Saturation 98 %10/08/2016 1:00 EST Heart Rate Monitored 85 bpm Respiratory Rate 16 Breaths/Min Systolic Blood Pressure 101 mmHg Diastolic Blood Pressure 56 mmHg LOW Mean Arterial Pressure (MAP)-BMDI 73 Systolic BP, Arterial Line 1 111 mmHg Diastolic BP, Arterial Line 1 42 mmHg LOW Mean Arterial Pressure, Line 1 64 mmHg Oxygen Saturation 97 % Oxygen Therapy Mode BiPAP FiO2 Nursing 35 %10/08/2016 0:00 EST Temperature Source Axillary Temperature Mode Fahrenheit Temperature, Fahrenheit 99.0 Deg F Clinical Temperature, C 37.2 Deg C Clinical Temperature, C 37.2 Deg C Heart Rate Monitored 92 bpm Respiratory Rate 17 Breaths/Min Systolic Blood Pressure 104 mmHg Diastolic Blood Pressure 55 mmHg LOW Mean Arterial Pressure (MAP)-BMDI 74 Systolic BP, Arterial Line 1 123 mmHg Diastolic BP, Arterial Line 1 44 mmHg LOW Mean Arterial Pressure, Line 1 65 mmHg Oxygen Saturation 98 % Oxygen Therapy Mode Nasal cannula Oxygen Flow Rate 4 Liter/Min,Vitals Signs (last 24 hrs) Last Charted Minimum MaximumTemp H 99.9 (OCT 09 04:00)97.6 (OCT 08 16:00)H 100.0 (OCT 09 00:00)Apical HR 88 (OCT 08:22)88 (OCT 08 23:22)H 108 (OCT 08 10:43)Mon HR 94 (OCT 09 06:00)86 (OCT 08 23:25)104 (OCT 08 07:49)Resp Rate H 22 (OCT 09 06:00)17 (OCT 08:)H 32 (OCT 08 14:00)SBP 111 (OCT 09 06:00)97 (OCT 09 02:00)137 (OCT 08 22:00)DBP 61 (OCT 09 06:00)L 55 (OCT 08 18:00)71 (OCT 08:00)MAP 81 (OCT 09 06:00)72 (OCT 09 00:00)95 (OCT 08:00)SpO2 96 (OCT 09 06:00)L 93 (OCT 08 10:00)100 (OCT 08:00)General: Alert and oriented.Eye: Pupils are equal, round and reactive to light.HENT: Normocephalic.Neck: Supple.Respiratory: Lungs are clear to auscultation, Respirations are non-labored, Breath sounds are equal, Symmetrical chest wall expansion.Cardiovascular: Normal rate, Regular rhythm, No murmur, No gallop, No edema, Minimal drainage of the surgical site in the vaccum..Gastrointestinal: Soft, Non-tender, Non-distended, Normal bowel sounds.Integumentary: Warm.Neurologic: Alert.Psychiatric: Cooperative. Temperature Mode Fahrenheit Temperature, Fahrenheit 99.0 Deg F Clinical Temperature, C 37.2 Deg C Clinical Temperature, C 37.2 Deg C Heart Rate Monitored 92 bpm Respiratory Rate 17 Breaths/Min Systolic Blood Pressure 104 mmHg Diastolic Blood Pressure 55 mmHg LOW Mean Arterial Pressure (MAP)-BMDI 74 Systolic BP, Arterial Line 1 123 mmHg Diastolic BP, Arterial Line 1 44 mmHg LOW Mean Arterial Pressure, Line 1 65 mmHg Oxygen Saturation 98 % Oxygen Therapy Mode Nasal cannula Oxygen Flow Rate 4 Liter/Min , Vitals Signs (last 24 hrs) Last Charted Minimum Maximum Temp H 99.9 (OCT 09 04:00)97.6 (OCT 08 16:00)H 100.0 ( OCT 09 00:00) Apical HR 88 (OCT 08 23:22)88 (OCT 08:22)H 108 ( OCT 08 10:43) Mon HR 94 (OCT 09 06:00)86 (OCT 08 23:25)104 (OCT 08 07:49) Resp Rate H 22 (OCT 09 06:00)17 (OCT 08 23:25)H 32 (OCT 08 14:00) SBP 111 (OCT 09 06:00)97 (OCT 09 02:00)137 (OCT 08 22:00) DBP 61 (OCT 09 06:00)L 55 (OCT 08 18:00)71 (OCT 08 22:00) MAP 81 (OCT 09 06:00)72 (OCT 09 00:00)95 (OCT 08 22: 00) SpO2 96 (OCT 09 06:00)L 93 (OCT 08 10:00)100 (OCT 08 21:00) General: Alert and oriented. Eye: Pupils are equal, round and reactive to light. HENT: Normocephalic. Neck: Supple. Respiratory: Lungs are clear to auscultation, Respirations are non-labored, Breath sounds are equal, Symmetrical chest wall expansion. Cardiovascular: Normal rate, Regular rhythm, No murmur, No gallop, No edema, Minimal drainage of the surgical site in the vaccum.. Gastrointestinal: Soft, Non-tender, Non-distended, Normal bowel sounds. Integumentary: Warm. Neurologic: Alert. Psychiatric: Cooperative. Results Review OCT 09 05:02 L 135 | L 98 | H 29 / H 144 4.2 | 27 | H 2.00 \\ OCT 09 05:02 \\ L 8.6 / H 14.7 289 / L 26.9 \\Cardiac Markers (Current Encounter/Past 24 Hours)No Cardiac Marker Results Found (Past 24 Hours) Radiology Results (Last 48 hours)[id number] -- 10/06/2016 03:13CR Chest 1 Vw Portable (10/08/2016 04:25) Result: PORTABLE CHEST 10/08/2016 6:00 AM HISTORY: Respiratory distress.COMPARISON: October 06, 2016.FINDINGS: The heart is proper size. The mediastinum is unremarkable.There is stable pulmonary vascular congestion without pulmonary edema.Small bilateral pleural effusions with associated atelectasis areunchanged. There is no pneumothorax. The osseous structures areunremarkable. The patient has been extubated in the interim. Right IJcentral venous catheter remains in place.IMPRESSION: Stable pulmonary vascular congestion. Stable small bilateralpleural effusions.Reviewed, interpreted, and dictated by Dr. Joseph MD.Transcribed by TAYLOR Yoder have personally viewed, interpreted and dictated the examination. Ihrodrigue read and agree with the above final transcribed report. Radiology Results (Last 48 hours) [id number] -- 10/06/2016 03:13 CR Chest 1 Vw Portable (10/08/2016 04:25) Result: PORTABLE CHEST 10/08/2016 6:00 AM HISTORY: Respiratory distress.COMPARISON: October 06, 2016.FINDINGS: The heart is proper size. The mediastinum is unremarkable.There is stable pulm onary vascular congestion without pulmonary edema.Small bilateral pleural effusions with associated atelectasis areunchanged. There is no pneumothorax. The osseous structures areunremarkable. The ricky ent has been extubated in the interim. Right IJcentral venous catheter remains in place.IMPRESSION: Stable pulmonary vascular congestion. Stable small bilateralpleural effusions.Reviewed, interpreted, and dictated by Dr. Joseph MD.Transcribed by TAYLOR Yoder have personally viewed, interpreted and dictated the examination. Ihrodrigue read and agree with the above final transcribed report. Impression and PlanIMPRESSION:1- Persistant atrial flib s/p CV for rhythm control.2- Typical flutter s/p ablation then 2 days later he developed the pseudoanurysm and AV fistula s/p surgery yesterday.We resumed his RythmolThen when the time come per surgery we will resume his Xaerlato.3- Abnormal CXR for repeat today and PEDRO is following.4- psudoanurysm and AV fistula repain and Hbg is being followed closely.5- Renal insufficincy Craetine still high, nephrolopgy consulted and called.PLAN;OK to transfer to [facility] from EP standpoint. 4- psudoanurysm and AV fistula repain and Hbg is being followed closely. 5- Renal insufficincy Craetine still high, nephrolopgy consulted and called. PLAN;OK to transfer to tele from EP standpoint. Extracted from: Title: Progress Note, Author: MAJO ZULUAGA, Date: 10/08/16 Acute Care MD-INT Basic Information Awake, some pain in the groin, no SOA Review of Systems Constitutional: Weakness, Fatigue. Eye: Negative. Ear/Nose/Mouth/Throat: Negative. Respiratory: Negative. Cardiovascular: Negative. Gastrointestinal: Negative. Genitourinary: Negative. Hematology/Lymphatics: Negative. Endocrine: Negative. Musculoskeletal: Negative. Integumentary: Negative. Neurologic: Negative. Psychiatric: Negative. Health StatusAllergies:Allergic Reactions (Selected)Severity Not DocumentedBactrim- Rash , fever.Ciprofloxacin- Hives.Penicillin- Anaphylaxis as child.Tetracyclines- Unsure.,Allergies (4) ActiveReactionBactrimrash , feverciprofloxacinhivespenicillinanaphylaxis as childtetracyclinesunsureCurrent medications: (Selected)Inpatient MedicationsOrderedDilaudid: 0.5 mg, IV Push, Q4H, PRN: Pain (Moderate 4-6)DuoNeb 0.5 mg-2.5 mg/3 mL inhalation solution: 3 mL, Nebulized Inhalation, A4MMyjSyg 0.5 mg-2.5 mg/3 mL inhalation solution: 3 mL, Nostrils Both, Q6H, PRN: Shortness of BreathNitrostat: 0.4 mg, SubLINgual, Q5Min, PRN: Chest PainPepcid: 20 mg, Oral, DailyPercocet 5/325: 3 Tab, Oral, Q6H, PRN: Pain (Moderate 4-6)Rythmol SR: 425 mg, Oral, L30ZHipdyby: 650 mg, Oral, Q4H, PRN: Other (See Comment)Zofran: 4 mg, IV Push, Q4H, PRN: NauseaamLODIPine: 10 mg, Oral, Dailyamitriptyline: 50 mg, Oral, At Bedtimecalcium gluconate: 1 Gram, 10 mL, 60 mL/Hr, IV Piggyback, Daily, PRN: Other (See Comment)calcium gluconate: 2 Gram, 20 mL, 120 mL/Hr, IV Piggyback, Daily, PRN: Other (See Comment)calcium gluconate: 2 Gram, 20 mL, 120 mL/Hr, IV Piggyback, Q12H, PRN: Other (See Comment)clindamycin + Sodium Chloride 0.9% 100 mL: 900 mg, 6 mL, 106 mL/Hr, IV Piggyback, 1-Timefurosemide: 40 mg, Oral, Dailygabapentin: 300 mg, Oral, BIDheparin: 5,000 Units, SubCutaneous, [id number]: 10 mg, IV Push, Q6H, PRN: Hypertensioninsulin regular sliding scale: Scale C, SubCutaneous, AC and at Bedtimelovastatin: 40 mg, Oral, At Bedtimemagnesium sulfate: 2 Gram, 50 mL, 25 mL/Hr, IV Piggyback, Daily, PRN: Other (See Comment)magnesium sulfate: 2 Gram, 50 mL, 25 mL/Hr, IV Piggyback, Q2H, PRN: Other (See Comment)metoprolol tartrate: 100 mg, Oral, TIDmorphine: 2 mg, IV Push, Q4H, PRN: Pain (Severe 7-10)oxyCODONE: 5 mg, Oral, Q4H, PRN: Pain (Moderate 4-6)phenylephrine injection 20 mg + Sodium Chloride 0.9% 250 mL: Titrate, IntraVENouspotassium chloride 10 mEq/50 mL intravenous solution: 10 mEq, 50 mL, 50 mL/Hr, IV Piggyback, Q1H, PRN: Other (See Comment)potassium chloride 20 mEq oral tablet, extended release: 20 mEq, 1 Tab, Oral, Q2H, PRN: Other (See Comment)potassium chloride 20 mEq oral tablet, extended release: 60 mEq, 3 Tab, Oral, Q2H, PRN: Other (See Comment)sodium chloride 0.9% injectable solution: 10 mL, IV Push, See Comment, PRN: Other (See Comment)sodium phosphate: 15 mMole, 5 mL, 50 mL/Hr, IV Piggyback, Daily, PRN: Other (See Comment)sodium phosphate: 15 mMole, 5 mL, 50 mL/Hr, IV Piggyback, Q6H, PRN: Other (See Comment)Pending Completeinfluenza virus vaccine, inactivated: 0.5 mL, IntraMuscular, [id number] MedicationsDocumentedLasix 20 mg oral tablet: 1 Tab, Oral, Daily, 30 Tab, 0 Refill(s)Metoprolol Tartrate 100 mg oral tablet: 0.5 Tab, Oral, With Lunch, may increase to 1 tablet as directed for heart rate, 0 Refill(s)Metoprolol Tartrate 100 mg oral tablet: 1 Tab, Oral, BID, 0 Refill(s)Nitrostat 0.4 mg sublingual tablet: 1 Tab, SubLINgual, Q5Min, If chest pain not relieved in 5 minutes after first dose, seek immediate medical attention, PRN: Chest Pain, 100 Tab, 0 Refill(s)ProAir HFA 90 mcg/inh inhalation aerosol: 2 Puff, Inhalation, QID, PRN: for wheezing, 0 Refill(s)Singulair 10 mg oral tablet: 1 Tab, Oral, At Bedtime, 0 Refill(s)Xarelto 20 mg oral tablet: 1 Tab, Oral, Daily, with largest meal, 30 Tab, 0 Refill(s)albuterol 2.5 mg/3 mL (0.083%) inhalation solution: 3 mL, Nebulized Inhalation, Q6H, PRN: for wheezing, 25 Each, 0 Refill(s)amLODIPine 10 mg oral tablet: 1 Tab, Oral, Daily, 30 Tab, 0 Refill(s)amitriptyline 50 mg oral tablet: 1 Tab, Oral, At Bedtime, 0 Refill(s)aspirin 325 mg oral tablet: 1 Tab, Oral, Daily, 30 Tab, 0 Refill(s)gabapentin 300 mg oral capsule: 1 Cap, Oral, BID, 60 Cap, 0 Refill(s)lisinopril 40 mg oral tablet: 1 Tab, Oral, Daily, 30 Tab, 0 Refill(s)lovastatin 40 mg oral tablet: 1 Tab, Oral, At Bedtime, 30 Tab, 0 Refill(s)potassium chloride 20 mEq oral tablet, extended release: 1 Tab, Oral, Daily, 0 Refill(s)propafenone 425 mg oral capsule, extended release: 1 Cap, Oral, Q12H, 180 Cap, 0 Refill(s)triamcinolone 0.1% topical cream: 1 Application, Topical, BID, apply to face as directed, 0 Refill(s),Medications (33) ActiveScheduled: (12)albuterol-ipratropium inh 3 mL 3 mL, Nebulized Inhalation, N2Ajrkavmtkmckvn 50 mg tab 50 mg 1 Tab, Oral, At BedtimeamLODIPine 10 mg tab 10 mg 1 Tab, Oral, Dailyclindamycin *ADV* + NaCl 0.9% *ADV* 100 mL 900 mg 6 mL, IV Piggyback, 1-Timefamotidine 20 mg tab 20 mg 1 Tab, Oral, Dailyfurosemide 40 mg tab 40 mg 1 Tab, Oral, Dailygabapentin 300 mg cap 300 mg 1 Cap, Oral, BIDheparin 5,000 units/1 mL inj 5,000 Units 1 mL, SubCutaneous, G8Llmjikee regular 1 unit/0.01 mL inj 3mL Scale C, SubCutaneous, AC and at Bedtimelovastatin 20 mg tab 40 mg 2 Tab, Oral, At Bedtimemetoprolol tartrate 100 mg tab 100 mg 1 Tab, Oral, TIDpropafenone SR 425 mg cap 425 mg 1 Cap, Oral, T03VSohokxkhsw: (1)phenylephrine 20 mg + NaCl 0.9% 250 mL 250 mL, IntraVENousPRN: (20)#NaCl 0.9% *FLUSH* inj 10 mL 10 mL, IV Push, See Commentacetaminophen 325 mg tab 650 mg 2 Tab, Oral, E2Dkklryrmmtdgkq/oxyCODONE 325/5 mg tab 3 Tab, Oral, U3Xmgmzfwvlc-luhdaaufyxo inh 3 mL 3 mL, Nostrils Both, V9Mclpipkt gluconate 1 Gram 10 mL, IV Piggyback, Dailycalcium gluconate 2 Gram 20 mL, IV Piggyback, Dailycalcium gluconate 2 Gram 20 mL, IV Piggyback, A78UqazaJNEVXPH 20 mg/1 mL inj 10 mg 0.5 mL, IV Push, Q2KHJSYHhgdmqluy 1 mg/1 mL inj 0.5 mg 0.5 mL, IV Push, M3Ltoyfyjutz sulfate 2 Gram 50 mL, IV Piggyback, Dailymagnesium sulfate 2 Gram 50 mL, IV Piggyback, E0Fpaofbvre 2 mg/1 ml cpjt inj 2 mg 1 mL, IV Push, I3Dowtlpzspkqkat 0.4 mg tab # 25 btl 0.4 mg 1 Tab, SubLINgual, K3Dudqxjuioubixz 4 mg/2 mL inj 4 mg 2 mL, IV Push, G6RohaULZMWN 5 mg tab 5 mg 1 Tab, Oral, R5Ewjmhhsqxv chloride 10 mEq 50 mL, IV Piggyback, Q1Agcyigqevm chloride CR 20 mEq tab 20 mEq 1 Tab, Oral, I6Slvyfwlaqt chloride CR 20 mEq tab 60 mEq 3 Tab, Oral, B0Scvgmmq phosphate 15 mMole 5 mL, IV Piggyback, Dailysodium phosphate 15 mMole 5 mL, IV Piggyback, H4AFbhjzbz list:Active Problems (30)Allergic rhinitis Angina Arthritis Atrial fibrillation Atrial flutter Back pain Bronchitis Bursitis Chronic constipation Chronic cough COPD, mild Diabetes mellitus type II GERD - Gastro-esophageal reflux disease Hard of hearing Heart failure Heart valve Hemorrhoids Hiatal hernia Histoplasmosis Hx of seborrhea Hyperlipidemia Hypertension Pancreatitis Peripheral neuropathy Peripheral vascular disease Pneumonia PSVT (paroxysmal supraventricular tachycardia) Restless legs syndrome Sinusitis Sleep apnea morphine 2 mg/1 ml cpjt inj 2 mg 1 mL, IV Push, Q4H nitroglycerin 0.4 mg tab # 25 btl 0.4 mg 1 Tab, SubLINgual, Q5Min ondansetron 4 mg/2 mL inj 4 mg 2 mL, IV Push, Q4H oxyCODONE 5 mg tab 5 mg 1 Tab, Oral, Q4H potassium chloride 10 mEq 50 mL, IV Piggyback, Q1H potassium chloride CR 20 mEq tab 20 mEq 1 Tab, Oral, Q2H potassium chloride CR 20 mEq tab 60 mEq 3 Tab, Oral, Q2H sodium phosphate 15 mMole 5 mL, IV Piggyback, Daily sodium phosphate 15 mMole 5 mL, IV Piggyback, Q6H Problem list: Active Problems (30) Allergic rhinitis Angina Arthritis Atrial fibrillation Atrial flutter Back pain Bronchitis Bursitis Chronic constipation Chronic cough COPD, mild Diabetes mellitus type II GERD - Gastro-esophageal reflux disease Hard of hearing Heart failure Heart valve Hemorrhoids Hiatal hernia Histoplasmosis Hx of seborrhea Hyperlipidemia Hypertension Pancreatitis Peripheral neuropathy Peripheral vascular disease Pneumonia PSVT (paroxysmal supraventricular tachycardia) Restless legs syndrome Sinusitis Sleep apnea Physical ExaminationVS/MeasurementsVital Signs/Vital [place]od[place]82/19/2016 12:00 EST Temperature Source Oral Temperature Mode Fahrenheit Temperature, Fahrenheit 97.8 Deg F Clinical Temperature, C 36.6 Deg C Heart Rate Monitored 97 bpm Respiratory Rate 27 Breaths/Min HI Systolic Blood Pressure 119 mmHg Diastolic Blood Pressure 69 mmHg Mean Arterial Pressure (MAP)-BMDI 88 Oxygen Saturation 95 % Oxygen Therapy Mode Nasal cannula Oxygen Flow Rate 3 Liter/Min10/08/2016 11:27 EST Heart Rate Monitored 94 bpm10/08/2016 11:18 EST Heart Rate Monitored 96 bpm Respiratory Rate 23 Breaths/Min HI Oxygen Saturation 97 % Oxygen Therapy Mode Nasal cannula Oxygen Flow Rate 3 Liter/Min10/08/2016 11:00 EST Systolic Blood Pressure 118 mmHg Diastolic Blood Pressure 61 mmHg Mean Arterial Pressure (MAP)-BMDI 8410/08/2016 10:43 EST Heart Rate, Apical 108 bpm ID 10/08/2016 10:00 EST Heart Rate Monitored 103 bpm HI Respiratory Rate 21 Breaths/Min HI Systolic Blood Pressure 114 mmHg Diastolic Blood Pressure 62 mmHg Mean Arterial Pressure (MAP)-BMDI 83 Oxygen Saturation 93 % LOW Oxygen Therapy Mode Nasal cannula Oxygen Flow Rate 4 Liter/Min10/08/2016 9:00 EST Heart Rate Monitored 104 bpm HI Respiratory Rate 25 Breaths/Min HI Systolic Blood Pressure 114 mmHg Diastolic Blood Pressure 59 mmHg LOW Mean Arterial Pressure (MAP)-BMDI 81 Systolic BP, Arterial Line 1 179 mmHg HI Diastolic BP, Arterial Line 1 52 mmHg LOW Mean Arterial Pressure, Line 1 82 mmHg Oxygen Saturation 94 % Oxygen Therapy Mode Nasal cannula Oxygen Flow Rate 4 Liter/Min10/08/2016 8:42 EST Heart Rate, Apical 103 bpm ID 10/08/2016 8:01 EST Heart Rate Monitored 103 bpm ID 10/08/2016 8:00 EST Temperature Source Oral Temperature Mode Fahrenheit Temperature, Fahrenheit 97.7 Deg F Clinical Temperature, C 36.5 Deg C Respiratory Rate 27 Breaths/Min HI Systolic Blood Pressure 107 mmHg Diastolic Blood Pressure 63 mmHg Mean Arterial Pressure (MAP)-BMDI 77 Systolic BP, Arterial Line 1 163 mmHg HI Diastolic BP, Arterial Line 1 59 mmHg LOW Mean Arterial Pressure, Line 1 88 mmHg Oxygen Saturation 96 % Oxygen Therapy Mode Nasal cannula Oxygen Flow Rate 4 Liter/Min10/08/2016 7:49 EST Heart Rate Monitored 104 bpm HI Respiratory Rate 22 Breaths/Min HI Oxygen Saturation 95 % Oxygen Therapy Mode Nasal cannula Oxygen Flow Rate 4 Liter/Min10/08/2016 7:39 EST Heart Rate Monitored 101 bpm HI Respiratory Rate 19 Breaths/Min Oxygen Saturation 95 % Oxygen Therapy Mode Nasal cannula Oxygen Flow Rate 4 Liter/Min10/08/2016 7:00 EST Heart Rate Monitored 96 bpm Respiratory Rate 22 Breaths/Min HI Systolic Blood Pressure 112 mmHg Diastolic Blood Pressure 58 mmHg LOW Mean Arterial Pressure (MAP)-BMDI 82 Systolic BP, Arterial Line 1 154 mmHg HI Diastolic BP, Arterial Line 1 50 mmHg LOW Mean Arterial Pressure, Line 1 79 mmHg Oxygen Saturation 97 %10/08/2016 6:00 EST Heart Rate Monitored 95 bpm Respiratory Rate 21 Breaths/Min HI Systolic Blood Pressure 115 mmHg Diastolic Blood Pressure 58 mmHg LOW Mean Arterial Pressure (MAP)-BMDI 80 Systolic BP, Arterial Line 1 133 mmHg Diastolic BP, Arterial Line 1 46 mmHg LOW Mean Arterial Pressure, Line 1 72 mmHg Oxygen Saturation 98 % Oxygen Therapy Mode BiPAP FiO2 Nursing 35 %10/08/2016 5:00 EST Heart Rate Monitored 88 bpm Respiratory Rate 18 Breaths/Min Systolic Blood Pressure 116 mmHg Diastolic Blood Pressure 55 mmHg LOW Mean Arterial Pressure (MAP)-BMDI 80 Systolic BP, Arterial Line 1 133 mmHg Diastolic BP, Arterial Line 1 43 mmHg LOW Mean Arterial Pressure, Line 1 67 mmHg Oxygen Saturation 98 %10/08/2016 4:17 EST Heart Rate Monitored 87 bpm Oxygen Therapy Mode BiPAP FiO2 Nursing 35 %10/08/2016 4:00 EST Temperature Source Axillary Temperature Mode Fahrenheit Temperature, Fahrenheit 98.9 Deg F Clinical Temperature, C 37.2 Deg C Clinical Temperature, C 37.2 Deg C Heart Rate Monitored 90 bpm Respiratory Rate 18 Breaths/Min Systolic Blood Pressure 120 mmHg Diastolic Blood Pressure 60 mmHg Mean Arterial Pressure (MAP)-BMDI 84 Systolic BP, Arterial Line 1 159 mmHg HI Diastolic BP, Arterial Line 1 49 mmHg LOW Mean Arterial Pressure, Line 1 76 mmHg Oxygen Saturation 99 % Oxygen Therapy Mode BiPAP FiO2 Nursing 35 %10/08/2016 3:00 EST Heart Rate Monitored 86 bpm Respiratory Rate 17 Breaths/Min Systolic Blood Pressure 109 mmHg Diastolic Blood Pressure 56 mmHg LOW Mean Arterial Pressure (MAP)-BMDI 76 Systolic BP, Arterial Line 1 143 mmHg HI Diastolic BP, Arterial Line 1 48 mmHg LOW Mean Arterial Pressure, Line 1 72 mmHg Oxygen Saturation 99 %10/08/2016 2:00 EST Heart Rate Monitored 87 bpm Respiratory Rate 17 Breaths/Min Systolic Blood Pressure 104 mmHg Diastolic Blood Pressure 59 mmHg LOW Mean Arterial Pressure (MAP)-BMDI 78 Systolic BP, Arterial Line 1 142 mmHg HI Diastolic BP, Arterial Line 1 49 mmHg LOW Mean Arterial Pressure, Line 1 73 mmHg Oxygen Saturation 98 %10/08/2016 1:00 EST Heart Rate Monitored 85 bpm Respiratory Rate 16 Breaths/Min Systolic Blood Pressure 101 mmHg Diastolic Blood Pressure 56 mmHg LOW Mean Arterial Pressure (MAP)-BMDI 73 Systolic BP, Arterial Line 1 111 mmHg Diastolic BP, Arterial Line 1 42 mmHg LOW Mean Arterial Pressure, Line 1 64 mmHg Oxygen Saturation 97 % Oxygen Therapy Mode BiPAP FiO2 Nursing 35 %10/08/2016 0:00 EST Temperature Source Axillary Temperature Mode Fahrenheit Temperature, Fahrenheit 99.0 Deg F Clinical Temperature, C 37.2 Deg C Clinical Temperature, C 37.2 Deg C Heart Rate Monitored 92 bpm Respiratory Rate 17 Breaths/Min Systolic Blood Pressure 104 mmHg Diastolic Blood Pressure 55 mmHg LOW Mean Arterial Pressure (MAP)-BMDI 74 Systolic BP, Arterial Line 1 123 mmHg Diastolic BP, Arterial Line 1 44 mmHg LOW Mean Arterial Pressure, Line 1 65 mmHg Oxygen Saturation 98 % Oxygen Therapy Mode Nasal cannula Oxygen Flow Rate 4 Liter/Min10/07/2016 23:38 EST FiO2 Nursing 35 %10/07/2016 23:00 EST Heart Rate Monitored 93 bpm Respiratory Rate 21 Breaths/Min HI Systolic Blood Pressure 105 mmHg Diastolic Blood Pressure 59 mmHg LOW Mean Arterial Pressure (MAP)-BMDI 79 Systolic BP, Arterial Line 1 140 mmHg Diastolic BP, Arterial Line 1 51 mmHg LOW Mean Arterial Pressure, Line 1 75 mmHg Oxygen Saturation 98 %10/07/2016 22:00 EST Heart Rate Monitored 103 bpm HI Respiratory Rate 24 Breaths/Min HI Systolic Blood Pressure 98 mmHg Diastolic Blood Pressure 56 mmHg LOW Mean Arterial Pressure (MAP)-BMDI 74 Systolic BP, Arterial Line 1 129 mmHg Diastolic BP, Arterial Line 1 49 mmHg LOW Mean Arterial Pressure, Line 1 70 mmHg Oxygen Saturation 98 % Oxygen Therapy Mode BiPAP112/08/2015 21:00 EST Heart Rate Monitored 120 bpm HI Respiratory Rate 29 Breaths/Min HI Systolic Blood Pressure 136 mmHg Diastolic Blood Pressure 80 mmHg Mean Arterial Pressure (MAP)-BMDI 98 Systolic BP, Arterial Line 1 157 mmHg HI Diastolic BP, Arterial Line 1 63 mmHg Mean Arterial Pressure, Line 1 88 mmHg Oxygen Saturation 98 %10/07/2016 20:40 EST Heart Rate, Apical 116 bpm HI 10/07/2016 20:00 EST Temperature Source Axillary Temperature Mode Fahrenheit Temperature, Fahrenheit 99.7 Deg F Clinical Temperature, C 37.6 Deg C Heart Rate Monitored 116 bpm HI Respiratory Rate 28 Breaths/Min HI Systolic Blood Pressure 124 mmHg Diastolic Blood Pressure 70 mmHg Mean Arterial Pressure (MAP)-BMDI 92 Systolic BP, Arterial Line 1 140 mmHg Diastolic BP, Arterial Line 1 43 mmHg LOW Mean Arterial Pressure, Line 1 67 mmHg Oxygen Saturation 94 % Oxygen Therapy Mode Nasal cannula Oxygen Flow Rate 4 Liter/Min10/07/2016 19:57 EST Heart Rate Monitored 112 bpm HI Oxygen Therapy Mode Nasal cannula Oxygen Flow Rate 4 Liter/Min10/07/2016 18:00 EST Heart Rate Monitored 105 bpm HI Respiratory Rate 22 Breaths/Min HI Systolic Blood Pressure 127 mmHg Diastolic Blood Pressure 68 mmHg Mean Arterial Pressure (MAP)-BMDI 89 Systolic BP, Arterial Line 1 142 mmHg HI Diastolic BP, Arterial Line 1 42 mmHg LOW Mean Arterial Pressure, Line 1 66 mmHg Oxygen Saturation 95 % Oxygen Therapy Mode Nasal cannula Oxygen Flow Rate 4 Liter/Min10/07/2016 17:00 EST Heart Rate Monitored 102 bpm HI Respiratory Rate 20 Breaths/Min Systolic Blood Pressure 125 mmHg Diastolic Blood Pressure 70 mmHg Mean Arterial Pressure (MAP)-BMDI 92 Systolic BP, Arterial Line 1 146 mmHg HI Diastolic BP, Arterial Line 1 42 mmHg LOW Mean Arterial Pressure, Line 1 67 mmHg Oxygen Saturation 97 % Oxygen Therapy Mode Nasal cannula Oxygen Flow Rate 4 Liter/Min10/07/2016 16:00 EST Temperature Source Axillary Temperature Mode Fahrenheit Temperature, Fahrenheit 99.0 Deg F Clinical Temperature, C 37.2 Deg C Heart Rate Monitored 100 bpm Respiratory Rate 20 Breaths/Min Systolic Blood Pressure 118 mmHg Diastolic Blood Pressure 69 mmHg Mean Arterial Pressure (MAP)-BMDI 88 Systolic BP, Arterial Line 1 139 mmHg Diastolic BP, Arterial Line 1 40 mmHg LOW Mean Arterial Pressure, Line 1 64 mmHg Oxygen Saturation 96 % Oxygen Therapy Mode Nasal cannula Oxygen Flow Rate 4 Liter/Min10/07/2016 15:27 EST Heart Rate, Apical 105 bpm HI Heart Rate, Apical 105 bpm HI 10/07/2016 15:11 EST Heart Rate Monitored 102 bpm HI Respiratory Rate 21 Breaths/Min HI Oxygen Saturation 95 %10/07/2016 15:07 EST Heart Rate Monitored 102 bpm HI Respiratory Rate 24 Breaths/Min HI Oxygen Saturation 95 % Oxygen Therapy Mode Nasal cannula Oxygen Flow Rate 4 Liter/Min10/07/2016 15:00 EST Systolic Blood Pressure 135 mmHg Diastolic Blood Pressure 72 mmHg Mean Arterial Pressure (MAP)-BMDI 97 Systolic BP, Arterial Line 1 143 mmHg HI Diastolic BP, Arterial Line 1 47 mmHg LOW Mean Arterial Pressure, Line 1 72 mmHg10/07/2016 14:39 EST Heart Rate Monitored 102 bpm HI Respiratory Rate 17 Breaths/Min Oxygen Saturation 93 % LOW Oxygen Therapy Mode Nasal cannula Oxygen Flow Rate 4 Liter/Min10/07/2016 14:00 EST Systolic Blood Pressure 132 mmHg Diastolic Blood Pressure 70 mmHg Mean Arterial Pressure (MAP)-BMDI 95 Systolic BP, Arterial Line 1 143 mmHg HI Diastolic BP, Arterial Line 1 55 mmHg LOW Mean Arterial Pressure, Line 1 79 mmHg10/07/2016 13:01 EST Oxygen Saturation 96 %10/07/2016 13:00 EST Heart Rate Monitored 95 bpm Respiratory Rate 26 Breaths/Min HI Systolic Blood Pressure 109 mmHg Diastolic Blood Pressure 58 mmHg LOW Mean Arterial Pressure (MAP)-BMDI 79 Systolic BP, Arterial Line 1 132 mmHg Diastolic BP, Arterial Line 1 50 mmHg LOW Mean Arterial Pressure, Line 1 72 mmHg Oxygen Therapy Mode Mechanical ventilation FiO2 Nursing 40 %10/07/2016 12:00 EST Temperature Source Axillary Temperature Mode Fahrenheit Temperature, Fahrenheit 99.4 Deg F Clinical Temperature, C 37.4 Deg C Heart Rate Monitored 84 bpm Respiratory Rate 19 Breaths/Min Systolic Blood Pressure 115 mmHg Diastolic Blood Pressure 61 mmHg Mean Arterial Pressure (MAP)-BMDI 83 Systolic BP, Arterial Line 1 126 mmHg Diastolic BP, Arterial Line 1 52 mmHg LOW Mean Arterial Pressure, Line 1 72 mmHg Oxygen Saturation 98 % Oxygen Therapy Mode Mechanical ventilation FiO2 Nursing 40 %10/07/2016 11:58 EST Heart Rate Monitored 83 bpm Respiratory Rate 19 Breaths/Min Oxygen Saturation 99 %10/07/2016 11:54 EST Heart Rate Monitored 83 bpm Respiratory Rate 20 Breaths/Min Oxygen Saturation 98 %10/07/2016 11:00 EST Systolic Blood Pressure 111 mmHg Diastolic Blood Pressure 62 mmHg Mean Arterial Pressure (MAP)-BMDI 81 Systolic BP, Arterial Line 1 120 mmHg Diastolic BP, Arterial Line 1 49 mmHg LOW Mean Arterial Pressure, Line 1 67 mmHg Oxygen Therapy Mode Mechanical ventilation FiO2 Nursing 40 %10/07/2016 10:00 EST Heart Rate Monitored 84 bpm Respiratory Rate 20 Breaths/Min Systolic Blood Pressure 125 mmHg Diastolic Blood Pressure 66 mmHg Mean Arterial Pressure (MAP)-BMDI 89 Systolic BP, Arterial Line 1 132 mmHg Diastolic BP, Arterial Line 1 50 mmHg LOW Mean Arterial Pressure, Line 1 70 mmHg Oxygen Saturation 97 % Oxygen Therapy Mode Mechanical ventilation FiO2 Nursing 40 %10/07/2016 9:01 EST Heart Rate, Apical 84 bpm Systolic Blood Pressure 122 mmHg10/07/2016 9:00 EST Heart Rate, Apical Not Done: Not Appropriate at this Time (Not Done) Heart Rate Monitored 84 bpm Respiratory Rate 21 Breaths/Min HI Mean Arterial Pressure (MAP)-BMDI 79 Systolic BP, Arterial Line 1 122 mmHg Diastolic BP, Arterial Line 1 45 mmHg LOW Mean Arterial Pressure, Line 1 64 mmHg Oxygen Saturation 96 % Oxygen Therapy Mode Mechanical ventilation FiO2 Nursing 40 %10/07/2016 8:10 EST Oxygen Saturation 96 % FiO2 Nursing 40 %10/07/2016 8:00 EST Temperature Source Axillary Temperature Mode Fahrenheit Temperature, Fahrenheit 99.0 Deg F Clinical Temperature, C 37.2 Deg C Heart Rate Monitored 76 bpm Respiratory Rate 16 Breaths/Min Systolic Blood Pressure 133 mmHg Diastolic Blood Pressure 72 mmHg Mean Arterial Pressure (MAP)-BMDI 96 Systolic BP, Arterial Line 1 150 mmHg HI Diastolic BP, Arterial Line 1 58 mmHg LOW Mean Arterial Pressure, Line 1 83 mmHg Oxygen Therapy Mode Mechanical uwohlhqgavj85/18/2016 7:00 EST Heart Rate Monitored 72 bpm Respiratory Rate 16 Breaths/Min Systolic Blood Pressure 121 mmHg Diastolic Blood Pressure 62 mmHg Mean Arterial Pressure (MAP)-BMDI 84 Systolic BP, Arterial Line 1 131 mmHg Diastolic BP, Arterial Line 1 53 mmHg LOW Mean Arterial Pressure, Line 1 74 mmHg Oxygen Saturation 98 % Oxygen Therapy Mode Mechanical ventilation FiO2 Nursing 40 %10/07/2016 6:00 EST Heart Rate Monitored 72 bpm Respiratory Rate 16 Breaths/Min Systolic Blood Pressure 111 mmHg Diastolic Blood Pressure 62 mmHg Mean Arterial Pressure (MAP)-BMDI 80 Systolic BP, Arterial Line 1 121 mmHg Diastolic BP, Arterial Line 1 50 mmHg LOW Mean Arterial Pressure, Line 1 69 mmHg Oxygen Saturation 98 % Oxygen Therapy Mode Mechanical ventilation FiO2 Nursing 40 %10/07/2016 5:00 EST Heart Rate Monitored 72 bpm Respiratory Rate 16 Breaths/Min Systolic Blood Pressure 108 mmHg Diastolic Blood Pressure 62 mmHg Mean Arterial Pressure (MAP)-BMDI 79 Systolic BP, Arterial Line 1 119 mmHg Diastolic BP, Arterial Line 1 48 mmHg LOW Mean Arterial Pressure, Line 1 67 mmHg Oxygen Saturation 98 % Oxygen Therapy Mode Mechanical ventilation FiO2 Nursing 40 %10/07/2016 4:00 EST Temperature Source Axillary Temperature Mode Fahrenheit Temperature, Fahrenheit 98.6 Deg F Clinical Temperature, C 37 Deg C Heart Rate Monitored 74 bpm Respiratory Rate 16 Breaths/Min Systolic Blood Pressure 107 mmHg Diastolic Blood Pressure 63 mmHg Mean Arterial Pressure (MAP)-BMDI 80 Systolic BP, Arterial Line 1 119 mmHg Diastolic BP, Arterial Line 1 49 mmHg LOW Mean Arterial Pressure, Line 1 67 mmHg Oxygen Saturation 98 % Oxygen Therapy Mode Mechanical ventilation FiO2 Nursing 40 %10/07/2016 3:00 EST Heart Rate Monitored 76 bpm Respiratory Rate 16 Breaths/Min Systolic Blood Pressure 107 mmHg Diastolic Blood Pressure 62 mmHg Mean Arterial Pressure (MAP)-BMDI 79 Systolic BP, Arterial Line 1 127 mmHg Diastolic BP, Arterial Line 1 47 mmHg LOW Mean Arterial Pressure, Line 1 66 mmHg Oxygen Saturation 99 % Oxygen Therapy Mode Mechanical ventilation FiO2 Nursing 50 %10/07/2016 2:00 EST Heart Rate Monitored 82 bpm Respiratory Rate 16 Breaths/Min Systolic Blood Pressure 110 mmHg Diastolic Blood Pressure 66 mmHg Mean Arterial Pressure (MAP)-BMDI 84 Systolic BP, Arterial Line 1 133 mmHg Diastolic BP, Arterial Line 1 47 mmHg LOW Mean Arterial Pressure, Line 1 67 mmHg Oxygen Saturation 99 % Oxygen Therapy Mode Mechanical ventilation FiO2 Nursing 50 %10/07/2016 1:19 EST Heart Rate, Apical 86 bpm10/07/2016 1:18 EST Heart Rate, Apical 86 bpm Heart Rate, Apical 86 bpm Heart Rate, Apical 86 bpm10/07/2016 1:00 EST Heart Rate Monitored 88 bpm Respiratory Rate 16 Breaths/Min Systolic Blood Pressure 113 mmHg Diastolic Blood Pressure 62 mmHg Mean Arterial Pressure (MAP)-BMDI 82 Systolic BP, Arterial Line 1 134 mmHg Diastolic BP, Arterial Line 1 47 mmHg LOW Mean Arterial Pressure, Line 1 66 mmHg Oxygen Saturation 99 % Oxygen Therapy Mode Mechanical ventilation FiO2 Nursing 50 %10/07/2016 0:00 EST Temperature Source Axillary Temperature Mode Fahrenheit Temperature, Fahrenheit 98.5 Deg F Clinical Temperature, C 36.9 Deg C Heart Rate Monitored 92 bpm Respiratory Rate 14 Breaths/Min Systolic Blood Pressure 89 mmHg LOW Diastolic Blood Pressure 54 mmHg LOW Mean Arterial Pressure (MAP)-BMDI 66 Systolic BP, Arterial Line 1 93 mmHg Diastolic BP, Arterial Line 1 37 mmHg LOW Mean Arterial Pressure, Line 1 50 mmHg Oxygen Saturation 97 % Oxygen Therapy Mode Mechanical ventilation FiO2 Nursing 50 %,Vitals Signs (last 24 hrs) Last Charted Minimum MaximumTemp 97.8 (OCT 08 12:00)97.8 (OCT 08 12:00)99.0 (OCT 07 16:00)Apical HR H 108 (OCT 08 10:43)H 103 (OCT 08 08:42)H 116 (OCT 07 20:40)Mon HR 97 (OCT 08 12:00)85 (OCT 08 01:00)120 (OCT 07 21:00)Resp Rate H 27 (OCT 08 12:00)16 (OCT 08 01:00)H 29 (OCT 07:00)SBP 119 (OCT 08 12:00)98 (OCT 07 22:00)136 (OCT 07:00)DBP 69 (OCT 08 12:00)L 55 (OCT 08 00:00)80 (OCT 07 21:00)MAP 88 (OCT 08 12:00)64 (OCT 07 16:00)98 (OCT 07 21:00)SpO2 95 (OCT 08 12:00)L 93 (OCT 07 14:39)99 (OCT 08 03:00)General: No acute distress.Eye: Pupils are equal, round and reactive to light, Normal conjunctiva.HENT: Normocephalic, Oral mucosa is moist.Neck: Supple.Respiratory: Respirations are non-labored, Breath sounds are equal, Symmetrical chest wall expansion.Cardiovascular: Normal rate, Regular rhythm, No murmur, No gallop.Gastrointestinal: Soft, Non-distended, Normal bowel sounds.Musculoskeletal: No swelling, No deformity.Integumentary: Warm, Dry, Tillar.Neurologic: Alert, Normal sensory, Normal motor function, No focal deficits, Cranial Nerves II-XII are grossly intact.Psychiatric: Cooperative. Clinical Temperature, C 36.9 Deg C Heart Rate Monitored 92 bpm Respiratory Rate 14 Breaths/Min Systolic Blood Pressure 89 mmHg LOW Diastolic Blood Pressure 54 mmHg LOW Mean Arterial Pressure (MAP)-BMDI 66 Systolic BP, Arterial Line 1 93 mmHg Diastolic BP, Arterial Line 1 37 mmHg LOW Mean Arterial Pressure, Line 1 50 mmHg Oxygen Saturation 97 % Oxygen Therapy Mode Mechanical ventilation FiO2 Nursing 50 % , Vitals Signs (last 24 hrs) Last Charted Minimum Maximum Temp 97.8 (OCT 08 12:00)97.8 (OCT 08 12:00)99.0 (OCT 07 16:00) Apical HR H 108 (OCT 08 10:43)H 103 (OCT 08 08:42)H 116 (OCT 07 20:40) Mon HR 97 (OCT 08 12:00)85 (OCT 08 01:00)120 (OCT 07 21:00) Resp Rate H 27 (OCT 08 12:00)16 (OCT 08 01:00)H 29 (OCT 07 21:00) SBP 119 (OCT 08 12:00)98 (OCT 07 22:00)136 (OCT 07 21:00) DBP 69 (OCT 08 12:00)L 55 (OCT 08 00:00)80 (OCT 07 21:00) MAP 88 (OCT 08 12:00)64 (OCT 07 16:00)98 (OCT 07 21: 00) SpO2 95 (OCT 08 12:00)L 93 (OCT 07 14:39)99 (OCT 08 03 :00) General: No acute distress. Eye: Pupils are equal, round and reactive to light, Normal conjunctiva. HENT: Normocephalic, Oral mucosa is moist. Neck: Supple. Respiratory: Respirations are non-labored, Breath sounds are equal, Symmetrical chest wall expansion. Cardiovascular: Normal rate, Regular rhythm, No murmur, No gallop. Gastrointestinal: Soft, Non-distended, Normal bowel sounds. Musculoskeletal: No swelling, No deformity. Integumentary: Warm, Dry, Tillar. Neurologic: Alert, Normal sensory, Normal motor function, No focal deficits, Cranial Nerves II-XII are grossly intact. Psychiatric: Cooperative. Review / ManagementResults review:Labs (Last four charted values)WBC H 12.6(OCT 08)H 16.0(OCT 07)H 13.2(OCT 06)H 15.7(OCT 06)HB L 8.5(OCT 08)L 9.0(OCT 07)L 8.9(OCT 07)L 9.6(OCT 06)HCT L 26.9(OCT 08)L 28.3(SEP 18)L 27.9(SEP 18)L 29.8(OCT 06)Plt 216(OCT 08)272(SEP 18)253(OCT 06)284(OCT 06)Na 140(OCT 08)139(DEC 18)139(SEP 17)137(SEP 17)K 4.0(OCT 08)4.2(SEP 18)4.0(SEP 17)4.1(SEP 17)Cl 103(OCT 08)105(SEP 18)104(OCT 06)103(OCT 06)CO2 25(OCT 08)24(SEP 18)25(OCT 06)25(OCT 06)BUN H 24(OCT 08)18(SEP 18)15(OCT 06)13(OCT 06)Cr H 2.00(OCT 08)H 1.60(OCT 07)1.10(OCT 06)0.70(OCT 06)Glu R H 127(OCT 08)H 124(OCT 07)H 173(OCT 06)H 132(OCT 06)Ca L 7.9(OCT 08)L 7.9(OCT 07)L 8.3(OCT 06)L 8.3(OCT 06)PT H 12.1(OCT 06)INR H 1.2(OCT 06)AST H 41(OCT 07)15(OCT 06)ALT 42(OCT 07)26(OCT 06)ALK P 80(OCT 07)83(OCT 06)T Bili H 1.2(OCT 07)1.0(OCT 06)PTN L 5.6(OCT 07)6.4(OCT 06)ALB L 2.6(OCT 07)L 2.9(OCT 06)Troponin 0.031(OCT 06)PROBNP H 126(OCT 06). AST H 41(OCT 07)15(OCT 06) ALT 42(OCT 07)26(OCT 06) ALK P 80(OCT 07)83(OCT 06) T Bili H 1.2(OCT 07)1.0(OCT 06) PTN L 5.6(SEP 18)6.4(OCT 06) ALB L 2.6(OCT 07)L 2.9(OCT 06) Troponin 0.031(OCT 06) PROBNP H 126(OCT 06) . Impression and Plan1. Right groin Pesudoaneurysm- s/p repair, AVFistila closure by surgery2. History of atrial fibrillation, status post ablation.continue beta romel. No anticoagulation recommended by surgery for now.3. Coronary artery disease. Cardiology following4. Hypertension. Resume home medication plus hydralazine as needed.5. Neuropathy, on gabapentin, continued.6. Hyperlipidemia, on statin, continued.7. Gastrointestinal prophylaxis, Pepcid.8. Deep venous thrombosis prophylaxis, compression boots, heparinAcute respiratory failure- resolvedDisp- Home when able to ambulateTIME SPENT:30 minutes. Acute respiratory failure- resolved Disp- Home when able to ambulate TIME SPENT: 30 minutes. Extracted from: Title: Pulm CC Note Author: BUNNY NOVAK Date: 10/08/16 MD [facility] Consult Note Requesting: Dr. Lucas Santana Reason for Consult: Vent Management Basic InformationHPI: This Patient is a 56 year old male with PMHX COPD with ongoing 1ppd tobacco abuse, DM2, Afib with recent ablation and Xarelto therapy. He had a LHC via radial entry by Dr. Marinelli with normal anatomy in preparation for an afib ablation. Dr. Nielson did a femoral approach afib ablation on 10/04/16. The patient was discharged on Xarelto. He presented to [facility] after he over extended his leg by report. He said he felt some popping. A CT there shoes a 6.23 cm hematoma vs anuerysm and is hgb was dropping. He was transferred to [facility] surgical intervention. Patient was taken to the OR by Dr. Barrett who did a Right groin exploration with resection and repair of right femoral artery pseudoaneurysm and closure of right femoral arteriovenous fistula. He has remained intubated since that time. He was hypotensive with initiation of sedation. This AM he is hypertensive and remains intubated.Procedure: . Right groin exploration with resection and repair of right femoralartery pseudoaneurysm.2. Closure of right femoral arteriovenous fistula.10/04/16:AFib ablation- rfymkfu91/12/16:LHC-radialPMHX:COPD with ongoing tobacco abuseAFIB with recent ablation and Xarelto [id number] PancreatitisCKDOSA with home CPAPObesityCHF- EF 55%Hiatal HerniaHLDSurg Hx:Right groin exploration with resection and repair of right femoral artery pseudoaneurysm.Closure of right femoral arteriovenous fistula.CholecystectomyABD incisional hernia repairLHC radial approachAfib ablation femoral /19: Extubated yesterday. Patient in bed on 4 L O2, saturation 97%. Awake/alert. Patient does complain of right groin pain, status post surgery. Denies shortness of breath, fever, chills. Mild mostly nonproductive cough. BiPAP overnight. No new issues. Urine output 2825 mL, fluid balance -1200 mL, serum creatinine up to 2.0. Hemodynamically stable, afebrile Hiatal Hernia HLD Surg Hx: Right groin exploration with resection and repair of right femoral artery pseudoaneurysm. Closure of right femoral arteriovenous fistula. Cholecystectomy ABD incisional hernia repair LHC radial approach Afib ablation femoral approach 10/08: Extubated yesterday. Patient in bed on 4 L O2, saturation 97%. Awake/ alert. Patient does complain of right groin pain, status post surgery. Denies shortness of breath, fever, chills. Mild mostly nonproductive cough. BiPAP overnight. No new issues. Urine output 2825 mL, fluid balance -1200 mL, serum creatinine up to 2.0. Hemodynamically stable, afebrile Review of SystemsConstitutional: Fatigue, No fever, No chills.Eye: Negative.Ear/Nose/Mouth/Throat: Negative.Respiratory: Cough, No shortness of breath, No sputum production, No wheezing.Cardiovascular: No chest pain, No palpitations, No peripheral edema.Gastrointestinal: No nausea, No vomiting, No abdominal pain.Genitourinary: Negative.Musculoskeletal: right groin pain.Neurologic: Negative.Unable to obtain: Due to clinical condition. Genitourinary: Negative. Musculoskeletal: right groin pain. Neurologic: Negative. Unable to obtain: Due to clinical condition. Health StatusAllergies:Allergic Reactions (Selected)Severity Not DocumentedBactrim- Rash , fever.Ciprofloxacin- Hives.Penicillin- Anaphylaxis as child.Tetracyclines- Unsure.,Allergies (4) ActiveReactionBactrimrash , feverciprofloxacinhivespenicillinanaphylaxis as childtetracyclinesunsureCurrent medications: (Selected)Inpatient MedicationsOrderedDilaudid: 0.5 mg, IV Push, Q4H, PRN: Pain (Moderate 4-6)DuoNeb 0.5 mg-2.5 mg/3 mL inhalation solution: 3 mL, Nebulized Inhalation, [id number] 0.5 mg-2.5 mg/3 mL inhalation solution: 3 mL, Nostrils Both, Q6H, PRN: Shortness of BreathHYDROmorphone: 0.25 mg, IV Push, Q10Min, PRN: Pain (Severe 7-10)Lactated Ringers Injection 1,000 mL: 100 mL/Hr, IntraVENousNitrostat: 0.4 mg, SubLINgual, Q5Min, PRN: Chest PainPepcid: 20 mg, Oral, DailyPremix Diluent + 20 mg niCARdipine: Titrate, IntraVENousRythmol SR: 425 mg, Oral, [id number]: 650 mg, Oral, Q4H, PRN: Other (See Comment)Zofran: 4 mg, IV Push, Q4H, PRN: NauseaamLODIPine: 10 mg, Oral, Dailyamitriptyline: 50 mg, Oral, At Bedtimecalcium gluconate: 1 Gram, 10 mL, 60 mL/Hr, IV Piggyback, Daily, PRN: Other (See Comment)calcium gluconate: 2 Gram, 20 mL, 120 mL/Hr, IV Piggyback, Daily, PRN: Other (See Comment)calcium gluconate: 2 Gram, 20 mL, 120 mL/Hr, IV Piggyback, Q12H, PRN: Other (See Comment)clindamycin + Sodium Chloride 0.9% 100 mL: 900 mg, 6 mL, 106 mL/Hr, IV Piggyback, 1-TimefentaNYL injection 1,000 mcg: Titration, IntraVENousfentaNYL: 25 mcg, IV Push, 1-Time, PRN: Pain (Severe 7-10)fentaNYL: 25 mcg, IV Push, Q10Min, PRN: Pain (Moderate 4-6)furosemide: 40 mg, Oral, Dailygabapentin: 300 mg, Oral, BIDheparin: 5,000 Units, SubCutaneous, [id number]: 10 mg, IV Push, Q6H, PRN: Hypertensioninsulin regular sliding scale: Scale C, SubCutaneous, AC and at Bedtimelisinopril: 40 mg, Oral, Dailylovastatin: 40 mg, Oral, At Bedtimemagnesium sulfate: 2 Gram, 50 mL, 25 mL/Hr, IV Piggyback, Daily, PRN: Other (See Comment)magnesium sulfate: 2 Gram, 50 mL, 25 mL/Hr, IV Piggyback, Q2H, PRN: Other (See Comment)metoprolol tartrate: 100 mg, Oral, TIDmorphine: 2 mg, IV Push, Q4H, PRN: Pain (Severe 7-10)ondansetron: 4 mg, IV Push, 1-Time, PRN: Nausea/VomitingoxyCODONE: 5 mg, Oral, 1-Time, PRN: Pain (Moderate 4-6)oxyCODONE: 5 mg, Oral, Q4H, PRN: Pain (Moderate 4-6)phenylephrine injection 20 mg + Sodium Chloride 0.9% 250 mL: Titrate, IntraVENouspotassium chloride 10 mEq/50 mL intravenous solution: 10 mEq, 50 mL, 50 mL/Hr, IV Piggyback, Q1H, PRN: Other (See Comment)potassium chloride 20 mEq oral tablet, extended release: 20 mEq, 1 Tab, Oral, Dailypotassium chloride 20 mEq oral tablet, extended release: 20 mEq, 1 Tab, Oral, Q2H, PRN: Other (See Comment)potassium chloride 20 mEq oral tablet, extended release: 60 mEq, 3 Tab, Oral, Q2H, PRN: Other (See Comment)propofol injection 1,000 mg + Premix Diluent 100 mL: Titrate, IntraVENoussodium phosphate: 15 mMole, 5 mL, 50 mL/Hr, IV Piggyback, Daily, PRN: Other (See Comment)sodium phosphate: 15 mMole, 5 mL, 50 mL/Hr, IV Piggyback, Q6H, PRN: Other (See Comment)Pending Completeinfluenza virus vaccine, inactivated: 0.5 mL, IntraMuscular, [id number] MedicationsDocumentedLasix 20 mg oral tablet: 1 Tab, Oral, Daily, 30 Tab, 0 Refill(s)Metoprolol Tartrate 100 mg oral tablet: 0.5 Tab, Oral, With Lunch, may increase to 1 tablet as directed for heart rate, 0 Refill(s)Metoprolol Tartrate 100 mg oral tablet: 1 Tab, Oral, BID, 0 Refill(s)Nitrostat 0.4 mg sublingual tablet: 1 Tab, SubLINgual, Q5Min, If chest pain not relieved in 5 minutes after first dose, seek immediate medical attention, PRN: Chest Pain, 100 Tab, 0 Refill(s)ProAir HFA 90 mcg/inh inhalation aerosol: 2 Puff, Inhalation, QID, PRN: for wheezing, 0 Refill(s)Singulair 10 mg oral tablet: 1 Tab, Oral, At Bedtime, 0 Refill(s)Xarelto 20 mg oral tablet: 1 Tab, Oral, Daily, with largest meal, 30 Tab, 0 Refill(s)albuterol 2.5 mg/3 mL (0.083%) inhalation solution: 3 mL, Nebulized Inhalation, Q6H, PRN: for wheezing, 25 Each, 0 Refill(s)amLODIPine 10 mg oral tablet: 1 Tab, Oral, Daily, 30 Tab, 0 Refill(s)amitriptyline 50 mg oral tablet: 1 Tab, Oral, At Bedtime, 0 Refill(s)aspirin 325 mg oral tablet: 1 Tab, Oral, Daily, 30 Tab, 0 Refill(s)gabapentin 300 mg oral capsule: 1 Cap, Oral, BID, 60 Cap, 0 Refill(s)lisinopril 40 mg oral tablet: 1 Tab, Oral, Daily, 30 Tab, 0 Refill(s)lovastatin 40 mg oral tablet: 1 Tab, Oral, At Bedtime, 30 Tab, 0 Refill(s)potassium chloride 20 mEq oral tablet, extended release: 1 Tab, Oral, Daily, 0 Refill(s)propafenone 425 mg oral capsule, extended release: 1 Cap, Oral, Q12H, 180 Cap, 0 Refill(s)triamcinolone 0.1% topical cream: 1 Application, Topical, BID, apply to face as directed, 0 Refill(s) albuterol 2.5 mg/3 mL (0.083%) inhalation solution: 3 mL, Nebulized Inhalation, Q6H, PRN: for wheezing, 25 Each, 0 Refill(s) amLODIPine 10 mg oral tablet: 1 Tab, Oral, Daily, 30 Tab, 0 Refill(s) amitriptyline 50 mg oral tablet: 1 Tab, Oral, At Bedtime, 0 Refill(s) aspirin 325 mg oral tablet: 1 Tab, Oral, Daily, 30 Tab, 0 Refill(s) gabapentin 300 mg oral capsule: 1 Cap, Oral, BID, 60 Cap, 0 Refill(s) lisinopril 40 mg oral tablet: 1 Tab, Oral, Daily, 30 Tab, 0 Refill(s) lovastatin 40 mg oral tablet: 1 Tab, Oral, At Bedtime, 30 Tab, 0 Refill(s) potassium chloride 20 mEq oral tablet, extended release: 1 Tab, Oral, Daily, 0 Refill(s) propafenone 425 mg oral capsule, extended release: 1 Cap, Oral, Q12H, 180 Cap, 0 Refill(s) triamcinolone 0.1% topical cream: 1 Application, Topical, BID, apply to face as directed, 0 Refill(s) Physical ExaminationVS/MeasurementsVitals Signs (last 24 hrs) Last Charted Minimum MaximumTemp 98.9 (OCT 08 04:00)98.9 (OCT 08 04:00)99.4 (OCT 07 12:00)Apical HR H 116 (OCT 07 20:40)84 (OCT 07 09:01)H 116 (OCT 07 20:40)Mon HR 103 (OCT 08 08:01)83 (OCT 07 11:54)120 (OCT 07:00)Resp Rate H 22 (OCT 08 07:49)16 (OCT 08 01:00)H 29 (OCT 07:00)SBP 112 (OCT 08 07:00)98 (OCT 07 22:00)136 (OCT 07 21:00)DBP L 58 (OCT 08 07:00)L 55 (OCT 08 00:00)80 (OCT 07:)MAP 79 (OCT 08 07:00)64 (OCT 07 09:00)98 (OCT 07 21:00)SpO2 95 (OCT 08 07:49)L 93 (OCT 07 14:39)99 (OCT 07 11:58)General: Alert and oriented, No acute distress.Eye: Pupils are equal, round and reactive to light, Normal conjunctiva.HENT: Normocephalic.Neck: Supple, No lymphadenopathy.Respiratory: Respirations are non-labored, Breath sounds are equal. Breath sounds: Bilateral, Base, Diminished.Cardiovascular: Normal rate, Regular rhythm, No edema.Gastrointestinal: Soft, Non-distended, Normal bowel sounds. Abdomen: Obese.Genitourinary: Support: Urinary catheter ( Indwelling ).Musculoskeletal: right groin surgical dressing.Integumentary: Warm, Dry, Tillar.Neurologic: Alert, Oriented, No focal deficits.Psychiatric: Cooperative, Appropriate mood & affect. Genitourinary: Support: Urinary catheter ( Indwelling ). Musculoskeletal: right groin surgical dressing. Integumentary: Warm, Dry, Tillar. Neurologic: Alert, Oriented, No focal deficits. Psychiatric: Cooperative, Appropriate mood & affect. Review / ManagementResults review:Labs (Last four charted values)WBC H 12.6(OCT 08)H 16.0(OCT 07)H 13.2(OCT 06)H 15.7(OCT 06)HB L 8.5(OCT 08)L 9.0(OCT 07)L 8.9(OCT 07)L 9.6(OCT 06)HCT L 26.9(OCT 08)L 28.3(SEP 18)L 27.9(SEP 18)L 29.8(OCT 06)Plt 216(OCT 08)272(SEP 18)253(OCT 06)284(OCT 06)Na 140(OCT 08)139(SEP 18)139(OCT 06)137(SEP 17)K 4.0(OCT 08)4.2(SEP 18)4.0(OCT 06)4.1(OCT 06)Cl 103(OCT 08)105(SEP 18)104(OCT 06)103(SEP 17)CO2 25(OCT 08)24(SEP 18)25(OCT 06)25(SEP 17)BUN H 24(OCT 08)18(OCT 07)15(OCT 06)13(OCT 06)Cr H 2.00(OCT 08)H 1.60(SEP 18)1.10(OCT 06)0.70(SEP 17)Glu R H 127(OCT 08)H 124(SEP 18)H 173(SEP 17)H 132(OCT 06)Ca L 7.9(OCT 08)L 7.9(SEP 18)L 8.3(OCT 06)L 8.3(OCT 06)PT H 12.1(OCT 06)INR H 1.2(OCT 06)AST H 41(SEP 18)15(SEP 17)ALT 42(SEP 18)26(OCT 06)ALK P 80(OCT 07)83(OCT 06)T Bili H 1.2(OCT 07)1.0(OCT 06)PTN L 5.6(OCT 07)6.4(OCT 06)ALB L 2.6(OCT 07)L 2.9(OCT 06)Troponin 0.031(OCT 06)PROBNP H 126(OCT 06). OCT 08 04:03 140 | 103 | H 24 / H 127 4.0 | 25 | H 2.00 \\ OCT 08 04:03 \\ L 8.5 / H 12.6 216 / L 26.9 \\Blood Gases (Current Encounter/Past 24 Hours)pH Art 7.41 10/08/2016 03:18pCO2 Art 41.8 10/08/2016 03:18pO2 Art 92.3 10/08/2016 03:18HCO3 Art 25.7 10/08/2016 03:18BE Art 1.4 10/08/2016 03:18sO2 Art 96.7 10/08/2016 03:18tHb Art 9.1 LOW 10/08/2016 03:42FHHb 3.2 NA 10/08/2016 03:18ctO2 12.2 NA 10/08/2016 03:18FIO2 Art 35 NA 10/08/2016 03:18Delivery Device Type Art Non-Invasive Ventilation 10/08/2016 03:18Temperature, F Art 98.6 NA 10/08/2016 03:18Art Blood Gas (ABG) Site Arterial Line 10/08/2016 03:18Acceptable Randall's Test Art Acceptable 10/08/2016 03:18Ventilator Mode Art Spontaneous 10/07/2016 14:02Tidal Volume Set Art 500.0 NA 10/07/2016 09:49Set Rate Art 14.0 NA 10/08/2016 03:18Respiratory Rate Art 16.0 NA 10/08/2016 03:18CPAP/PEEP Art 5.0 NA 10/07/2016 14:02Pressure Support Art 5.0 NA 10/07/2016 14:02Comment Art 12/6 NA 10/08/2016 03:18ABG Num of Draw Attempts 1 NA 10/08/2016 03:18 Radiology Results (Last 48 hours)[id number] -- 10/06/2016 03:13CR Chest 1 Vw (10/06/2016 22:41) Result: CHEST ONE VIEWHISTORY: Shortness of breath COMPARISON: Line placementFINDINGS: There is a right internal jugular central catheter with thetip terminating in the SVC. There is an endotracheal tube present ingood position. There is right basilar airspace disease suspicious forpneumonia. There is no evidence of effusion or pneumothorax. Mediastinum is unremarkable. Heart size is stable, normal. IMPRESSION: Right basilar airspace disease suspicious for pneumonia.Recommend continued follow-upCR Chest 1 Vw Portable (10/08/2016 04:25) Result: PORTABLE CHEST 10/08/2016 6:00 AM HISTORY: Respiratory distress.COMPARISON: October 06, 2016.FINDINGS: The heart is proper size. The mediastinum is unremarkable.There is stable pulmonary vascular congestion without pulmonary edema.Small bilateral pleural effusions with associated atelectasis areunchanged. There is no pneumothorax. The osseous structures areunremarkable. The patient has been extubated in the interim. Right IJcentral venous catheter remains in place.IMPRESSION: Stable pulmonary vascular congestion. Stable small bilateralpleural effusions.Reviewed, interpreted, and dictated by Dr. Joseph MD.Transcribed by TAYLOR Yoder have personally viewed, interpreted and dictated the examination. Ihave read and agree with the above final transcribed report. Temperature, F Art 98.6 NA 10/08/2016 03:18 Art Blood Gas (ABG) Site Arterial Line 10/08/2016 03:18 Acceptable Randall's Test Art Acceptable 10/08/2016 03:18 Ventilator Mode Art Spontaneous 10/07/2016 14:02 Tidal Volume Set Art 500.0 NA 10/07/2016 09:49 Set Rate Art 14.0 NA 10/08/2016 03:18 Respiratory Rate Art 16.0 NA 10/08/2016 03:18 CPAP/PEEP Art 5.0 NA 10/07/2016 14:02 Pressure Support Art 5.0 NA 10/07/2016 14:02 Comment Art 09/25 NA 10/08/2016 03:18 ABG Num of Draw Attempts 1 NA 10/08/2016 03:18 Radiology Results (Last 48 hours) [id number] -- 10/06/2016 03:13 CR Chest 1 Vw (10/06/2016 22:41) Result: CHEST ONE VIEWHISTORY: Shortness of breath COMPARISON: Line placementFINDINGS: There is a right internal jugular central catheter with thetip terminating in the SVC. There is an endo tracheal tube present ingood position. There is right basilar airspace disease suspicious forpneumonia. There is no evidence of effusion or pneumothorax. Mediastinum is unremarkable. Heart size is stable, normal. IMPRESSION: Right basilar airspace disease suspicious for pneumonia.Recommend continued follow-up CR Chest 1 Vw Portable (10/08/2016 04:25) Result: PORTABLE CHEST 10/08/2016 6:00 AM HISTORY: Respiratory distress.COMPARISON: October 06, 2016.FINDINGS: The heart is proper size. The mediastinum is unremarkable.There is stable pulm onary vascular congestion without pulmonary edema.Small bilateral pleural effusions with associated atelectasis areunchanged. There is no pneumothorax. The osseous structures areunremarkable. The ricky ent has been extubated in the interim. Right IJcentral venous catheter remains in place.IMPRESSION: Stable pulmonary vascular congestion. Stable small bilateralpleural effusions.Reviewed, interpreted, and dictated by Dr. Joseph MD.Transcribed by PRAVIN Yoder-CI have personally viewed, interpreted and dictated the examination. Ihave read and agree with the above final transcribed report. Impression and PlanAcute on Chronic Hypoxemic Respiratory Failure- COPD with ongoing tobacco abuse- YONG with home CPAP use- Post Operative respiratory Failure- S/P Right groin exploration with resection and repair of right femoral artery pseudoaneurysm and closure of right femoral arteriovenous fistula.- Pulm Edema on CXRCards:Pseudoaneurysm of right femoral artery s/p repairAfib S/P ablation and Xarelto therapyHTNHLDHypotension with sedation-resolvedCHF with EF 55%Renal:OTILIO with CKD-worseningGI:GERDhiatal herniaincisional hernia s/p repairHx pancreatitisObesityENDO:MK3JgyysfieejfURR/GIPlan:Supplemental C1Qtypfo U0cxUzlryunlsw to manage hypertensionRecommend holding SHYANN-I secondary to kidney function, deferred to primary or cardiologySSIPepcid for Jenni Barrett, he is okay if we start Heparin 5000 Q8 for prophylaxis but recommends NO oral anticoagulationokay to transfer to floor from pulmonary/critical care standpointPatient seen and examined, labs and films reviewed. Agree with the above. Case discussed during multidisciplinary rounds. Renal: OTILIO with CKD-worsening GI: GERD hiatal hernia incisional hernia s/p repair Hx pancreatitis Obesity ENDO: DM2 Prophylaxis DVT/GI Plan: Supplemental O2 Duoneb Q4hr Cardiology to manage hypertension Recommend holding SHYANN-I secondary to kidney function, deferred to primary or cardiology SSI Pepcid for GI Per Dr. Barrett, he is okay if we start Heparin 5000 Q8 for prophylaxis but recommends NO oral anticoagulation okay to transfer to floor from pulmonary/critical care standpoint Patient seen and examined, labs and films reviewed. Agree with the above. Case discussed during multidisciplinary rounds. Extracted from: Title: EP progress note Author: SAVI NIELSON Jemima, Date: 10/08/16 MD-CAR Subjective The patient got extubated last night. H is back on his long acting Rythmol. He remained in SR. On SQ heparin. He feels better compared to before surgery. Minimal drainage from the vac. Health StatusAllergies:Allergic Reactions (All)Severity Not DocumentedBactrim- Rash , fever.Ciprofloxacin- Hives.Penicillin- Anaphylaxis as child.Tetracyclines- Unsure.,Allergies (4) ActiveReactionBactrimrash , feverciprofloxacinhivespenicillinanaphylaxis as childtetracyclinesunsureCurrent medications: (Selected)Inpatient MedicationsOrderedDilaudid: 0.5 mg, IV Push, Q4H, PRN: Pain (Moderate 4-6)DuoNeb 0.5 mg-2.5 mg/3 mL inhalation solution: 3 mL, Nebulized Inhalation, H1KHiaJtp 0.5 mg-2.5 mg/3 mL inhalation solution: 3 mL, Nostrils Both, Q6H, PRN: Shortness of BreathHYDROmorphone: 0.25 mg, IV Push, Q10Min, PRN: Pain (Severe 7-10)Lactated Ringers Injection 1,000 mL: 100 mL/Hr, IntraVENousNitrostat: 0.4 mg, SubLINgual, Q5Min, PRN: Chest PainPepcid: 20 mg, Oral, DailyPremix Diluent + 20 mg niCARdipine: Titrate, IntraVENousRythmol SR: 425 mg, Oral, L68PBnavmfk: 650 mg, Oral, Q4H, PRN: Other (See Comment)Zofran: 4 mg, IV Push, Q4H, PRN: NauseaamLODIPine: 10 mg, Oral, Dailyamitriptyline: 50 mg, Oral, At Bedtimecalcium gluconate: 1 Gram, 10 mL, 60 mL/Hr, IV Piggyback, Daily, PRN: Other (See Comment)calcium gluconate: 2 Gram, 20 mL, 120 mL/Hr, IV Piggyback, Daily, PRN: Other (See Comment)calcium gluconate: 2 Gram, 20 mL, 120 mL/Hr, IV Piggyback, Q12H, PRN: Other (See Comment)clindamycin + Sodium Chloride 0.9% 100 mL: 900 mg, 6 mL, 106 mL/Hr, IV Piggyback, 1-TimefentaNYL injection 1,000 mcg: Titration, IntraVENousfentaNYL: 25 mcg, IV Push, 1-Time, PRN: Pain (Severe 7-10)fentaNYL: 25 mcg, IV Push, Q10Min, PRN: Pain (Moderate 4-6)furosemide: 40 mg, Oral, Dailygabapentin: 300 mg, Oral, BIDheparin: 5,000 Units, SubCutaneous, [id number]: 10 mg, IV Push, Q6H, PRN: Hypertensioninsulin regular sliding scale: Scale C, SubCutaneous, AC and at Bedtimelisinopril: 40 mg, Oral, Dailylovastatin: 40 mg, Oral, At Bedtimemagnesium sulfate: 2 Gram, 50 mL, 25 mL/Hr, IV Piggyback, Daily, PRN: Other (See Comment)magnesium sulfate: 2 Gram, 50 mL, 25 mL/Hr, IV Piggyback, Q2H, PRN: Other (See Comment)metoprolol tartrate: 100 mg, Oral, TIDmorphine: 2 mg, IV Push, Q4H, PRN: Pain (Severe 7-10)ondansetron: 4 mg, IV Push, 1-Time, PRN: Nausea/VomitingoxyCODONE: 5 mg, Oral, 1-Time, PRN: Pain (Moderate 4-6)oxyCODONE: 5 mg, Oral, Q4H, PRN: Pain (Moderate 4-6)phenylephrine injection 20 mg + Sodium Chloride 0.9% 250 mL: Titrate, IntraVENouspotassium chloride 10 mEq/50 mL intravenous solution: 10 mEq, 50 mL, 50 mL/Hr, IV Piggyback, Q1H, PRN: Other (See Comment)potassium chloride 20 mEq oral tablet, extended release: 20 mEq, 1 Tab, Oral, Dailypotassium chloride 20 mEq oral tablet, extended release: 20 mEq, 1 Tab, Oral, Q2H, PRN: Other (See Comment)potassium chloride 20 mEq oral tablet, extended release: 60 mEq, 3 Tab, Oral, Q2H, PRN: Other (See Comment)propofol injection 1,000 mg + Premix Diluent 100 mL: Titrate, IntraVENoussodium phosphate: 15 mMole, 5 mL, 50 mL/Hr, IV Piggyback, Daily, PRN: Other (See Comment)sodium phosphate: 15 mMole, 5 mL, 50 mL/Hr, IV Piggyback, Q6H, PRN: Other (See Comment)Pending Completeinfluenza virus vaccine, inactivated: 0.5 mL, IntraMuscular, [id number] MedicationsDocumentedLasix 20 mg oral tablet: 1 Tab, Oral, Daily, 30 Tab, 0 Refill(s)Metoprolol Tartrate 100 mg oral tablet: 0.5 Tab, Oral, With Lunch, may increase to 1 tablet as directed for heart rate, 0 Refill(s)Metoprolol Tartrate 100 mg oral tablet: 1 Tab, Oral, BID, 0 Refill(s)Nitrostat 0.4 mg sublingual tablet: 1 Tab, SubLINgual, Q5Min, If chest pain not relieved in 5 minutes after first dose, seek immediate medical attention, PRN: Chest Pain, 100 Tab, 0 Refill(s)ProAir HFA 90 mcg/inh inhalation aerosol: 2 Puff, Inhalation, QID, PRN: for wheezing, 0 Refill(s)Singulair 10 mg oral tablet: 1 Tab, Oral, At Bedtime, 0 Refill(s)Xarelto 20 mg oral tablet: 1 Tab, Oral, Daily, with largest meal, 30 Tab, 0 Refill(s)albuterol 2.5 mg/3 mL (0.083%) inhalation solution: 3 mL, Nebulized Inhalation, Q6H, PRN: for wheezing, 25 Each, 0 Refill(s)amLODIPine 10 mg oral tablet: 1 Tab, Oral, Daily, 30 Tab, 0 Refill(s)amitriptyline 50 mg oral tablet: 1 Tab, Oral, At Bedtime, 0 Refill(s)aspirin 325 mg oral tablet: 1 Tab, Oral, Daily, 30 Tab, 0 Refill(s)gabapentin 300 mg oral capsule: 1 Cap, Oral, BID, 60 Cap, 0 Refill(s)lisinopril 40 mg oral tablet: 1 Tab, Oral, Daily, 30 Tab, 0 Refill(s)lovastatin 40 mg oral tablet: 1 Tab, Oral, At Bedtime, 30 Tab, 0 Refill(s)potassium chloride 20 mEq oral tablet, extended release: 1 Tab, Oral, Daily, 0 Refill(s)propafenone 425 mg oral capsule, extended release: 1 Cap, Oral, Q12H, 180 Cap, 0 Refill(s)triamcinolone 0.1% topical cream: 1 Application, Topical, BID, apply to face as directed, 0 Refill(s),Home Medications (17) Activealbuterol 2.5 mg/3 mL (0.083%) inhalation solution 2.5 mg = 3 mL, PRN, Nebulized Inhalation, R1Uhpbajurnqwwkz 50 mg oral tablet 50 mg = 1 Tab, Oral, At BedtimeamLODIPine 10 mg oral tablet 10 mg = 1 Tab, Oral, Dailyaspirin 325 mg oral tablet 325 mg = 1 Tab, Oral, Dailygabapentin 300 mg oral capsule 300 mg = 1 Cap, Oral, BIDLasix 20 mg oral tablet 20 mg = 1 Tab, Oral, Dailylisinopril 40 mg oral tablet 40 mg = 1 Tab, Oral, Dailylovastatin 40 mg oral tablet 40 mg = 1 Tab, Oral, At BedtimeMetoprolol Tartrate 100 mg oral tablet 100 mg = 1 Tab, Oral, BIDMetoprolol Tartrate 100 mg oral tablet 50 mg = 0.5 Tab, Oral, With LunchNitrostat 0.4 mg sublingual tablet 0.4 mg = 1 Tab, PRN, SubLINgual, A7Vprquxwrnpzx chloride 20 mEq oral tablet, extended release 20 mEq = 1 Tab, Oral, DailyProAir HFA 90 mcg/inh inhalation aerosol 2 Puff, PRN, Inhalation, QIDpropafenone 425 mg oral capsule, extended release 425 mg = 1 Cap, Oral, N02KUfroanrya 10 mg oral tablet 10 mg = 1 Tab, Oral, At Bedtimetriamcinolone 0.1% topical cream 1 Application, Topical, BIDXarelto 20 mg oral tablet 20 mg = 1 Tab, Oral, Daily,Medications (42) ActiveScheduled: (14)albuterol-ipratropium inh 3 mL 3 mL, Nebulized Inhalation, T3Pkiqmygmneozzz 50 mg tab 50 mg 1 Tab, Oral, At BedtimeamLODIPine 10 mg tab 10 mg 1 Tab, Oral, Dailyclindamycin *ADV* + NaCl 0.9% *ADV* 100 mL 900 mg 6 mL, IV Piggyback, 1-Timefamotidine 20 mg tab 20 mg 1 Tab, Oral, Dailyfurosemide 40 mg tab 40 mg 1 Tab, Oral, Dailygabapentin 300 mg cap 300 mg 1 Cap, Oral, BIDheparin 5,000 units/1 mL inj 5,000 Units 1 mL, SubCutaneous, V3Yksepmjc regular 1 unit/0.01 mL inj 3mL Scale C, SubCutaneous, AC and at Bedtimelisinopril 20 mg tab 40 mg 2 Tab, Oral, Dailylovastatin 20 mg tab 40 mg 2 Tab, Oral, At Bedtimemetoprolol tartrate 100 mg tab 100 mg 1 Tab, Oral, TIDpotassium chloride CR 20 mEq tab 20 mEq 1 Tab, Oral, Dailypropafenone SR 425 mg cap 425 mg 1 Cap, Oral, A98YTqasbucold: (5)fentaNYL 1,000 mcg 100 mL, IntraVENouslactated ringers 1,000 mL 1,000 mL, IntraVENous, 100 mL/Hrphenylephrine 20 mg + NaCl 0.9% 250 mL 250 mL, IntraVENousPremix Diluent + 20 mg niCARdipine 200 mL, IntraVENouspropofol 1,000 mg + Premix Diluent 100 mL 100 mL, IntraVENousPRN: (23)acetaminophen 325 mg tab 650 mg 2 Tab, Oral, H9Kncehhhnnf-ombfoyoybsd inh 3 mL 3 mL, Nostrils Both, G6Pexafxnj gluconate 1 Gram 10 mL, IV Piggyback, Dailycalcium gluconate 2 Gram 20 mL, IV Piggyback, Dailycalcium gluconate 2 Gram 20 mL, IV Piggyback, B98IavqzjHSX 100 mcg/2 mL inj 25 mcg 0.5 mL, IV Push, W25ClsxrslwNQO 100 mcg/2 mL inj 25 mcg 0.5 mL, IV Push, 1-TimehydrALAZINE 20 mg/1 mL inj 10 mg 0.5 mL, IV Push, T7HRWVDQgeomcuwg 1 mg/1 mL inj 0.5 mg 0.5 mL, IV Push, N1LWRCHSudhzfkiv 1 mg/1 mL inj 0.25 mg 0.25 mL, IV Push, Z53Hwjmzhnvhhiq sulfate 2 Gram 50 mL, IV Piggyback, Dailymagnesium sulfate 2 Gram 50 mL, IV Piggyback, R8Zjfsbvqlr 2 mg/1 ml cpjt inj 2 mg 1 mL, IV Push, T9Adyyvwyvwcapah 0.4 mg tab # 25 btl 0.4 mg 1 Tab, SubLINgual, G9Fjyanlowteebdh 4 mg/2 mL inj 4 mg 2 mL, IV Push, Q7Xvbpktexqkhm 4 mg/2 mL inj 4 mg 2 mL, IV Push, 1-TimeoxyCODONE 5 mg tab 5 mg 1 Tab, Oral, U7SghrVVDIZI 5 mg tab 5 mg 1 Tab, Oral, 1-Timepotassium chloride 10 mEq 50 mL, IV Piggyback, R3Vggotdzbzx chloride CR 20 mEq tab 20 mEq 1 Tab, Oral, Q5Mjpaqehhmm chloride CR 20 mEq tab 60 mEq 3 Tab, Oral, T6Fyqzrvl phosphate 15 mMole 5 mL, IV Piggyback, Dailysodium phosphate 15 mMole 5 mL, IV Piggyback, I6BEifqahu list:Active Problems (30)Allergic rhinitis Angina Arthritis Atrial fibrillation Atrial flutter Back pain Bronchitis Bursitis Chronic constipation Chronic cough COPD, mild Diabetes mellitus type II GERD - Gastro-esophageal reflux disease Hard of hearing Heart failure Heart valve Hemorrhoids Hiatal hernia Histoplasmosis Hx of seborrhea Hyperlipidemia Hypertension Pancreatitis Peripheral neuropathy Peripheral vascular disease Pneumonia PSVT (paroxysmal supraventricular tachycardia) Restless legs syndrome Sinusitis Sleep apnea hydrALAZINE 20 mg/1 mL inj 10 mg 0.5 mL, IV Push, Q6H HYDROmorphone 1 mg/1 mL inj 0.5 mg 0.5 mL, IV Push, Q4H HYDROmorphone 1 mg/1 mL inj 0.25 mg 0.25 mL, IV Push, Q10Min magnesium sulfate 2 Gram 50 mL, IV Piggyback, Daily magnesium sulfate 2 Gram 50 mL, IV Piggyback, Q2H morphine 2 mg/1 ml cpjt inj 2 mg 1 mL, IV Push, Q4H nitroglycerin 0.4 mg tab # 25 btl 0.4 mg 1 Tab, SubLINgual, Q5Min ondansetron 4 mg/2 mL inj 4 mg 2 mL, IV Push, Q4H ondansetron 4 mg/2 mL inj 4 mg 2 mL, IV Push, 1-Time oxyCODONE 5 mg tab 5 mg 1 Tab, Oral, Q4H oxyCODONE 5 mg tab 5 mg 1 Tab, Oral, 1-Time potassium chloride 10 mEq 50 mL, IV Piggyback, Q1H potassium chloride CR 20 mEq tab 20 mEq 1 Tab, Oral, Q2H potassium chloride CR 20 mEq tab 60 mEq 3 Tab, Oral, Q2H sodium phosphate 15 mMole 5 mL, IV Piggyback, Daily sodium phosphate 15 mMole 5 mL, IV Piggyback, Q6H Problem list: Active Problems (30) Allergic rhinitis Angina Arthritis Atrial fibrillation Atrial flutter Back pain Bronchitis Bursitis Chronic constipation Chronic cough COPD, mild Diabetes mellitus type II GERD - Gastro-esophageal reflux disease Hard of hearing Heart failure Heart valve Hemorrhoids Hiatal hernia Histoplasmosis Hx of seborrhea Hyperlipidemia Hypertension Pancreatitis Peripheral neuropathy Peripheral vascular disease Pneumonia PSVT (paroxysmal supraventricular tachycardia) Restless legs syndrome Sinusitis Sleep apnea ObjectiveVS/MeasurementsVital Signs/Vital Wkfihqux31/19/2016 7:00 EST Heart Rate Monitored 96 bpm Respiratory Rate 22 Breaths/Min HI Systolic Blood Pressure 112 mmHg Diastolic Blood Pressure 58 mmHg LOW Mean Arterial Pressure (MAP)-BMDI 82 Systolic BP, Arterial Line 1 154 mmHg HI Diastolic BP, Arterial Line 1 50 mmHg LOW Mean Arterial Pressure, Line 1 79 mmHg Oxygen Saturation 97 %10/08/2016 6:00 EST Heart Rate Monitored 95 bpm Respiratory Rate 21 Breaths/Min HI Systolic Blood Pressure 115 mmHg Diastolic Blood Pressure 58 mmHg LOW Mean Arterial Pressure (MAP)-BMDI 80 Systolic BP, Arterial Line 1 133 mmHg Diastolic BP, Arterial Line 1 46 mmHg LOW Mean Arterial Pressure, Line 1 72 mmHg Oxygen Saturation 98 % Oxygen Therapy Mode BiPAP FiO2 Nursing 35 %10/08/2016 5:00 EST Heart Rate Monitored 88 bpm Respiratory Rate 18 Breaths/Min Systolic Blood Pressure 116 mmHg Diastolic Blood Pressure 55 mmHg LOW Mean Arterial Pressure (MAP)-BMDI 80 Systolic BP, Arterial Line 1 133 mmHg Diastolic BP, Arterial Line 1 43 mmHg LOW Mean Arterial Pressure, Line 1 67 mmHg Oxygen Saturation 98 %10/08/2016 4:17 EST Heart Rate Monitored 87 bpm Oxygen Therapy Mode BiPAP FiO2 Nursing 35 %10/08/2016 4:00 EST Temperature Source Axillary Temperature Mode Fahrenheit Temperature, Fahrenheit 98.9 Deg F Clinical Temperature, C 37.2 Deg C Clinical Temperature, C 37.2 Deg C Heart Rate Monitored 90 bpm Respiratory Rate 18 Breaths/Min Systolic Blood Pressure 120 mmHg Diastolic Blood Pressure 60 mmHg Mean Arterial Pressure (MAP)-BMDI 84 Systolic BP, Arterial Line 1 159 mmHg HI Diastolic BP, Arterial Line 1 49 mmHg LOW Mean Arterial Pressure, Line 1 76 mmHg Oxygen Saturation 99 % Oxygen Therapy Mode BiPAP FiO2 Nursing 35 %10/08/2016 3:00 EST Heart Rate Monitored 86 bpm Respiratory Rate 17 Breaths/Min Systolic Blood Pressure 109 mmHg Diastolic Blood Pressure 56 mmHg LOW Mean Arterial Pressure (MAP)-BMDI 76 Systolic BP, Arterial Line 1 143 mmHg HI Diastolic BP, Arterial Line 1 48 mmHg LOW Mean Arterial Pressure, Line 1 72 mmHg Oxygen Saturation 99 %10/08/2016 2:00 EST Heart Rate Monitored 87 bpm Respiratory Rate 17 Breaths/Min Systolic Blood Pressure 104 mmHg Diastolic Blood Pressure 59 mmHg LOW Mean Arterial Pressure (MAP)-BMDI 78 Systolic BP, Arterial Line 1 142 mmHg HI Diastolic BP, Arterial Line 1 49 mmHg LOW Mean Arterial Pressure, Line 1 73 mmHg Oxygen Saturation 98 %10/08/2016 1:00 EST Heart Rate Monitored 85 bpm Respiratory Rate 16 Breaths/Min Systolic Blood Pressure 101 mmHg Diastolic Blood Pressure 56 mmHg LOW Mean Arterial Pressure (MAP)-BMDI 73 Systolic BP, Arterial Line 1 111 mmHg Diastolic BP, Arterial Line 1 42 mmHg LOW Mean Arterial Pressure, Line 1 64 mmHg Oxygen Saturation 97 % Oxygen Therapy Mode BiPAP FiO2 Nursing 35 %10/08/2016 0:00 EST Temperature Source Axillary Temperature Mode Fahrenheit Temperature, Fahrenheit 99.0 Deg F Clinical Temperature, C 37.2 Deg C Clinical Temperature, C 37.2 Deg C Heart Rate Monitored 92 bpm Respiratory Rate 17 Breaths/Min Systolic Blood Pressure 104 mmHg Diastolic Blood Pressure 55 mmHg LOW Mean Arterial Pressure (MAP)-BMDI 74 Systolic BP, Arterial Line 1 123 mmHg Diastolic BP, Arterial Line 1 44 mmHg LOW Mean Arterial Pressure, Line 1 65 mmHg Oxygen Saturation 98 % Oxygen Therapy Mode Nasal cannula Oxygen Flow Rate 4 Liter/Min10/07/2016 23:38 EST FiO2 Nursing 35 %10/07/2016 23:00 EST Heart Rate Monitored 93 bpm Respiratory Rate 21 Breaths/Min HI Systolic Blood Pressure 105 mmHg Diastolic Blood Pressure 59 mmHg LOW Mean Arterial Pressure (MAP)-BMDI 79 Systolic BP, Arterial Line 1 140 mmHg Diastolic BP, Arterial Line 1 51 mmHg LOW Mean Arterial Pressure, Line 1 75 mmHg Oxygen Saturation 98 %10/07/2016 22:00 EST Heart Rate Monitored 103 bpm HI Respiratory Rate 24 Breaths/Min HI Systolic Blood Pressure 98 mmHg Diastolic Blood Pressure 56 mmHg LOW Mean Arterial Pressure (MAP)-BMDI 74 Systolic BP, Arterial Line 1 129 mmHg Diastolic BP, Arterial Line 1 49 mmHg LOW Mean Arterial Pressure, Line 1 70 mmHg Oxygen Saturation 98 % Oxygen Therapy Mode BiPAP112/08/2015 21:00 EST Heart Rate Monitored 120 bpm HI Respiratory Rate 29 Breaths/Min HI Systolic Blood Pressure 136 mmHg Diastolic Blood Pressure 80 mmHg Mean Arterial Pressure (MAP)-BMDI 98 Systolic BP, Arterial Line 1 157 mmHg HI Diastolic BP, Arterial Line 1 63 mmHg Mean Arterial Pressure, Line 1 88 mmHg Oxygen Saturation 98 %10/07/2016 20:40 EST Heart Rate, Apical 116 bpm ID 10/07/2016 20:00 EST Temperature Source Axillary Temperature Mode Fahrenheit Temperature, Fahrenheit 99.7 Deg F Clinical Temperature, C 37.6 Deg C Heart Rate Monitored 116 bpm HI Respiratory Rate 28 Breaths/Min HI Systolic Blood Pressure 124 mmHg Diastolic Blood Pressure 70 mmHg Mean Arterial Pressure (MAP)-BMDI 92 Systolic BP, Arterial Line 1 140 mmHg Diastolic BP, Arterial Line 1 43 mmHg LOW Mean Arterial Pressure, Line 1 67 mmHg Oxygen Saturation 94 % Oxygen Therapy Mode Nasal cannula Oxygen Flow Rate 4 Liter/Min10/07/2016 19:57 EST Heart Rate Monitored 112 bpm HI Oxygen Therapy Mode Nasal cannula Oxygen Flow Rate 4 Liter/Min10/07/2016 18:00 EST Heart Rate Monitored 105 bpm HI Respiratory Rate 22 Breaths/Min HI Systolic Blood Pressure 127 mmHg Diastolic Blood Pressure 68 mmHg Mean Arterial Pressure (MAP)-BMDI 89 Systolic BP, Arterial Line 1 142 mmHg HI Diastolic BP, Arterial Line 1 42 mmHg LOW Mean Arterial Pressure, Line 1 66 mmHg Oxygen Saturation 95 % Oxygen Therapy Mode Nasal cannula Oxygen Flow Rate 4 Liter/Min10/07/2016 17:00 EST Heart Rate Monitored 102 bpm HI Respiratory Rate 20 Breaths/Min Systolic Blood Pressure 125 mmHg Diastolic Blood Pressure 70 mmHg Mean Arterial Pressure (MAP)-BMDI 92 Systolic BP, Arterial Line 1 146 mmHg HI Diastolic BP, Arterial Line 1 42 mmHg LOW Mean Arterial Pressure, Line 1 67 mmHg Oxygen Saturation 97 % Oxygen Therapy Mode Nasal cannula Oxygen Flow Rate 4 Liter/Min10/07/2016 16:00 EST Temperature Source Axillary Temperature Mode Fahrenheit Temperature, Fahrenheit 99.0 Deg F Clinical Temperature, C 37.2 Deg C Heart Rate Monitored 100 bpm Respiratory Rate 20 Breaths/Min Systolic Blood Pressure 118 mmHg Diastolic Blood Pressure 69 mmHg Mean Arterial Pressure (MAP)-BMDI 88 Systolic BP, Arterial Line 1 139 mmHg Diastolic BP, Arterial Line 1 40 mmHg LOW Mean Arterial Pressure, Line 1 64 mmHg Oxygen Saturation 96 % Oxygen Therapy Mode Nasal cannula Oxygen Flow Rate 4 Liter/Min10/07/2016 15:27 EST Heart Rate, Apical 105 bpm HI Heart Rate, Apical 105 bpm HI 10/07/2016 15:11 EST Heart Rate Monitored 102 bpm HI Respiratory Rate 21 Breaths/Min HI Oxygen Saturation 95 %10/07/2016 15:07 EST Heart Rate Monitored 102 bpm HI Respiratory Rate 24 Breaths/Min HI Oxygen Saturation 95 % Oxygen Therapy Mode Nasal cannula Oxygen Flow Rate 4 Liter/Min10/07/2016 15:00 EST Systolic Blood Pressure 135 mmHg Diastolic Blood Pressure 72 mmHg Mean Arterial Pressure (MAP)-BMDI 97 Systolic BP, Arterial Line 1 143 mmHg HI Diastolic BP, Arterial Line 1 47 mmHg LOW Mean Arterial Pressure, Line 1 72 mmHg10/07/2016 14:39 EST Heart Rate Monitored 102 bpm HI Respiratory Rate 17 Breaths/Min Oxygen Saturation 93 % LOW Oxygen Therapy Mode Nasal cannula Oxygen Flow Rate 4 Liter/Min10/07/2016 14:00 EST Systolic Blood Pressure 132 mmHg Diastolic Blood Pressure 70 mmHg Mean Arterial Pressure (MAP)-BMDI 95 Systolic BP, Arterial Line 1 143 mmHg HI Diastolic BP, Arterial Line 1 55 mmHg LOW Mean Arterial Pressure, Line 1 79 mmHg10/07/2016 13:01 EST Oxygen Saturation 96 %10/07/2016 13:00 EST Heart Rate Monitored 95 bpm Respiratory Rate 26 Breaths/Min HI Systolic Blood Pressure 109 mmHg Diastolic Blood Pressure 58 mmHg LOW Mean Arterial Pressure (MAP)-BMDI 79 Systolic BP, Arterial Line 1 132 mmHg Diastolic BP, Arterial Line 1 50 mmHg LOW Mean Arterial Pressure, Line 1 72 mmHg Oxygen Therapy Mode Mechanical ventilation FiO2 Nursing 40 %10/07/2016 12:00 EST Temperature Source Axillary Temperature Mode Fahrenheit Temperature, Fahrenheit 99.4 Deg F Clinical Temperature, C 37.4 Deg C Heart Rate Monitored 84 bpm Respiratory Rate 19 Breaths/Min Systolic Blood Pressure 115 mmHg Diastolic Blood Pressure 61 mmHg Mean Arterial Pressure (MAP)-BMDI 83 Systolic BP, Arterial Line 1 126 mmHg Diastolic BP, Arterial Line 1 52 mmHg LOW Mean Arterial Pressure, Line 1 72 mmHg Oxygen Saturation 98 % Oxygen Therapy Mode Mechanical ventilation FiO2 Nursing 40 %10/07/2016 11:58 EST Heart Rate Monitored 83 bpm Respiratory Rate 19 Breaths/Min Oxygen Saturation 99 %10/07/2016 11:54 EST Heart Rate Monitored 83 bpm Respiratory Rate 20 Breaths/Min Oxygen Saturation 98 %10/07/2016 11:00 EST Systolic Blood Pressure 111 mmHg Diastolic Blood Pressure 62 mmHg Mean Arterial Pressure (MAP)-BMDI 81 Systolic BP, Arterial Line 1 120 mmHg Diastolic BP, Arterial Line 1 49 mmHg LOW Mean Arterial Pressure, Line 1 67 mmHg Oxygen Therapy Mode Mechanical ventilation FiO2 Nursing 40 %10/07/2016 10:00 EST Heart Rate Monitored 84 bpm Respiratory Rate 20 Breaths/Min Systolic Blood Pressure 125 mmHg Diastolic Blood Pressure 66 mmHg Mean Arterial Pressure (MAP)-BMDI 89 Systolic BP, Arterial Line 1 132 mmHg Diastolic BP, Arterial Line 1 50 mmHg LOW Mean Arterial Pressure, Line 1 70 mmHg Oxygen Saturation 97 % Oxygen Therapy Mode Mechanical ventilation FiO2 Nursing 40 %10/07/2016 9:01 EST Heart Rate, Apical 84 bpm Systolic Blood Pressure 122 mmHg10/07/2016 9:00 EST Heart Rate, Apical Not Done: Not Appropriate at this Time (Not Done) Heart Rate Monitored 84 bpm Respiratory Rate 21 Breaths/Min HI Mean Arterial Pressure (MAP)-BMDI 79 Systolic BP, Arterial Line 1 122 mmHg Diastolic BP, Arterial Line 1 45 mmHg LOW Mean Arterial Pressure, Line 1 64 mmHg Oxygen Saturation 96 % Oxygen Therapy Mode Mechanical ventilation FiO2 Nursing 40 %10/07/2016 8:10 EST Oxygen Saturation 96 % FiO2 Nursing 40 %10/07/2016 8:00 EST Temperature Source Axillary Temperature Mode Fahrenheit Temperature, Fahrenheit 99.0 Deg F Clinical Temperature, C 37.2 Deg C Heart Rate Monitored 76 bpm Respiratory Rate 16 Breaths/Min Systolic Blood Pressure 133 mmHg Diastolic Blood Pressure 72 mmHg Mean Arterial Pressure (MAP)-BMDI 96 Systolic BP, Arterial Line 1 150 mmHg HI Diastolic BP, Arterial Line 1 58 mmHg LOW Mean Arterial Pressure, Line 1 83 mmHg Oxygen Therapy Mode Mechanical wdbrohlaesc65/18/2016 7:00 EST Heart Rate Monitored 72 bpm Respiratory Rate 16 Breaths/Min Systolic Blood Pressure 121 mmHg Diastolic Blood Pressure 62 mmHg Mean Arterial Pressure (MAP)-BMDI 84 Systolic BP, Arterial Line 1 131 mmHg Diastolic BP, Arterial Line 1 53 mmHg LOW Mean Arterial Pressure, Line 1 74 mmHg Oxygen Saturation 98 % Oxygen Therapy Mode Mechanical ventilation FiO2 Nursing 40 %10/07/2016 6:00 EST Heart Rate Monitored 72 bpm Respiratory Rate 16 Breaths/Min Systolic Blood Pressure 111 mmHg Diastolic Blood Pressure 62 mmHg Mean Arterial Pressure (MAP)-BMDI 80 Systolic BP, Arterial Line 1 121 mmHg Diastolic BP, Arterial Line 1 50 mmHg LOW Mean Arterial Pressure, Line 1 69 mmHg Oxygen Saturation 98 % Oxygen Therapy Mode Mechanical ventilation FiO2 Nursing 40 %10/07/2016 5:00 EST Heart Rate Monitored 72 bpm Respiratory Rate 16 Breaths/Min Systolic Blood Pressure 108 mmHg Diastolic Blood Pressure 62 mmHg Mean Arterial Pressure (MAP)-BMDI 79 Systolic BP, Arterial Line 1 119 mmHg Diastolic BP, Arterial Line 1 48 mmHg LOW Mean Arterial Pressure, Line 1 67 mmHg Oxygen Saturation 98 % Oxygen Therapy Mode Mechanical ventilation FiO2 Nursing 40 %10/07/2016 4:00 EST Temperature Source Axillary Temperature Mode Fahrenheit Temperature, Fahrenheit 98.6 Deg F Clinical Temperature, C 37 Deg C Heart Rate Monitored 74 bpm Respiratory Rate 16 Breaths/Min Systolic Blood Pressure 107 mmHg Diastolic Blood Pressure 63 mmHg Mean Arterial Pressure (MAP)-BMDI 80 Systolic BP, Arterial Line 1 119 mmHg Diastolic BP, Arterial Line 1 49 mmHg LOW Mean Arterial Pressure, Line 1 67 mmHg Oxygen Saturation 98 % Oxygen Therapy Mode Mechanical ventilation FiO2 Nursing 40 %10/07/2016 3:00 EST Heart Rate Monitored 76 bpm Respiratory Rate 16 Breaths/Min Systolic Blood Pressure 107 mmHg Diastolic Blood Pressure 62 mmHg Mean Arterial Pressure (MAP)-BMDI 79 Systolic BP, Arterial Line 1 127 mmHg Diastolic BP, Arterial Line 1 47 mmHg LOW Mean Arterial Pressure, Line 1 66 mmHg Oxygen Saturation 99 % Oxygen Therapy Mode Mechanical ventilation FiO2 Nursing 50 %10/07/2016 2:00 EST Heart Rate Monitored 82 bpm Respiratory Rate 16 Breaths/Min Systolic Blood Pressure 110 mmHg Diastolic Blood Pressure 66 mmHg Mean Arterial Pressure (MAP)-BMDI 84 Systolic BP, Arterial Line 1 133 mmHg Diastolic BP, Arterial Line 1 47 mmHg LOW Mean Arterial Pressure, Line 1 67 mmHg Oxygen Saturation 99 % Oxygen Therapy Mode Mechanical ventilation FiO2 Nursing 50 %10/07/2016 1:19 EST Heart Rate, Apical 86 bpm10/07/2016 1:18 EST Heart Rate, Apical 86 bpm Heart Rate, Apical 86 bpm Heart Rate, Apical 86 bpm10/07/2016 1:00 EST Heart Rate Monitored 88 bpm Respiratory Rate 16 Breaths/Min Systolic Blood Pressure 113 mmHg Diastolic Blood Pressure 62 mmHg Mean Arterial Pressure (MAP)-BMDI 82 Systolic BP, Arterial Line 1 134 mmHg Diastolic BP, Arterial Line 1 47 mmHg LOW Mean Arterial Pressure, Line 1 66 mmHg Oxygen Saturation 99 % Oxygen Therapy Mode Mechanical ventilation FiO2 Nursing 50 %10/07/2016 0:00 EST Temperature Source Axillary Temperature Mode Fahrenheit Temperature, Fahrenheit 98.5 Deg F Clinical Temperature, C 36.9 Deg C Heart Rate Monitored 92 bpm Respiratory Rate 14 Breaths/Min Systolic Blood Pressure 89 mmHg LOW Diastolic Blood Pressure 54 mmHg LOW Mean Arterial Pressure (MAP)-BMDI 66 Systolic BP, Arterial Line 1 93 mmHg Diastolic BP, Arterial Line 1 37 mmHg LOW Mean Arterial Pressure, Line 1 50 mmHg Oxygen Saturation 97 % Oxygen Therapy Mode Mechanical ventilation FiO2 Nursing 50 %,Vitals Signs (last 24 hrs) Last Charted Minimum MaximumTemp 98.9 (OCT 08 04:00)98.9 (OCT 08 04:00)99.0 (OCT 07 08:00)Apical HR H 116 (OCT 07 20:40)84 (OCT 07 09:01)H 116 (OCT 07 20:40)Mon HR 96 (OCT 08 07:00)76 (OCT 07 08:00)120 (OCT 07 21:00)Resp Rate H 22 (OCT 08 07:00)16 (OCT 07 08:00)H 29 (OCT 07 21:00)SBP 112 (OCT 08 07:00)98 (OCT 07 22:00)136 (OCT 07 21:00)DBP L 58 (OCT 08 07:00)L 55 (OCT 08 00:00)80 (OCT 07:00)MAP 79 (OCT 08 07:00)64 (OCT 07 09:00)98 (OCT 07 21:00)SpO2 97 (OCT 08 07:00)L 93 (OCT 07 14:39)99 (OCT 07 11:58)General: Alert and oriented.Eye: Pupils are equal, round and reactive to light.HENT: Normocephalic.Neck: Supple.Respiratory: Lungs are clear to auscultation, Respirations are non-labored, Breath sounds are equal, Symmetrical chest wall expansion.Cardiovascular: Normal rate, Regular rhythm, No murmur, No gallop, No edema, Minimal drainage of the surgical site in the vaccum..Gastrointestinal: Soft, Non-tender, Non-distended, Normal bowel sounds.Integumentary: Warm.Neurologic: Alert.Psychiatric: Cooperative. Mean Arterial Pressure (MAP)-BMDI 66 Systolic BP, Arterial Line 1 93 mmHg Diastolic BP, Arterial Line 1 37 mmHg LOW Mean Arterial Pressure, Line 1 50 mmHg Oxygen Saturation 97 % Oxygen Therapy Mode Mechanical ventilation FiO2 Nursing 50 % , Vitals Signs (last 24 hrs) Last Charted Minimum Maximum Temp 98.9 (OCT 08 04:00)98.9 (OCT 08 04:00)99.0 (OCT 07 08:00) Apical HR H 116 (OCT 07 20:40)84 (OCT 07 09:01)H 116 (OCT 07 20:40) Mon HR 96 (OCT 08:00)76 (OCT 07 08:00)120 (OCT 07:00) Resp Rate H 22 (OCT 08:00)16 (OCT 07 08:00)H 29 (OCT 07:00) SBP 112 (OCT 08 07:00)98 (OCT 07 22:00)136 (OCT 07:00) DBP L 58 (OCT 08 07:00)L 55 (OCT 08 00:00)80 (OCT 07 21:00) MAP 79 (OCT 08 07:00)64 (OCT 07 09:00)98 (OCT 07 21: 00) SpO2 97 (OCT 08 07:00)L 93 (OCT 07 14:39)99 (OCT 07 11 :58) General: Alert and oriented. Eye: Pupils are equal, round and reactive to light. HENT: Normocephalic. Neck: Supple. Respiratory: Lungs are clear to auscultation, Respirations are non-labored, Breath sounds are equal, Symmetrical chest wall expansion. Cardiovascular: Normal rate, Regular rhythm, No murmur, No gallop, No edema, Minimal drainage of the surgical site in the vaccum.. Gastrointestinal: Soft, Non-tender, Non-distended, Normal bowel sounds. Integumentary: Warm. Neurologic: Alert. Psychiatric: Cooperative. Results Review OCT 08 04:03 140 | 103 | H 24 / H 127 4.0 | 25 | H 2.00 \\ OCT 08 04:03 \\ L 8.5 / H 12.6 216 / L 26.9 \\Cardiac Markers (Current Encounter/Past 24 Hours)No Cardiac Marker Results Found (Past 24 Hours) Radiology Results (Last 48 hours)[id number] -- 10/06/2016 03:13US Pseudoaneurysm Scan (10/06/2016 07:33) Result: ULTRASOUND VASCULAR ARTERIAL LOWER EXTREMITY LIMITED, RIGHTHISTORY: Pain. Recent surgeryFINDINGS: Limited Doppler evaluation of the groin demonstrates complexpseudoaneurysm. The pseudoaneurysm measures 8.3 x 5.2 x 5.0 cm. Smallamount of peripheral thrombus is noted. There is no evidence of AVfistula. Visualized portions of the common femoral artery and vein arepatent. There is small amount of surrounding hematoma appreciated. IMPRESSION: Large right femoral pseudoaneurysm measuring up to 8.3 cmCR Chest 1 Vw (10/06/2016 22:41) Result: CHEST ONE VIEWHISTORY: Shortness of breath COMPARISON: Line placementFINDINGS: There is a right internal jugular central catheter with thetip terminating in the SVC. There is an endotracheal tube present ingood position. There is right basilar airspace disease suspicious forpneumonia. There is no evidence of effusion or pneumothorax. Mediastinum is unremarkable. Heart size is stable, normal. IMPRESSION: Right basilar airspace disease suspicious for pneumonia.Recommend continued follow-up US Pseudoaneurysm Scan (10/06/2016 07:33) Result: ULTRASOUND VASCULAR ARTERIAL LOWER EXTREMITY LIMITED, RIGHTHISTORY: Pain. Recent surgeryFINDINGS: Limited Doppler evaluation of the groin demonstrates complexpseudoaneurysm. The pseudoa neurysm measures 8.3 x 5.2 x 5.0 cm. Smallamount of peripheral thrombus is noted. There is no evidence of AVfistula. Visualized portions of the common femoral artery and vein arepatent. There is small amount of surrounding hematoma appreciated. IMPRESSION: Large right femoral pseudoaneurysm measuring up to 8.3 cm CR Chest 1 Vw (10/06/2016 22:41) Result: CHEST ONE VIEWHISTORY: Shortness of breath COMPARISON: Line placementFINDINGS: There is a right internal jugular central catheter with thetip terminating in the SVC. There is an endo tracheal tube present ingood position. There is right basilar airspace disease suspicious forpneumonia. There is no evidence of effusion or pneumothorax. Mediastinum is unremarkable. Heart size is stable, normal. IMPRESSION: Right basilar airspace disease suspicious for pneumonia.Recommend continued follow-up Impression and PlanIMPRESSION:1- Persistant atrial flib s/p CV for rhythm control.2- Typical flutter s/p ablation then 2 days later he developed the pseudoanurysm and AV fistula s/p surgery yesterday.We resumed his RythmolThen when the time come per surgery we will resume his Xaerlato.3- Abnormal CXR for repeat today and PEDRO is following.4- psudoanurysm and AV fistula repain and Hbg is being followed closely.5- Renal insufficincy good urine output and PEDRO follow.PLAN;OK to transfer to tele from EP standpoint. 4- psudoanurysm and AV fistula repain and Hbg is being followed closely. 5- Renal insufficincy good urine output and PEDRO follow. PLAN;OK to transfer to tele from EP standpoint. Extracted from: Title: EP progress note Author: SAVI NIELSON, Date: 10/07/16 -CAR SubjectiveThe patient got the surgery for the pseudoaneurysm and AV fistula by Dr Jeffrey last night.The patient was kept intubated as he has YONG.Trial of weaning today.We gave hinm a short acting Rythmol last night as he can not take the long acting through the tube.He remained in SR.On SQ heparin He remained in SR. On SQ heparin Health StatusAllergies:Allergic Reactions (All)Severity Not DocumentedBactrim- Rash , fever.Ciprofloxacin- Hives.Penicillin- Anaphylaxis as child.Tetracyclines- Unsure.,Allergies (4) ActiveReactionBactrimrash , feverciprofloxacinhivespenicillinanaphylaxis as childtetracyclinesunsureCurrent medications: (Selected)Inpatient MedicationsOrderedDilaudid: 0.5 mg, IV Push, Q4H, PRN: Pain (Moderate 4-6)DuoNeb 0.5 mg-2.5 mg/3 mL inhalation solution: 3 mL, Nebulized Inhalation, [id number] 0.5 mg-2.5 mg/3 mL inhalation solution: 3 mL, Nostrils Both, Q6H, PRN: Shortness of BreathHYDROmorphone: 0.25 mg, IV Push, Q10Min, PRN: Pain (Severe 7-10)Lactated Ringers Injection 1,000 mL: 100 mL/Hr, IntraVENousNitrostat: 0.4 mg, SubLINgual, Q5Min, PRN: Chest PainPepcid: 20 mg, Oral, DailyPremix Diluent + 20 mg niCARdipine: Titrate, IntraVENousRythmol SR: 425 mg, Oral, R25KSguieth: 650 mg, Oral, Q4H, PRN: Other (See Comment)Zofran: 4 mg, IV Push, Q4H, PRN: NauseaamLODIPine: 10 mg, Oral, Dailyamitriptyline: 50 mg, Oral, At Bedtimecalcium gluconate: 1 Gram, 10 mL, 60 mL/Hr, IV Piggyback, Daily, PRN: Other (See Comment)calcium gluconate: 2 Gram, 20 mL, 120 mL/Hr, IV Piggyback, Daily, PRN: Other (See Comment)calcium gluconate: 2 Gram, 20 mL, 120 mL/Hr, IV Piggyback, Q12H, PRN: Other (See Comment)clindamycin + Sodium Chloride 0.9% 100 mL: 900 mg, 6 mL, 106 mL/Hr, IV Piggyback, 1-TimefentaNYL injection 1,000 mcg: Titration, IntraVENousfentaNYL: 25 mcg, IV Push, 1-Time, PRN: Pain (Severe 7-10)fentaNYL: 25 mcg, IV Push, Q10Min, PRN: Pain (Moderate 4-6)furosemide: 40 mg, Oral, Dailygabapentin: 300 mg, Oral, BIDheparin: 5,000 Units, SubCutaneous, [id number]: 10 mg, IV Push, Q6H, PRN: Hypertensioninsulin regular sliding scale: Scale C, SubCutaneous, P5Ifnfnhrapjg: 40 mg, Oral, Dailylovastatin: 40 mg, Oral, At Bedtimemagnesium sulfate: 2 Gram, 50 mL, 25 mL/Hr, IV Piggyback, Daily, PRN: Other (See Comment)magnesium sulfate: 2 Gram, 50 mL, 25 mL/Hr, IV Piggyback, Q2H, PRN: Other (See Comment)metoprolol tartrate: 100 mg, Oral, TIDmorphine: 2 mg, IV Push, Q4H, PRN: Pain (Severe 7-10)ondansetron: 4 mg, IV Push, 1-Time, PRN: Nausea/VomitingoxyCODONE: 5 mg, Oral, 1-Time, PRN: Pain (Moderate 4-6)oxyCODONE: 5 mg, Oral, Q4H, PRN: Pain (Moderate 4-6)phenylephrine injection 20 mg + Sodium Chloride 0.9% 250 mL: Titrate, IntraVENouspotassium chloride 10 mEq/50 mL intravenous solution: 10 mEq, 50 mL, 50 mL/Hr, IV Piggyback, Q1H, PRN: Other (See Comment)potassium chloride 20 mEq oral tablet, extended release: 20 mEq, 1 Tab, Oral, Dailypotassium chloride 20 mEq oral tablet, extended release: 20 mEq, 1 Tab, Oral, Q2H, PRN: Other (See Comment)potassium chloride 20 mEq oral tablet, extended release: 60 mEq, 3 Tab, Oral, Q2H, PRN: Other (See Comment)propofol injection 1,000 mg + Premix Diluent 100 mL: Titrate, IntraVENoussodium phosphate: 15 mMole, 5 mL, 50 mL/Hr, IV Piggyback, Daily, PRN: Other (See Comment)sodium phosphate: 15 mMole, 5 mL, 50 mL/Hr, IV Piggyback, Q6H, PRN: Other (See Comment)Pending Completeinfluenza virus vaccine, inactivated: 0.5 mL, IntraMuscular, [id number] MedicationsDocumentedLasix 20 mg oral tablet: 1 Tab, Oral, Daily, 30 Tab, 0 Refill(s)Metoprolol Tartrate 100 mg oral tablet: 0.5 Tab, Oral, With Lunch, may increase to 1 tablet as directed for heart rate, 0 Refill(s)Metoprolol Tartrate 100 mg oral tablet: 1 Tab, Oral, BID, 0 Refill(s)Nitrostat 0.4 mg sublingual tablet: 1 Tab, SubLINgual, Q5Min, If chest pain not relieved in 5 minutes after first dose, seek immediate medical attention, PRN: Chest Pain, 100 Tab, 0 Refill(s)ProAir HFA 90 mcg/inh inhalation aerosol: 2 Puff, Inhalation, QID, PRN: for wheezing, 0 Refill(s)Singulair 10 mg oral tablet: 1 Tab, Oral, At Bedtime, 0 Refill(s)Xarelto 20 mg oral tablet: 1 Tab, Oral, Daily, with largest meal, 30 Tab, 0 Refill(s)albuterol 2.5 mg/3 mL (0.083%) inhalation solution: 3 mL, Nebulized Inhalation, Q6H, PRN: for wheezing, 25 Each, 0 Refill(s)amLODIPine 10 mg oral tablet: 1 Tab, Oral, Daily, 30 Tab, 0 Refill(s)amitriptyline 50 mg oral tablet: 1 Tab, Oral, At Bedtime, 0 Refill(s)aspirin 325 mg oral tablet: 1 Tab, Oral, Daily, 30 Tab, 0 Refill(s)gabapentin 300 mg oral capsule: 1 Cap, Oral, BID, 60 Cap, 0 Refill(s)lisinopril 40 mg oral tablet: 1 Tab, Oral, Daily, 30 Tab, 0 Refill(s)lovastatin 40 mg oral tablet: 1 Tab, Oral, At Bedtime, 30 Tab, 0 Refill(s)potassium chloride 20 mEq oral tablet, extended release: 1 Tab, Oral, Daily, 0 Refill(s)propafenone 425 mg oral capsule, extended release: 1 Cap, Oral, Q12H, 180 Cap, 0 Refill(s)triamcinolone 0.1% topical cream: 1 Application, Topical, BID, apply to face as directed, 0 Refill(s),Home Medications (17) Activealbuterol 2.5 mg/3 mL (0.083%) inhalation solution 2.5 mg = 3 mL, PRN, Nebulized Inhalation, [id number] 50 mg oral tablet 50 mg = 1 Tab, Oral, At BedtimeamLODIPine 10 mg oral tablet 10 mg = 1 Tab, Oral, Dailyaspirin 325 mg oral tablet 325 mg = 1 Tab, Oral, Dailygabapentin 300 mg oral capsule 300 mg = 1 Cap, Oral, BIDLasix 20 mg oral tablet 20 mg = 1 Tab, Oral, Dailylisinopril 40 mg oral tablet 40 mg = 1 Tab, Oral, Dailylovastatin 40 mg oral tablet 40 mg = 1 Tab, Oral, At BedtimeMetoprolol Tartrate 100 mg oral tablet 100 mg = 1 Tab, Oral, BIDMetoprolol Tartrate 100 mg oral tablet 50 mg = 0.5 Tab, Oral, With LunchNitrostat 0.4 mg sublingual tablet 0.4 mg = 1 Tab, PRN, SubLINgual, G0Cytujxouxola chloride 20 mEq oral tablet, extended release 20 mEq = 1 Tab, Oral, DailyProAir HFA 90 mcg/inh inhalation aerosol 2 Puff, PRN, Inhalation, QIDpropafenone 425 mg oral capsule, extended release 425 mg = 1 Cap, Oral, S41XGxmepkwdv 10 mg oral tablet 10 mg = 1 Tab, Oral, At Bedtimetriamcinolone 0.1% topical cream 1 Application, Topical, BIDXarelto 20 mg oral tablet 20 mg = 1 Tab, Oral, Daily,Medications (42) ActiveScheduled: (14)albuterol-ipratropium inh 3 mL 3 mL, Nebulized Inhalation, N8Pyidzlvodavlru 50 mg tab 50 mg 1 Tab, Oral, At BedtimeamLODIPine 10 mg tab 10 mg 1 Tab, Oral, Dailyclindamycin *ADV* + NaCl 0.9% *ADV* 100 mL 900 mg 6 mL, IV Piggyback, 1-Timefamotidine 20 mg tab 20 mg 1 Tab, Oral, Dailyfurosemide 40 mg tab 40 mg 1 Tab, Oral, Dailygabapentin 300 mg cap 300 mg 1 Cap, Oral, BIDheparin 5,000 units/1 mL inj 5,000 Units 1 mL, SubCutaneous, F9Uteicvel regular 1 unit/0.01 mL inj 3mL Scale C, SubCutaneous, J2Jgywujqhsnz 20 mg tab 40 mg 2 Tab, Oral, Dailylovastatin 20 mg tab 40 mg 2 Tab, Oral, At Bedtimemetoprolol tartrate 100 mg tab 100 mg 1 Tab, Oral, TIDpotassium chloride CR 20 mEq tab 20 mEq 1 Tab, Oral, Dailypropafenone SR 425 mg cap 425 mg 1 Cap, Oral, D77MMhtzncnddh: (5)fentaNYL 1,000 mcg 100 mL, IntraVENouslactated ringers 1,000 mL 1,000 mL, IntraVENous, 100 mL/Hrphenylephrine 20 mg + NaCl 0.9% 250 mL 250 mL, IntraVENousPremix Diluent + 20 mg niCARdipine 200 mL, IntraVENouspropofol 1,000 mg + Premix Diluent 100 mL 100 mL, IntraVENousPRN: (23)acetaminophen 325 mg tab 650 mg 2 Tab, Oral, R0Khvylnaoch-xvwqhvxuwlk inh 3 mL 3 mL, Nostrils Both, H2Jkeadgrm gluconate 1 Gram 10 mL, IV Piggyback, Dailycalcium gluconate 2 Gram 20 mL, IV Piggyback, Dailycalcium gluconate 2 Gram 20 mL, IV Piggyback, N60OusdyjTWI 100 mcg/2 mL inj 25 mcg 0.5 mL, IV Push, K22OghapyrtGAD 100 mcg/2 mL inj 25 mcg 0.5 mL, IV Push, 1-TimehydrALAZINE 20 mg/1 mL inj 10 mg 0.5 mL, IV Push, [id number] 1 mg/1 mL inj 0.5 mg 0.5 mL, IV Push, B4MCCLUOojhztyps 1 mg/1 mL inj 0.25 mg 0.25 mL, IV Push, K92Tnswmvvacuvs sulfate 2 Gram 50 mL, IV Piggyback, Dailymagnesium sulfate 2 Gram 50 mL, IV Piggyback, Z0Fjpvpadfk 2 mg/1 ml cpjt inj 2 mg 1 mL, IV Push, J4Buisxdyxmblwmt 0.4 mg tab # 25 btl 0.4 mg 1 Tab, SubLINgual, Q6Dibgyglrysmphm 4 mg/2 mL inj 4 mg 2 mL, IV Push, H8Phkamorcnpdz 4 mg/2 mL inj 4 mg 2 mL, IV Push, 1-TimeoxyCODONE 5 mg tab 5 mg 1 Tab, Oral, E3NwfoHKKANI 5 mg tab 5 mg 1 Tab, Oral, 1-Timepotassium chloride 10 mEq 50 mL, IV Piggyback, E7Etsibbqgtg chloride CR 20 mEq tab 20 mEq 1 Tab, Oral, H6Viduqsolpz chloride CR 20 mEq tab 60 mEq 3 Tab, Oral, A8Bftmkon phosphate 15 mMole 5 mL, IV Piggyback, Dailysodium phosphate 15 mMole 5 mL, IV Piggyback, U6LKqrtdny list:Active Problems (30)Allergic rhinitis Angina Arthritis Atrial fibrillation Atrial flutter Back pain Bronchitis Bursitis Chronic constipation Chronic cough COPD, mild Diabetes mellitus type II GERD - Gastro-esophageal reflux disease Hard of hearing Heart failure Heart valve Hemorrhoids Hiatal hernia Histoplasmosis Hx of seborrhea Hyperlipidemia Hypertension Pancreatitis Peripheral neuropathy Peripheral vascular disease Pneumonia PSVT (paroxysmal supraventricular tachycardia) Restless legs syndrome Sinusitis Sleep apnea hydrALAZINE 20 mg/1 mL inj 10 mg 0.5 mL, IV Push, Q6H HYDROmorphone 1 mg/1 mL inj 0.5 mg 0.5 mL, IV Push, Q4H HYDROmorphone 1 mg/1 mL inj 0.25 mg 0.25 mL, IV Push, Q10Min magnesium sulfate 2 Gram 50 mL, IV Piggyback, Daily magnesium sulfate 2 Gram 50 mL, IV Piggyback, Q2H morphine 2 mg/1 ml cpjt inj 2 mg 1 mL, IV Push, Q4H nitroglycerin 0.4 mg tab # 25 btl 0.4 mg 1 Tab, SubLINgual, Q5Min ondansetron 4 mg/2 mL inj 4 mg 2 mL, IV Push, Q4H ondansetron 4 mg/2 mL inj 4 mg 2 mL, IV Push, 1-Time oxyCODONE 5 mg tab 5 mg 1 Tab, Oral, Q4H oxyCODONE 5 mg tab 5 mg 1 Tab, Oral, 1-Time potassium chloride 10 mEq 50 mL, IV Piggyback, Q1H potassium chloride CR 20 mEq tab 20 mEq 1 Tab, Oral, Q2H potassium chloride CR 20 mEq tab 60 mEq 3 Tab, Oral, Q2H sodium phosphate 15 mMole 5 mL, IV Piggyback, Daily sodium phosphate 15 mMole 5 mL, IV Piggyback, Q6H Problem list: Active Problems (30) Allergic rhinitis Angina Arthritis Atrial fibrillation Atrial flutter Back pain Bronchitis Bursitis Chronic constipation Chronic cough COPD, mild Diabetes mellitus type II GERD - Gastro-esophageal reflux disease Hard of hearing Heart failure Heart valve Hemorrhoids Hiatal hernia Histoplasmosis Hx of seborrhea Hyperlipidemia Hypertension Pancreatitis Peripheral neuropathy Peripheral vascular disease Pneumonia PSVT (paroxysmal supraventricular tachycardia) Restless legs syndrome Sinusitis Sleep apnea ObjectiveVS/MeasurementsVital Signs/Vital Gviepekn24/18/2016 12:00 EST Temperature Source Axillary Temperature Mode Fahrenheit Temperature, Fahrenheit 99.4 Deg F Clinical Temperature, C 37.4 Deg C Heart Rate Monitored 84 bpm Respiratory Rate 19 Breaths/Min Systolic Blood Pressure 115 mmHg Diastolic Blood Pressure 61 mmHg Mean Arterial Pressure (MAP)-BMDI 83 Systolic BP, Arterial Line 1 126 mmHg Diastolic BP, Arterial Line 1 52 mmHg LOW Mean Arterial Pressure, Line 1 72 mmHg Oxygen Saturation 98 % Oxygen Therapy Mode Mechanical ventilation FiO2 Nursing 40 %10/07/2016 11:58 EST Heart Rate Monitored 83 bpm Respiratory Rate 19 Breaths/Min Oxygen Saturation 99 %10/07/2016 11:54 EST Heart Rate Monitored 83 bpm Respiratory Rate 20 Breaths/Min Oxygen Saturation 98 %10/07/2016 11:00 EST Systolic Blood Pressure 111 mmHg Diastolic Blood Pressure 62 mmHg Mean Arterial Pressure (MAP)-BMDI 81 Systolic BP, Arterial Line 1 120 mmHg Diastolic BP, Arterial Line 1 49 mmHg LOW Mean Arterial Pressure, Line 1 67 mmHg Oxygen Therapy Mode Mechanical ventilation FiO2 Nursing 40 %10/07/2016 10:00 EST Heart Rate Monitored 84 bpm Respiratory Rate 20 Breaths/Min Systolic Blood Pressure 125 mmHg Diastolic Blood Pressure 66 mmHg Mean Arterial Pressure (MAP)-BMDI 89 Systolic BP, Arterial Line 1 132 mmHg Diastolic BP, Arterial Line 1 50 mmHg LOW Mean Arterial Pressure, Line 1 70 mmHg Oxygen Saturation 97 % Oxygen Therapy Mode Mechanical ventilation FiO2 Nursing 40 %10/07/2016 9:01 EST Heart Rate, Apical 84 bpm Systolic Blood Pressure 122 mmHg10/07/2016 9:00 EST Heart Rate, Apical Not Done: Not Appropriate at this Time (Not Done) Heart Rate Monitored 84 bpm Respiratory Rate 21 Breaths/Min HI Mean Arterial Pressure (MAP)-BMDI 79 Systolic BP, Arterial Line 1 122 mmHg Diastolic BP, Arterial Line 1 45 mmHg LOW Mean Arterial Pressure, Line 1 64 mmHg Oxygen Saturation 96 % Oxygen Therapy Mode Mechanical ventilation FiO2 Nursing 40 %10/07/2016 8:10 EST Oxygen Saturation 96 % FiO2 Nursing 40 %10/07/2016 8:00 EST Temperature Source Axillary Temperature Mode Fahrenheit Temperature, Fahrenheit 99.0 Deg F Clinical Temperature, C 37.2 Deg C Heart Rate Monitored 76 bpm Respiratory Rate 16 Breaths/Min Systolic Blood Pressure 133 mmHg Diastolic Blood Pressure 72 mmHg Mean Arterial Pressure (MAP)-BMDI 96 Systolic BP, Arterial Line 1 150 mmHg HI Diastolic BP, Arterial Line 1 58 mmHg LOW Mean Arterial Pressure, Line 1 83 mmHg Oxygen Therapy Mode Mechanical cgacycqknbj15/18/2016 7:00 EST Heart Rate Monitored 72 bpm Respiratory Rate 16 Breaths/Min Systolic Blood Pressure 121 mmHg Diastolic Blood Pressure 62 mmHg Mean Arterial Pressure (MAP)-BMDI 84 Systolic BP, Arterial Line 1 131 mmHg Diastolic BP, Arterial Line 1 53 mmHg LOW Mean Arterial Pressure, Line 1 74 mmHg Oxygen Saturation 98 % Oxygen Therapy Mode Mechanical ventilation FiO2 Nursing 40 %10/07/2016 6:00 EST Heart Rate Monitored 72 bpm Respiratory Rate 16 Breaths/Min Systolic Blood Pressure 111 mmHg Diastolic Blood Pressure 62 mmHg Mean Arterial Pressure (MAP)-BMDI 80 Systolic BP, Arterial Line 1 121 mmHg Diastolic BP, Arterial Line 1 50 mmHg LOW Mean Arterial Pressure, Line 1 69 mmHg Oxygen Saturation 98 % Oxygen Therapy Mode Mechanical ventilation FiO2 Nursing 40 %10/07/2016 5:00 EST Heart Rate Monitored 72 bpm Respiratory Rate 16 Breaths/Min Systolic Blood Pressure 108 mmHg Diastolic Blood Pressure 62 mmHg Mean Arterial Pressure (MAP)-BMDI 79 Systolic BP, Arterial Line 1 119 mmHg Diastolic BP, Arterial Line 1 48 mmHg LOW Mean Arterial Pressure, Line 1 67 mmHg Oxygen Saturation 98 % Oxygen Therapy Mode Mechanical ventilation FiO2 Nursing 40 %10/07/2016 4:00 EST Temperature Source Axillary Temperature Mode Fahrenheit Temperature, Fahrenheit 98.6 Deg F Clinical Temperature, C 37 Deg C Heart Rate Monitored 74 bpm Respiratory Rate 16 Breaths/Min Systolic Blood Pressure 107 mmHg Diastolic Blood Pressure 63 mmHg Mean Arterial Pressure (MAP)-BMDI 80 Systolic BP, Arterial Line 1 119 mmHg Diastolic BP, Arterial Line 1 49 mmHg LOW Mean Arterial Pressure, Line 1 67 mmHg Oxygen Saturation 98 % Oxygen Therapy Mode Mechanical ventilation FiO2 Nursing 40 %10/07/2016 3:00 EST Heart Rate Monitored 76 bpm Respiratory Rate 16 Breaths/Min Systolic Blood Pressure 107 mmHg Diastolic Blood Pressure 62 mmHg Mean Arterial Pressure (MAP)-BMDI 79 Systolic BP, Arterial Line 1 127 mmHg Diastolic BP, Arterial Line 1 47 mmHg LOW Mean Arterial Pressure, Line 1 66 mmHg Oxygen Saturation 99 % Oxygen Therapy Mode Mechanical ventilation FiO2 Nursing 50 %10/07/2016 2:00 EST Heart Rate Monitored 82 bpm Respiratory Rate 16 Breaths/Min Systolic Blood Pressure 110 mmHg Diastolic Blood Pressure 66 mmHg Mean Arterial Pressure (MAP)-BMDI 84 Systolic BP, Arterial Line 1 133 mmHg Diastolic BP, Arterial Line 1 47 mmHg LOW Mean Arterial Pressure, Line 1 67 mmHg Oxygen Saturation 99 % Oxygen Therapy Mode Mechanical ventilation FiO2 Nursing 50 %10/07/2016 1:19 EST Heart Rate, Apical 86 bpm10/07/2016 1:18 EST Heart Rate, Apical 86 bpm Heart Rate, Apical 86 bpm Heart Rate, Apical 86 bpm10/07/2016 1:00 EST Heart Rate Monitored 88 bpm Respiratory Rate 16 Breaths/Min Systolic Blood Pressure 113 mmHg Diastolic Blood Pressure 62 mmHg Mean Arterial Pressure (MAP)-BMDI 82 Systolic BP, Arterial Line 1 134 mmHg Diastolic BP, Arterial Line 1 47 mmHg LOW Mean Arterial Pressure, Line 1 66 mmHg Oxygen Saturation 99 % Oxygen Therapy Mode Mechanical ventilation FiO2 Nursing 50 %10/07/2016 0:00 EST Temperature Source Axillary Temperature Mode Fahrenheit Temperature, Fahrenheit 98.5 Deg F Clinical Temperature, C 36.9 Deg C Heart Rate Monitored 92 bpm Respiratory Rate 14 Breaths/Min Systolic Blood Pressure 89 mmHg LOW Diastolic Blood Pressure 54 mmHg LOW Mean Arterial Pressure (MAP)-BMDI 66 Systolic BP, Arterial Line 1 93 mmHg Diastolic BP, Arterial Line 1 37 mmHg LOW Mean Arterial Pressure, Line 1 50 mmHg Oxygen Saturation 97 % Oxygen Therapy Mode Mechanical ventilation FiO2 Nursing 50 %10/06/2016 23:00 EST Heart Rate Monitored 87 bpm Respiratory Rate 15 Breaths/Min Systolic Blood Pressure 92 mmHg Diastolic Blood Pressure 51 mmHg LOW Mean Arterial Pressure (MAP)-BMDI 67 Systolic BP, Arterial Line 1 110 mmHg Diastolic BP, Arterial Line 1 39 mmHg LOW Mean Arterial Pressure, Line 1 55 mmHg Oxygen Saturation 96 % Oxygen Therapy Mode Mechanical ventilation FiO2 Nursing 50 %10/06/2016 22:00 EST Temperature Source Axillary Temperature Mode Fahrenheit Temperature, Fahrenheit 98.2 Deg F Clinical Temperature, C 36.8 Deg C Heart Rate Monitored 106 bpm HI Respiratory Rate 20 Breaths/Min Systolic Blood Pressure 83 mmHg LOW Diastolic Blood Pressure 50 mmHg LOW Mean Arterial Pressure (MAP)-BMDI 62 Systolic BP, Arterial Line 1 95 mmHg Diastolic BP, Arterial Line 1 32 mmHg LOW Mean Arterial Pressure, Line 1 51 mmHg Oxygen Saturation 97 % Oxygen Therapy Mode Mechanical ventilation FiO2 Nursing 50 %10/06/2016 10:29 EST Heart Rate, Apical 100 bpm10/06/2016 10:27 EST Heart Rate, Apical 100 bpm10/06/2016 5:30 EST FiO2 Nursing 25 %10/06/2016 5:27 EST Temperature Source Oral Temperature Mode Fahrenheit Temperature, Fahrenheit 97.9 Deg F Clinical Temperature, C 36.6 Deg C Heart Rate Monitored 90 bpm Respiratory Rate 16 Breaths/Min Systolic Blood Pressure 131 mmHg Diastolic Blood Pressure 66 mmHg Mean Arterial Pressure (MAP)-BMDI 79 Oxygen Saturation 95 %10/06/2016 4:00 EST Oxygen Therapy Mode Nasal cannula Oxygen Flow Rate 4 Liter/Min10/06/2016 3:32 EST Temperature Source Oral Temperature Mode Fahrenheit Temperature, Fahrenheit 97.6 Deg F Clinical Temperature, C 36.4 Deg C Heart Rate Monitored 96 bpm Respiratory Rate 16 Breaths/Min Systolic Blood Pressure 154 mmHg HI Diastolic Blood Pressure 88 mmHg Oxygen Saturation 93 % LOW ,Vitals Signs (last 24 hrs) Last Charted Minimum MaximumTemp 99.4 (OCT 07 12:00)98.6 (OCT 07 04:00)99.0 (OCT 07 08:00)Apical HR 84 (OCT 07 09:01)84 (OCT 07 09:01)86 (OCT 07:18)Mon HR 84 (OCT 07 12:00)72 (OCT 07 05:00)106 (OCT 06 22:00)Resp Rate 19 (OCT 07 12:00)14 (OCT 07 00:00)H 21 (OCT 07 09:00)SBP 115 (OCT 07 12:00)L 83 (OCT 06 22:00)133 (OCT 07 08:00)DBP 61 (OCT 07 12:00)L 50 (OCT 06 22:00)72 (OCT 07 08:00)MAP 72 (OCT 07 12:00)50 (OCT 07 00:00)96 (OCT 07 08:00)SpO2 98 (OCT 07 12:00)96 (OCT 06 23:00)99 (OCT 07 01:00)General: The patient is on the vent with mild sedation now,intubated..HENT: Normocephalic.Neck: Supple.Respiratory: Lungs are clear to auscultation, Respirations are non-labored, Breath sounds are equal, Symmetrical chest wall expansion.Cardiovascular: Normal rate, Regular rhythm, No murmur, No gallop, No edema, Minimal drainage of the surgical site in the vaccum..Gastrointestinal: Soft, Non-tender, Non-distended, Normal bowel sounds.Integumentary: Warm. , Vitals Signs (last 24 hrs) Last Charted Minimum Maximum Temp 99.4 (OCT 07 12:00)98.6 (OCT 07 04:00)99.0 (OCT 07 08:00) Apical HR 84 (OCT 07:)84 (OCT 07:01)86 (OCT 07:18) Mon HR 84 (OCT 07 12:00)72 (OCT 07 05:00)106 (OCT 06:00) Resp Rate 19 (OCT 07:00)14 (OCT 07 00:00)H 21 (OCT 07 09: 00) SBP 115 (OCT 07 12:00)L 83 (OCT 06:00)133 (OCT 07 08:00) DBP 61 (OCT 07 12:00)L 50 (OCT 06:00)72 (OCT 07 08:00) MAP 72 (OCT 07 12:00)50 (OCT 07 00:00)96 (OCT 07 08: 00) SpO2 98 (OCT 07 12:00)96 (OCT 06 23:00)99 (OCT 07 01: 00) General: The patient is on the vent with mild sedation now,intubated.. HENT: Normocephalic. Neck: Supple. Respiratory: Lungs are clear to auscultation, Respirations are non-labored, Breath sounds are equal, Symmetrical chest wall expansion. Cardiovascular: Normal rate, Regular rhythm, No murmur, No gallop, No edema, Minimal drainage of the surgical site in the vaccum.. Gastrointestinal: Soft, Non-tender, Non-distended, Normal bowel sounds. Integumentary: Warm. Results Review OCT 07 03:30 139 | 105 | 18 / H 124 4.2 | 24 | H 1.60 \\ OCT 07 03:30 \\ L 8.9 / H 16.0 272 / L 27.9 \\Cardiac Markers (Current Encounter/Past 24 Hours)ProBNP 126 pg/mL ID 10/06/2016 05:42 Radiology Results (Last 48 hours)[id number] -- 10/06/2016 03:13US Pseudoaneurysm Scan (10/06/2016 07:33) Result: ULTRASOUND VASCULAR ARTERIAL LOWER EXTREMITY LIMITED, RIGHTHISTORY: Pain. Recent surgeryFINDINGS: Limited Doppler evaluation of the groin demonstrates complexpseudoaneurysm. The pseudoaneurysm measures 8.3 x 5.2 x 5.0 cm. Smallamount of peripheral thrombus is noted. There is no evidence of AVfistula. Visualized portions of the common femoral artery and vein arepatent. There is small amount of surrounding hematoma appreciated. IMPRESSION: Large right femoral pseudoaneurysm measuring up to 8.3 cm Cardiac Markers (Current Encounter/Past 24 Hours) ProBNP 126 pg/mL ID 10/06/2016 05:42 Radiology Results (Last 48 hours) [id number] -- 10/06/2016 03:13 US Pseudoaneurysm Scan (10/06/2016 07:33) Result: ULTRASOUND VASCULAR ARTERIAL LOWER EXTREMITY LIMITED, RIGHTHISTORY: Pain. Recent surgeryFINDINGS: Limited Doppler evaluation of the groin demonstrates complexpseudoaneurysm. The pseudoa neurysm measures 8.3 x 5.2 x 5.0 cm. Smallamount of peripheral thrombus is noted. There is no evidence of AVfistula. Visualized portions of the common femoral artery and vein arepatent. There is small amount of surrounding hematoma appreciated. IMPRESSION: Large right femoral pseudoaneurysm measuring up to 8.3 cm Impression and PlanIMPRESSION:1- Persistant atrial flib s/p CV for rhythm control.2- Typical flutter s/p ablation then 2 days later he developed the pseudoanurysm and AV fistula s/p surgery yesterday.We need to resume the long acting Rythmol after his extubation for now we will give the short acting.Then when the time come per surgery we will resume his Xaerlato.PLAN;As above. Then when the time come per surgery we will resume his Xaerlato. PLAN;As above. Extracted from: Title: Progress Note, Author: MAJO ZULUAGA, Date: 10/07/16 Acute Care MD-INT Basic Information Intubated, on the vent, unable to give history Review of Systems Unable to obtain, on the vent Health StatusAllergies:Allergic Reactions (Selected)Severity Not DocumentedBactrim- Rash , fever.Ciprofloxacin- Hives.Penicillin- Anaphylaxis as child.Tetracyclines- Unsure.,Allergies (4) ActiveReactionBactrimrash , feverciprofloxacinhivespenicillinanaphylaxis as childtetracyclinesunsureCurrent medications: (Selected)Inpatient MedicationsOrderedDilaudid: 0.5 mg, IV Push, Q4H, PRN: Pain (Moderate 4-6)DuoNeb 0.5 mg-2.5 mg/3 mL inhalation solution: 3 mL, Nebulized Inhalation, D3DDxuJkl 0.5 mg-2.5 mg/3 mL inhalation solution: 3 mL, Nostrils Both, Q6H, PRN: Shortness of BreathHYDROmorphone: 0.25 mg, IV Push, Q10Min, PRN: Pain (Severe 7-10)Lactated Ringers Injection 1,000 mL: 100 mL/Hr, IntraVENousNitrostat: 0.4 mg, SubLINgual, Q5Min, PRN: Chest PainPepcid: 20 mg, Oral, DailyPremix Diluent + 20 mg niCARdipine: Titrate, IntraVENousRythmol SR: 425 mg, Oral, Q78EZsfcqqy: 650 mg, Oral, Q4H, PRN: Other (See Comment)Zofran: 4 mg, IV Push, Q4H, PRN: NauseaamLODIPine: 10 mg, Oral, Dailyamitriptyline: 50 mg, Oral, At Bedtimecalcium gluconate: 1 Gram, 10 mL, 60 mL/Hr, IV Piggyback, Daily, PRN: Other (See Comment)calcium gluconate: 2 Gram, 20 mL, 120 mL/Hr, IV Piggyback, Daily, PRN: Other (See Comment)calcium gluconate: 2 Gram, 20 mL, 120 mL/Hr, IV Piggyback, Q12H, PRN: Other (See Comment)clindamycin + Sodium Chloride 0.9% 100 mL: 900 mg, 6 mL, 106 mL/Hr, IV Piggyback, 1-TimefentaNYL injection 1,000 mcg: Titration, IntraVENousfentaNYL: 25 mcg, IV Push, 1-Time, PRN: Pain (Severe 7-10)fentaNYL: 25 mcg, IV Push, Q10Min, PRN: Pain (Moderate 4-6)furosemide: 40 mg, Oral, Dailygabapentin: 300 mg, Oral, BIDheparin: 5,000 Units, SubCutaneous, C6OlupmJRFXSRF: 10 mg, IV Push, Q6H, PRN: Hypertensioninsulin regular sliding scale: Scale C, SubCutaneous, Q6Terpmtmngfo: 40 mg, Oral, Dailylovastatin: 40 mg, Oral, At Bedtimemagnesium sulfate: 2 Gram, 50 mL, 25 mL/Hr, IV Piggyback, Daily, PRN: Other (See Comment)magnesium sulfate: 2 Gram, 50 mL, 25 mL/Hr, IV Piggyback, Q2H, PRN: Other (See Comment)metoprolol tartrate: 100 mg, Oral, TIDmorphine: 2 mg, IV Push, Q4H, PRN: Pain (Severe 7-10)ondansetron: 4 mg, IV Push, 1-Time, PRN: Nausea/VomitingoxyCODONE: 5 mg, Oral, 1-Time, PRN: Pain (Moderate 4-6)oxyCODONE: 5 mg, Oral, Q4H, PRN: Pain (Moderate 4-6)phenylephrine injection 20 mg + Sodium Chloride 0.9% 250 mL: Titrate, IntraVENouspotassium chloride 10 mEq/50 mL intravenous solution: 10 mEq, 50 mL, 50 mL/Hr, IV Piggyback, Q1H, PRN: Other (See Comment)potassium chloride 20 mEq oral tablet, extended release: 20 mEq, 1 Tab, Oral, Dailypotassium chloride 20 mEq oral tablet, extended release: 20 mEq, 1 Tab, Oral, Q2H, PRN: Other (See Comment)potassium chloride 20 mEq oral tablet, extended release: 60 mEq, 3 Tab, Oral, Q2H, PRN: Other (See Comment)propofol injection 1,000 mg + Premix Diluent 100 mL: Titrate, IntraVENoussodium phosphate: 15 mMole, 5 mL, 50 mL/Hr, IV Piggyback, Daily, PRN: Other (See Comment)sodium phosphate: 15 mMole, 5 mL, 50 mL/Hr, IV Piggyback, Q6H, PRN: Other (See Comment)Pending Completeinfluenza virus vaccine, inactivated: 0.5 mL, IntraMuscular, [id number] MedicationsDocumentedLasix 20 mg oral tablet: 1 Tab, Oral, Daily, 30 Tab, 0 Refill(s)Metoprolol Tartrate 100 mg oral tablet: 0.5 Tab, Oral, With Lunch, may increase to 1 tablet as directed for heart rate, 0 Refill(s)Metoprolol Tartrate 100 mg oral tablet: 1 Tab, Oral, BID, 0 Refill(s)Nitrostat 0.4 mg sublingual tablet: 1 Tab, SubLINgual, Q5Min, If chest pain not relieved in 5 minutes after first dose, seek immediate medical attention, PRN: Chest Pain, 100 Tab, 0 Refill(s)ProAir HFA 90 mcg/inh inhalation aerosol: 2 Puff, Inhalation, QID, PRN: for wheezing, 0 Refill(s)Singulair 10 mg oral tablet: 1 Tab, Oral, At Bedtime, 0 Refill(s)Xarelto 20 mg oral tablet: 1 Tab, Oral, Daily, with largest meal, 30 Tab, 0 Refill(s)albuterol 2.5 mg/3 mL (0.083%) inhalation solution: 3 mL, Nebulized Inhalation, Q6H, PRN: for wheezing, 25 Each, 0 Refill(s)amLODIPine 10 mg oral tablet: 1 Tab, Oral, Daily, 30 Tab, 0 Refill(s)amitriptyline 50 mg oral tablet: 1 Tab, Oral, At Bedtime, 0 Refill(s)aspirin 325 mg oral tablet: 1 Tab, Oral, Daily, 30 Tab, 0 Refill(s)gabapentin 300 mg oral capsule: 1 Cap, Oral, BID, 60 Cap, 0 Refill(s)lisinopril 40 mg oral tablet: 1 Tab, Oral, Daily, 30 Tab, 0 Refill(s)lovastatin 40 mg oral tablet: 1 Tab, Oral, At Bedtime, 30 Tab, 0 Refill(s)potassium chloride 20 mEq oral tablet, extended release: 1 Tab, Oral, Daily, 0 Refill(s)propafenone 425 mg oral capsule, extended release: 1 Cap, Oral, Q12H, 180 Cap, 0 Refill(s)triamcinolone 0.1% topical cream: 1 Application, Topical, BID, apply to face as directed, 0 Refill(s),Medications (42) ActiveScheduled: (14)albuterol-ipratropium inh 3 mL 3 mL, Nebulized Inhalation, L7Tzyiiezrkplikq 50 mg tab 50 mg 1 Tab, Oral, At BedtimeamLODIPine 10 mg tab 10 mg 1 Tab, Oral, Dailyclindamycin *ADV* + NaCl 0.9% *ADV* 100 mL 900 mg 6 mL, IV Piggyback, 1-Timefamotidine 20 mg tab 20 mg 1 Tab, Oral, Dailyfurosemide 40 mg tab 40 mg 1 Tab, Oral, Dailygabapentin 300 mg cap 300 mg 1 Cap, Oral, BIDheparin 5,000 units/1 mL inj 5,000 Units 1 mL, SubCutaneous, Y1Zllhdhhj regular 1 unit/0.01 mL inj 3mL Scale C, SubCutaneous, D3Ydpkwhtqcul 20 mg tab 40 mg 2 Tab, Oral, Dailylovastatin 20 mg tab 40 mg 2 Tab, Oral, At Bedtimemetoprolol tartrate 100 mg tab 100 mg 1 Tab, Oral, TIDpotassium chloride CR 20 mEq tab 20 mEq 1 Tab, Oral, Dailypropafenone SR 425 mg cap 425 mg 1 Cap, Oral, A20BHgsiwoxfgy: (5)fentaNYL 1,000 mcg 100 mL, IntraVENouslactated ringers 1,000 mL 1,000 mL, IntraVENous, 100 mL/Hrphenylephrine 20 mg + NaCl 0.9% 250 mL 250 mL, IntraVENousPremix Diluent + 20 mg niCARdipine 200 mL, IntraVENouspropofol 1,000 mg + Premix Diluent 100 mL 100 mL, IntraVENousPRN: (23)acetaminophen 325 mg tab 650 mg 2 Tab, Oral, R3Iubkbnmrma-sjwyiureceq inh 3 mL 3 mL, Nostrils Both, F5Qwebmcvy gluconate 1 Gram 10 mL, IV Piggyback, Dailycalcium gluconate 2 Gram 20 mL, IV Piggyback, Dailycalcium gluconate 2 Gram 20 mL, IV Piggyback, F78NjqpxmUOZ 100 mcg/2 mL inj 25 mcg 0.5 mL, IV Push, Z62VwsyeqbcQQE 100 mcg/2 mL inj 25 mcg 0.5 mL, IV Push, 1-TimehydrALAZINE 20 mg/1 mL inj 10 mg 0.5 mL, IV Push, J3KJXUIRccjseotp 1 mg/1 mL inj 0.5 mg 0.5 mL, IV Push, E1SBRUKBhrolmxia 1 mg/1 mL inj 0.25 mg 0.25 mL, IV Push, T48Hszeccnyryrz sulfate 2 Gram 50 mL, IV Piggyback, Dailymagnesium sulfate 2 Gram 50 mL, IV Piggyback, T1Ugsuajlsj 2 mg/1 ml cpjt inj 2 mg 1 mL, IV Push, F9Echiybgghjnuhq 0.4 mg tab # 25 btl 0.4 mg 1 Tab, SubLINgual, K0Eemzmdtqpuhjzm 4 mg/2 mL inj 4 mg 2 mL, IV Push, B3Biipnzjvzlrz 4 mg/2 mL inj 4 mg 2 mL, IV Push, 1-TimeoxyCODONE 5 mg tab 5 mg 1 Tab, Oral, Q9TsqrKDNUDB 5 mg tab 5 mg 1 Tab, Oral, 1-Timepotassium chloride 10 mEq 50 mL, IV Piggyback, R4Uomucagtjm chloride CR 20 mEq tab 20 mEq 1 Tab, Oral, F3Teljlyvgif chloride CR 20 mEq tab 60 mEq 3 Tab, Oral, T5Qycaecm phosphate 15 mMole 5 mL, IV Piggyback, Dailysodium phosphate 15 mMole 5 mL, IV Piggyback, T1CRrgpvcx list:Active Problems (30)Allergic rhinitis Angina Arthritis Atrial fibrillation Atrial flutter Back pain Bronchitis Bursitis Chronic constipation Chronic cough COPD, mild Diabetes mellitus type II GERD - Gastro-esophageal reflux disease Hard of hearing Heart failure Heart valve Hemorrhoids Hiatal hernia Histoplasmosis Hx of seborrhea Hyperlipidemia Hypertension Pancreatitis Peripheral neuropathy Peripheral vascular disease Pneumonia PSVT (paroxysmal supraventricular tachycardia) Restless legs syndrome Sinusitis Sleep apnea HYDROmorphone 1 mg/1 mL inj 0.25 mg 0.25 mL, IV Push, Q10Min magnesium sulfate 2 Gram 50 mL, IV Piggyback, Daily magnesium sulfate 2 Gram 50 mL, IV Piggyback, Q2H morphine 2 mg/1 ml cpjt inj 2 mg 1 mL, IV Push, Q4H nitroglycerin 0.4 mg tab # 25 btl 0.4 mg 1 Tab, SubLINgual, Q5Min ondansetron 4 mg/2 mL inj 4 mg 2 mL, IV Push, Q4H ondansetron 4 mg/2 mL inj 4 mg 2 mL, IV Push, 1-Time oxyCODONE 5 mg tab 5 mg 1 Tab, Oral, Q4H oxyCODONE 5 mg tab 5 mg 1 Tab, Oral, 1-Time potassium chloride 10 mEq 50 mL, IV Piggyback, Q1H potassium chloride CR 20 mEq tab 20 mEq 1 Tab, Oral, Q2H potassium chloride CR 20 mEq tab 60 mEq 3 Tab, Oral, Q2H sodium phosphate 15 mMole 5 mL, IV Piggyback, Daily sodium phosphate 15 mMole 5 mL, IV Piggyback, Q6H Problem list: Active Problems (30) Allergic rhinitis Angina Arthritis Atrial fibrillation Atrial flutter Back pain Bronchitis Bursitis Chronic constipation Chronic cough COPD, mild Diabetes mellitus type II GERD - Gastro-esophageal reflux disease Hard of hearing Heart failure Heart valve Hemorrhoids Hiatal hernia Histoplasmosis Hx of seborrhea Hyperlipidemia Hypertension Pancreatitis Peripheral neuropathy Peripheral vascular disease Pneumonia PSVT (paroxysmal supraventricular tachycardia) Restless legs syndrome Sinusitis Sleep apnea Physical ExaminationVS/MeasurementsVital Signs/Vital Emmfupod62/18/2016 9:01 EST Heart Rate, Apical 84 bpm Systolic Blood Pressure 122 mmHg10/07/2016 9:00 EST Heart Rate, Apical Not Done: Not Appropriate at this Time (Not Done)10/07/2016 8:10 EST Oxygen Saturation 96 % FiO2 Nursing 40 %10/07/2016 7:00 EST Heart Rate Monitored 72 bpm Respiratory Rate 16 Breaths/Min Systolic Blood Pressure 121 mmHg Diastolic Blood Pressure 62 mmHg Mean Arterial Pressure (MAP)-BMDI 84 Systolic BP, Arterial Line 1 131 mmHg Diastolic BP, Arterial Line 1 53 mmHg LOW Mean Arterial Pressure, Line 1 74 mmHg Oxygen Saturation 98 % Oxygen Therapy Mode Mechanical ventilation FiO2 Nursing 40 %10/07/2016 6:00 EST Heart Rate Monitored 72 bpm Respiratory Rate 16 Breaths/Min Systolic Blood Pressure 111 mmHg Diastolic Blood Pressure 62 mmHg Mean Arterial Pressure (MAP)-BMDI 80 Systolic BP, Arterial Line 1 121 mmHg Diastolic BP, Arterial Line 1 50 mmHg LOW Mean Arterial Pressure, Line 1 69 mmHg Oxygen Saturation 98 % Oxygen Therapy Mode Mechanical ventilation FiO2 Nursing 40 %10/07/2016 5:00 EST Heart Rate Monitored 72 bpm Respiratory Rate 16 Breaths/Min Systolic Blood Pressure 108 mmHg Diastolic Blood Pressure 62 mmHg Mean Arterial Pressure (MAP)-BMDI 79 Systolic BP, Arterial Line 1 119 mmHg Diastolic BP, Arterial Line 1 48 mmHg LOW Mean Arterial Pressure, Line 1 67 mmHg Oxygen Saturation 98 % Oxygen Therapy Mode Mechanical ventilation FiO2 Nursing 40 %10/07/2016 4:00 EST Temperature Source Axillary Temperature Mode Fahrenheit Temperature, Fahrenheit 98.6 Deg F Clinical Temperature, C 37 Deg C Heart Rate Monitored 74 bpm Respiratory Rate 16 Breaths/Min Systolic Blood Pressure 107 mmHg Diastolic Blood Pressure 63 mmHg Mean Arterial Pressure (MAP)-BMDI 80 Systolic BP, Arterial Line 1 119 mmHg Diastolic BP, Arterial Line 1 49 mmHg LOW Mean Arterial Pressure, Line 1 67 mmHg Oxygen Saturation 98 % Oxygen Therapy Mode Mechanical ventilation FiO2 Nursing 40 %10/07/2016 3:00 EST Heart Rate Monitored 76 bpm Respiratory Rate 16 Breaths/Min Systolic Blood Pressure 107 mmHg Diastolic Blood Pressure 62 mmHg Mean Arterial Pressure (MAP)-BMDI 79 Systolic BP, Arterial Line 1 127 mmHg Diastolic BP, Arterial Line 1 47 mmHg LOW Mean Arterial Pressure, Line 1 66 mmHg Oxygen Saturation 99 % Oxygen Therapy Mode Mechanical ventilation FiO2 Nursing 50 %10/07/2016 2:00 EST Heart Rate Monitored 82 bpm Respiratory Rate 16 Breaths/Min Systolic Blood Pressure 110 mmHg Diastolic Blood Pressure 66 mmHg Mean Arterial Pressure (MAP)-BMDI 84 Systolic BP, Arterial Line 1 133 mmHg Diastolic BP, Arterial Line 1 47 mmHg LOW Mean Arterial Pressure, Line 1 67 mmHg Oxygen Saturation 99 % Oxygen Therapy Mode Mechanical ventilation FiO2 Nursing 50 %10/07/2016 1:19 EST Heart Rate, Apical 86 bpm10/07/2016 1:18 EST Heart Rate, Apical 86 bpm Heart Rate, Apical 86 bpm Heart Rate, Apical 86 bpm10/07/2016 1:00 EST Heart Rate Monitored 88 bpm Respiratory Rate 16 Breaths/Min Systolic Blood Pressure 113 mmHg Diastolic Blood Pressure 62 mmHg Mean Arterial Pressure (MAP)-BMDI 82 Systolic BP, Arterial Line 1 134 mmHg Diastolic BP, Arterial Line 1 47 mmHg LOW Mean Arterial Pressure, Line 1 66 mmHg Oxygen Saturation 99 % Oxygen Therapy Mode Mechanical ventilation FiO2 Nursing 50 %10/07/2016 0:00 EST Temperature Source Axillary Temperature Mode Fahrenheit Temperature, Fahrenheit 98.5 Deg F Clinical Temperature, C 36.9 Deg C Heart Rate Monitored 92 bpm Respiratory Rate 14 Breaths/Min Systolic Blood Pressure 89 mmHg LOW Diastolic Blood Pressure 54 mmHg LOW Mean Arterial Pressure (MAP)-BMDI 66 Systolic BP, Arterial Line 1 93 mmHg Diastolic BP, Arterial Line 1 37 mmHg LOW Mean Arterial Pressure, Line 1 50 mmHg Oxygen Saturation 97 % Oxygen Therapy Mode Mechanical ventilation FiO2 Nursing 50 %10/06/2016 23:00 EST Heart Rate Monitored 87 bpm Respiratory Rate 15 Breaths/Min Systolic Blood Pressure 92 mmHg Diastolic Blood Pressure 51 mmHg LOW Mean Arterial Pressure (MAP)-BMDI 67 Systolic BP, Arterial Line 1 110 mmHg Diastolic BP, Arterial Line 1 39 mmHg LOW Mean Arterial Pressure, Line 1 55 mmHg Oxygen Saturation 96 % Oxygen Therapy Mode Mechanical ventilation FiO2 Nursing 50 %10/06/2016 22:00 EST Temperature Source Axillary Temperature Mode Fahrenheit Temperature, Fahrenheit 98.2 Deg F Clinical Temperature, C 36.8 Deg C Heart Rate Monitored 106 bpm HI Respiratory Rate 20 Breaths/Min Systolic Blood Pressure 83 mmHg LOW Diastolic Blood Pressure 50 mmHg LOW Mean Arterial Pressure (MAP)-BMDI 62 Systolic BP, Arterial Line 1 95 mmHg Diastolic BP, Arterial Line 1 32 mmHg LOW Mean Arterial Pressure, Line 1 51 mmHg Oxygen Saturation 97 % Oxygen Therapy Mode Mechanical ventilation FiO2 Nursing 50 %10/06/2016 10:29 EST Heart Rate, Apical 100 bpm10/06/2016 10:27 EST Heart Rate, Apical 100 bpm10/06/2016 5:30 EST FiO2 Nursing 25 %10/06/2016 5:27 EST Temperature Source Oral Temperature Mode Fahrenheit Temperature, Fahrenheit 97.9 Deg F Clinical Temperature, C 36.6 Deg C Heart Rate Monitored 90 bpm Respiratory Rate 16 Breaths/Min Systolic Blood Pressure 131 mmHg Diastolic Blood Pressure 66 mmHg Mean Arterial Pressure (MAP)-BMDI 79 Oxygen Saturation 95 %10/06/2016 4:00 EST Oxygen Therapy Mode Nasal cannula Oxygen Flow Rate 4 Liter/Min10/06/2016 3:32 EST Temperature Source Oral Temperature Mode Fahrenheit Temperature, Fahrenheit 97.6 Deg F Clinical Temperature, C 36.4 Deg C Heart Rate Monitored 96 bpm Respiratory Rate 16 Breaths/Min Systolic Blood Pressure 154 mmHg HI Diastolic Blood Pressure 88 mmHg Oxygen Saturation 93 % LOW ,Vitals Signs (last 24 hrs) Last Charted Minimum MaximumTemp 98.6 (OCT 07 04:00)98.6 (OCT 07 04:00)98.2 (OCT 06:)Apical HR 84 (OCT 07 09:)84 (OCT 07:)86 (OCT 07:18)Mon HR 72 (OCT 07:00)72 (OCT 07 05:00)106 (OCT 06:)Resp Rate 16 (OCT 07:)14 (OCT 07:00)20 (OCT 06:)SBP 122 (OCT 07 09:01)L 83 (OCT 06:00)122 (OCT 07:)DBP 62 (OCT 07:00)L 50 (OCT 06:00)66 (OCT 07 02:00)MAP 74 (OCT 07 07:00)50 (OCT 07 00:00)84 (OCT 07 02:00)SpO2 96 (OCT 07 08:10)96 (OCT 06:00)99 (OCT 07:00)General: Mild distress.Eye: Pupils are equal, round and reactive to light, Normal conjunctiva.HENT: Normocephalic, Oral mucosa is moist.Neck: Supple.Respiratory: Respirations are non-labored, Breath sounds are equal, Symmetrical chest wall expansion.Cardiovascular: Normal rate, Regular rhythm, No murmur, No gallop.Gastrointestinal: Soft, Non-distended, Normal bowel sounds.Musculoskeletal: No swelling, No deformity.Integumentary: Warm, Dry, Tillar.Neurologic: intubated, arousable, moves all four extremities.Psychiatric: As above, on the vent, arousable. SBP 122 (OCT 07 09:01)L 83 (OCT 06 22:00)122 (OCT 07 09:01) DBP 62 (OCT 07 07:00)L 50 (OCT 06 22:00)66 (OCT 07 02:00) MAP 74 (OCT 07 07:00)50 (OCT 07 00:00)84 (OCT 07 02: 00) SpO2 96 (OCT 07 08:10)96 (OCT 06 23:00)99 (OCT 07 01: 00) General: Mild distress. Eye: Pupils are equal, round and reactive to light, Normal conjunctiva. HENT: Normocephalic, Oral mucosa is moist. Neck: Supple. Respiratory: Respirations are non-labored, Breath sounds are equal, Symmetrical chest wall expansion. Cardiovascular: Normal rate, Regular rhythm, No murmur, No gallop. Gastrointestinal: Soft, Non-distended, Normal bowel sounds. Musculoskeletal: No swelling, No deformity. Integumentary: Warm, Dry, Tillar. Neurologic: intubated, arousable, moves all four extremities. Psychiatric: As above, on the vent, arousable. Review / ManagementResults review:Labs (Last four charted values)WBC H 16.0(OCT 07)H 13.2(OCT 06)H 15.7(OCT 06)HB L 8.9(OCT 07)L 9.6(OCT 06)L 10.9(OCT 06)L 11.3(OCT 06)HCT L 27.9(OCT 07)L 29.8(OCT 06)L 33.2(OCT 06)L 34.6(OCT 06)Plt 272(OCT 07)253(OCT 06)284(OCT 06)Na 139(OCT 07)139(OCT 06)137(OCT 06)K 4.2(OCT 07)4.0(OCT 06)4.1(OCT 06)Cl 105(OCT 07)104(OCT 06)103(OCT 06)CO2 24(OCT 07)25(OCT 06)25(OCT 06)BUN 18(OCT 07)15(OCT 06)13(OCT 06)Cr H 1.60(OCT 07)1.10(OCT 06)0.70(OCT 06)Glu R H 124(SEP 18)H 173(OCT 06)H 132(OCT 06)Ca L 7.9(OCT 07)L 8.3(OCT 06)L 8.3(OCT 06)PT H 12.1(OCT 06)INR H 1.2(OCT 06)AST H 41(OCT 07)15(OCT 06)ALT 42(OCT 07)26(OCT 06)ALK P 80(OCT 07)83(OCT 06)T Bili H 1.2(OCT 07)1.0(OCT 06)PTN L 5.6(OCT 07)6.4(OCT 06)ALB L 2.6(OCT 07)L 2.9(OCT 06)Troponin 0.031(OCT 06)PROBNP H 126(OCT 06). PT H 12.1(OCT 06) INR H 1.2(OCT 06) AST H 41(OCT 07)15(OCT 06) ALT 42(OCT 07)26(OCT 06) ALK P 80(OCT 07)83(OCT 06) T Bili H 1.2(OCT 07)1.0(OCT 06) PTN L 5.6(OCT 07)6.4(OCT 06) ALB L 2.6(OCT 07)L 2.9(OCT 06) Troponin 0.031(OCT 06) PROBNP H 126(OCT 06) . Impression and Plan1. Right groin Pesudoaneurysm- s/p repair, AVFistila closure by surgery2. History of atrial fibrillation, status post ablation. We willcontinue beta romel. on Heparin3. Coronary artery disease. Cardiology following4. Hypertension. Resume home medication plus hydralazine as needed.5. Neuropathy, on gabapentin, continued.6. Hyperlipidemia, on statin, continued.7. Gastrointestinal prophylaxis, Pepcid.8. Deep venous thrombosis prophylaxis, compression boots.Plan discussed with the nurseTIME SPENT:30 minutes. 8. Deep venous thrombosis prophylaxis, compression boots. Plan discussed with the nurse TIME SPENT: 30 minutes. Extracted from: Title: EP progress note Author: SAVI NIELSON, Date: 10/06/16 MD-CAR SubjectiveThe patient is known to me S/p EPS and flutter ablation ast Saturday was sent home on Xaerlato then 2 days later(yesterday) he over extended his Right LE and felt something "pupping"then a hematoma formed and he got a CT at [facility] showing a hematoma 6X2.[address] versus a pseudoaneurysm so he got admitted for pain control and watxch for the hematoma Hgb now 11.3. according to the was 12.5 at the ER yesterday.O/E tghe hematoma is hands breadth size on the anterior wall of the upper thigh below the stick site and no pressurre symptoms and good peripheral pulses.Tele NSR no arrhythmias. Health StatusAllergies:Allergic Reactions (All)Severity Not DocumentedBactrim- Rash , fever.Ciprofloxacin- Hives.Penicillin- Anaphylaxis as child.Tetracyclines- Unsure.,Allergies (4) ActiveReactionBactrimrash , feverciprofloxacinhivespenicillinanaphylaxis as childtetracyclinesunsureCurrent medications: (Selected)Inpatient MedicationsOrderedDilaudid: 0.5 mg, IV Push, Q4H, PRN: Pain (Moderate 4-6)DuoNeb 0.5 mg-2.5 mg/3 mL inhalation solution: 3 mL, Nostrils Both, Q6H, PRN: Shortness of BreathNitrostat: 0.4 mg, SubLINgual, Q5Min, PRN: Chest PainPepcid: 20 mg, Oral, DailyRythmol SR: 425 mg, Oral, [id number]: 650 mg, Oral, Q4H, PRN: Other (See Comment)Zofran: 4 mg, IV Push, Q4H, PRN: NauseaamLODIPine: 10 mg, Oral, Dailyamitriptyline: 50 mg, Oral, At Bedtimefurosemide: 40 mg, Oral, Dailygabapentin: 300 mg, Oral, BIDhydrALAZINE: 10 mg, IV Push, Q6H, PRN: Hypertensioninfluenza virus vaccine, inactivated: 0.5 mL, IntraMuscular, [id number]: 40 mg, Oral, Dailylovastatin: 40 mg, Oral, At Bedtimemetoprolol tartrate: 100 mg, Oral, TIDmorphine: 2 mg, IV Push, Q4H, PRN: Pain (Severe 7-10)oxyCODONE: 5 mg, Oral, Q4H, PRN: Pain (Moderate 4-6)potassium chloride 20 mEq oral tablet, extended release: 20 mEq, 1 Tab, Oral, DailyDocumented MedicationsDocumentedNitrostat 0.4 mg sublingual tablet: 1 Tab, SubLINgual, Q5Min, If chest pain not relieved in 5 minutes after first dose, seek immediate medical attention, PRN: Chest Pain, 100 Tab, 0 Refill(s)ProAir HFA: 1-2 Puff, Inhalation, Q4H, PRN: as needed for wheezing, 0 Refill(s)Singulair 10 mg oral tablet: 1 Tab, Oral, At Bedtime, 0 Refill(s)Xarelto 20 mg oral tablet: 1 Tab, Oral, Daily, 30 Tab, 0 Refill(s)albuterol 1.25 mg/3 mL (0.042%) inhalation solution: 3 mL, Nebulized Inhalation, QID, PRN: Wheezing, 0 Refill(s)amLODIPine 10 mg oral tablet: 1 Tab, Oral, Daily, 30 Tab, 0 Refill(s)amitriptyline 50 mg oral tablet: 1 Tab, Oral, At Bedtime, 0 Refill(s)aspirin 325 mg oral tablet: 1 Tab, Oral, Daily, 30 Tab, 0 Refill(s)furosemide 40 mg oral tablet: 1 Tab, Oral, Daily, 30 Tab, 0 Refill(s)gabapentin 300 mg oral capsule: 1 Cap, Oral, BID, 60 Cap, 0 Refill(s)lisinopril 40 mg oral tablet: 1 Tab, Oral, Daily, 30 Tab, 0 Refill(s)lovastatin 40 mg oral tablet: 1 Tab, Oral, At Bedtime, 30 Tab, 0 Refill(s)metoprolol tartrate: 100 mg, Oral, TID, 0 Refill(s)potassium chloride 20 mEq oral tablet, extended release: 1 Tab, Oral, Daily, 0 Refill(s)propafenone 425 mg oral capsule, extended release: 1 Cap, Oral, Q12H, ON HOLD UNTIL FURTHER ORDERS FROM DR. NIELSON, 180 Cap, 0 Refill(s),Home Medications (15) Activealbuterol 1.25 mg/3 mL (0.042%) inhalation solution 1.25 mg = 3 mL, PRN, Nebulized Inhalation, QIDamitriptyline 50 mg oral tablet 50 mg = 1 Tab, Oral, At BedtimeamLODIPine 10 mg oral tablet 10 mg = 1 Tab, Oral, Dailyaspirin 325 mg oral tablet 325 mg = 1 Tab, Oral, Dailyfurosemide 40 mg oral tablet 40 mg = 1 Tab, Oral, Dailygabapentin 300 mg oral capsule 300 mg = 1 Cap, Oral, BIDlisinopril 40 mg oral tablet 40 mg = 1 Tab, Oral, Dailylovastatin 40 mg oral tablet 40 mg = 1 Tab, Oral, At Bedtimemetoprolol tartrate 100 mg, Oral, TIDNitrostat 0.4 mg sublingual tablet 0.4 mg = 1 Tab, PRN, SubLINgual, Z7Tcbdqhvjepze chloride 20 mEq oral tablet, extended release 20 mEq = 1 Tab, Oral, DailyProAir HFA 1-2 Puff, PRN, Inhalation, G1Vqhmgjarlzgx 425 mg oral capsule, extended release 425 mg = 1 Cap, Oral, G75BZsdtertsc 10 mg oral tablet 10 mg = 1 Tab, Oral, At BedtimeXarelto 20 mg oral tablet 20 mg = 1 Tab, Oral, Daily,Medications (19) ActiveScheduled: (11)amitriptyline 50 mg tab 50 mg 1 Tab, Oral, At BedtimeamLODIPine 10 mg tab 10 mg 1 Tab, Oral, Dailyfamotidine 20 mg tab 20 mg 1 Tab, Oral, Dailyfurosemide 40 mg tab 40 mg 1 Tab, Oral, Dailygabapentin 300 mg cap 300 mg 1 Cap, Oral, BIDinfluenza vaccine, quadrivalent 0.5 mL, IntraMuscular, [id number] 20 mg tab 40 mg 2 Tab, Oral, Dailylovastatin 20 mg tab 40 mg 2 Tab, Oral, At Bedtimemetoprolol tartrate 100 mg tab 100 mg 1 Tab, Oral, TIDpotassium chloride CR 20 mEq tab 20 mEq 1 Tab, Oral, Dailypropafenone SR 425 mg cap 425 mg 1 Cap, Oral, [id number]: (0)PRN: (8)acetaminophen 325 mg tab 650 mg 2 Tab, Oral, H3Lwvuwlpyce-jvokbcsvjzv inh 3 mL 3 mL, Nostrils Both, [id number] 20 mg/1 mL inj 10 mg 0.5 mL, IV Push, [id number] 1 mg/1 mL inj 0.5 mg 0.5 mL, IV Push, I2Aeqcakggb 2 mg/1 ml cpjt inj 2 mg 1 mL, IV Push, Y7Yxfctddiifglmp 0.4 mg tab # 25 btl 0.4 mg 1 Tab, SubLINgual, X9Ccclgcaqwcpern 4 mg/2 mL inj 4 mg 2 mL, IV Push, P9MwptPCSDJZ 5 mg tab 5 mg 1 Tab, Oral, A0JCbwvdnc list:Active Problems (30)Allergic rhinitis Angina Arthritis Atrial fibrillation Atrial flutter Back pain Bronchitis Bursitis Chronic constipation Chronic cough COPD, mild Diabetes mellitus type II GERD - Gastro-esophageal reflux disease Hard of hearing Heart failure Heart valve Hemorrhoids Hiatal hernia Histoplasmosis Hx of seborrhea Hyperlipidemia Hypertension Pancreatitis Peripheral neuropathy Peripheral vascular disease Pneumonia PSVT (paroxysmal supraventricular tachycardia) Restless legs syndrome Sinusitis Sleep apnea gabapentin 300 mg cap 300 mg 1 Cap, Oral, BID influenza vaccine, quadrivalent 0.5 mL, IntraMuscular, [id number] lisinopril 20 mg tab 40 mg 2 Tab, Oral, Daily lovastatin 20 mg tab 40 mg 2 Tab, Oral, At Bedtime metoprolol tartrate 100 mg tab 100 mg 1 Tab, Oral, TID potassium chloride CR 20 mEq tab 20 mEq 1 Tab, Oral, Daily propafenone SR 425 mg cap 425 mg 1 Cap, Oral, Q12H Continuous: (0) PRN: (8) acetaminophen 325 mg tab 650 mg 2 Tab, Oral, Q4H albuterol-ipratropium inh 3 mL 3 mL, Nostrils Both, Q6H hydrALAZINE 20 mg/1 mL inj 10 mg 0.5 mL, IV Push, Q6H HYDROmorphone 1 mg/1 mL inj 0.5 mg 0.5 mL, IV Push, Q4H morphine 2 mg/1 ml cpjt inj 2 mg 1 mL, IV Push, Q4H nitroglycerin 0.4 mg tab # 25 btl 0.4 mg 1 Tab, SubLINgual, Q5Min ondansetron 4 mg/2 mL inj 4 mg 2 mL, IV Push, Q4H oxyCODONE 5 mg tab 5 mg 1 Tab, Oral, Q4H Problem list: Active Problems (30) Allergic rhinitis Angina Arthritis Atrial fibrillation Atrial flutter Back pain Bronchitis Bursitis Chronic constipation Chronic cough COPD, mild Diabetes mellitus type II GERD - Gastro-esophageal reflux disease Hard of hearing Heart failure Heart valve Hemorrhoids Hiatal hernia Histoplasmosis Hx of seborrhea Hyperlipidemia Hypertension Pancreatitis Peripheral neuropathy Peripheral vascular disease Pneumonia PSVT (paroxysmal supraventricular tachycardia) Restless legs syndrome Sinusitis Sleep apnea ObjectiveVS/MeasurementsVital Signs/Vital Tgkmcqoh31/17/2016 5:30 EST FiO2 Nursing 25 %10/06/2016 5:27 EST Temperature Source Oral Temperature Mode Fahrenheit Temperature, Fahrenheit 97.9 Deg F Clinical Temperature, C 36.6 Deg C Heart Rate Monitored 90 bpm Respiratory Rate 16 Breaths/Min Systolic Blood Pressure 131 mmHg Diastolic Blood Pressure 66 mmHg Mean Arterial Pressure (MAP)-BMDI 79 Oxygen Saturation 95 %10/06/2016 3:32 EST Temperature Source Oral Temperature Mode Fahrenheit Temperature, Fahrenheit 97.6 Deg F Clinical Temperature, C 36.4 Deg C Heart Rate Monitored 96 bpm Respiratory Rate 16 Breaths/Min Systolic Blood Pressure 154 mmHg HI Diastolic Blood Pressure 88 mmHg Oxygen Saturation 93 % LOW ,Vitals Signs (last 24 hrs) Last Charted Minimum MaximumTemp 97.9 (OCT 06:)97.9 (OCT 06:)97.6 (OCT 06:32)Mon HR 90 (OCT 06:)90 (OCT 06:)96 (OCT 06:)Resp Rate 16 (OCT 06:)16 (OCT 06:32)16 (OCT 06:32)SBP 131 (OCT 06:)131 (OCT 06:)H 154 (OCT 06:)DBP 66 (OCT 06:)66 (OCT 06:)88 (OCT 06:32)MAP 79 (OCT 06:)79 (OCT 06:)79 (OCT 06:)SpO2 95 (OCT 06:)L 93 (OCT 06:)95 (OCT 06:)General: Alert and oriented, No acute distress.HENT: Normocephalic.Neck: Supple.Respiratory: Lungs are clear to auscultation.Cardiovascular: Normal rate, Regular rhythm, No murmur, No gallop, Good pulses equal in all extremities, Normal peripheral perfusion, No edema, Right groin exam as above..Gastrointestinal: Soft, Non-tender, Non-distended, Normal bowel sounds.Integumentary: Warm.Neurologic: Alert.Psychiatric: Cooperative. Neck: Supple. Respiratory: Lungs are clear to auscultation. Cardiovascular: Normal rate, Regular rhythm, No murmur, No gallop, Good pulses equal in all extremities, Normal peripheral perfusion, No edema, Right groin exam as above.. Gastrointestinal: Soft, Non-tender, Non-distended, Normal bowel sounds. Integumentary: Warm. Neurologic: Alert. Psychiatric: Cooperative. Results Review OCT 06 05:00 137 | 103 | 13 / H 132 4.1 | 25 | 0.70 \\ Cardiac Markers (Current Encounter/Past 24 Hours) ProBNP 126 pg/mL ID 10/06/2016 05:42 No Radiology Results Found Impression and PlanIMPRESSION:1- right groin hematoma doub pseudo aneurysm as we did only a venous stick will get an US today to R/O any psudoaneurysm and see the extent of the hematoma we nalini it.Hold Xaerllto, control the pain.Follow H and H.2- Isthmus dependant flutter s/p ablation.3- persistant atrial fib s/p CV on Wed during the EP study.PLAN;As above. 3- persistant atrial fib s/p CV on Wed during the EP study. PLAN;As above. Hospital Discharge Instructions Patient EducationHematoma, Xnck-lm-Wjbd Ischemic Stroke Treated Without Warfarin, Dgkc-hf-Khha Pneumonia, Adult Pseudoaneurysm Rehabilitation After a Stroke, Adult Stroke Prevention, Rknq-jw-Bqbb
--- OUTSIDE RECORDS SUMMARY | 2017-09-09 15:00 | External Medical Summary Rpt ---
Author Author [facility] Organization [facility] Address Unknown Phone Unavailable Care Team Providers Care Quill Skinner Name Role Phone BRENDAN FITO PCP [phone] Encounter [facility] Date(s): 10/06/16 - 10/17/16 [facility] [address] [place] [id number]- Discharge Disposition: IP Self Care / Home [...] Released without repeat.2Result Comment: Nurse Notified of [id number] Comment: Nurse Notified of ResultURINE CHEMISTRY Most recent 1 2 3 to oldest [Reference Range]: Creatinine 141 mg/dL Urine Random *NA*(10/09/16 6:39 PM) Protein Ur 56 mg/dL Grace *NA*(10/09/16 6:39 PM) Sodium Ur 15 mMole/Liter Grace *NA*(10/09/16 6:39 PM) VITAMIN CHEMISTRY Most recent [...] ALYC # 1 K/uL *NA*(10/08/16 4:03 AM) [place] Percent 10 % Man [4-5 %] *HI*(10/08/16 [...] motion, No swelling, No deformity.Integumentary: Warm, Dry, [place].Neurologic: Alert, Normal sensory, No focal deficits, Cranial [...] monitor renal function closely Disp- needs rehab ?[facility] TIME SPENT: 23 minutes Extracted from: Title: [...] sounds.Musculoskeletal: No swelling, No deformity.Integumentary: Warm, Dry, [place].Neurologic: Alert, Normal sensory, No focal deficits, Cranial Nerves II-XII are grossly intact, Left power 4/5, rt 5/5, confused.Psychiatric: Cooperative. Integumentary: Warm, Dry, [place]. Neurologic: Alert, Normal sensory, No focal deficits, [...] monitor renal function closely Disp- needs rehab ?[facility] TIME SPENT: 24 minutes Extracted from: Title: [...] sounds.Musculoskeletal: No swelling, No deformity.Integumentary: Warm, Dry, [place].Neurologic: Alert, Normal sensory, No focal deficits, Cranial [...] monitor renal function closely Disp- needs rehab ?[facility] TIME SPENT: 25 minutes Extracted from: Title: [...] mL inhalation solution: 3 mL, Nebulized Inhalation, X8IKkbZzz 0.5 mg-2.5 mg/3 mL inhalation solution: 3 mL, Nostrils Both, Q6H, PRN: Shortness of BreathNitrostat: 0.4 mg, SubLINgual, Q5Min, PRN: Chest PainNormal Saline 1,500 mL: 100 mL/Hr, IntraVENousPepcid: 20 mg, Oral, DailyPercocet 5/325: 3 Tab, Oral, Q6H, PRN: Pain (Moderate 4-6)Rocephin: 1 Gram, 100 mL/Hr, IV Piggyback, K73APcyPlgisfx SR: 425 mg, Oral, N49IHnxmbej: 650 mg, Oral, Q4H, PRN: Other (See [...] Completeinfluenza virus vaccine, inactivated: 0.5 mL, IntraMuscular, J76FUlnKykpaqzooq MedicationsDocumentedLasix 20 mg oral tablet: 1 Tab, [...] mg = 3 mL, PRN, Nebulized Inhalation, U7Yxzauvcnkquhst 50 mg oral tablet 50 mg = [...] 0.4 mg = 1 Tab, PRN, SubLINgual, C3Tyipfsusfvyv chloride 20 mEq oral tablet, extended release 20 mEq = 1 Tab, Oral, DailyProAir HFA 90 mcg/inh inhalation aerosol 2 Puff, PRN, Inhalation, QIDpropafenone 425 mg oral capsule, extended release 425 mg = 1 Cap, Oral, M18XLdpzsbokn 10 mg oral tablet 10 mg = 1 Tab, Oral, At Bedtimetriamcinolone 0.1% topical cream 1 Application, Topical, BIDXarelto 20 mg oral tablet 20 mg = 1 Tab, Oral, Daily,Medications (35) ActiveScheduled: (14)albuterol-ipratropium inh 3 mL 3 mL, Nebulized Inhalation, Z0Kqdaupgnympmgt 50 mg tab 50 mg 1 Tab, Oral, At BedtimeamLODIPine 10 mg tab 10 mg 1 Tab, Oral, Dailyaspirin 81 mg chew tab 81 mg 1 Tab, Oral, DailycefTRIAXone 1 Gram, IV Piggyback, T11FDihweqjkunpceu *ADV* + NaCl 0.9% *ADV* 100 mL [...] mg cap 425 mg 1 Cap, Oral, N70Bicslslrbveh 20 mg tab 20 mg 1 Tab, Oral, With DinnerContinuous: (1)NaCl 0.9% 1,500 mL 1,500 mL, IntraVENous, 100 mL/HrPRN: (20)#NaCl 0.9% *FLUSH* inj 10 mL 10 mL, IV Push, See Commentacetaminophen 325 mg tab 650 mg 2 Tab, Oral, X1Kacuqmapshyfsx/oxyCODONE 325/5 mg tab 3 Tab, Oral, W2Shtzuqugsg-bdnjhqzowns inh 3 mL 3 mL, Nostrils Both, L7Pgpvocaz gluconate 1 Gram 10 mL, IV Piggyback, Dailycalcium gluconate 2 Gram 20 mL, IV Piggyback, Dailycalcium gluconate 2 Gram 20 mL, IV Piggyback, T10EajkyMIICFNH 20 mg/1 mL inj 10 mg 0.5 mL, IV Push, F4GCIFVYkohtxtvi 1 mg/1 mL inj 0.5 mg 0.5 mL, IV Push, I5Gsyxckcwee sulfate 2 Gram 50 mL, IV Piggyback, Dailymagnesium sulfate 2 Gram 50 mL, IV Piggyback, U2Ocztczilk 2 mg/1 ml cpjt inj 2 mg 1 mL, IV Push, F5Oxddmgtwaatmjw 0.4 mg tab # 25 btl 0.4 mg 1 Tab, SubLINgual, B0Jpjlbgmsglrvas 4 mg/2 mL inj 4 mg 2 mL, IV Push, N7YopuOAFLLW 5 mg tab 5 mg 1 Tab, Oral, W7Tlrlimpoum chloride 10 mEq 50 mL, IV Piggyback, Y4Zcyvgvxjeb chloride CR 20 mEq tab 20 mEq 1 Tab, Oral, T6Hiuctponso chloride CR 20 mEq tab 60 mEq 3 Tab, Oral, V6Ypbfjao phosphate 15 mMole 5 mL, IV Piggyback, Dailysodium phosphate 15 mMole 5 mL, IV Piggyback, X2DTsqoyfs list:Active Problems (30)Allergic rhinitis Angina Arthritis Atrial [...] 126(OCT 06)Radiology Results Radiology Results (Last 48 hours)[id number] -- 10/06/2016 03:13MRI Brain WO (10/12/2016 07:59) [...] sounds.Musculoskeletal: No swelling, No deformity.Integumentary: Warm, Dry, [place].Neurologic: Alert, Normal sensory, No focal deficits, Cranial [...] obtained prior to antibiotic Disp- needs rehab ?[facility] TIME SPENT: 29 minutes. Extracted from: Title: [...] mL inhalation solution: 3 mL, Nebulized Inhalation, I5YCpqHvs 0.5 mg-2.5 mg/3 mL inhalation solution: 3 mL, Nostrils Both, Q6H, PRN: Shortness of BreathNitrostat: 0.4 mg, SubLINgual, Q5Min, PRN: Chest PainNormal Saline 1,500 mL: 100 mL/Hr, IntraVENousPepcid: 20 mg, Oral, DailyPercocet 5/325: 3 Tab, Oral, Q6H, PRN: Pain (Moderate 4-6)Rocephin: 1 Gram, 100 mL/Hr, IV Piggyback, J45WMhrUymnvvv SR: 425 mg, Oral, U17HPhjkjcr: 650 mg, Oral, Q4H, PRN: Other (See [...] Completeinfluenza virus vaccine, inactivated: 0.5 mL, IntraMuscular, N87YBgnPgxbznxvrf MedicationsDocumentedLasix 20 mg oral tablet: 1 Tab, [...] inh 3 mL 3 mL, Nebulized Inhalation, J8Akzxkjsqucgjjn 50 mg tab 50 mg 1 Tab, Oral, At BedtimeamLODIPine 10 mg tab 10 mg 1 Tab, Oral, Dailyaspirin 81 mg chew tab 81 mg 1 Tab, Oral, DailycefTRIAXone 1 Gram, IV Piggyback, F25SBoeoziacoeqhqf *ADV* + NaCl 0.9% *ADV* 100 mL [...] mg cap 425 mg 1 Cap, Oral, N04Cvmcuyszeoho 20 mg tab 20 mg 1 Tab, Oral, With DinnerContinuous: (1)NaCl 0.9% 1,500 mL 1,500 mL, IntraVENous, 100 mL/HrPRN: (20)#NaCl 0.9% *FLUSH* inj 10 mL 10 mL, IV Push, See Commentacetaminophen 325 mg tab 650 mg 2 Tab, Oral, L2Gleufsjkjsjivn/oxyCODONE 325/5 mg tab 3 Tab, Oral, K1Gyzfqxecln-vkpmmzjxdla inh 3 mL 3 mL, Nostrils Both, N5Vuxtvjfc gluconate 1 Gram 10 mL, IV Piggyback, Dailycalcium gluconate 2 Gram 20 mL, IV Piggyback, Dailycalcium gluconate 2 Gram 20 mL, IV Piggyback, X45IzqrjYUHHPWX 20 mg/1 mL inj 10 mg 0.5 mL, IV Push, W8DVARHTguljuyxt 1 mg/1 mL inj 0.5 mg 0.5 mL, IV Push, U3Wurpgkklwt sulfate 2 Gram 50 mL, IV Piggyback, Dailymagnesium sulfate 2 Gram 50 mL, IV Piggyback, E6Hkefujogp 2 mg/1 ml cpjt inj 2 mg 1 mL, IV Push, I6Qcqsvwcwshztky 0.4 mg tab # 25 btl 0.4 mg 1 Tab, SubLINgual, S3Cxtybquwfeojmw 4 mg/2 mL inj 4 mg 2 mL, IV Push, E1ImmwDDLPFE 5 mg tab 5 mg 1 Tab, Oral, J4Yvunaacnsx chloride 10 mEq 50 mL, IV Piggyback, E8Rxhikxfukf chloride CR 20 mEq tab 20 mEq 1 Tab, Oral, K7Fnztqzzoje chloride CR 20 mEq tab 60 mEq 3 Tab, Oral, T8Gtuvljs phosphate 15 mMole 5 mL, IV Piggyback, Dailysodium phosphate 15 mMole 5 mL, IV Piggyback, Q9PXayhvoz list:Active Problems (30)Allergic rhinitis Angina Arthritis Atrial [...] syndrome Sinusitis Sleep apnea Physical ExaminationVS/MeasurementsVital Signs/Vital Symlmivy34/23/2016 11:56 EST Heart Rate, Apical 70 bpm [...] 11:45 EST Temperature Source Oral Temperature Mode Grbabsvgzn52/22/2016 8:55 EST Heart Rate, Apical 90 bpm10/11/2016 [...] sounds.Musculoskeletal: No swelling, No deformity.Integumentary: Warm, Dry, [place].Neurologic: Alert, Normal sensory, No focal deficits, Cranial [...] No swelling, No deformity. Integumentary: Warm, Dry, [place]. Neurologic: Alert, Normal sensory, No focal deficits, [...] residual cognitive issues. [facility] 11:2 0:30 EST Extracted from: Title: [...] mL inhalation solution: 3 mL, Nebulized Inhalation, E7WZjsMgu 0.5 mg-2.5 mg/3 mL inhalation solution: 3 mL, Nostrils Both, Q6H, PRN: Shortness of BreathNitrostat: 0.4 mg, SubLINgual, Q5Min, PRN: Chest PainNormal Saline 1,500 mL: 100 mL/Hr, IntraVENousPepcid: 20 mg, Oral, DailyPercocet 5/325: 3 Tab, Oral, Q6H, PRN: Pain (Moderate 4-6)Rocephin: 1 Gram, 100 mL/Hr, IV Piggyback, C06QSvbFelnqeq SR: 425 mg, Oral, J27VTsjkuac: 650 mg, Oral, Q4H, PRN: Other (See [...] Completeinfluenza virus vaccine, inactivated: 0.5 mL, IntraMuscular, C00HLjhFlozzopghx MedicationsDocumentedLasix 20 mg oral tablet: 1 Tab, [...] mg = 3 mL, PRN, Nebulized Inhalation, D1Skoaocuryclmhg 50 mg oral tablet 50 mg = [...] 0.4 mg = 1 Tab, PRN, SubLINgual, V3Hyrrqrertntq chloride 20 mEq oral tablet, extended release 20 mEq = 1 Tab, Oral, DailyProAir HFA 90 mcg/inh inhalation aerosol 2 Puff, PRN, Inhalation, QIDpropafenone 425 mg oral capsule, extended release 425 mg = 1 Cap, Oral, L10JVtyvyblze 10 mg oral tablet 10 mg = 1 Tab, Oral, At Bedtimetriamcinolone 0.1% topical cream 1 Application, Topical, BIDXarelto 20 mg oral tablet 20 mg = 1 Tab, Oral, Daily,Medications (35) ActiveScheduled: (14)albuterol-ipratropium inh 3 mL 3 mL, Nebulized Inhalation, U5Pzfzdoyekxyapr 50 mg tab 50 mg 1 Tab, Oral, At BedtimeamLODIPine 10 mg tab 10 mg 1 Tab, Oral, Dailyaspirin 81 mg chew tab 81 mg 1 Tab, Oral, DailycefTRIAXone 1 Gram, IV Piggyback, V62PAistefwgqeidll *ADV* + NaCl 0.9% *ADV* 100 mL [...] mg cap 425 mg 1 Cap, Oral, L31Nnxqxyrqlvga 20 mg tab 20 mg 1 Tab, Oral, With DinnerContinuous: (1)NaCl 0.9% 1,500 mL 1,500 mL, IntraVENous, 100 mL/HrPRN: (20)#NaCl 0.9% *FLUSH* inj 10 mL 10 mL, IV Push, See Commentacetaminophen 325 mg tab 650 mg 2 Tab, Oral, K9Imaaxcsqgcfaqs/oxyCODONE 325/5 mg tab 3 Tab, Oral, O6Hrwkrcdxtl-dyrakpfgnya inh 3 mL 3 mL, Nostrils Both, X3Fhutiggi gluconate 1 Gram 10 mL, IV Piggyback, Dailycalcium gluconate 2 Gram 20 mL, IV Piggyback, Dailycalcium gluconate 2 Gram 20 mL, IV Piggyback, V06TvxmiFKQCBNW 20 mg/1 mL inj 10 mg 0.5 mL, IV Push, K9MYTTWHvwpynzjp 1 mg/1 mL inj 0.5 mg 0.5 mL, IV Push, V3Mnofwktzjh sulfate 2 Gram 50 mL, IV Piggyback, Dailymagnesium sulfate 2 Gram 50 mL, IV Piggyback, T3Vgeuhpzgn 2 mg/1 ml cpjt inj 2 mg 1 mL, IV Push, G9Jqrnqnuqmrokvw 0.4 mg tab # 25 btl 0.4 mg 1 Tab, SubLINgual, O8Ihlwwoggqzmway 4 mg/2 mL inj 4 mg 2 mL, IV Push, G5VbpxZNOGCU 5 mg tab 5 mg 1 Tab, Oral, H7Slaelebbix chloride 10 mEq 50 mL, IV Piggyback, Z9Zjsjycgztc chloride CR 20 mEq tab 20 mEq 1 Tab, Oral, Z1Vtwhdepzxg chloride CR 20 mEq tab 60 mEq 3 Tab, Oral, O9Fxhicbe phosphate 15 mMole 5 mL, IV Piggyback, Dailysodium phosphate 15 mMole 5 mL, IV Piggyback, Z0KTqvzexa list:Active Problems (30)Allergic rhinitis Angina Arthritis Atrial [...] 126(OCT 06)Radiology Results Radiology Results (Last 48 hours)[id number] -- 10/06/2016 03:13CT Head [facility] (10/11/2016 11:03) [...] mL inhalation solution: 3 mL, Nebulized Inhalation, M7GCuwWzy 0.5 mg-2.5 mg/3 mL inhalation solution: 3 mL, Nostrils Both, Q6H, PRN: Shortness of BreathNitrostat: 0.4 mg, SubLINgual, Q5Min, PRN: Chest PainNormal Saline 1,500 mL: 100 mL/Hr, IntraVENousPepcid: 20 mg, Oral, DailyPercocet 5/325: 3 Tab, Oral, Q6H, PRN: Pain (Moderate 4-6)Rocephin: 1 Gram, 100 mL/Hr, IV Piggyback, L79KYivSrpkokb SR: 425 mg, Oral, V05YTlupmpq: 650 mg, Oral, Q4H, PRN: Other (See [...] Completeinfluenza virus vaccine, inactivated: 0.5 mL, IntraMuscular, G27TVveRyfubafxmi MedicationsDocumentedLasix 20 mg oral tablet: 1 Tab, [...] mg = 3 mL, PRN, Nebulized Inhalation, E0Dglwggcxnxxxgc 50 mg oral tablet 50 mg = [...] 0.4 mg = 1 Tab, PRN, SubLINgual, D7Yiegprqvryyj chloride 20 mEq oral tablet, extended release 20 mEq = 1 Tab, Oral, DailyProAir HFA 90 mcg/inh inhalation aerosol 2 Puff, PRN, Inhalation, QIDpropafenone 425 mg oral capsule, extended release 425 mg = 1 Cap, Oral, J54NEnsxnqgzg 10 mg oral tablet 10 mg = 1 Tab, Oral, At Bedtimetriamcinolone 0.1% topical cream 1 Application, Topical, BIDXarelto 20 mg oral tablet 20 mg = 1 Tab, Oral, Daily,Medications (35) ActiveScheduled: (14)albuterol-ipratropium inh 3 mL 3 mL, Nebulized Inhalation, E1Icdxwfelgksqfg 50 mg tab 50 mg 1 Tab, Oral, At BedtimeamLODIPine 10 mg tab 10 mg 1 Tab, Oral, Dailyaspirin 81 mg chew tab 81 mg 1 Tab, Oral, DailycefTRIAXone 1 Gram, IV Piggyback, U11WSdlqctepsrkltf *ADV* + NaCl 0.9% *ADV* 100 mL [...] mg cap 425 mg 1 Cap, Oral, C73Rjtrjqfdtmoy 15 mg tab 15 mg 1 Tab, Oral, With DinnerContinuous: (1)NaCl 0.9% 1,500 mL 1,500 mL, IntraVENous, 100 mL/HrPRN: (20)#NaCl 0.9% *FLUSH* inj 10 mL 10 mL, IV Push, See Commentacetaminophen 325 mg tab 650 mg 2 Tab, Oral, V6Ahxpaylihuwthn/oxyCODONE 325/5 mg tab 3 Tab, Oral, N3Ubpwjpyrxm-rqaglabumqj inh 3 mL 3 mL, Nostrils Both, G4Sbooaikv gluconate 1 Gram 10 mL, IV Piggyback, Dailycalcium gluconate 2 Gram 20 mL, IV Piggyback, Dailycalcium gluconate 2 Gram 20 mL, IV Piggyback, Y12JshosTRWRPUP 20 mg/1 mL inj 10 mg 0.5 mL, IV Push, H7ANCKXPvstpvuhw 1 mg/1 mL inj 0.5 mg 0.5 mL, IV Push, H3Lexaoqlady sulfate 2 Gram 50 mL, IV Piggyback, Dailymagnesium sulfate 2 Gram 50 mL, IV Piggyback, T0Icrqfhpwe 2 mg/1 ml cpjt inj 2 mg 1 mL, IV Push, A6Huvennufqqvygd 0.4 mg tab # 25 btl 0.4 mg 1 Tab, SubLINgual, I3Vjskwacwhzdwln 4 mg/2 mL inj 4 mg 2 mL, IV Push, O2ZmijMOQGLN 5 mg tab 5 mg 1 Tab, Oral, A2Nrobfhqcsb chloride 10 mEq 50 mL, IV Piggyback, A3Yddcnasjdy chloride CR 20 mEq tab 20 mEq 1 Tab, Oral, O6Xrruaivhaa chloride CR 20 mEq tab 60 mEq 3 Tab, Oral, J5Kfvirek phosphate 15 mMole 5 mL, IV Piggyback, Dailysodium phosphate 15 mMole 5 mL, IV Piggyback, J1VQnlgiar list:Active Problems (30)Allergic rhinitis Angina Arthritis Atrial [...] 126(OCT 06)Radiology Results Radiology Results (Last 48 hours)[id number] -- 10/06/2016 03:13CR Chest 1 Vw Portable [...] mL inhalation solution: 3 mL, Nebulized Inhalation, A4VZwiNkb 0.5 mg-2.5 mg/3 mL inhalation solution: 3 mL, Nostrils Both, Q6H, PRN: Shortness of BreathNitrostat: 0.4 mg, SubLINgual, Q5Min, PRN: Chest PainNormal Saline 1,500 mL: 100 mL/Hr, IntraVENousPepcid: 20 mg, Oral, DailyPercocet 5/325: 3 Tab, Oral, Q6H, PRN: Pain (Moderate 4-6)Rocephin: 1 Gram, 100 mL/Hr, IV Piggyback, O79JQpeJmwmvdc SR: 425 mg, Oral, B65GRjuhkeo: 650 mg, Oral, Q4H, PRN: Other (See [...] Completeinfluenza virus vaccine, inactivated: 0.5 mL, IntraMuscular, K87SArqBmuswylfqc MedicationsDocumentedLasix 20 mg oral tablet: 1 Tab, [...] inh 3 mL 3 mL, Nebulized Inhalation, M4Weryhbzzffzgmv 50 mg tab 50 mg 1 Tab, Oral, At BedtimeamLODIPine 10 mg tab 10 mg 1 Tab, Oral, Dailyaspirin 81 mg chew tab 81 mg 1 Tab, Oral, DailycefTRIAXone 1 Gram, IV Piggyback, U62PKiaateiberprdy *ADV* + NaCl 0.9% *ADV* 100 mL [...] mg cap 425 mg 1 Cap, Oral, T96Curhkwgkwrve 15 mg tab 15 mg 1 Tab, Oral, With DinnerContinuous: (1)NaCl 0.9% 1,500 mL 1,500 mL, IntraVENous, 100 mL/HrPRN: (20)#NaCl 0.9% *FLUSH* inj 10 mL 10 mL, IV Push, See Commentacetaminophen 325 mg tab 650 mg 2 Tab, Oral, Z3Ktyzejolvvrpkt/oxyCODONE 325/5 mg tab 3 Tab, Oral, D4Qdwhandzyv-ynggknvvcbk inh 3 mL 3 mL, Nostrils Both, K2Gclhghnf gluconate 1 Gram 10 mL, IV Piggyback, Dailycalcium gluconate 2 Gram 20 mL, IV Piggyback, Dailycalcium gluconate 2 Gram 20 mL, IV Piggyback, Q70HclgwJNFAHOA 20 mg/1 mL inj 10 mg 0.5 mL, IV Push, T8BZBXAOiepkymdc 1 mg/1 mL inj 0.5 mg 0.5 mL, IV Push, R3Cavcuhmyvb sulfate 2 Gram 50 mL, IV Piggyback, Dailymagnesium sulfate 2 Gram 50 mL, IV Piggyback, B3Hcpujqtxt 2 mg/1 ml cpjt inj 2 mg 1 mL, IV Push, A7Uulwbsgmptiwby 0.4 mg tab # 25 btl 0.4 mg 1 Tab, SubLINgual, Y2Feyhibsujarpya 4 mg/2 mL inj 4 mg 2 mL, IV Push, W8BiliZORAXM 5 mg tab 5 mg 1 Tab, Oral, O9Naumbdmyhr chloride 10 mEq 50 mL, IV Piggyback, I8Egiaosktmp chloride CR 20 mEq tab 20 mEq 1 Tab, Oral, X4Hvwwipuoyo chloride CR 20 mEq tab 60 mEq 3 Tab, Oral, F6Cjicefy phosphate 15 mMole 5 mL, IV Piggyback, Dailysodium phosphate 15 mMole 5 mL, IV Piggyback, C3PXvigvbp list:Active Problems (30)Allergic rhinitis Angina Arthritis Atrial [...] syndrome Sinusitis Sleep apnea Physical ExaminationVS/MeasurementsVital Signs/Vital Mgdkqznu09/22/2016 11:57 EST Heart Rate, Apical 86 bpm10/11/2016 11:54 EST Temperature, Fahrenheit 97.6 Deg F Clinical Temperature, C 36.4 Deg C Heart Rate Monitored 94 bpm Systolic Blood Pressure 125 mmHg Diastolic Blood Pressure 67 mmHg Mean Arterial Pressure (MAP)-[facility] 8610/11/2016 11:45 EST Temperature Source Oral Temperature Mode Ovmrwfctzn68/22/2016 8:55 EST Heart Rate, Apical 90 bpm10/11/2016 [...] Pressure 49 mmHg LOW Mean Arterial Pressure (MAP)-[facility] 64 Oxygen Saturation 91 % LOW 10/11/2016 [...] sounds.Musculoskeletal: No swelling, No deformity.Integumentary: Warm, Dry, [place].Neurologic: Alert, Normal sensory, No focal deficits, Cranial [...] No swelling, No deformity. Integumentary: Warm, Dry, [place]. Neurologic: Alert, Normal sensory, No focal deficits, [...] mL inhalation solution: 3 mL, Nebulized Inhalation, A9AMnvAyg 0.5 mg-2.5 mg/3 mL inhalation solution: 3 mL, Nostrils Both, Q6H, PRN: Shortness of BreathNitrostat: 0.4 mg, SubLINgual, Q5Min, PRN: Chest PainNormal Saline 1,500 mL: 100 mL/Hr, IntraVENousPepcid: 20 mg, Oral, DailyPercocet 5/325: 3 Tab, Oral, Q6H, PRN: Pain (Moderate 4-6)Rocephin: 1 Gram, 100 mL/Hr, IV Piggyback, F96XRkzHeehqdb SR: 425 mg, Oral, G70ROvetuma: 650 mg, Oral, Q4H, PRN: Other (See [...] Completeinfluenza virus vaccine, inactivated: 0.5 mL, IntraMuscular, B15AJkzGsjdytzpke MedicationsDocumentedLasix 20 mg oral tablet: 1 Tab, [...] mg = 3 mL, PRN, Nebulized Inhalation, E7Tuqhhvdvmdgkmd 50 mg oral tablet 50 mg = [...] 0.4 mg = 1 Tab, PRN, SubLINgual, N0Nqtdavtswckt chloride 20 mEq oral tablet, extended release 20 mEq = 1 Tab, Oral, DailyProAir HFA 90 mcg/inh inhalation aerosol 2 Puff, PRN, Inhalation, QIDpropafenone 425 mg oral capsule, extended release 425 mg = 1 Cap, Oral, K25HJhnfcjnoc 10 mg oral tablet 10 mg = 1 Tab, Oral, At Bedtimetriamcinolone 0.1% topical cream 1 Application, Topical, BIDXarelto 20 mg oral tablet 20 mg = 1 Tab, Oral, Daily,Medications (35) ActiveScheduled: (14)albuterol-ipratropium inh 3 mL 3 mL, Nebulized Inhalation, B3Owyuilqmsbqovq 50 mg tab 50 mg 1 Tab, Oral, At BedtimeamLODIPine 10 mg tab 10 mg 1 Tab, Oral, Dailyaspirin 81 mg chew tab 81 mg 1 Tab, Oral, DailycefTRIAXone 1 Gram, IV Piggyback, I71WOgiclxmbjglntb *ADV* + NaCl 0.9% *ADV* 100 mL [...] mg cap 425 mg 1 Cap, Oral, G41Sbutekqpfhtz 15 mg tab 15 mg 1 Tab, Oral, With DinnerContinuous: (1)NaCl 0.9% 1,500 mL 1,500 mL, IntraVENous, 100 mL/HrPRN: (20)#NaCl 0.9% *FLUSH* inj 10 mL 10 mL, IV Push, See Commentacetaminophen 325 mg tab 650 mg 2 Tab, Oral, A1Gqcnkcesbkrbwl/oxyCODONE 325/5 mg tab 3 Tab, Oral, A0Uxpnauhmfe-tuqhviqarer inh 3 mL 3 mL, Nostrils Both, S3Qwjdrmlz gluconate 1 Gram 10 mL, IV Piggyback, Dailycalcium gluconate 2 Gram 20 mL, IV Piggyback, Dailycalcium gluconate 2 Gram 20 mL, IV Piggyback, X65VzgrnTGKQJXD 20 mg/1 mL inj 10 mg 0.5 mL, IV Push, H2KQIZBWpfxpqlsw 1 mg/1 mL inj 0.5 mg 0.5 mL, IV Push, H5Asvgqgjapq sulfate 2 Gram 50 mL, IV Piggyback, Dailymagnesium sulfate 2 Gram 50 mL, IV Piggyback, Y3Cxqronsyi 2 mg/1 ml cpjt inj 2 mg 1 mL, IV Push, Y3Isnvnqdekyfgdr 0.4 mg tab # 25 btl 0.4 mg 1 Tab, SubLINgual, E4Zpfxkqgurseixd 4 mg/2 mL inj 4 mg 2 mL, IV Push, D0TbwfVWMFMQ 5 mg tab 5 mg 1 Tab, Oral, V2Syxjnbrlao chloride 10 mEq 50 mL, IV Piggyback, X1Ehqcsethiq chloride CR 20 mEq tab 20 mEq 1 Tab, Oral, C8Qtkiuwpnul chloride CR 20 mEq tab 60 mEq 3 Tab, Oral, W4Yvhmexd phosphate 15 mMole 5 mL, IV Piggyback, Dailysodium phosphate 15 mMole 5 mL, IV Piggyback, N0WAatnrur list:Active Problems (30)Allergic rhinitis Angina Arthritis Atrial [...] legs syndrome Sinusitis Sleep apnea ObjectiveVS/MeasurementsVital Signs/Vital Ptoirhvj42/22/2016 11:57 EST Heart Rate, Apical 86 bpm10/11/2016 11:54 EST Temperature, Fahrenheit 97.6 Deg F Clinical Temperature, C 36.4 Deg C Heart Rate Monitored 94 bpm Systolic Blood Pressure 125 mmHg Diastolic Blood Pressure 67 mmHg Mean Arterial Pressure (MAP)-[facility] 8610/11/2016 8:55 EST Heart Rate, Apical 90 [...] HI 10/10/2016 09:07 Radiology Results (Last 48 hours)[id number] -- 10/06/2016 03:13CR Chest 1 Vw Portable [...] mL inhalation solution: 3 mL, Nebulized Inhalation, Q9ICwpRbi 0.5 mg-2.5 mg/3 mL inhalation solution: 3 mL, Nostrils Both, Q6H, PRN: Shortness of BreathNitrostat: 0.4 mg, SubLINgual, Q5Min, PRN: Chest PainPepcid: 20 mg, Oral, DailyPercocet 5/325: 3 Tab, Oral, Q6H, PRN: Pain (Moderate 4-6)Rythmol SR: 425 mg, Oral, D13OOptotyh: 650 mg, Oral, Q4H, PRN: Other (See [...] Completeinfluenza virus vaccine, inactivated: 0.5 mL, IntraMuscular, U96MOwiUodrdlvawt MedicationsDocumentedLasix 20 mg oral tablet: 1 Tab, [...] inh 3 mL 3 mL, Nebulized Inhalation, J3Wpkdfdlxybqnga 50 mg tab 50 mg 1 Tab, [...] mg cap 425 mg 1 Cap, Oral, M82Iizkfceidxbm 15 mg tab 15 mg 1 Tab, Oral, With DinnerContinuous: (0)PRN: (20)#NaCl 0.9% *FLUSH* inj 10 mL 10 mL, IV Push, See Commentacetaminophen 325 mg tab 650 mg 2 Tab, Oral, Z0Iljpelyjjzqbdt/oxyCODONE 325/5 mg tab 3 Tab, Oral, G9Ewbgkhlohh-zoxmkffutda inh 3 mL 3 mL, Nostrils Both, E8Rxitakbx gluconate 1 Gram 10 mL, IV Piggyback, Dailycalcium gluconate 2 Gram 20 mL, IV Piggyback, Dailycalcium gluconate 2 Gram 20 mL, IV Piggyback, V89GpxxdABXLCQK 20 mg/1 mL inj 10 mg 0.5 mL, IV Push, Q9GHAIQGukcbfakf 1 mg/1 mL inj 0.5 mg 0.5 mL, IV Push, T9Qmzauridah sulfate 2 Gram 50 mL, IV Piggyback, Dailymagnesium sulfate 2 Gram 50 mL, IV Piggyback, G9Eetefomfa 2 mg/1 ml cpjt inj 2 mg 1 mL, IV Push, Z3Bjupwdijusnlsh 0.4 mg tab # 25 btl 0.4 mg 1 Tab, SubLINgual, Y5Lusgfwybxipptq 4 mg/2 mL inj 4 mg 2 mL, IV Push, Y6MnjtQCCCKW 5 mg tab 5 mg 1 Tab, Oral, X9Hwbcculjgq chloride 10 mEq 50 mL, IV Piggyback, M2Annesnryoc chloride CR 20 mEq tab 20 mEq 1 Tab, Oral, X4Stdrahbdkv chloride CR 20 mEq tab 60 mEq 3 Tab, Oral, U4Jtlmnuq phosphate 15 mMole 5 mL, IV Piggyback, Dailysodium phosphate 15 mMole 5 mL, IV Piggyback, W5VQrzgpod list:Active Problems (30)Allergic rhinitis Angina Arthritis Atrial [...] syndrome Sinusitis Sleep apnea Physical ExaminationVS/MeasurementsVital Signs/Vital Ovguxrzs74/21/2016 13:21 EST Heart Rate, Apical 90 bpm10/10/2016 [...] 8:30 EST Heart Rate, Apical 104 bpm IN 10/10/2016 8:28 EST Heart Rate Monitored 104 [...] sounds.Musculoskeletal: No swelling, No deformity.Integumentary: Warm, Dry, [place].Neurologic: Alert, Normal sensory, Normal motor function, No [...] No swelling, No deformity. Integumentary: Warm, Dry, [place]. Neurologic: Alert, Normal sensory, Normal motor function, [...] mL inhalation solution: 3 mL, Nebulized Inhalation, Q2DMxqHqb 0.5 mg-2.5 mg/3 mL inhalation solution: 3 mL, Nostrils Both, Q6H, PRN: Shortness of BreathNitrostat: 0.4 mg, SubLINgual, Q5Min, PRN: Chest PainPepcid: 20 mg, Oral, DailyPercocet 5/325: 3 Tab, Oral, Q6H, PRN: Pain (Moderate 4-6)Rythmol SR: 425 mg, Oral, F72KCixdpmi: 650 mg, Oral, Q4H, PRN: Other (See [...] Completeinfluenza virus vaccine, inactivated: 0.5 mL, IntraMuscular, [id number] MedicationsDocumentedLasix 20 mg oral tablet: 1 Tab, [...] mg = 3 mL, PRN, Nebulized Inhalation, O4Ikrasivvkxnrye 50 mg oral tablet 50 mg = [...] 0.4 mg = 1 Tab, PRN, SubLINgual, N5Fepamzwtqlnj chloride 20 mEq oral tablet, extended release 20 mEq = 1 Tab, Oral, DailyProAir HFA 90 mcg/inh inhalation aerosol 2 Puff, PRN, Inhalation, QIDpropafenone 425 mg oral capsule, extended release 425 mg = 1 Cap, Oral, Y93BAkyiqzzqf 10 mg oral tablet 10 mg = 1 Tab, Oral, At Bedtimetriamcinolone 0.1% topical cream 1 Application, Topical, BIDXarelto 20 mg oral tablet 20 mg = 1 Tab, Oral, Daily,Medications (33) ActiveScheduled: (13)albuterol-ipratropium inh 3 mL 3 mL, Nebulized Inhalation, N7Vnirbliarwcltv 50 mg tab 50 mg 1 Tab, [...] mg cap 425 mg 1 Cap, Oral, G23Kmueiemxqzen 15 mg tab 15 mg 1 Tab, Oral, With DinnerContinuous: (0)PRN: (20)#NaCl 0.9% *FLUSH* inj 10 mL 10 mL, IV Push, See Commentacetaminophen 325 mg tab 650 mg 2 Tab, Oral, N9Pnxnkmvreanhap/oxyCODONE 325/5 mg tab 3 Tab, Oral, W9Dipsbyymev-rmazeocdaec inh 3 mL 3 mL, Nostrils Both, C0Kklwaqcl gluconate 1 Gram 10 mL, IV Piggyback, Dailycalcium gluconate 2 Gram 20 mL, IV Piggyback, Dailycalcium gluconate 2 Gram 20 mL, IV Piggyback, P66BrcevJHSDIAL 20 mg/1 mL inj 10 mg 0.5 mL, IV Push, G9TTRZGZfwlgjqwq 1 mg/1 mL inj 0.5 mg 0.5 mL, IV Push, E8Ioxvxoerun sulfate 2 Gram 50 mL, IV Piggyback, Dailymagnesium sulfate 2 Gram 50 mL, IV Piggyback, A0Hdidjljtw 2 mg/1 ml cpjt inj 2 mg 1 mL, IV Push, Z3Jhcqbbowwvzvdj 0.4 mg tab # 25 btl 0.4 mg 1 Tab, SubLINgual, B9Fzodchxrpsqoih 4 mg/2 mL inj 4 mg 2 mL, IV Push, S1TpluZHNZXY 5 mg tab 5 mg 1 Tab, Oral, D1Osastidajd chloride 10 mEq 50 mL, IV Piggyback, D5Vqnyaxrdkv chloride CR 20 mEq tab 20 mEq 1 Tab, Oral, G0Irkcvorrmp chloride CR 20 mEq tab 60 mEq 3 Tab, Oral, I9Hwhmciq phosphate 15 mMole 5 mL, IV Piggyback, Dailysodium phosphate 15 mMole 5 mL, IV Piggyback, M7VJhimvpo list:Active Problems (30)Allergic rhinitis Angina Arthritis Atrial [...] legs syndrome Sinusitis Sleep apnea ObjectiveVS/MeasurementsVital Signs/Vital Siiupaff62/21/2016 11:33 EST Heart Rate Monitored 94 bpm10/10/2016 11:26 EST Heart Rate Monitored 94 bpm Oxygen Therapy Mode Nasal cannula Oxygen Flow Rate 3 Liter/Min10/10/2016 8:30 EST Heart Rate, Apical 104 bpm IN 10/10/2016 8:28 EST Heart Rate Monitored 104 bpm IN Systolic Blood Pressure 134 mmHg Diastolic Blood [...] 12:05 EST Heart Rate, Apical 108 bpm IN 10/09/2016 12:00 EST Temperature Source Axillary Temperature Mode Fahrenheit Temperature, Fahrenheit 97.9 Deg F Heart Rate Monitored 104 bpm HI Respiratory Rate 26 Breaths/Min HI Systolic Blood Pressure 131 mmHg Diastolic Blood Pressure 64 mmHg Mean Arterial Pressure (MAP)-BMDI 90 Oxygen Saturation 95 % Oxygen Therapy Mode Nasal cannula Oxygen Flow Rate 4 Liter/Min10/09/2016 11:48 EST Heart Rate Monitored 101 bpm IN 10/09/2016 11:38 EST Heart Rate Monitored 101 [...] 8:57 EST Heart Rate, Apical 115 bpm IN 10/09/2016 8:13 EST Heart Rate Monitored 101 [...] HI 10/10/2016 09:07 Radiology Results (Last 48 hours)[id number] -- 10/06/2016 03:13CR Chest 1 Vw Portable [...] mL inhalation solution: 3 mL, Nebulized Inhalation, Z1FChaLqn 0.5 mg-2.5 mg/3 mL inhalation solution: 3 mL, Nostrils Both, Q6H, PRN: Shortness of BreathNitrostat: 0.4 mg, SubLINgual, Q5Min, PRN: Chest PainPepcid: 20 mg, Oral, DailyPercocet 5/325: 3 Tab, Oral, Q6H, PRN: Pain (Moderate 4-6)Rocephin: 1 Gram, 100 mL/Hr, IV Piggyback, B30YFokGuxtzft SR: 425 mg, Oral, I62AOvqzzln: 650 mg, Oral, Q4H, PRN: Other (See [...] Completeinfluenza virus vaccine, inactivated: 0.5 mL, IntraMuscular, M92QAecRyenxcmjor MedicationsDocumentedLasix 20 mg oral tablet: 1 Tab, [...] mg = 3 mL, PRN, Nebulized Inhalation, Y7Mgvrdwafiizhwd 50 mg oral tablet 50 mg = [...] 0.4 mg = 1 Tab, PRN, SubLINgual, Z6Lzhedtqitclp chloride 20 mEq oral tablet, extended release 20 mEq = 1 Tab, Oral, DailyProAir HFA 90 mcg/inh inhalation aerosol 2 Puff, PRN, Inhalation, QIDpropafenone 425 mg oral capsule, extended release 425 mg = 1 Cap, Oral, Z22PEhmabsxsu 10 mg oral tablet 10 mg = 1 Tab, Oral, At Bedtimetriamcinolone 0.1% topical cream 1 Application, Topical, BIDXarelto 20 mg oral tablet 20 mg = 1 Tab, Oral, Daily,Medications (34) ActiveScheduled: (14)albuterol-ipratropium inh 3 mL 3 mL, Nebulized Inhalation, K7Ptsuqaojwfwvya 50 mg tab 50 mg 1 Tab, Oral, At BedtimeamLODIPine 10 mg tab 10 mg 1 Tab, Oral, Dailyaspirin 81 mg chew tab 81 mg 1 Tab, Oral, DailycefTRIAXone 1 Gram, IV Piggyback, J49VAapdayxrgeiyyt *ADV* + NaCl 0.9% *ADV* 100 mL [...] mg cap 425 mg 1 Cap, Oral, E54Xvyeugggoagc 15 mg tab 15 mg 1 Tab, Oral, With DinnerContinuous: (0)PRN: (20)#NaCl 0.9% *FLUSH* inj 10 mL 10 mL, IV Push, See Commentacetaminophen 325 mg tab 650 mg 2 Tab, Oral, V4Ozvpnrodjedobu/oxyCODONE 325/5 mg tab 3 Tab, Oral, L0Gvyalxdgau-mmpmykfwlzf inh 3 mL 3 mL, Nostrils Both, Y6Oymnewmt gluconate 1 Gram 10 mL, IV Piggyback, Dailycalcium gluconate 2 Gram 20 mL, IV Piggyback, Dailycalcium gluconate 2 Gram 20 mL, IV Piggyback, X33CxtzsWWYEBSP 20 mg/1 mL inj 10 mg 0.5 mL, IV Push, G4MZTWHTiipznlyo 1 mg/1 mL inj 0.5 mg 0.5 mL, IV Push, B0Dhbknealjd sulfate 2 Gram 50 mL, IV Piggyback, Dailymagnesium sulfate 2 Gram 50 mL, IV Piggyback, Z9Nragxttwm 2 mg/1 ml cpjt inj 2 mg 1 mL, IV Push, Y4Lohnkwipwzottx 0.4 mg tab # 25 btl 0.4 mg 1 Tab, SubLINgual, D3Gmydfiypvldxim 4 mg/2 mL inj 4 mg 2 mL, IV Push, E5OavuWGWFHW 5 mg tab 5 mg 1 Tab, Oral, W1Wiiuhxcjgv chloride 10 mEq 50 mL, IV Piggyback, X9Kvlqoftwzc chloride CR 20 mEq tab 20 mEq 1 Tab, Oral, R7Fcfaghmsuy chloride CR 20 mEq tab 60 mEq 3 Tab, Oral, P3Qdpixhn phosphate 15 mMole 5 mL, IV Piggyback, Dailysodium phosphate 15 mMole 5 mL, IV Piggyback, W7ZShqdghb list:Active Problems (30)Allergic rhinitis Angina Arthritis Atrial [...] 126(OCT 06)Radiology Results Radiology Results (Last 48 hours)[id number] -- 10/06/2016 03:13CR Chest 1 Vw Portable [...] mL inhalation solution: 3 mL, Nebulized Inhalation, J1WAthNsq 0.5 mg-2.5 mg/3 mL inhalation solution: 3 mL, Nostrils Both, Q6H, PRN: Shortness of BreathNitrostat: 0.4 mg, SubLINgual, Q5Min, PRN: Chest PainPepcid: 20 mg, Oral, DailyPercocet 5/325: 3 Tab, Oral, Q6H, PRN: Pain (Moderate 4-6)Rythmol SR: 425 mg, Oral, M86ZSksgxkr: 650 mg, Oral, Q4H, PRN: Other (See [...] Completeinfluenza virus vaccine, inactivated: 0.5 mL, IntraMuscular, B04UQztQruarkmtok MedicationsDocumentedLasix 20 mg oral tablet: 1 Tab, [...] inh 3 mL 3 mL, Nebulized Inhalation, R8Aixsnliikvhetv 50 mg tab 50 mg 1 Tab, [...] mg cap 425 mg 1 Cap, Oral, P93Cekkmbbqoffh 20 mg tab 20 mg 1 Tab, Oral, With DinnerContinuous: (1)phenylephrine 20 mg + NaCl 0.9% 250 mL 250 mL, IntraVENousPRN: (20)#NaCl 0.9% *FLUSH* inj 10 mL 10 mL, IV Push, See Commentacetaminophen 325 mg tab 650 mg 2 Tab, Oral, Z3Nxfwistvckylwr/oxyCODONE 325/5 mg tab 3 Tab, Oral, Y7Fxuekflfbm-osyphspujva inh 3 mL 3 mL, Nostrils Both, V9Waxpuqso gluconate 1 Gram 10 mL, IV Piggyback, Dailycalcium gluconate 2 Gram 20 mL, IV Piggyback, Dailycalcium gluconate 2 Gram 20 mL, IV Piggyback, K71LoupxBIKHMEE 20 mg/1 mL inj 10 mg 0.5 mL, IV Push, L4AAJQYLrgurzunx 1 mg/1 mL inj 0.5 mg 0.5 mL, IV Push, J1Xkzzrrfxjo sulfate 2 Gram 50 mL, IV Piggyback, Dailymagnesium sulfate 2 Gram 50 mL, IV Piggyback, S9Yfsdojhsr 2 mg/1 ml cpjt inj 2 mg 1 mL, IV Push, S2Miinpkbxszgweu 0.4 mg tab # 25 btl 0.4 mg 1 Tab, SubLINgual, F2Olfexkmufmskde 4 mg/2 mL inj 4 mg 2 mL, IV Push, M4QovuQUIKIA 5 mg tab 5 mg 1 Tab, Oral, S0Oylpuopzpn chloride 10 mEq 50 mL, IV Piggyback, U7Ahqfxvpfei chloride CR 20 mEq tab 20 mEq 1 Tab, Oral, C6Retbkqzoww chloride CR 20 mEq tab 60 mEq 3 Tab, Oral, O6Ycboenr phosphate 15 mMole 5 mL, IV Piggyback, Dailysodium phosphate 15 mMole 5 mL, IV Piggyback, J3UYowhsyi list:Active Problems (30)Allergic rhinitis Angina Arthritis Atrial [...] syndrome Sinusitis Sleep apnea Physical ExaminationVS/MeasurementsVital Signs/Vital Atvhttmy16/20/2016 12:05 EST Heart Rate, Apical 108 bpm IN 10/09/2016 12:00 EST Temperature Source Axillary Temperature Mode Fahrenheit Temperature, Fahrenheit 97.9 Deg F Heart Rate Monitored 104 bpm IN Respiratory Rate 26 Breaths/Min HI Systolic Blood Pressure 131 mmHg Diastolic Blood Pressure 64 mmHg Mean Arterial Pressure (MAP)-BMDI 90 Oxygen Saturation 95 % Oxygen Therapy Mode Nasal cannula Oxygen Flow Rate 4 Liter/Min10/09/2016 11:48 EST Heart Rate Monitored 101 bpm IN 10/09/2016 11:38 EST Heart Rate Monitored 101 [...] 8:57 EST Heart Rate, Apical 115 bpm IN 10/09/2016 8:13 EST Heart Rate Monitored 101 bpm IN Oxygen Therapy Mode Nasal cannula Oxygen Flow [...] 10:43 EST Heart Rate, Apical 108 bpm IN 10/08/2016 10:00 EST Heart Rate Monitored 103 [...] 8:42 EST Heart Rate, Apical 103 bpm IN 10/08/2016 8:01 EST Heart Rate Monitored 103 bpm IN 10/08/2016 8:00 EST Temperature Source Oral Temperature [...] sounds.Musculoskeletal: No swelling, No deformity.Integumentary: Warm, Dry, [place].Neurologic: Alert, Normal sensory, Normal motor function, No [...] No swelling, No deformity. Integumentary: Warm, Dry, [place]. Neurologic: Alert, Normal sensory, Normal motor function, [...] was discharged on Xarelto. He presented to [facility] after he over extended his leg by report. He said he felt some popping. A CT there shoes a 6.23 cm hematoma vs anuerysm and is hgb was dropping. He was transferred to [facility] for surgical intervention. 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 Patient in bed on 4 L O2, saturation 97%. Awake/alert. Patient does complain of right groin pain, status post surgery. Denies shortness of breath, fever, chills. Mild mostly nonproductive cough. BiPAP overnight. No new issues. Urine output 2825 mL, fluid balance -1200 mL, serum creatinine up to 2.0. Hemodynamically stable, bocrfuhg81/20: Patient in bed on 4 L O2. Awake and alert. States that his right groin/leg pain has improved.Denies shortness of breath, fever, chills. Still with mild nonproductive cough. BiPAP overnight.Urine output 3000 mL, fluid balance -1700 mLHemodynamically stable, afebrile Closure of right femoral arteriovenous fistula. Cholecystectomy ABD incisional hernia repair [facility] radial approach Afib ablation femoral approach 10/08: [...] mL inhalation solution: 3 mL, Nebulized Inhalation, J9MUvpTvx 0.5 mg-2.5 mg/3 mL inhalation solution: 3 mL, Nostrils Both, Q6H, PRN: Shortness of BreathNitrostat: 0.4 mg, SubLINgual, Q5Min, PRN: Chest PainPepcid: 20 mg, Oral, DailyPercocet 5/325: 3 Tab, Oral, Q6H, PRN: Pain (Moderate 4-6)Rythmol SR: 425 mg, Oral, C37VQuokqny: 650 mg, Oral, Q4H, PRN: Other (See [...] Completeinfluenza virus vaccine, inactivated: 0.5 mL, IntraMuscular, R66MRykZgndhironq MedicationsDocumentedLasix 20 mg oral tablet: 1 Tab, [...] ).Musculoskeletal: right groin surgical dressing.Integumentary: Warm, Dry, [place].Neurologic: Alert, Oriented, No focal deficits.Psychiatric: Cooperative, Appropriate mood & affect. Genitourinary: Support: Urinary catheter ( Indwelling ). Musculoskeletal: right groin surgical dressing. Integumentary: Warm, Dry, [place]. Neurologic: Alert, Oriented, No focal deficits. Psychiatric: [...] (Past 24 Hours) Radiology Results (Last 48 hours)[id number] -- 10/06/2016 03:13CR Chest 1 Vw Portable [...] 24 Hours) Radiology Results (Last 48 hours) [id number] -- 10/06/2016 03:13 CR Chest 1 Vw [...] 55%Renal:OTILIO with CKD-worseningGI:GERDhiatal herniaincisional hernia s/p repairHx pancreatitisObesityENDO:RS8DripuwosobrTPI/GIPlan:Supplemental A4Ntltax N8cmVtmlcqabjd to manage hypertensionRecommend holding SHYANN-I secondary to [...] mL inhalation solution: 3 mL, Nebulized Inhalation, M6RTbkOcn 0.5 mg-2.5 mg/3 mL inhalation solution: 3 mL, Nostrils Both, Q6H, PRN: Shortness of BreathNitrostat: 0.4 mg, SubLINgual, Q5Min, PRN: Chest PainPepcid: 20 mg, Oral, DailyPercocet 5/325: 3 Tab, Oral, Q6H, PRN: Pain (Moderate 4-6)Rythmol SR: 425 mg, Oral, L06KHwsmcul: 650 mg, Oral, Q4H, PRN: Other (See [...] Completeinfluenza virus vaccine, inactivated: 0.5 mL, IntraMuscular, B39RXntKidcyzgbei MedicationsDocumentedLasix 20 mg oral tablet: 1 Tab, [...] mg = 3 mL, PRN, Nebulized Inhalation, S7Cluzyfdtzxpnfq 50 mg oral tablet 50 mg = [...] 0.4 mg = 1 Tab, PRN, SubLINgual, I5Ffohbuabcehy chloride 20 mEq oral tablet, extended release 20 mEq = 1 Tab, Oral, DailyProAir HFA 90 mcg/inh inhalation aerosol 2 Puff, PRN, Inhalation, QIDpropafenone 425 mg oral capsule, extended release 425 mg = 1 Cap, Oral, A93GLwckmtubz 10 mg oral tablet 10 mg = 1 Tab, Oral, At Bedtimetriamcinolone 0.1% topical cream 1 Application, Topical, BIDXarelto 20 mg oral tablet 20 mg = 1 Tab, Oral, Daily,Medications (34) ActiveScheduled: (13)albuterol-ipratropium inh 3 mL 3 mL, Nebulized Inhalation, W7Inveylskdkdjfb 50 mg tab 50 mg 1 Tab, [...] mg cap 425 mg 1 Cap, Oral, L47Upiuaebkscjz 20 mg tab 20 mg 1 Tab, Oral, With DinnerContinuous: (1)phenylephrine 20 mg + NaCl 0.9% 250 mL 250 mL, IntraVENousPRN: (20)#NaCl 0.9% *FLUSH* inj 10 mL 10 mL, IV Push, See Commentacetaminophen 325 mg tab 650 mg 2 Tab, Oral, F6Dbbtnbrqnedwpi/oxyCODONE 325/5 mg tab 3 Tab, Oral, A8Tqnmmpauwp-ayhgpfmlfif inh 3 mL 3 mL, Nostrils Both, C4Cneilbou gluconate 1 Gram 10 mL, IV Piggyback, Dailycalcium gluconate 2 Gram 20 mL, IV Piggyback, Dailycalcium gluconate 2 Gram 20 mL, IV Piggyback, B90CfssaNTPUGXR 20 mg/1 mL inj 10 mg 0.5 mL, IV Push, H7HTFIJMwuqfnenh 1 mg/1 mL inj 0.5 mg 0.5 mL, IV Push, S8Fvwetoezxt sulfate 2 Gram 50 mL, IV Piggyback, Dailymagnesium sulfate 2 Gram 50 mL, IV Piggyback, N7Xcnvvabda 2 mg/1 ml cpjt inj 2 mg 1 mL, IV Push, B3Ogkfrcfwoudjob 0.4 mg tab # 25 btl 0.4 mg 1 Tab, SubLINgual, Y8Ysfehkppaclgpl 4 mg/2 mL inj 4 mg 2 mL, IV Push, P1OejwHHGBEP 5 mg tab 5 mg 1 Tab, Oral, V7Ntqsabxzlg chloride 10 mEq 50 mL, IV Piggyback, W0Kqbcshwxej chloride CR 20 mEq tab 20 mEq 1 Tab, Oral, I4Nnxdgdbimw chloride CR 20 mEq tab 60 mEq 3 Tab, Oral, L7Puhfxig phosphate 15 mMole 5 mL, IV Piggyback, Dailysodium phosphate 15 mMole 5 mL, IV Piggyback, A8PXnsrxzv list:Active Problems (30)Allergic rhinitis Angina Arthritis Atrial [...] legs syndrome Sinusitis Sleep apnea ObjectiveVS/MeasurementsVital Signs/Vital Shur[place]a67/20/2016 6:00 EST Heart Rate Monitored 94 bpm [...] 10:43 EST Heart Rate, Apical 108 bpm IN 10/08/2016 10:00 EST Heart Rate Monitored 103 [...] 8:42 EST Heart Rate, Apical 103 bpm IN 10/08/2016 8:01 EST Heart Rate Monitored 103 bpm IN 10/08/2016 8:00 EST Temperature Source Oral Temperature [...] (Past 24 Hours) Radiology Results (Last 48 hours)[id number] -- 10/06/2016 03:13CR Chest 1 Vw Portable [...] transcribed report. Radiology Results (Last 48 hours) [id number] -- 10/06/2016 03:13 CR Chest 1 Vw [...] nephrolopgy consulted and called.PLAN;OK to transfer to [facility] from EP standpoint. 4- psudoanurysm and AV [...] mL inhalation solution: 3 mL, Nebulized Inhalation, R8EWurQqt 0.5 mg-2.5 mg/3 mL inhalation solution: 3 mL, Nostrils Both, Q6H, PRN: Shortness of BreathNitrostat: 0.4 mg, SubLINgual, Q5Min, PRN: Chest PainPepcid: 20 mg, Oral, DailyPercocet 5/325: 3 Tab, Oral, Q6H, PRN: Pain (Moderate 4-6)Rythmol SR: 425 mg, Oral, O92KCtxhdiy: 650 mg, Oral, Q4H, PRN: Other (See [...] 300 mg, Oral, BIDheparin: 5,000 Units, SubCutaneous, S3NpxyvAUPULTV: 10 mg, IV Push, Q6H, PRN: Hypertensioninsulin [...] Completeinfluenza virus vaccine, inactivated: 0.5 mL, IntraMuscular, R55YXkbPxfzffpftw MedicationsDocumentedLasix 20 mg oral tablet: 1 Tab, [...] inh 3 mL 3 mL, Nebulized Inhalation, R3Pqozxcjrxznhtg 50 mg tab 50 mg 1 Tab, [...] mL inj 5,000 Units 1 mL, SubCutaneous, G6Xnnemlxy regular 1 unit/0.01 mL inj 3mL Scale C, SubCutaneous, AC and at Bedtimelovastatin 20 mg tab 40 mg 2 Tab, Oral, At Bedtimemetoprolol tartrate 100 mg tab 100 mg 1 Tab, Oral, TIDpropafenone SR 425 mg cap 425 mg 1 Cap, Oral, N71JYkguokimzh: (1)phenylephrine 20 mg + NaCl 0.9% 250 mL 250 mL, IntraVENousPRN: (20)#NaCl 0.9% *FLUSH* inj 10 mL 10 mL, IV Push, See Commentacetaminophen 325 mg tab 650 mg 2 Tab, Oral, N8Mbzrwzbiblepes/oxyCODONE 325/5 mg tab 3 Tab, Oral, G1Xfpofgltpu-fksypgpripx inh 3 mL 3 mL, Nostrils Both, F7Izoyvlds gluconate 1 Gram 10 mL, IV Piggyback, Dailycalcium gluconate 2 Gram 20 mL, IV Piggyback, Dailycalcium gluconate 2 Gram 20 mL, IV Piggyback, A37JmeofDHWZHYW 20 mg/1 mL inj 10 mg 0.5 mL, IV Push, F1RPXNDYobndyric 1 mg/1 mL inj 0.5 mg 0.5 mL, IV Push, Q7Pbywwjoavr sulfate 2 Gram 50 mL, IV Piggyback, Dailymagnesium sulfate 2 Gram 50 mL, IV Piggyback, B1Hccttuomy 2 mg/1 ml cpjt inj 2 mg 1 mL, IV Push, N0Pvsqwvgbozvbpf 0.4 mg tab # 25 btl 0.4 mg 1 Tab, SubLINgual, M0Dvvjuncpdymzvz 4 mg/2 mL inj 4 mg 2 mL, IV Push, G9VjagBQJQFT 5 mg tab 5 mg 1 Tab, Oral, A3Gusygmwjcn chloride 10 mEq 50 mL, IV Piggyback, R5Rjypoqmkdd chloride CR 20 mEq tab 20 mEq 1 Tab, Oral, Y5Lwsdvkznrp chloride CR 20 mEq tab 60 mEq 3 Tab, Oral, J3Rtvtnfs phosphate 15 mMole 5 mL, IV Piggyback, Dailysodium phosphate 15 mMole 5 mL, IV Piggyback, P6ETgdzpip list:Active Problems (30)Allergic rhinitis Angina Arthritis Atrial [...] syndrome Sinusitis Sleep apnea Physical ExaminationVS/MeasurementsVital Signs/Vital Fvxdrcov49/19/2016 12:00 EST Temperature Source Oral Temperature Mode [...] 10:43 EST Heart Rate, Apical 108 bpm IN 10/08/2016 10:00 EST Heart Rate Monitored 103 [...] 8:42 EST Heart Rate, Apical 103 bpm IN 10/08/2016 8:01 EST Heart Rate Monitored 103 bpm IN 10/08/2016 8:00 EST Temperature Source Oral Temperature [...] 1 83 mmHg Oxygen Therapy Mode Mechanical qcnodpltdlv67/18/2016 7:00 EST Heart Rate Monitored 72 bpm [...] sounds.Musculoskeletal: No swelling, No deformity.Integumentary: Warm, Dry, [place].Neurologic: Alert, Normal sensory, Normal motor function, No [...] No swelling, No deformity. Integumentary: Warm, Dry, [place]. Neurologic: Alert, Normal sensory, Normal motor function, [...] was discharged on Xarelto. He presented to [facility] after he over extended his leg by report. He said he felt some popping. A CT there shoes a 6.23 cm hematoma vs anuerysm and is hgb was dropping. He was transferred to [facility] for surgical intervention. 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 Patient in bed on 4 [...] mL inhalation solution: 3 mL, Nebulized Inhalation, H3RUltStf 0.5 mg-2.5 mg/3 mL inhalation solution: 3 mL, Nostrils Both, Q6H, PRN: Shortness of BreathHYDROmorphone: 0.25 mg, IV Push, Q10Min, PRN: Pain (Severe 7-10)Lactated Ringers Injection 1,000 mL: 100 mL/Hr, IntraVENousNitrostat: 0.4 mg, SubLINgual, Q5Min, PRN: Chest PainPepcid: 20 mg, Oral, DailyPremix Diluent + 20 mg niCARdipine: Titrate, IntraVENousRythmol SR: 425 mg, Oral, X49JJnyyzdw: 650 mg, Oral, Q4H, PRN: Other (See [...] 300 mg, Oral, BIDheparin: 5,000 Units, SubCutaneous, T1VhebdVWNEQSP: 10 mg, IV Push, Q6H, PRN: Hypertensioninsulin [...] Completeinfluenza virus vaccine, inactivated: 0.5 mL, IntraMuscular, D55AYxfJvulzdzfev MedicationsDocumentedLasix 20 mg oral tablet: 1 Tab, [...] ).Musculoskeletal: right groin surgical dressing.Integumentary: Warm, Dry, [place].Neurologic: Alert, Oriented, No focal deficits.Psychiatric: Cooperative, Appropriate mood & affect. Genitourinary: Support: Urinary catheter ( Indwelling ). Musculoskeletal: right groin surgical dressing. Integumentary: Warm, Dry, [place]. Neurologic: Alert, Oriented, No focal deficits. Psychiatric: [...] NA 10/08/2016 03:18 Radiology Results (Last 48 hours)[id number] -- 10/06/2016 03:13CR Chest 1 Vw (10/06/2016 [...] 10/08/2016 03:18 Radiology Results (Last 48 hours) [id number] -- 10/06/2016 03:13 CR Chest 1 Vw [...] 55%Renal:OTILIO with CKD-worseningGI:GERDhiatal herniaincisional hernia s/p repairHx pancreatitisObesityENDO:GB9NamkuywtjhdPPJ/GIPlan:Supplemental R7Snlndl V4umNxjsnumobs to manage hypertensionRecommend holding SHYANN-I secondary to [...] mL inhalation solution: 3 mL, Nebulized Inhalation, G5WHvjMwd 0.5 mg-2.5 mg/3 mL inhalation solution: 3 mL, Nostrils Both, Q6H, PRN: Shortness of BreathHYDROmorphone: 0.25 mg, IV Push, Q10Min, PRN: Pain (Severe 7-10)Lactated Ringers Injection 1,000 mL: 100 mL/Hr, IntraVENousNitrostat: 0.4 mg, SubLINgual, Q5Min, PRN: Chest PainPepcid: 20 mg, Oral, DailyPremix Diluent + 20 mg niCARdipine: Titrate, IntraVENousRythmol SR: 425 mg, Oral, P89YAvjsguo: 650 mg, Oral, Q4H, PRN: Other (See [...] 300 mg, Oral, BIDheparin: 5,000 Units, SubCutaneous, V3VxyfzHAFFTJR: 10 mg, IV Push, Q6H, PRN: Hypertensioninsulin [...] Completeinfluenza virus vaccine, inactivated: 0.5 mL, IntraMuscular, I25CJgmQlvftigytq MedicationsDocumentedLasix 20 mg oral tablet: 1 Tab, [...] mg = 3 mL, PRN, Nebulized Inhalation, O1Pqdxxeixpepvph 50 mg oral tablet 50 mg = [...] 0.4 mg = 1 Tab, PRN, SubLINgual, T4Trztkzpskwiz chloride 20 mEq oral tablet, extended release 20 mEq = 1 Tab, Oral, DailyProAir HFA 90 mcg/inh inhalation aerosol 2 Puff, PRN, Inhalation, QIDpropafenone 425 mg oral capsule, extended release 425 mg = 1 Cap, Oral, P46EElogqskmo 10 mg oral tablet 10 mg = 1 Tab, Oral, At Bedtimetriamcinolone 0.1% topical cream 1 Application, Topical, BIDXarelto 20 mg oral tablet 20 mg = 1 Tab, Oral, Daily,Medications (42) ActiveScheduled: (14)albuterol-ipratropium inh 3 mL 3 mL, Nebulized Inhalation, O7Jnuknwpxorbqyf 50 mg tab 50 mg 1 Tab, [...] mL inj 5,000 Units 1 mL, SubCutaneous, Y4Djeqjlaa regular 1 unit/0.01 mL inj 3mL Scale C, SubCutaneous, AC and at Bedtimelisinopril 20 mg tab 40 mg 2 Tab, Oral, Dailylovastatin 20 mg tab 40 mg 2 Tab, Oral, At Bedtimemetoprolol tartrate 100 mg tab 100 mg 1 Tab, Oral, TIDpotassium chloride CR 20 mEq tab 20 mEq 1 Tab, Oral, Dailypropafenone SR 425 mg cap 425 mg 1 Cap, Oral, Q27JMmsptfmurc: (5)fentaNYL 1,000 mcg 100 mL, IntraVENouslactated ringers 1,000 mL 1,000 mL, IntraVENous, 100 mL/Hrphenylephrine 20 mg + NaCl 0.9% 250 mL 250 mL, IntraVENousPremix Diluent + 20 mg niCARdipine 200 mL, IntraVENouspropofol 1,000 mg + Premix Diluent 100 mL 100 mL, IntraVENousPRN: (23)acetaminophen 325 mg tab 650 mg 2 Tab, Oral, R8Lgeqwoxbgm-lxhhlnbxcqg inh 3 mL 3 mL, Nostrils Both, V4Fmzgvwhb gluconate 1 Gram 10 mL, IV Piggyback, Dailycalcium gluconate 2 Gram 20 mL, IV Piggyback, Dailycalcium gluconate 2 Gram 20 mL, IV Piggyback, O74OyjiblPQS 100 mcg/2 mL inj 25 mcg 0.5 mL, IV Push, Y66EzqdfmiuFCL 100 mcg/2 mL inj 25 mcg 0.5 mL, IV Push, 1-TimehydrALAZINE 20 mg/1 mL inj 10 mg 0.5 mL, IV Push, H6EXKGVHttnnjalg 1 mg/1 mL inj 0.5 mg 0.5 mL, IV Push, P4USYOEWuwrdovfz 1 mg/1 mL inj 0.25 mg 0.25 mL, IV Push, R76Mtjlskfuqchq sulfate 2 Gram 50 mL, IV Piggyback, Dailymagnesium sulfate 2 Gram 50 mL, IV Piggyback, C4Ognjewoze 2 mg/1 ml cpjt inj 2 mg 1 mL, IV Push, F1Qmwjivjuyyadnu 0.4 mg tab # 25 btl 0.4 mg 1 Tab, SubLINgual, J2Iewebktjrnawbi 4 mg/2 mL inj 4 mg 2 mL, IV Push, R9Cmljdcqprvbn 4 mg/2 mL inj 4 mg 2 mL, IV Push, 1-TimeoxyCODONE 5 mg tab 5 mg 1 Tab, Oral, G9IjsgKVQGLZ 5 mg tab 5 mg 1 Tab, Oral, 1-Timepotassium chloride 10 mEq 50 mL, IV Piggyback, Y5Gtnrzvqkrf chloride CR 20 mEq tab 20 mEq 1 Tab, Oral, K9Horreqctwr chloride CR 20 mEq tab 60 mEq 3 Tab, Oral, L9Mdfmkhh phosphate 15 mMole 5 mL, IV Piggyback, Dailysodium phosphate 15 mMole 5 mL, IV Piggyback, V6MNptbsai list:Active Problems (30)Allergic rhinitis Angina Arthritis Atrial [...] legs syndrome Sinusitis Sleep apnea ObjectiveVS/MeasurementsVital Signs/Vital Wbdbjrpp87/19/2016 7:00 EST Heart Rate Monitored 96 bpm [...] 20:40 EST Heart Rate, Apical 116 bpm IN 10/07/2016 20:00 EST Temperature Source Axillary Temperature [...] 1 83 mmHg Oxygen Therapy Mode Mechanical atosenhdwgd27/18/2016 7:00 EST Heart Rate Monitored 72 bpm [...] (Past 24 Hours) Radiology Results (Last 48 hours)[id number] -- 10/06/2016 03:13US Pseudoaneurysm Scan (10/06/2016 07:33) [...] mL inhalation solution: 3 mL, Nebulized Inhalation, [id number] 0.5 mg-2.5 mg/3 mL inhalation solution: 3 mL, Nostrils Both, Q6H, PRN: Shortness of BreathHYDROmorphone: 0.25 mg, IV Push, Q10Min, PRN: Pain (Severe 7-10)Lactated Ringers Injection 1,000 mL: 100 mL/Hr, IntraVENousNitrostat: 0.4 mg, SubLINgual, Q5Min, PRN: Chest PainPepcid: 20 mg, Oral, DailyPremix Diluent + 20 mg niCARdipine: Titrate, IntraVENousRythmol SR: 425 mg, Oral, [id number]: 650 mg, Oral, Q4H, PRN: Other (See [...] 300 mg, Oral, BIDheparin: 5,000 Units, SubCutaneous, [id number]: 10 mg, IV Push, Q6H, PRN: Hypertensioninsulin regular sliding scale: Scale C, SubCutaneous, Z2Ajhjixsmolx: 40 mg, Oral, Dailylovastatin: 40 mg, Oral, [...] Completeinfluenza virus vaccine, inactivated: 0.5 mL, IntraMuscular, N03KSmnBodkvwmrkl MedicationsDocumentedLasix 20 mg oral tablet: 1 Tab, [...] mg = 3 mL, PRN, Nebulized Inhalation, T8Psqbvbjcmeysxu 50 mg oral tablet 50 mg = [...] 0.4 mg = 1 Tab, PRN, SubLINgual, L5Fqepbwqwgikz chloride 20 mEq oral tablet, extended release 20 mEq = 1 Tab, Oral, DailyProAir HFA 90 mcg/inh inhalation aerosol 2 Puff, PRN, Inhalation, QIDpropafenone 425 mg oral capsule, extended release 425 mg = 1 Cap, Oral, U09PCdnxoncpt 10 mg oral tablet 10 mg = 1 Tab, Oral, At Bedtimetriamcinolone 0.1% topical cream 1 Application, Topical, BIDXarelto 20 mg oral tablet 20 mg = 1 Tab, Oral, Daily,Medications (42) ActiveScheduled: (14)albuterol-ipratropium inh 3 mL 3 mL, Nebulized Inhalation, N5Ymmsmfpgigxrbj 50 mg tab 50 mg 1 Tab, [...] mL inj 5,000 Units 1 mL, SubCutaneous, C4Ungktfwt regular 1 unit/0.01 mL inj 3mL Scale C, SubCutaneous, R6Nvzttbssfmd 20 mg tab 40 mg 2 Tab, Oral, Dailylovastatin 20 mg tab 40 mg 2 Tab, Oral, At Bedtimemetoprolol tartrate 100 mg tab 100 mg 1 Tab, Oral, TIDpotassium chloride CR 20 mEq tab 20 mEq 1 Tab, Oral, Dailypropafenone SR 425 mg cap 425 mg 1 Cap, Oral, S56ZMsrubifviz: (5)fentaNYL 1,000 mcg 100 mL, IntraVENouslactated ringers 1,000 mL 1,000 mL, IntraVENous, 100 mL/Hrphenylephrine 20 mg + NaCl 0.9% 250 mL 250 mL, IntraVENousPremix Diluent + 20 mg niCARdipine 200 mL, IntraVENouspropofol 1,000 mg + Premix Diluent 100 mL 100 mL, IntraVENousPRN: (23)acetaminophen 325 mg tab 650 mg 2 Tab, Oral, J3Pddvqowole-lvybdvqfcck inh 3 mL 3 mL, Nostrils Both, X5Mhnnnxow gluconate 1 Gram 10 mL, IV Piggyback, Dailycalcium gluconate 2 Gram 20 mL, IV Piggyback, Dailycalcium gluconate 2 Gram 20 mL, IV Piggyback, A44RtciwaBYS 100 mcg/2 mL inj 25 mcg 0.5 mL, IV Push, O79AhjhlkzxSCQ 100 mcg/2 mL inj 25 mcg 0.5 mL, IV Push, 1-TimehydrALAZINE 20 mg/1 mL inj 10 mg 0.5 mL, IV Push, M2LGWCPSlcajqvzi 1 mg/1 mL inj 0.5 mg 0.5 mL, IV Push, G0DFMCCOsziicyzk 1 mg/1 mL inj 0.25 mg 0.25 mL, IV Push, J45Zwckgtltbqpj sulfate 2 Gram 50 mL, IV Piggyback, Dailymagnesium sulfate 2 Gram 50 mL, IV Piggyback, B4Lmrgyrzfh 2 mg/1 ml cpjt inj 2 mg 1 mL, IV Push, F6Pqfhlzastgpdaq 0.4 mg tab # 25 btl 0.4 mg 1 Tab, SubLINgual, V5Tvphutihugqnca 4 mg/2 mL inj 4 mg 2 mL, IV Push, I1Avlqtuexecii 4 mg/2 mL inj 4 mg 2 mL, IV Push, 1-TimeoxyCODONE 5 mg tab 5 mg 1 Tab, Oral, T8ZoygPPRZRE 5 mg tab 5 mg 1 Tab, Oral, 1-Timepotassium chloride 10 mEq 50 mL, IV Piggyback, L8Cutenmicbd chloride CR 20 mEq tab 20 mEq 1 Tab, Oral, O3Uwkoztsrbm chloride CR 20 mEq tab 60 mEq 3 Tab, Oral, R1Qesdaes phosphate 15 mMole 5 mL, IV Piggyback, Dailysodium phosphate 15 mMole 5 mL, IV Piggyback, Y7TBvfsods list:Active Problems (30)Allergic rhinitis Angina Arthritis Atrial [...] legs syndrome Sinusitis Sleep apnea ObjectiveVS/MeasurementsVital Signs/Vital Njxqncvc00/18/2016 12:00 EST Temperature Source Axillary Temperature Mode [...] 1 83 mmHg Oxygen Therapy Mode Mechanical upzqmdbptep42/18/2016 7:00 EST Heart Rate Monitored 72 bpm [...] Markers (Current Encounter/Past 24 Hours)ProBNP 126 pg/mL IN 10/06/2016 05:42 Radiology Results (Last 48 hours)[id number] -- 10/06/2016 03:13US Pseudoaneurysm Scan (10/06/2016 07:33) [...] (Current Encounter/Past 24 Hours) ProBNP 126 pg/mL IN 10/06/2016 05:42 Radiology Results (Last 48 hours) [id number] -- 10/06/2016 03:13 US Pseudoaneurysm Scan (10/06/2016 [...] mL inhalation solution: 3 mL, Nebulized Inhalation, M6XRhsQis 0.5 mg-2.5 mg/3 mL inhalation solution: 3 mL, Nostrils Both, Q6H, PRN: Shortness of BreathHYDROmorphone: 0.25 mg, IV Push, Q10Min, PRN: Pain (Severe 7-10)Lactated Ringers Injection 1,000 mL: 100 mL/Hr, IntraVENousNitrostat: 0.4 mg, SubLINgual, Q5Min, PRN: Chest PainPepcid: 20 mg, Oral, DailyPremix Diluent + 20 mg niCARdipine: Titrate, IntraVENousRythmol SR: 425 mg, Oral, C91OBwurmfx: 650 mg, Oral, Q4H, PRN: Other (See [...] 300 mg, Oral, BIDheparin: 5,000 Units, SubCutaneous, X3XgjzsIUCXMHB: 10 mg, IV Push, Q6H, PRN: Hypertensioninsulin regular sliding scale: Scale C, SubCutaneous, H1Sqbwhucwhqv: 40 mg, Oral, Dailylovastatin: 40 mg, Oral, [...] Completeinfluenza virus vaccine, inactivated: 0.5 mL, IntraMuscular, I02XYtiTycnwzywty MedicationsDocumentedLasix 20 mg oral tablet: 1 Tab, [...] inh 3 mL 3 mL, Nebulized Inhalation, G4Pvozczuzdeqyoi 50 mg tab 50 mg 1 Tab, [...] mL inj 5,000 Units 1 mL, SubCutaneous, E5Azwgcwdy regular 1 unit/0.01 mL inj 3mL Scale C, SubCutaneous, U8Fhmhfeuvimy 20 mg tab 40 mg 2 Tab, Oral, Dailylovastatin 20 mg tab 40 mg 2 Tab, Oral, At Bedtimemetoprolol tartrate 100 mg tab 100 mg 1 Tab, Oral, TIDpotassium chloride CR 20 mEq tab 20 mEq 1 Tab, Oral, Dailypropafenone SR 425 mg cap 425 mg 1 Cap, Oral, Y35MExcenyonfc: (5)fentaNYL 1,000 mcg 100 mL, IntraVENouslactated ringers 1,000 mL 1,000 mL, IntraVENous, 100 mL/Hrphenylephrine 20 mg + NaCl 0.9% 250 mL 250 mL, IntraVENousPremix Diluent + 20 mg niCARdipine 200 mL, IntraVENouspropofol 1,000 mg + Premix Diluent 100 mL 100 mL, IntraVENousPRN: (23)acetaminophen 325 mg tab 650 mg 2 Tab, Oral, H5Nkfxpljnjt-lmzupdxurjj inh 3 mL 3 mL, Nostrils Both, N4Ptmvnwhc gluconate 1 Gram 10 mL, IV Piggyback, Dailycalcium gluconate 2 Gram 20 mL, IV Piggyback, Dailycalcium gluconate 2 Gram 20 mL, IV Piggyback, E65OtcuefXXT 100 mcg/2 mL inj 25 mcg 0.5 mL, IV Push, C70PwpnsjtpIOF 100 mcg/2 mL inj 25 mcg 0.5 mL, IV Push, 1-TimehydrALAZINE 20 mg/1 mL inj 10 mg 0.5 mL, IV Push, I2QHWRFUskfcomix 1 mg/1 mL inj 0.5 mg 0.5 mL, IV Push, R5DDVHBNqilzgkor 1 mg/1 mL inj 0.25 mg 0.25 mL, IV Push, L54Itqzecznhqjt sulfate 2 Gram 50 mL, IV Piggyback, Dailymagnesium sulfate 2 Gram 50 mL, IV Piggyback, Z1Hrydephfd 2 mg/1 ml cpjt inj 2 mg 1 mL, IV Push, T6Miavqwqxeuhpst 0.4 mg tab # 25 btl 0.4 mg 1 Tab, SubLINgual, S4Wbtlyfzxmbyjvv 4 mg/2 mL inj 4 mg 2 mL, IV Push, D2Jqtyzyaazksc 4 mg/2 mL inj 4 mg 2 mL, IV Push, 1-TimeoxyCODONE 5 mg tab 5 mg 1 Tab, Oral, N8TemaQKDAVG 5 mg tab 5 mg 1 Tab, Oral, 1-Timepotassium chloride 10 mEq 50 mL, IV Piggyback, K7Lzaqmafrty chloride CR 20 mEq tab 20 mEq 1 Tab, Oral, K7Qkfhoedfzz chloride CR 20 mEq tab 60 mEq 3 Tab, Oral, C8Onzltie phosphate 15 mMole 5 mL, IV Piggyback, Dailysodium phosphate 15 mMole 5 mL, IV Piggyback, A3NVgwbxjp list:Active Problems (30)Allergic rhinitis Angina Arthritis Atrial [...] syndrome Sinusitis Sleep apnea Physical ExaminationVS/MeasurementsVital Signs/Vital Pqngylry73/18/2016 9:01 EST Heart Rate, Apical 84 bpm [...] sounds.Musculoskeletal: No swelling, No deformity.Integumentary: Warm, Dry, [place].Neurologic: intubated, arousable, moves all four extremities.Psychiatric: As [...] No swelling, No deformity. Integumentary: Warm, Dry, [place]. Neurologic: intubated, arousable, moves all four extremities. [...] formed and he got a [facility] at [facility] showing a hematoma 6X2.[address] versus [...] mg, Oral, DailyRythmol SR: 425 mg, Oral, F55SYmfqsmx: 650 mg, Oral, Q4H, PRN: Other (See Comment)Zofran: 4 mg, IV Push, Q4H, PRN: NauseaamLODIPine: 10 mg, Oral, Dailyamitriptyline: 50 mg, Oral, At Bedtimefurosemide: 40 mg, Oral, Dailygabapentin: 300 mg, Oral, BIDhydrALAZINE: 10 mg, IV Push, Q6H, PRN: Hypertensioninfluenza virus vaccine, inactivated: 0.5 mL, IntraMuscular, V22WUuysvjzciwncu: 40 mg, Oral, Dailylovastatin: 40 mg, Oral, [...] 0.4 mg = 1 Tab, PRN, SubLINgual, B3Oqqnbfklnmiq chloride 20 mEq oral tablet, extended release 20 mEq = 1 Tab, Oral, DailyProAir HFA 1-2 Puff, PRN, Inhalation, K5Luzslkbruyar 425 mg oral capsule, extended release 425 mg = 1 Cap, Oral, H08JWongbotsf 10 mg oral tablet 10 mg = [...] Oral, BIDinfluenza vaccine, quadrivalent 0.5 mL, IntraMuscular, N18QKezolmfbnjuog 20 mg tab 40 mg 2 Tab, Oral, Dailylovastatin 20 mg tab 40 mg 2 Tab, Oral, At Bedtimemetoprolol tartrate 100 mg tab 100 mg 1 Tab, Oral, TIDpotassium chloride CR 20 mEq tab 20 mEq 1 Tab, Oral, Dailypropafenone SR 425 mg cap 425 mg 1 Cap, Oral, H03ZOqhfupadrm: (0)PRN: (8)acetaminophen 325 mg tab 650 mg 2 Tab, Oral, C3Wwizwcuipc-rmwxrklccsl inh 3 mL 3 mL, Nostrils Both, J3NaqplFWJUUFU 20 mg/1 mL inj 10 mg 0.5 mL, IV Push, M1BMBDCXhxuaxbpb 1 mg/1 mL inj 0.5 mg 0.5 mL, IV Push, J1Ajcjjcabi 2 mg/1 ml cpjt inj 2 mg 1 mL, IV Push, T9Wivxprmtpeeuih 0.4 mg tab # 25 btl 0.4 mg 1 Tab, SubLINgual, E4Xqoqxqyaimdzqc 4 mg/2 mL inj 4 mg 2 mL, IV Push, P0JdrkILMSXZ 5 mg tab 5 mg 1 Tab, Oral, F5UPhsnwtp list:Active Problems (30)Allergic rhinitis Angina Arthritis Atrial [...] BID influenza vaccine, quadrivalent 0.5 mL, IntraMuscular, F72VHzs lisinopril 20 mg tab 40 mg 2 [...] legs syndrome Sinusitis Sleep apnea ObjectiveVS/MeasurementsVital Signs/Vital Oavvyypm13/17/2016 5:30 EST FiO2 Nursing 25 %10/06/2016 5:27 [...] (Current Encounter/Past 24 Hours) ProBNP 126 pg/mL IN 10/06/2016 05:42 No Radiology Results Found Impression [...] PLAN;As above. Hospital Discharge Instructions Patient EducationHematoma, Tukp-jm-Vrzy Ischemic Stroke Treated Without Warfarin, Decc-kz-Kran Pneumonia, Adult Pseudoaneurysm Rehabilitation After a Stroke, Adult Stroke Prevention, Pnxo-dz-Tuxg
--- OUTSIDE RECORDS SUMMARY | 2017-09-09 15:01 | External Medical Summary Rpt ---
Author Author JACINTO Geiger [facility] Organization [facility] Address Unknown Phone Unavailable Care Team Providers Care Trombone Slide Assembler Name Role Phone FITO CARDONA PCP [phone] Encounter JACINTO REED [id number] Date(s): 10/24/16 - 11/09/16 [facility] [address] [place] [address]- Discharge Disposition: OP Self Care or Home Attending Physician: MELISSA GARIBAY MD-INT Admitting Physician: MELISSA GARIBAY MD-INT Referring Physician: SAVI GARCIA MD-CAR Reason for Visit YONG ref by Dr. Garcia Vital Signs No data available for this section Problem List Condition Effective Status Health Informant [...] as child Active tetracyclines unsure Active Medications No data available for this section Results No data available for this section Immunizations No data available for this section [...] Hand Smoke Exposure Yes Assessment and Plan No data available for this section Hospital Discharge Instructions No data available for this section
--- OUTSIDE RECORDS SUMMARY | 2017-09-09 15:01 | External Medical Summary Rpt ---
Author Author JACINTO Geiger [facility] Organization [facility] Address Unknown Phone Unavailable Care Team Providers Care Electrolytic De Scaler Name Role Phone FITO CARDONA PCP [phone] Encounter JACINTO REED [id number] Date(s): 10/24/16 - 11/09/16 [facility] [address] [place] [address]- [phone] Discharge Disposition: OP Self Care or Home Attending Physician: MELISSA GAIRBAY MD-INT Admitting Physician: MELISSA GRAIBAY MD-INT Referring Physician: SAVI GARCIA MD-CAR Reason [...]
--- OUTSIDE RECORDS SUMMARY | 2017-09-09 15:02 | External Medical Summary Rpt | CCD ---
Demographics Preferred Language Belarusian Marital Status Unknown Evangelical Affiliation Unknown Race Unknown Ethnic Group Unknown Author Author , MANISHA DYER Address Unknown Phone Immunization No patient found.
--- OUTSIDE RECORDS SUMMARY | 2017-09-09 15:02 | External Medical Summary Rpt | CCD ---
Author Author [facility] Organization [employer] Address Unknown Phone Unavailable Purpose Continuity of Care Document - through 2016
--- OUTSIDE RECORDS SUMMARY | 2017-09-09 15:02 | External Medical Summary Rpt ---
Author Author MANISHA Aldrich, [employer] [employer] Organization [employer] Address Unknown Phone Unavailable Results CBC W Auto Differential panel in Blood Observa Value Referen Units Interpr Notes Date tion ce etation Range Basophils 0 - 0.2 K/MM3 Normal No May 15 informati 2016 9:14 [#/volume on in AM ] in source Blood by data Automated count Basophils 0.1 - 2.0 % Normal No May 15 informati 2016 9:14 leukocyte on in AM s in source Blood by data Automated count Eosinophi 0.0 - 0.4 K/mm3 High No May 15 ls informati 2016 9:14 [#/volume on in AM ] in source Blood by data Automated count Eosinophi 0.1 - % Normal No May 15 ls/100 12.0 informati 2016 9:14 leukocyte on in AM s in source Blood by data Automated count Granulocy 1.3 - 8.0 K/mm3 Normal No May 15 kylie informati 2016 9:14 [#/volume on in AM ] in source Blood by data Automated count Granulocy 37.0 - % Normal No May 15 kylie/100 80.0 informati 2016 9:14 leukocyte on in AM s in source Blood by data Automated count Hematocri 42.0 - % Normal No May 15 t [Volume 52.0 informati 2016 9:14 on in AM Fraction] source of Blood data Hemoglobi 14.1 - g/dL No No May 15 n 18.0 informati informati 2016 9:14 [Mass/vol on in on in AM ume] in source source Blood data data Lymphocyt 0.7 - 4.5 K/mm3 Normal No May 15 es informati 2016 9:14 [#/volume on in AM ] in source Unspecifi data ed specimen by Automated count Lymphocyt 10 - 50 % Normal No May 15 es informati 2016 9:14 [#/volume on in AM ] in source Unspecifi data ed specimen by Automated count Erythrocy 27 - 31.2 pg Normal No May 15 te mean informati 2016 9:14 corpuscul on in AM ar source hemoglobi data n [Entitic mass] Erythrocy 31.8 - g/dl Normal No May 15 te mean 35.4 informati 2016 9:14 corpuscul on in AM ar source hemoglobi data n concentra tion [Mass/vol ume] by Automated count Erythrocy 82.2 - fl Normal No May 15 te mean 97.8 informati 2016 9:14 corpuscul on in AM ar volume source [Entitic data volume] by Automated count Monocytes 0.1 - 1.0 K/mm3 Normal No May 15 informati 2016 9:14 [#/volume on in AM ] in source Blood by data Automated count Monocytes 1.7 - 9.3 % Normal No May 15 /100 informati 2017 9:14 leukocyte on in AM s in source Blood by data Automated count Platelet 7.4 - fl Normal No May 15 mean 10.4 informati 2016 9:14 volume on in AM [Entitic source volume] data in Blood by Automated count Platelets 142 - 424 K/mm3 Normal No May 15 informati 2016 9:14 [#/volume on in AM ] in source Blood data Erythrocy 4.6 - 6.2 M/mm3 Normal No May 15 kylie informati 2016 9:14 [#/volume on in AM ] in source Amniotic data fluid Erythrocy 11.5 - % Normal No May 15 te 17.5 informati 2016 9:14 distribut on in AM ion width source [Entitic data volume] by Automated count Leukocyte 4.8 - K/MM3 Normal No May 15 s 10.8 informati 2016 9:14 [#/volume on in AM ] in source Blood data Natriutietic peptide B [Mass/volume] in Serum or Plasma Observa Value Referen Units Interpr Notes Date tion ce etation Range Natriutie 0 - 100 pg/mL Normal No May 15 tic informati 2016 9:14 peptide B on in AM source [Mass/vol data ume] in Serum or Plasma Comprehensive metabolic 2000 panel in Serum or Plasma Observa Value Referen Units Interpr Notes Date tion ce etation Range Albumin/G 1.1 - 1.8 No Low No May 15 lobulin informati informati 2016 9:14 [Mass on in on in AM ratio] in source source Serum or data data Plasma Albumin 3.4 - 5.0 gm/dL Normal No May 15 [Mass/vol informati 2017 9:14 ume] in on in AM Serum or source Plasma data Alkaline 46 - 116 U/L Normal No May 15 phosphata informati 2016 9:14 se on in AM [Enzymati source c data activity/ volume] in Serum or Plasma Bilirubin 0.2 - 1.0 mg/dL Normal No May 15 .total informati 2016 9:14 [Mass/vol on in AM ume] in source Serum or data Plasma Urea 7 - 18 mg/dL Normal No May 15 nitrogen informati 2016 9:14 [Mass/vol on in AM ume] in source Serum or data Plasma Calcium 8.5 - mg/dL Normal No May 15 [Mass/vol 10.1 informati 2016 9:14 ume] in on in AM Serum or source Plasma data Chloride 98 - 107 mmoL/L Normal No May 15 [Moles/vo informati 2016 9:14 lume] in on in AM Serum or source Plasma data Carbon 21.0 - mmoL/L Normal No May 15 dioxide, 32.0 informati 2017 9:14 total on in AM [Moles/vo source lume] in data Serum or Plasma Creatinin 0.70 - mg/dL Normal No May 15 e 1.30 informati 2016 9:14 [Mass/vol on in AM ume] in source Serum or data Plasma Estimated >60 ML/MIN No REFERENCE May 15 informati RANGE: 2017 9:14 glomerula on in >60 AM r source ML/MIN/1. filtratio data 73 SQUARE n rate METERSIf (GF this patient is -A merican, then multiply theresult by 1.210. Globulin 1.3 - 3.2 gm/dL High No May 15 [Mass/vol informati 2017 9:14 ume] in on in AM Serum source data Glucose 74 - 106 mg/dL High No May 15 [Mass/vol informati 2016 9:14 ume] in on in AM Serum or source Plasma data Potassium 3.5 - 5.1 mmoL/L Normal No May 15 informati 2016 9:14 [Moles/vo on in AM lume] in source Serum or data Plasma Sodium 136 - 145 mmoL/L Normal No May 15 [Moles/vo informati 2016 9:14 lume] in on in AM Serum or source Plasma data Aspartate 15 - 37 U/L Normal No May 15 informati 2016 9:14 aminotran on in AM sferase source [Enzymati data c activity/ volume] in Serum or Plasma Alanine 12 - 78 U/L Normal No May 15 aminotran informati 2016 9:14 sferase on in AM [Enzymati source c data activity/ volume] in Serum or Plasma Protein 6.4 - 8.2 gm/dL High No May 15 [Mass/vol informati 2016 9:14 ume] in on in AM Serum or source Plasma data Lipid 1996 panel in Serum or Plasma Observa Value Referen Units Interpr Notes Date tion ce etation Range Cholester < 200 mg/dL No No May 15 ol informati informati 2016 9:14 [Moles/vo on in on in AM lume] in source source Unspecifi data data ed specimen Cholester 40 - 60 MG/DL Low No May 15 ol in HDL informati 2016 9:14 on in AM [Mass/vol source ume] in data Serum or Plasma Cholester 0 - 130 mg/dL Normal No May 15 ol in LDL informati 2016 9:14 on in AM [Mass/vol source ume] in data Serum or Plasma by marlene on Triglycer 30 - 200 mg/dL Normal No May 15 maximo informati 2016 9:14 [Moles/vo on in AM lume] in source Serum or data Plasma Cholester 0 - 40 No Normal No May 15 ol in informati informati 2016 9:14 VLDL on in on in AM [Mass/vol source source ume] in data data Serum or Plasma
--- OUTSIDE RECORDS SUMMARY | 2017-09-09 15:02 | External Medical Summary Rpt | CCD ---
Demographics Preferred Language Armenian Marital Status Unknown Baptist Affiliation Unknown Race Unknown Ethnic Group Unknown Author Author , MANISHA DYER Address Unknown Phone Immunization No patient found.
--- OUTSIDE RECORDS SUMMARY | 2017-09-09 15:02 | External Medical Summary Rpt | CCD ---
Author Author , MANISHA Organization [facility] Address Unknown Phone [email or web address] Care Team Providers Care Ship Liner Name Role Phone PANFILO FRANKLIN DO, Unavailable Unavailable PANFILO FRANKLIN DO Purpose Continuity of Care Document - 10-27-2013 through 2016 Problems Code Diagnosis DOS Provider Status 250.00 250.00 DIAB 10-27-2013 [facility], TYPE Hospital II OR UNSPEC TYPE, NOT UNCNTRLD 305.1 305.1 10-27-2013 [place] TOBACCO USE [facility] DISORDER Hospital 382.9 382.9 10-27-2013 [place] OTITIS [facility] MEDIA NOS Hospital 401.9 401.9 10-27-2013 [place] HYPERTENSIO [facility] N NOS Hospital 413.9 413.9 10-27-2013 [place] ANGINA [facility] PECTORIS Hospital NEC/NOS 491.22 491.22 10-27-2013 [place] OBSTRUCTIVE [facility] CHRONIC [facility] BRONCHITIS WITH ACUTE BRONCHITIS Allergies, Adverse Reactions, Alerts Type Drug Allergy Adverse Reaction to Substance Substance Reaction Severity PCN (penicillin) Unknown Unknown Penicillin Unknown Unknown Oxytetracycline Unknown Unknown Penicillin G Unknown Unknown Trimethoprim I-RASH Mild Ofloxacin Unknown Unknown Sulfamethoxazole I-RASH Mild Niacin Unknown Unknown Levofloxacin I-RASH Mild Medications Na ND Rx Da Fi Fi Am Da Di Ph RX Ph [facility] me C No te ll ll ou ys ag ar # ys at rm s nt no ma ic us Or Da si cy ia de te s n re d Le 00 01 0 No va 59 -0 lb 12 7- Lo ut 92 20 ng er 02 14 er ol 3 Ac 1. ti 25 ve MG /3 ML Ne b SP 00 01 0 No IR 59 -0 IV 70 7- Lo A 07 20 ng 18 57 14 er 5 MC Ac G ti CP ve -H AN DI [place] LE R [place] 00 01 0 No ED 05 -0 NI 40 7- Lo SO 01 20 ng NE 82 14 er 0 20 Ac ti MG ve TA BL ET Vital Signs 10-27-2013 14:21 Name Value Interpretat Reference Comment ion Range BP 81 mm[Hg] Diastolic BP Systolic 145 mm[Hg] Heart 74 /min Rate/Pulse O2% 95 % Respiratory 20 /min Rate 10-27-2013 13:55 Name Value Interpretat Reference Comment ion Range BP 100 mm[Hg] Diastolic BP Systolic 184 mm[Hg] Heart 79 /min Rate/Pulse O2% 96 % Respiratory 24 /min Rate Encounters Encounter Start End Date Code Location Performer Type Date Emergency DANNY Marko FRANKLIN (ER) 4 13:06 4 14:23 [facility]
--- OUTSIDE RECORDS SUMMARY | 2017-09-09 15:02 | External Medical Summary Rpt | CCD ---
Author Author , MANISHA Organization MANISHA Address Unknown Phone [email or web address] Care Team Providers Care Emergency Service Restorer Name Role Phone PANFILO FRANKLIN DO, Unavailable Unavailable PANFILO FRANKLIN DO Purpose Continuity of Care Document - 10-27-2013 through 2016 Problems Code Diagnosis DOS Provider Status 250.00 250.00 DIAB 10-27-2013 [facility], TYPE Hospital II OR UNSPEC TYPE, NOT UNCNTRLD 305.1 305.1 10-27-2013 [place] TOBACCO USE [facility] DISORDER Hospital 382.9 382.9 10-27-2013 [place] OTITIS [facility] MEDIA NOS Hospital 401.9 401.9 10-27-2013 [place] HYPERTENSIO [facility] N NOS Hospital 413.9 413.9 10-27-2013 [place] ANGINA [facility] PECTORIS Hospital NEC/NOS 491.22 491.22 10-27-2013 [place] OBSTRUCTIVE [facility] CHRONIC [facility] BRONCHITIS WITH ACUTE BRONCHITIS Allergies, Adverse Reactions, [...] ve -H AN DI [place] LE R [place] 00 01 0 No ED 05 -0 [...] Marko FRANKLIN (ER) 4 13:06 4 14:23 [facility]
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
[2017-09-09] MEDS ORDERED: ZANAFLEX4 M3 PO (15:43)
[2017-09-09 15:48] VITALS: BP 170/83
== END 2017-09-09 15:48 | disposition home or self-care (01) ==
LOC: UTC 14:53
DX: M54.5 Low back pain (principal); Z88.2 Allergy status to sulfonamides; Z88.0 Allergy status to penicillin; E78.5 Hyperlipidemia, unspecified; J44.9 Chronic obstructive pulmonary disease, unspecified; F17.210 Nicotine dependence, cigarettes, uncomplicated; I20.8 Other forms of angina pectoris; Z79.01 Long term (current) use of anticoagulants